=== PATIENT | male | born 1950 | race Caucasian/White ===

== ENCOUNTER → 2016-10-29 | Outpatient (CLI) | payer OTHER ==
[~2016-10-29] MED LIST: CLOP1TAB15 PO; ENAL10TA88 PO; FOLI1TAB7 PO; METH15TA2 PO; METO25TA3 PO
--- NOTE | 2016-10-29 09:55 | DIAGNOSTIC IMAGING REPORT ---
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 DISCUSSION: Moderate generalized degenerative change of the interphalangeal joints. Moderate degenerative change metacarpophalangeal joint. Mild generalized soft tissue edematous change. IMPRESSION: Moderate generalized degenerative change left hand. Mild nonspecific soft tissue edematous change. Electronically signed by: Trevor Blevins M.D. 10/29/2016 9:54 AM Dictated Date/Time: 10/29/2016 9:51 AM
--- NOTE | 2016-10-29 09:56 | DIAGNOSTIC IMAGING REPORT ---
RIGHT HAND MIN 3 VIEWS ROUTINE CLINICAL HISTORY: R76.8 Positive anti-CCP testM13.0 Polyarthritis of [id number] Right pain COMPARISON: None. DISCUSSION: Minimal degenerative change interphalangeal joints. Mild soft tissue edema. No significant periarticular osteopenia or erosive change. IMPRESSION: Minimal degenerative change interphalangeal joints. Mild nonspecific soft tissue edema. Incidental note is made of an old avulsion of the ulnar styloid. Electronically signed by: Trevor Blevins M.D. 10/29/2016 9:55 AM Dictated Date/Time: 10/29/2016 9:54 AM
--- NOTE | 2016-10-29 10:07 | DIAGNOSTIC IMAGING REPORT ---
RIGHT WRIST MIN 3 VIEWS ROUTINE CLINICAL HISTORY: Positive anti-CCP test. Polyarthritis of hand/ COMPARISON: Right hand radiographs November 22, 2014. FINDINGS: A well-corticated ossicle along the ulnar styloid suggests old injury. No acute fracture is identified. No erosions are identified. There is moderate narrowing of the radiocarpal joint space. Osteophytosis is noted. IMPRESSION: 1. Moderate joint space narrowing with osteophytosis of the radiocarpal articulation. 2. No acute fracture. 3. No radiographic evidence of an erosive or inflammatory arthritis. Electronically signed by: Howie Chan M.D. 10/29/2016 10:06 AM Dictated Date/Time: 10/29/2016 10:03 AM
== END | disposition home or self-care (01) ==
LOC: C.RAD1850 09:25
PROVIDERS: ATTEND Internal Medicine Rheumatology
DX: M13.0 Polyarthritis, unspecified (principal); R76.8 Other specified abnormal immunological findings in serum

== ENCOUNTER → 2016-12-25 | Outpatient (CLI) | payer OTHER ==
[~2016-12-25] MED LIST changes: +ACET-1256 PO; +ASPEC81 PO; +CALC-571 PO; +METO-452 PO; +NTRSLP4 SL; +[UNRECOGNIZED DRUG - CODE] PO
[2016-12-25 12:04] LABS: BASO % 0.4 %; BASO ABS # 0.03 K/uL (0-0.2); COMPLETE YES; HEMATOCRIT 41.2 % (42-52); IG% 0.1 %; LYMPH % 29.9 %; MEAN CELL VOLUME 86.2 fL (80-100); MEAN CORPUSCULAR HEMOGLOBIN 30.5 pg (25-34); MEAN CORPUSCULAR HGB CONC 35.4 g/dl (32-36); MEAN PLATELET VOLUME 8.4 fL (7.4-10.4); MONO % 12.2 %; NEUT % 54.4 %; PLATELET COUNT 309 K/uL (130-400); RED BLOOD COUNT 4.78 M/uL (4.7-6.1); WHITE BLOOD COUNT 7.68 K/uL (4.8-10.8)
[2016-12-25 12:19] LABS: ALT/SGPT 25 U/L (12-78)
[2016-12-25 12:22] LABS: ALKALINE PHOSPHATASE 53 U/L (45-117); AST/SGOT 17 U/L (15-37)
== END | disposition home or self-care (01) ==
LOC: C.LAB1850 11:00
PROVIDERS: ATTEND Internal Medicine Rheumatology
DX: R76.8 Other specified abnormal immunological findings in serum (principal); M25.531 Pain in right wrist; M25.532 Pain in left wrist

== ENCOUNTER → 2016-12-25 | Outpatient (CLI) | payer OTHER ==
[2016-12-25 13:38] VITALS: BP 135/82; PULSE 65; TEMP 37.2; O2SAT 94
--- NOTE | 2016-12-25 17:17 | Radiation Oncology Follow-Up ---
Radiation Oncology Follow-Up Date of Visit Dec 25, 2016. Reason For Visit Annual follow-up Radiation Completion Date Seed Implant 06/09/13 Diagnosis (1) MALIGN NEOPL PROSTATE Status: Resolved Onset Date: 05/22/2013 Location: left lobe of the prostate Stage: l Permanent Comment: Rising PSA Status post ultrasound-guided biopsies revealing adenocarcinoma [place] 3+3 Initiation of Avodart prostate volume 116 mL Status post TUR and green light vaporization Continued Avodart for downsizing Status post seed implant with cesium 131 on 06/09/2013 received 115 Gy Last Edited By: Danisha Alegria on Jan 12, 2016 15:26 Interim History He is been doing well over this past year. His urinary status is stable. He completed an AUA score sheet and gave a score of 3. Last year his score was 3. He completed expanded prostate cancer index composite for clinical practice and gave a score of one of 12 urinary incontinence symptoms. He gave a score of 0 12 in urinary irritation symptoms. He gave a score of 0 of 12 in bowel symptoms. He gave a score of 6 of 12 in sexual symptoms. He gave a score of 0 of 12 and hormonal vitality symptoms. His total was 7 of 60. His last PSA was 01/12/2016 and was 0.495. The PSA prior was 01/10/2015 and this was 2.260. Allergies Coded Allergies: Pantoprazole (Verified Allergy, Intermediate, Swelling / Aches & Pains over whole body , 12/25/16) Aspirin (Verified Allergy, Mild, 04/15/16) Ciprofloxacin (Verified Allergy, Unknown, swelling, 04/15/16) Levofloxacin (Verified Allergy, Unknown, ankle swelling, 04/15/16) Sulfamethoxazole w/Trimethoprim (Verified Allergy, Unknown, ., 04/15/16) Home Medications Scheduled Clopidogrel (Plavix), 75 MG PO DAILY Folic Acid (Folvite), 1 TAB PO DAILY Methotrexate (Trexall), 25 MG PO Q2D Metoprolol Succinate (Toprol Xl), 1 TAB PO DAILY Review of Systems Gastrointestinal: Symptoms: WNL Oral: Symptoms: No Problems Respiratory: Symptoms: WNL Urinary: Symptoms: Nocturia, Frequency Comments: Nocturia x 1, Freq every 2 hrs daily, See AUA & EPIC Skin: Symptoms: No Problems Physical Exam Vital Signs Date Time Temp Pulse Resp B/P Pulse Ox O2 Delivery O2 Flow Rate FiO2 12/25/16 13:38 37.2 65 18 135/82 94 Fatigue: None General Appearance: no apparent distress Eyes: normal inspection, EOMI ENT: normal ENT inspection, hearing grossly normal Respiratory/Chest: lungs clear, no respiratory distress, no accessory muscle use Cardiovascular: regular rate, rhythm, no gallop, no murmur Abdomen: non tender, soft, no organomegaly Anal / Rectum: Rectal examination reveals normal sphincter tone. Prostate is enlarged and firm. No nodules. No rectal masses and no rectal bleeding. Extremities: no pedal edema Neurologic/Psychiatric: no motor/sensory deficits, alert, normal mood/affect Skin: warm/dry Laboratory Studies Test 12/25/16 11:03 12/25/16 13:47 White Blood Count 7.68 K/uL (4.8-10.8) Red Blood Count 4.78 M/uL (4.7-6.1) Hemoglobin 14.6 g/dL (14.0-18.0) Hematocrit 41.2 % (42-52) Mean Corpuscular Volume 86.2 fL (80-100) Mean Corpuscular Hemoglobin 30.5 pg (25-34) Mean Corpuscular Hemoglobin Concent 35.4 g/dl (32-36) Platelet Count 309 K/uL (130-400) Mean Platelet Volume 8.4 fL (7.4-10.4) Neutrophils (%) (Auto) 54.4 % Lymphocytes (%) (Auto) 29.9 % Monocytes (%) (Auto) 12.2 % Eosinophils (%) (Auto) 3.0 % Basophils (%) (Auto) 0.4 % Neutrophils # (Auto) 4.17 K/uL (1.4-6.5) Lymphocytes # (Auto) 2.30 K/uL (1.2-3.4) Monocytes # (Auto) 0.94 K/uL (0.11-0.59) Eosinophils # (Auto) 0.23 K/uL (0-0.5) Basophils # (Auto) 0.03 K/uL (0-0.2) RDW Standard Deviation 44.1 fL (36.4-46.3) RDW Coefficient of Variation 14.2 % (11.5-14.5) Immature Granulocyte % (Auto) 0.1 % Immature Granulocyte # (Auto) 0.01 K/uL (0.00-0.02) Creatinine 1.30 mg/dl (0.60-1.40) Estimated GFR () 66.8 Estimated GFR (Non- 57.7 Total Bilirubin 0.6 mg/dl (0.2-1) Direct Bilirubin < 0.1 mg/dl (0-0.2) Aspartate Amino Transferase (AST) 17 U/L (15-37) Alanine Aminotransferase (ALT) 25 U/L (12-78) Alkaline Phosphatase 53 U/L (45-117) Total Protein 7.7 gm/dl (6.4-8.2) Albumin 3.7 gm/dl (3.4-5.0) Prostate Specific Antigen 0.301 ng/ml (0.000-4.000) Assessment & Plan Plan: The PSA was drawn prior to examination. He'll be notified as to results. Continue regular follow-up with his primary care physician and Dr. Alejandre. We asked him to return to our office in 1 year. He may call if he has any question or concerns in the interim. Total Time In Follow-Up I spent 20 minutes speaking to the patient and performed an examination. I spent 15 minutes reviewing information and completing this note. Copy To RV. Alonzo MD; Soham Alejandre MD
== END | disposition home or self-care (01) ==
LOC: C.ONC 13:02
PROVIDERS: ATTEND Physician Assistant Medical
DX: Z08 Encounter for follow-up examination after completed treatment for malignant neoplasm (principal); Z92.3 Personal history of irradiation; Z85.46 Personal history of malignant neoplasm of prostate

== ENCOUNTER → 2017-04-08 | Outpatient (CLI) | payer OTHER ==
[~2017-04-08] MED LIST changes: -ACET-1256 PO; -ASPEC81 PO; -CALC-571 PO; -ENAL10TA88 PO; -METO-452 PO; -NTRSLP4 SL; -[UNRECOGNIZED DRUG - CODE] PO
[2017-04-08 12:14] LABS: BASO % 0.4 %; BASO ABS # 0.03 K/uL (0-0.2); COMPLETE YES; HEMATOCRIT 43.8 % (42-52); IG% 0.2 %; LYMPH % 30.1 %; LYMPH ABS # 2.53 K/uL (1.2-3.4); MEAN CELL VOLUME 89.8 fL (80-100); MEAN CORPUSCULAR HEMOGLOBIN 31.8 pg (25-34); MEAN CORPUSCULAR HGB CONC 35.4 g/dl (32-36); MONO % 8.2 %; NEUT % 53.1 %; PLATELET COUNT 300 K/uL (130-400); RED BLOOD COUNT 4.88 M/uL (4.7-6.1)
[2017-04-08 12:36] LABS: ALT/SGPT 27 U/L (12-78); BLOOD UREA NITROGEN 19 mg/dl (7-18); BUN/CREATININE RATIO 14.8 (10-20); CALCIUM 9.3 mg/dl (8.5-10.1); CARBON DIOXIDE 26 mmol/L (21-32); CHLORIDE 107 mmol/L (98-107); CHOLESTEROL 210 mg/dl (0-200); GLUCOSE 91 mg/dl (70-99); POTASSIUM 4.2 mmol/L (3.5-5.1); SODIUM 140 mmol/L (136-145)
[2017-04-08 12:41] LABS: ALKALINE PHOSPHATASE 50 U/L (45-117); AST/SGOT 16 U/L (15-37); CHOLESTEROL/HDL RATIO 6.2; HDL CHOLESTEROL 34 mg/dl; LDL CHOLESTEROL CALCULATED 114 mg/dl; PROSTATE SPECIFIC ANTIGEN 0.254 ng/ml (0.000-4.000); TRIGLYCERIDES 309 mg/dl (0-150); VERY LOW DENSITY LIPOPROT CALC 62 mg/dl
== END | disposition home or self-care (01) ==
LOC: C.LAB1850 10:24
PROVIDERS: ATTEND Internal Medicine Rheumatology
DX: R76.8 Other specified abnormal immunological findings in serum (principal); M13.0 Polyarthritis, unspecified; Z79.899 Other long term (current) drug therapy; R73.09 Other abnormal glucose; C61 Malignant neoplasm of prostate

== ENCOUNTER 2017-08-17 16:01 | Emergency (ER) | payer OTHER ==
[~2017-08-17] VITALS: Ht 165.1 cm; Wt 103.6 kg
[2017-08-17 16:04] VITALS: TEMP 36.9; Ht 165.1 cm; Wt 103.6 kg
[2017-08-17 16:19] VITALS: O2SAT 93
--- NOTE | 2017-08-17 16:19 | EMERGENCY ROOM VISIT NOTE ---
History First contact with patient: 16:09 Chief Complaint: CARDIAC ASSESSMENT Stated Complaint: PRESSURE IN CHEST, SOB History of Present Illness The patient is a 67 year old male who presents to the Emergency Room with complaints of increasing pressure in his chest over the last week. This atypical chest pain is not new to him, but the episodes are increasing in frequency and are occurring at rest. He describes it as pressure/dull tightness which comes and goes, and is associated with dyspnea on exertion. There is no radiation to left arm or jaw. The episodes go away on their own after 30 minutes. He has been seen by Dr. Lloyd for the same issue: has had SPECT scan in 2016 and stress echo in 2013, both showing no ischemic changes. He responded well to PPIs in the past, and was started on clopidogrel and metoprolol by Dr. Lloyd. Never smoked. Has never been told he has copd, asthma, hyperlipidemia, diabetes Took two tylenol at 3 pm today (Gets hives when he takes aspirin.) uses CPAP for sleep apnea. Review of Systems Constitutional: + fatigue, No fever, No chills, No sweats, No weight loss, No weakness, No problem reported ENT: No hearing loss, No unusual epistaxis, No nasal symptoms, No sore throat, No tinnitus, No dental problems, No trouble swallowing, No problem reported Respiratory: + shortness of breath, + dyspnea on exertion, No cough, No sputum, No wheezing, No dyspnea at rest, No hemoptysis, No problem reported Cardiovascular: + chest pain, No orthopnea, No PND, No edema, No claudication, No palpitations, No problem reported Abdomen: No pain, No nausea, No vomiting, No diarrhea, No constipation, No GI bleeding, No problem reported Musculoskeletal: + joint pain, No muscle pain, No swelling, No calf pain, No problem reported Genitourinary - Male: No hematuria, No dysuria, No urinary frequency, No urinary urgency, No urinary hesitancy, No urinary retention, No urinary incontinence, No penile discharge, No lesions, No impotence, No problem reported Integumentary: No rash, No itch, No new/changing skin lesions, No color change, No bleeding, No problem reported Past Medical/Surgical History Medical Problems: (1) HYPERTENSION NOS (2) MALIGN NEOPL PROSTATE (3) PNEUMONIA, ORGANISM NOS Family History Diabetes mellitus FH: cancer Social History Smoking Status: Never Smoker Alcohol Use: none Drug Use: none Marital Status: Occupation Status: employed Current/Historical Medications Scheduled Acetaminophen (Tylenol), 1,000 MG PO PRN UD Calcium Carbonate-Simethicone ([place] Heartburn+Ga 750-80 mg), 1 TAB PO PRN Clopidogrel (Plavix), 75 MG PO DAILY Metoprolol Succinate (Toprol Xl), 1 TAB PO DAILY Physical Exam Vital Signs Date Time Temp Pulse Resp B/P (MAP) Pulse Ox O2 Delivery O2 Flow Rate FiO2 08/17/17 19:54 70 18 140/93 94 Room Air 08/17/17 19:11 66 18 150/93 95 Room Air 08/17/17 17:14 65 12 134/83 94 Room Air 08/17/17 16:31 93 Room Air 08/17/17 16:22 69 08/17/17 16:19 93 Room Air 08/17/17 16:04 36.9 73 20 156/85 93 Room Air Physical Exam General Appearance: WD/WN, no apparent distress Head: normocephalic, atraumatic Eyes: normal inspection, EOMI ENT: hearing grossly normal Neck: supple, no adenopathy, no JVD, no carotid bruits Respiratory/Chest: chest non-tender, lungs clear, normal breath sounds, no respiratory distress, no accessory muscle use Cardiovascular: regular rate, rhythm, no edema, no gallop, no JVD, no murmur , normal peripheral pulses Abdomen / GI: normal bowel sounds, non tender, soft Back: normal inspection, no CVA tenderness Extremities: normal inspection, no calf tenderness, normal capillary refill , no pedal edema Neurologic/Psych: 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 tested, no motor/sensory deficits, alert , normal mood/affect, normal reflexes, oriented x 3 Medical Decision & Procedures Laboratory Results 08/17/17 16:27 Red Blood Count 5.11, Mean Corpuscular Volume 88.1, Mean Corpuscular Hemoglobin 30.5, Mean Corpuscular Hemoglobin Concent 34.7, Mean Platelet Volume 8.6, Neutrophils (%) (Auto) 55.2, Lymphocytes (%) (Auto) 29.3, Monocytes (%) (Auto) 13.2, Eosinophils (%) (Auto) 2.0, Basophils (%) (Auto) 0.2, Neutrophils # (Auto ) 4.60, Lymphocytes # (Auto) 2.44, Monocytes # (Auto) 1.10, Eosinophils # (Auto ) 0.17, Basophils # (Auto) 0.02 08/17/17 16:27 Test 08/17/17 16:27 08/17/17 18:15 White Blood Count 8.34 K/uL (4.8-10.8) Red Blood Count 5.11 M/uL (4.7-6.1) Hemoglobin 15.6 g/dL (14.0-18.0) Hematocrit 45.0 % (42-52) Mean Corpuscular Volume 88.1 fL (80-100) Mean Corpuscular Hemoglobin 30.5 pg (25-34) Mean Corpuscular Hemoglobin Concent 34.7 g/dl (32-36) Platelet Count 306 K/uL (130-400) Mean Platelet Volume 8.6 fL (7.4-10.4) Neutrophils (%) (Auto) 55.2 % Lymphocytes (%) (Auto) 29.3 % Monocytes (%) (Auto) 13.2 % Eosinophils (%) (Auto) 2.0 % Basophils (%) (Auto) 0.2 % Neutrophils # (Auto) 4.60 K/uL (1.4-6.5) Lymphocytes # (Auto) 2.44 K/uL (1.2-3.4) Monocytes # (Auto) 1.10 K/uL (0.11-0.59) Eosinophils # (Auto) 0.17 K/uL (0-0.5) Basophils # (Auto) 0.02 K/uL (0-0.2) RDW Standard Deviation 44.4 fL (36.4-46.3) RDW Coefficient of Variation 13.7 % (11.5-14.5) Immature Granulocyte % (Auto) 0.1 % Immature Granulocyte # (Auto) 0.01 K/uL (0.00-0.02) Prothrombin Time 11.4 SECONDS (9.0-12.0) Prothromb Time International Ratio 1.1 (0.9-1.1) Activated Partial Thromboplast Time 27.3 SECONDS (21.0-31.0) Partial Thromboplastin Ratio 1.1 Anion Gap 6.0 mmol/L (3-11) Est Creatinine Clear Calc Drug Dose 68.6 ml/min Estimated GFR () 73.9 Estimated GFR (Non- 63.7 BUN/Creatinine Ratio 13.0 (10-20) Calcium Level 8.8 mg/dl (8.5-10.1) Magnesium Level 2.3 mg/dl (1.8-2.4) Total Bilirubin 0.4 mg/dl (0.2-1) Direct Bilirubin < 0.1 mg/dl (0-0.2) Aspartate Amino Transf (AST/SGOT) 20 U/L (15-37) Alanine Aminotransferase (ALT/SGPT) 23 U/L (12-78) Alkaline Phosphatase 55 U/L (45-117) Total Creatine Kinase 240 U/L (39-308) Total Protein 7.8 gm/dl (6.4-8.2) Albumin 3.8 gm/dl (3.4-5.0) Lipase 238 U/L (73-393) Thyroid Stimulating Hormone (TSH) 2.140 uIu/ml (0.300-4.500) Creatine Kinase MB 1.6 ng/ml (0.5-3.6) Creatine Kinase MB Ratio (0-3.0) Troponin I < 0.015 ng/ml (0-0.045) ECG Indication: chest pain Rate (beats per minute): 63 Rhythm: normal sinus Findings: no acute ischemic change, other ( normal intervals; possible inferior infarct, age undetermined; abnormal EKG) Comparison ECG Date: 12/30/2012 Change: no significant change Change: Repeat ECG at 1820 showed no change from original ECG at 1612 ED Course 1620: full h&p obtained from patient, ordered EKG 1630: discussed case with , ordered CBC, CMP, trop, coags, ckmb, lipase, tsh 1635: Dr. Domingo assessed patient and obtained his own h&p 1700: Labs returned normal 1730: Dr. Domingo discussed case with Dr. Westbrook 1750: Discussed case with Dr Lloyd; per his recommendations, will repeat CKMB and trop and EKG at 1830 and he will see patient in office on Saturday if all is normal. Medical Decision Prior records/ancillary studies reviewed. Triage Nursing notes reviewed. Additional history obtained from patient. The patient's history was concerning for chest pain. Differential diagnosis: Etiologies such as cardiac ischemia, aortic dissection, pulmonary embolism, pneumonia, pneumothorax, musculoskeletal, infections, pericarditis, myocarditis , esophageal rupture, gastrointestinal, as well as others were entertained. Physical examination: As above. Diagnostic interpretation by me: The electrocardiogram was negative for pathologic change. The labs revealed trops x 2 <0.015, CKMB 2.1 trending down to 1.6 By the evaluation outlined above emergent etiologies such as aortic dissection, pulmonary embolism, pneumonia, pneumothorax, as well as others were deemed relatively unlikely. The patient and were informed about the findings as listed above. All questions were answered and they were pleased with the treatment. Return instructions were outlined and the patient was discharged in stable condition. Referral: The patient was referred back to Dr. Lloyd, cardiology, for follow-up in 2 to 3 days for a recheck of the current condition. Impression Primary Impression: Atypical chest pain Departure Information Dispostion Home / Self-Care Condition GOOD Referrals RV. Alonzo MD (PCP) Patient Instructions ED Chest Pain Atypical Unkn Cause, [facility] Additional Instructions CHEST PAIN INSTRUCTIONS: DO NOT drive, drink alcohol, operate machinery, or perform dangerous activities today. You were given medications in the ER that can affect your ability to safely function or operate a vehicle. Ibuprofen(Motrin, Advil) may be used for fever or pain. Use 600mg every six hours as needed. Take with food. Avoid using more than 2400mg in a 24 hour period. Do not use 2400mg per day for more than three consecutive days without physician direction. Prolonged inappropriate use can lead to stomach upset or ulcers. This is available over the counter and typically comes in 200mg tablets. (AND/OR) Acetaminophen(Tylenol) may be used for fever or pain. Use 1000mg every eight hours as needed. Avoid using more than 3000mg in a 24 hour period. This is available over the counter. Read all the package inserts or medication information paperwork provided. If you have any questions or concerns call your primary provider, pharmacist or the ER for assistance. Rest and drink plenty of fluids as tolerated. Continue current medications. Avoid strenuous activities and anything that worsens your pain. Resume normal activities once your symptoms resolve. Return to the ER immediately for worsening or persistent chest pain, abdominal pain, vomiting, fevers, chest pains, difficulty breathing, worsening of your condition , or as needed. Follow up with your primary physician in 2-3 days for a recheck of your current condition. Call the office of Dr. Ji Lloyd, cardiology, on Saturday to set up an appointment. He is expecting to see you in office on Saturday. Resident Tracking Resident Involvement: Resident Care Provided Care Provided: Adult ED
[2017-08-17] MEDS ORDERED: CALC-571 PO (16:37)
[2017-08-17] MEDS ORDERED: ACET-1256 PO (16:37)
[2017-08-17 16:40] LABS: BASO % 0.2 %; BASO ABS # 0.02 K/uL (0-0.2); COMPLETE YES; IG% 0.1 %; LYMPH % 29.3 %; LYMPH ABS # 2.44 K/uL (1.2-3.4); MEAN CELL VOLUME 88.1 fL (80-100); MEAN CORPUSCULAR HEMOGLOBIN 30.5 pg (25-34); MEAN CORPUSCULAR HGB CONC 34.7 g/dl (32-36); MEAN PLATELET VOLUME 8.6 fL (7.4-10.4); MONO % 13.2 %; NEUT % 55.2 %; PLATELET COUNT 306 K/uL (130-400); RED BLOOD COUNT 5.11 M/uL (4.7-6.1); WHITE BLOOD COUNT 8.34 K/uL (4.8-10.8)
[2017-08-17 16:51] LABS: INR 1.1 (0.9-1.1); PARTIAL THROMBOPLASTIN RATIO 1.1; PROTHROMBIN TIME (PATIENT) 11.4 SECONDS (9.0-12.0)
[2017-08-17 17:02] LABS: ALT/SGPT 23 U/L (12-78); AST/SGOT 20 U/L (15-37); BLOOD UREA NITROGEN 15 mg/dl (7-18); CALCIUM 8.8 mg/dl (8.5-10.1); CARBON DIOXIDE 26 mmol/L (21-32); CHLORIDE 104 mmol/L (98-107); CREATININE 1.19 mg/dl (0.60-1.40); GLUCOSE 92 mg/dl (70-99); MAGNESIUM 2.3 mg/dl (1.8-2.4); POTASSIUM 3.9 mmol/L (3.5-5.1); SODIUM 136 mmol/L (136-145)
[2017-08-17 17:11] LABS: ALKALINE PHOSPHATASE 55 U/L (45-117); CKMB/CK RATIO 0.9 (0-3.0)
--- NOTE | 2017-08-17 17:16 | DIAGNOSTIC IMAGING REPORT ---
CHEST ONE VIEW PORTABLE CLINICAL HISTORY: Weakness. COMPARISON STUDY: Chest CT May 17, 2016. FINDINGS: Lung volumes are normal. No pneumothorax or pleural effusion is present. Linear bibasilar opacities favor atelectasis. Mild cardiomegaly is unchanged and there is no evidence of pulmonary edema. IMPRESSION: 1. No acute cardiopulmonary findings. 2. Linear bibasilar opacities suggestive of atelectasis. 3. Cardiomegaly without evidence of pulmonary edema. Electronically signed by: Howie Chan M.D. 08/17/2017 5:15 PM Dictated Date/Time: 08/17/2017 5:14 PM
[2017-08-17 19:54] VITALS: BP 140/93; PULSE 70; O2SAT 94
--- NOTE | 2017-08-17 21:28 | EMERGENCY ROOM VISIT NOTE ---
History Report prepared by Ally: Caron Coulter Under the Supervision of: Dr. Darrius Domingo M.D. First contact with patient: 16:09 Chief Complaint: CARDIAC ASSESSMENT Stated Complaint: PRESSURE IN CHEST, SOB History of Present Illness The patient is a 67 year old male who presents to the Emergency Room for a cardiac assessment. The patient states that he has had more pressure in his chest than usual over the past week. He states that he has intermittent episodes of it that are worsening and becoming more frequent. He describes the pain as a tightness that is dull and his left-sided. The patient reports that the pain comes no matter what he is doing. He notes that the episodes last 30 minutes and go away on its own. The patient states that he did take 2 Tylenol an hour ago with no relief. He complains of shortness of breath with exertion and denies it when resting. He denies the pain radiating to his left arm and jaw. 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 He states that he is on a beta janet and Plavix, but is unsure why. He is currently pain-free and feels well. Pt denies LOC, headache, fevers, chills, diaphoresis, visual changes, neck pain , nausea, vomiting, abdominal pain, back pain, melena, hematochezia, urinary symptoms, numbness, weakness, lymphadenopathy, rash, or other complaints. Source of History: patient Onset: a week ago Position: chest Quality: pressure, dull, other (tightness) Timing: intermittent, worsening Associated Symptoms: + SOB Note: The patient denies pain radiating to his left arm and jaw. Review of Systems See HPI for pertinent positives and negatives. A total of ten systems were reviewed and were otherwise negative. Past Medical & Surgical Medical Problems: (1) HYPERTENSION NOS (2) MALIGN NEOPL PROSTATE (3) PNEUMONIA, ORGANISM NOS Family History Diabetes mellitus FH: cancer Social History Smoking Status: Never Smoker Alcohol Use: none Drug Use: none Marital Status: Housing Status: lives with significant other Occupation Status: employed Current/Historical Medications Scheduled Acetaminophen (Tylenol), 1,000 MG PO PRN UD Calcium Carbonate-Simethicone (Shanna-[place] Heartburn+Ga 750-80 mg), 1 TAB PO PRN Clopidogrel (Plavix), 75 MG PO DAILY Metoprolol Succinate (Toprol Xl), 1 TAB PO DAILY Allergies Coded Allergies: Pantoprazole (Verified Allergy, Intermediate, Swelling / Aches & Pains over whole body , 08/17/17) Aspirin (Verified Allergy, Mild, 08/17/17) Ciprofloxacin (Verified Allergy, Unknown, swelling, 08/17/17) Levofloxacin (Verified Allergy, Unknown, ankle swelling, 08/17/17) Sulfamethoxazole w/Trimethoprim (Verified Allergy, Unknown, ., 08/17/17) Physical Exam Vital Signs Date Time Temp Pulse Resp B/P (MAP) Pulse Ox O2 Delivery O2 Flow Rate FiO2 08/17/17 19:54 70 18 140/93 94 Room Air 08/17/17 19:11 66 18 150/93 95 Room Air 08/17/17 17:14 65 12 134/83 94 Room Air 08/17/17 16:31 93 Room Air 08/17/17 16:22 69 08/17/17 16:19 93 Room Air 08/17/17 16:04 36.9 73 20 156/85 93 Room Air Physical Exam GENERAL: Awake, alert, well-appearing, in no distress HENT: Normocephalic, atraumatic. Oropharynx unremarkable. EYES: Normal conjunctiva. Sclera non-icteric. NECK: Supple. No nuchal rigidity. FROM. No JVD. RESPIRATORY: Clear to auscultation. CARDIAC: Regular rate, normal rhythm. Extremities warm and well perfused. Pulses equal. ABDOMEN: Soft, non-distended. No tenderness to palpation. No rebound or guarding. No masses. RECTAL: Deferred. MUSCULOSKELETAL: Chest examination reveals no tenderness. The back is symmetrical on inspection without obvious abnormality. There is no CVA tenderness to palpation. No joint edema. LOWER EXTREMITIES: Calves are equal size bilaterally and non-tender. No edema. No discoloration. NEURO: Normal sensorium. No sensory or motor deficits noted. SKIN: No rash or jaundice noted. Medical Decision & Procedures ER Provider Diagnostic Interpretation: Radiology results as stated below per my review and radiologist interpretation: CHEST ONE VIEW PORTABLE CLINICAL HISTORY: Weakness. COMPARISON STUDY: Chest CT May 17, 2016. FINDINGS: Lung volumes are normal. No pneumothorax or pleural effusion is present. Linear bibasilar opacities favor atelectasis. Mild cardiomegaly is unchanged and there is no evidence of pulmonary edema. IMPRESSION: 1. No acute cardiopulmonary findings. 2. Linear bibasilar opacities suggestive of atelectasis. 3. Cardiomegaly without evidence of pulmonary edema. Electronically signed by: Howie Chan M.D. 08/17/2017 5:15 PM Dictated Date/Time: 08/17/2017 5:14 PM Laboratory Results 08/17/17 16:27 Red Blood Count 5.11, Mean Corpuscular Volume 88.1, Mean Corpuscular Hemoglobin 30.5, Mean Corpuscular Hemoglobin Concent 34.7, Mean Platelet Volume 8.6, Neutrophils (%) (Auto) 55.2, Lymphocytes (%) (Auto) 29.3, Monocytes (%) (Auto) 13.2, Eosinophils (%) (Auto) 2.0, Basophils (%) (Auto) 0.2, Neutrophils # (Auto ) 4.60, Lymphocytes # (Auto) 2.44, Monocytes # (Auto) 1.10, Eosinophils # (Auto ) 0.17, Basophils # (Auto) 0.02 08/17/17 16:27 Test 08/17/17 16:27 08/17/17 18:15 White Blood Count 8.34 K/uL (4.8-10.8) Red Blood Count 5.11 M/uL (4.7-6.1) Hemoglobin 15.6 g/dL (14.0-18.0) Hematocrit 45.0 % (42-52) Mean Corpuscular Volume 88.1 fL (80-100) Mean Corpuscular Hemoglobin 30.5 pg (25-34) Mean Corpuscular Hemoglobin Concent 34.7 g/dl (32-36) Platelet Count 306 K/uL (130-400) Mean Platelet Volume 8.6 fL (7.4-10.4) Neutrophils (%) (Auto) 55.2 % Lymphocytes (%) (Auto) 29.3 % Monocytes (%) (Auto) 13.2 % Eosinophils (%) (Auto) 2.0 % Basophils (%) (Auto) 0.2 % Neutrophils # (Auto) 4.60 K/uL (1.4-6.5) Lymphocytes # (Auto) 2.44 K/uL (1.2-3.4) Monocytes # (Auto) 1.10 K/uL (0.11-0.59) Eosinophils # (Auto) 0.17 K/uL (0-0.5) Basophils # (Auto) 0.02 K/uL (0-0.2) RDW Standard Deviation 44.4 fL (36.4-46.3) RDW Coefficient of Variation 13.7 % (11.5-14.5) Immature Granulocyte % (Auto) 0.1 % Immature Granulocyte # (Auto) 0.01 K/uL (0.00-0.02) Prothrombin Time 11.4 SECONDS (9.0-12.0) Prothromb Time International Ratio 1.1 (0.9-1.1) Activated Partial Thromboplast Time 27.3 SECONDS (21.0-31.0) Partial Thromboplastin Ratio 1.1 Anion Gap 6.0 mmol/L (3-11) Est Creatinine Clear Calc Drug Dose 68.6 ml/min Estimated GFR () 73.9 Estimated GFR (Non- 63.7 BUN/Creatinine Ratio 13.0 (10-20) Calcium Level 8.8 mg/dl (8.5-10.1) Magnesium Level 2.3 mg/dl (1.8-2.4) Total Bilirubin 0.4 mg/dl (0.2-1) Direct Bilirubin < 0.1 mg/dl (0-0.2) Aspartate Amino Transf (AST/SGOT) 20 U/L (15-37) Alanine Aminotransferase (ALT/SGPT) 23 U/L (12-78) Alkaline Phosphatase 55 U/L (45-117) Total Creatine Kinase 240 U/L (39-308) Total Protein 7.8 gm/dl (6.4-8.2) Albumin 3.8 gm/dl (3.4-5.0) Lipase 238 U/L (73-393) Thyroid Stimulating Hormone (TSH) 2.140 uIu/ml (0.300-4.500) Creatine Kinase MB 1.6 ng/ml (0.5-3.6) Creatine Kinase MB Ratio (0-3.0) Troponin I < 0.015 ng/ml (0-0.045) Laboratory results reviewed by me ECG Indication: chest pain Rate (beats per minute): 63 Rhythm: normal sinus Findings: Q waves (Inferior), no acute ischemic change, no ectopy Comparison ECG Date: Repeat EKG Change: Normal sinus rhythm at 65. Inferior Q Waves. No acute ischemic change. No change from the first. ED Course 163: The patient was evaluated in room A3. A complete history and physical exam was performed. 174: I discussed the patient's case with Dr. Tavera. He is going to talk to Dr. Lloyd. 1737: I reevaluated the patient and he is currently pain free. 1752: I discussed the patient's case with Dr. Lloyd. He would like a second set of cardiac markers and an EKG. If everything is okay then he can follow up in the office with him. 1939: The patient has not changes to his previous cardiac markers and EKG so he will follow up with Dr. Lloyd. 1944: I reevaluated the patient. Discussed results and discharge instructions: He verbalized understanding and agreement. The patient is ready for discharge. Medical Decision Triage Nursing notes reviewed. The patient's presentation and history were concerning for chest pain. Etiologies such as cardiac ischemia, aortic dissection, pulmonary embolism, pneumonia, pneumothorax, musculoskeletal, infections, gastrointestinal, as well as others were entertained. The patient was evaluated. Clinically he was doing well. He was currently pain -free. He has had escalating symptoms and has already had a cardiac workup but not a cardiac catheterization. He follows with Dr. Lloyd. I was able to consult with cardiology and eventually discussed the case with Dr. Lloyd. As the patient is pain-free and has an unremarkable ECG was recommended for a second set of markers and repeat ECG with the thought being negative and she could follow up as an outpatient. This indeed was unremarkable. He was doing well. He is taking a beta janet as well as Plavix. He has an aspirin allergy. If he has any worsening issues he will come back to the emergency Department. Otherwise the patient will be followed up with cardiology on Saturday. Patient feels comfortable with the plan. The patient was seen and examined with Dr. Tanya Richey, resident physician. We discussed the case and treatments ordered, reviewed the results, and determine the disposition. Please refer to the resident's note for additional details. I have been directly involved with the management and disposition as well as independently evaluated the patient as documented in this note. By the evaluation outlined above other emergent etiologies such as those listed in the differential, as well as others, were deemed relatively unlikely. The patient was educated about the findings as listed above. All questions were answered and the patient was pleased with the treatment. Return instructions were outlined and the patient was discharged in stable condition. The patient was referred to cardiology for follow-up for a recheck of the current condition. Medication Reconcilliation Current Medication List: was personally reviewed by me Blood Pressure Screening Patient's blood pressure: Elevated blood pressure Blood pressure disposition: Referred to PCP Consults Time Called: 1739 Consulting Physician: Dr. Westbrook Returned Call: 1740 I discussed the patient's case with Dr. Westbrook. He is going to talk to Dr. Lloyd. Additional Consults: Time Called: 1749 Consulted Physician: Dr. Lloyd Returned Call: 1752 Additional Comments: I discussed the patient's case with Dr. Lloyd. He would like a second set of cardiac markers and an EKG. If everything is okay then he can follow up in the office with him. Impression Primary Impression: Left sided chest pain Scribe Attestation The scribe's documentation has been prepared under my direction and personally reviewed by me in its entirety. I confirm that the note above accurately reflects all work, treatment, procedures, and medical decision making performed by me. Departure Information Dispostion Home / Self-Care Referrals RV. Alonzo MD (PCP) Forms IMPORTANT VISIT INFORMATION Patient Instructions My [facility] Additional Instructions CHEST PAIN INSTRUCTIONS: DO NOT drive, drink alcohol, operate machinery, or perform dangerous activities today. You were given medications in the ER that can affect your ability to safely function or operate a vehicle. Ibuprofen(Motrin, Advil) may be used for fever or pain. Use 600mg every six hours as needed. Take with food. Avoid using more than 2400mg in a 24 hour period. Do not use 2400mg per day for more than three consecutive days without physician direction. Prolonged inappropriate use can lead to stomach upset or ulcers. This is available over the counter and typically comes in 200mg tablets. (AND/OR) Acetaminophen(Tylenol) may be used for fever or pain. Use 1000mg every eight hours as needed. Avoid using more than 3000mg in a 24 hour period. This is available over the counter. Read all the package inserts or medication information paperwork provided. If you have any questions or concerns call your primary provider, pharmacist or the ER for assistance. Rest and drink plenty of fluids as tolerated. Continue current medications. Avoid strenuous activities and anything that worsens your pain. Resume normal activities once your symptoms resolve. Return to the ER immediately for worsening or persistent chest pain, abdominal pain, vomiting, fevers, chest pains, difficulty breathing, worsening of your condition , or as needed. Follow up with your primary physician in 2-3 days for a recheck of your current condition. Call the office of Dr. Ji Lloyd, cardiology, on Saturday to set up an appointment. He is expecting to see you in office on Saturday.
== END 2017-08-17 19:57 | disposition home or self-care (01) ==
LOC: C.EDB 16:02 → C.EDA 19:57
DX: R07.89 Other chest pain (principal); R06.02 Shortness of breath; I10 Essential (primary) hypertension; Z79.02 Long term (current) use of antithrombotics/antiplatelets; Z79.899 Other long term (current) drug therapy; Z85.46 Personal history of malignant neoplasm of prostate; Z87.01 Personal history of pneumonia (recurrent); Z82.49 Family history of ischemic heart disease and other diseases of the circulatory system

== ENCOUNTER 2017-08-21 09:56 | Observation (INO) | payer OTHER ==
[2017-08-21] VITALS (13 sets, daily range): BP systolic 128–184; BP diastolic 70–113; PULSE 59–71; TEMP 36.4–36.9; O2SAT 94–100; Ht 165.1 cm; Wt 102.0 kg
[~2017-08-21] VITALS: Ht 165.1 cm; Wt 102.0 kg
[~2017-08-21 09:56] MED LIST changes: +ACET-1256 PO; +CALC-571 PO; -FOLI1TAB7 PO; -METH15TA2 PO
[2017-08-21] MEDS ORDERED: FENTANYL CITRATE INJ 50 MCG/1 ML 2 ML VIAL ONE (10:44)
[2017-08-21] MEDS ORDERED: NiCARDipine HCL INJ 2.5 MG/ML 10 ML AMP ONE (10:44)
[2017-08-21] MEDS ORDERED: MIDAZOLAM HCL 1 MG/ML 2ML VIAL ONE (10:44)
[2017-08-21] MEDS ORDERED: NITROGLYCERIN/D5W 100MCG/ML 20ML SYR ONE (10:44)
[2017-08-21] MEDS ORDERED: HEPARIN SOD (PORCINE) 1000 UNIT/ML 10 ML VIAL ONE ×2 (10:44→11:32)
--- NOTE | 2017-08-21 11:07 | History & Physical Bridge Note ---
H&P Re-Evaluation Bridge Note: I have examined the patient, reviewed the History & Physical and in the interval since the performance of the History & Physical I have noted the following changes of clinical significance: No changes noted
--- NOTE | 2017-08-21 11:08 | Procedure Note ---
Pre-Mod Sedation Assessment General Date of Moderate Sedation: Aug 21, 2017. Vital Signs: Vital Signs Past 12 Hours Date Time Temp Pulse Resp B/P (MAP) Pulse Ox O2 Delivery O2 Flow Rate FiO2 08/21/17 10:25 36.6 59 16 153/83 96 Room Air Review Abdomen: normal bowel sounds, non tender Lungs: chest non-tender, lungs clear Airway Class: III Pre-Sedation Airway Assessment Oral Cavity: WNL Able to Visualize Vocal Cords: No Short Thick Neck: No Hx of Sleep Apnea: No Smoking Status: Never Smoker Mallampati Classification: Class III ASA Classification: Class III Procedure Planning Contraindications-for Mod Sed: None Yes Notes The planned sedation has been discussed with the patient and consent obtained. I have identified the patient, determined the appropriateness of sedation and have assessed the patient immediately prior to the procedure. All medicine(s) and interventions are by my order.
[2017-08-21] MEDS ORDERED: TICAGRELOR 90 MG TAB PO ONE (12:37)
--- NOTE | 2017-08-21 12:47 | Procedure Note ---
Post-Mod Sedation Assessment General Date of Moderate Sedation Aug 21, 2017. Vital Signs: Vital Signs Past 12 Hours Date Time Temp Pulse Resp B/P (MAP) Pulse Ox O2 Delivery O2 Flow Rate FiO2 08/21/17 10:25 36.6 59 16 153/83 96 Room Air Review - Discharge Criteria Vital Signs Stable: Yes Alert/Oriented/Conversant: Yes Returned to Baseline Mental St: Yes Nausea Absent/Minimal: Yes Pain/Discomfort/Absent/Minimal: Yes Normal/Baseline Respirations: Yes Active Bleeding?: No Pt Received D/C Instructions: N/A Prescriptions Given: None Specific Proced. D/C Criteria Distal Pulses Present (Cardiac: Yes Groin site assessed-Card Cath: N/A Voided Prior To Discharge: N/A Discharged Patients Adult Escort/Transportation: Yes
[2017-08-21] MEDS ORDERED: NITROGLYCERIN 0.4 MG SL PER TAB CHARGE SL PRN (13:00)
[2017-08-21] MEDS ORDERED: ACETAMINOPHEN 325 MG TAB PO PRN (13:00)
[2017-08-21] MEDS ORDERED: SODIUM CHLORIDE 0.9% 1000ML 1,000 ML IV SCH (14:00)
[2017-08-21] MEDS ORDERED: IV FLUIDS COMPLETED PRN (14:15)
[2017-08-21] MEDS ORDERED: NURSING VERBAL MED ORDER ONE ×2 (14:45)
[2017-08-21] MEDS ORDERED: ASPIRIN 81 MG CHEW PO ONE ×2 (15:00→18:15)
[2017-08-21] MEDS ORDERED: METOPROLOL TARTRATE 25 MG TAB PO ONE (15:00)
--- NOTE | 2017-08-21 18:03 | Cardiac Catheterization ---
Procedure Note Procedure Date Aug 21, 2017. Pre-Procedure Diagnosis Angina AUC Score 7 Post-Procedure Diagnosis Severe CAD, Successful PCI, Normal Intracardiac Pressures Procedure(s) Performed Coronary Angiography, Left Heart Cath, Drug Eluting Stent, IVUS Carriage Dogger Gabino Finish Carpenter(s) Martin Estimated Blood Loss 15 Medication(s) Fentanyl, Heparin, Nitroglycerin, Versed, Lidocaine 1% Ticagrelor Summary of Findings Indication: Accelerating angina Access: 6Fr slender right radial artery Catheters: [place]; EBU 3.5 guide Findings: LM - Luminal irregularities LAD - Large caliber vessel: diffuse, calcified 80-90% proximal to mid disease; distal luminal irregularities Circumflex - Moderate caliber vessel that gives off 3 small-moderate caliber OM/ LPLBs without significant disease. RCA - Dominant, moderate caliber vessel; 20% mid segment disease; distal luminal irregularities. LVEDP - 5 -- PCI -- Antithrombotic therapy: Heparin, Ticagrelor Procedure: LM cannulated with EBU 3.5 guide Prowater wire passed across lesion into distal LAD IVUS showed diffuse moderately calcified disease extending back almost to ostium of LAD. Mid segment severely disease and unable to pass IVUS catheter more distal. Proximal-mid lesion predilated with 2.5 and 3.0 compliant balloons Dilated lesion stented with 3.5 x 38 [place] LEXII IVUS confirmed well appossed stent, underexpanded in the mid segment and proximally Stent post-dilated with 3.75 noncompliant balloon to high-atmospheres IC vasodilators administered for spasm Post procedure CHIKIS 3 flow, stent well expanded with minimal residual stenosis and no apparent cardiac complications. Arterial Closure: TR Band Summary: 1. Severe single vessel coronary artery disease - 80-90% diffuse proximal to mid LAD stenosis 2. Normal intracardiac filling pressure 3. Successful PCI of proximal to mid LAD with 3.5 x 38 [place] LEXII (post-dilated to 3.75) Recommendations: To PCU for continued monitoring Loaded with Ticagrelor in central lab technician. Reported aspirin allergy -- after further discussion unsure how real allergy is and will attempt aspirin challenge on floor. Ideally continue dual-antiplatelet therapy with ASA/clopidogrel for 1 year Continue statin, antihypertensives and ASCVD risk factor modification Consult cardiac Rehab Hemodynamics Rest Ao: 124/78/98 Final Ao: 130/72/96 LV: 125/5 Recommendations PCI without planned CABG Specimens None Radiation Exposure (mGy) 5164-Patient aware of high radiation, counseld on signs/sxs of toxicity Contrast (mls) 200 Visi Fluids (cc crystalloids) 154 Drains None Anesthesia Moderate Procedural Complication(s) None Disposition PCU ACC Data Cardiac Status Clinical evaluation leading to the procedure CAD Presntation: Unstable angina Anginal Classification: CCS III Heart Failure: NYHA Class: CCS I Cardiogenic Shock w/in 24Hrs: No Cardiac Arrest w/in 24Hrs: No Imaging studies past 6 months: No Stress studies past 6 months: No Closure Device Percutaneous Entry Location: Radial Closure Device: Radial Band Recommendations: PCI without planned CABG PCI Indication: Unstable Angina, Angina despite med therapy Lesion Segment Name: Proximal-mid LAD Culprit Artery: Yes Stenosis Prior to Rx (%): 80-90 Chronic Total Occlusion: No IVUS: Yes FFR: No Pre-Procedure CHIKIS Flow: 3 Previously Treated Lesion: No Lesion Complexity: Non-High/Non-C Lesion Length (mm): 30 Thrombus Present: No Bifurcation Lesion: No Guidewire Across Lesion: Yes Guidewire: Stenosis Post-Procedure (%): 0 Post-Procedure CHIKIS Flow: 3 Device(s) Deployed: Yes Intraprocedure Events Significant Dissection: No Perforation: No
[2017-08-21] MEDS ORDERED: ASPIRIN 81 MG CHEW ONE (18:23)
[2017-08-21] MEDS: METOPROLOL TARTRATE 25 MG TAB PO SCH (20:42)
[2017-08-21] MEDS ORDERED: TICAGRELOR 90 MG TAB PO SCH (21:00)
[2017-08-22] VITALS (7 sets, daily range): BP systolic 146–158; BP diastolic 82–89; PULSE 58–60; TEMP 36.3–36.6; O2SAT 94–96
[2017-08-22 06:32] LABS: BASO % 0.2 %; BASO ABS # 0.02 K/uL (0-0.2); COMPLETE YES; EOS % 1.6 %; HEMATOCRIT 44.3 % (42-52); IG% 0.1 %; LYMPH % 21.9 %; LYMPH ABS # 2.18 K/uL (1.2-3.4); MEAN CELL VOLUME 88.6 fL (80-100); MEAN CORPUSCULAR HEMOGLOBIN 30.2 pg (25-34); MEAN CORPUSCULAR HGB CONC 34.1 g/dl (32-36); MEAN PLATELET VOLUME 8.7 fL (7.4-10.4); MONO % 11.6 %; NEUT % 64.6 %; PLATELET COUNT 287 K/uL (130-400); WHITE BLOOD COUNT 9.97 K/uL (4.8-10.8)
[2017-08-22 07:04] LABS: BUN/CREATININE RATIO 12.4 (10-20); CREATININE 1.24 mg/dl (0.60-1.40); POTASSIUM 3.9 mmol/L (3.5-5.1)
[2017-08-22] MEDS: METOPROLOL TARTRATE 25 MG TAB PO SCH (08:25)
[2017-08-22] MEDS ORDERED: CLOPIDOGREL BISULFATE 300 MG TAB PO ONE (08:45)
[2017-08-22] MEDS ORDERED: ASPIRIN 81 MG ECTAB PO SCH (09:00)
[2017-08-22] MEDS ORDERED: METOPROLOL SUCC 25MG EXT REL TAB PO SCH (09:00)
[2017-08-22] MEDS ORDERED: FLUVASTATIN SODIUM 20 MG CAP PO SCH (09:00)
[2017-08-22] MEDS ORDERED: [UNRECOGNIZED DRUG - CODE] PO (11:41)
[2017-08-22] MEDS ORDERED: ASPEC81 PO (11:41)
[2017-08-22] MEDS ORDERED: METO-452 PO (11:41)
[2017-08-22] MEDS ORDERED: NTRSLP4 SL (11:41)
--- NOTE | 2017-08-22 11:44 | Discharge Instructions ---
Discharge Instructions Procedure Procedure Date: Aug 22, 2017. Reason for Visit: CAD. Discharge Discharge Date: Aug 22, 2017. Discharge Diagnosis: Coronary artery disease Last Recorded Wt (Kilograms): 102.000 Anesthesia Post Anesthesia Instructions: If you have had General Anesthesia or IV Sedation: * Do not drive today. * Resume driving when surgeon permits. * Do not make important decisions or sign legal documents today. * Call surgeon for: 1. Temperature elevations greater than 101 degrees F. 2. Uncontrollable pain. 3. Excessive bleeding. 4. Persistent nausea and vomiting. 5. Medication intolerance (nausea, vomiting or rash). * For nausea and vomiting use only clear liquids such as: tea, soda, bouillon until nausea subsides, then gradually increase diet as tolerated. * If you have any concerns or questions, call your surgeon's office. If physician is unavailable and it is an emergency, call 911 or go to the nearest emergency room. Instructions Activity Recommendations: limitations as noted below (Can gradually resume normal activities in 72 hrs) Recommended Home Diet: resume previous diet, low cholesterol Allergies: Coded Allergies: Pantoprazole (Verified Allergy, Intermediate, Swelling / Aches & Pains over whole body , 08/17/17) Aspirin (Verified Allergy, Mild, 08/17/17) Ciprofloxacin (Verified Allergy, Unknown, swelling, 08/17/17) Levofloxacin (Verified Allergy, Unknown, ankle swelling, 08/17/17) Sulfamethoxazole w/Trimethoprim (Verified Allergy, Unknown, ., 08/17/17) Follow Up Additional Instructions: ] ACTIVITY RECOMMENDATIONS: Excess manipulation of the wrist should be avoided for the next 24-48 hours. * No lifting over 2 pounds (approximately a 1/2 gallon of milk) with the utilized arm for 24 hours. * No strenuous activity such as bowling or tennis for 3 days. * Keep the site of the procedure covered with a bandage for 24 hours. *You may shower the day after the procedure. Do not take a tub bath or submerge the puncture site in water for the next 3 days. *Do not operate any motorized equipment for 3 days. SPECIAL CARE INSTRUCTIONS: The site may be slightly bruised and sore following your procedure. Should any of the following occur, contact the DrRebecca who performed your procedure. 1. Redness/inflammation, swelling, chills, or fever, or colored drainage at procedure site within 3-7 days after your procedure. 2. Coldness, discoloration, ongoing numbness, severe pain, or swelling. Expect mild tingling of hand and tenderness at the puncture site for up to three days. If this persists beyond three days, or other symptoms develop, notify the Dr. who performed your procedure. BLEEDING: If the procedure site on your wrist begins to bleed, do not panic 1. Place 1 or 2 fingers firmly just slightly above the insertion site to stop the bleeding. You may be able to feel your pulse as you hold pressure. 2. Lift your finger after 5 minutes to see if the bleeding has stopped. 3. Once the bleeding has stopped, gently wipe the wrist area clean with a bandage. * If the bleeding from your wrist does not stop after 10 minutes, or if there is a large amount of bleeding or spurting, call 911 (do not drive yourself to the hospital). SKIN IRRITATION: * You may experience some redness and/or swelling in the area where radiation was administered. If any skin irritation occurs, please contact your family physician. FOLLOW UP VISIT: Keep any scheduled doctor appointments. Follow-up with: Dr. Lloyd in 3 weeks [facility] Recommendations: Call your doctor if: * Temperature above 101 degrees * Pain not relieved by pain medicine ordered * There is increased drainage or redness from any incision * You have any unanswered questions or concerns. Your Doctors Instructions noted above were prepared by provider Greg Lloyd. Patient Signature Section: Patient Instructions Signature Page Carlos Fleming Patient (or Guardian) Signature/Date: I have read and understand the instructions given to me by my caregivers. Caregiver/RN/Doctor Signature/Date: The above-named patient and/or guardian has received patient instructions on this date. + Original Patient Signature Page (only) stays with chart. Please make copy for patient.
--- NOTE | 2017-08-22 11:53 | Discharge Summary ---
Discharge Summary Date of Service Aug 22, 2017. Discharge Summary Admission Date: Aug 21, 2017 at 13:06 Discharge Date: Aug 22, 2017 Discharge Disposition: Home Principal Diagnosis: Coronary Artery Disease post LAD stenting Immunizations: Have You Had Influenza Vaccine: N/A History of Tetanus Vaccine?: Yes History of Pneumococcal: No History of Hepatitis B Vaccine: No Procedures: 1. Coronary angiography 2. PCI of proximal mid LAD with a single drug-eluting stent Consultations: None Medication Reconciliation New Medications: Aspirin (Aspirin EC Low Dose) 81 Mg Ectab 81 MG PO QAM for 30 Days, #30 TABS 6 Refills Fluvastatin Sodium (Fluvastatin) 20 Mg Cap 20 MG PO EVERY OTHER DAY for 30 Days, #15 CAP 6 Refills Nitroglycerin (Nitrostat) 0.4 Mg/1 Tab Subl 0.4 MG SL UD PRN for Chest Pain for 30 Days, #30 TAB 6 Refills Changed Medications: Metoprolol Succinate (Toprol Xl) 50 Mg Tab 1 TAB PO DAILY for 30 Days, #30 TAB 5 Refills (Changed from: Metoprolol Succinate (Toprol Xl) 25 Mg Tabcr 1 Tab PO DAILY 30 Days #30 TAB Ref 5) Continued Medications: Acetaminophen (Tylenol) 500 Mg Tab 1000 MG PO PRN UD, TAB Clopidogrel (Plavix) 75 Mg Tab 75 MG PO DAILY, TAB Discharge Exam General: Comfortable, no acute distress Eyes: Sclerae anicteric, extraocular movements intact HENT: Oropharynx clear mucous membranes moist Neck: Normal carotid upstrokes, no bruits. No JVD. Lungs: Clear to auscultation bilaterally, no rhonchi or wheezes Cardiac: Regular rate and rhythm, no murmurs, rubs or gallops. Vascular: Right radial artery access site with no ecchymosis, hematoma. Distal pulse and sensation intact. Abdomen: Soft, nontender, nondistended, positive bowel sounds. Extremities: Well perfused, no peripheral edema Skin: No rashes or lesions. Neuro: Nonfocal Psych: Alert orient x3, normal affect and mood Hospital Course Mr. Fleming is a 67-year-old white male with a history of Hypertension, Dyslipidemia, Prostate Cancer s/p XRT, Pulmonary Nodules, Prediabetes, Obstructive Sleep Apnea on CPAP, Inflammatory Polyarthritis, and a history of an Atypical Chest Pain / Tightness Syndrome seen recently in the emergency room for episodic chest pain/pressure. Seen in cardiology outpatient clinic and concern for accelerating angina. Previously had had a Stress Cardiolite in July 2016 which showed a small mild apical partially reversible defect on perfusion imaging thought potentially secondary to artifact. Coronary angiogram performed via right radial artery. Was found to have severe 80-90 percent proximal to mid LAD stenosis. IVUS confirmed severe stenosis with [id number] calcification. Decision was made to proceed with PCI of LAD. Had 1 drug-eluting stent, 3.5 x 38 millimeter Philipp placed from near ostium to mid segment. No complications from procedure and patient tolerated procedure well. Was admitted to telemetry for further observation. He carried a diagnosis of aspirin allergy. On further discussion sounds as if he actually had a questionable reaction to Excedrin more than 40 years ago. Decision was made to challenge with aspirin overnight. Received multiple doses of 40 milligrams without any symptoms. In the a.m. received 81mg which he tolerated again without any rash or respiratory symptoms. Will continue on dual antiplatelet therapy with clopidogrel and aspirin going forward. Patient has previously been intolerant to multiple prior statins. Will start on fluvastatin 20 milligrams every other day and hopefully titrate as able. Plan to follow up in 3 weeks. Total Time Spent: Less than 30 minutes This includes examination of the patient, discharge planning, medication reconciliation, and communication with other providers. Discharge Instructions Please refer to the electronic Patient Visit Report (Discharge Instructions) for additional information. Follow-Up Dr. Lloyd in 3 weeks.
== END 2017-08-22 12:29 | disposition home or self-care (01) ==
LOC: C.CATH 09:56 → ENRESERV 12:05 → C.2T 13:06
PROVIDERS: ADMIT Internal Medicine Interventional Cardiology; ATTEND Internal Medicine Interventional Cardiology
DX: I25.10 Atherosclerotic heart disease of native coronary artery without angina pectoris (principal); R94.31 Abnormal electrocardiogram [ECG] [EKG]; R06.09 Other forms of dyspnea; R68.89 Other general symptoms and signs; I10 Essential (primary) hypertension; E78.5 Hyperlipidemia, unspecified; Z85.46 Personal history of malignant neoplasm of prostate; G47.33 Obstructive sleep apnea (adult) (pediatric); M06.4 Inflammatory polyarthropathy; Z87.440 Personal history of urinary (tract) infections; Z83.3 Family history of diabetes mellitus; Z82.49 Family history of ischemic heart disease and other diseases of the circulatory system; Z88.2 Allergy status to sulfonamides

== ENCOUNTER → 2017-12-05 | Outpatient (CLI) | payer OTHER ==
[~2017-12-05] MED LIST changes: +ASPEC81 PO; -CALC-571 PO; +METO-452 PO; -METO25TA3 PO; +NTRSLP4 SL; +[UNRECOGNIZED DRUG - CODE] PO
[2017-12-05 12:13] LABS: HEMATOCRIT 43.1 % (42-52); HEMOGLOBIN 15.2 g/dL (14.0-18.0); MEAN CELL VOLUME 87.6 fL (80-100); MEAN CORPUSCULAR HEMOGLOBIN 30.9 pg (25-34); MEAN CORPUSCULAR HGB CONC 35.3 g/dl (32-36); MEAN PLATELET VOLUME 8.5 fL (7.4-10.4); PLATELET COUNT 284 K/uL (130-400); RED CELL DISTRIBUTION WIDTH CV 14.4 % (11.5-14.5); RED CELL DISTRIBUTION WIDTH SD 46.2 fL (36.4-46.3); WHITE BLOOD COUNT 7.43 K/uL (4.8-10.8)
[2017-12-05 12:22] LABS: INR 1.1 (0.9-1.1); PTT PATIENT 27.2 SECONDS (21.0-31.0)
[2017-12-05 12:28] LABS: BLOOD UREA NITROGEN 15 mg/dl (7-18); CALCIUM 8.8 mg/dl (8.5-10.1); CARBON DIOXIDE 24 mmol/L (21-32); CREATININE 1.24 mg/dl (0.60-1.40); GLUCOSE 94 mg/dl (70-99); SODIUM 139 mmol/L (136-145)
== END | disposition home or self-care (01) ==
LOC: C.LAB1850 10:33
PROVIDERS: ATTEND Internal Medicine Interventional Cardiology
DX: Z01.818 Encounter for other preprocedural examination (principal)

== ENCOUNTER → 2017-12-06 | Day surgery (SDC) | payer OTHER ==
[~2017-12-06] VITALS: Ht 165.1 cm; Wt 109.0 kg
[~2017-12-06] MED LIST changes: +FENTANYL CITRATE INJ 50 MCG/1 ML 2 ML VIAL ONE; +HEPARIN SOD (PORCINE) 1000 UNIT/ML 10 ML VIAL ONE; +LIDOCAINE HCL 1% 20 ML VIAL ONE; +MIDAZOLAM HCL 1 MG/ML 2ML VIAL ONE; +NITROGLYCERIN/D5W 100MCG/ML 20ML SYR ONE; +NiCARDipine HCL INJ 2.5 MG/ML 10 ML AMP ONE; +PERFLUTREN LIPID MICROSPHERE (DEFINITY) IV ONE
[2017-12-06 10:15] VITALS: BP 154/74; PULSE 59; TEMP 36.6; O2SAT 96; Ht 165.1 cm; Wt 109.0 kg
--- NOTE | 2017-12-06 11:28 | Pre Sedation Assessment ---
Pre Sedation Assessment General Date of Sedation: Dec 06, 2017. Vital Signs Past 12 Hours Date Time Temp Pulse Resp B/P (MAP) Pulse Ox O2 Delivery O2 Flow Rate FiO2 12/06/17 10:15 36.6 59 16 154/74 (100) 96 Room Air Review Cardiovascular: regular rate, rhythm, no edema Lungs: chest non-tender, lungs clear Pre-Sedation Airway Assessment Smoking Status: Never Smoker Hx of Sleep Apnea: Yes Hx of difficult intubation: Yes Short Thick Neck: No Thyro-mental Distance: > 3 Finger Breadths Oral Cavity: WNL Mallampati Classification: Class II ASA Classification: Class III Procedure Planning Contraindications for Sedation: None Current Medications Reviewed: Yes Notes The planned sedation has been discussed with the patient. Informed Consent was obtained. I have identified the patient, determined the appropriateness of sedation and have assessed the patient immediately prior to the procedure. All medicine(s) and interventions are by my order.
--- NOTE | 2017-12-06 13:33 | Post Sedation Assessment ---
Post Sedation Assessment General Date of Sedation Dec 06, 2017. Vital Signs: Vital Signs Past 12 Hours Date Time Temp Pulse Resp B/P (MAP) Pulse Ox O2 Delivery O2 Flow Rate FiO2 12/06/17 13:30 64 18 115/78 (90) 95 Room Air 12/06/17 13:15 62 18 112/80 (91) 95 Room Air 12/06/17 13:00 62 18 114/80 (91) 95 Room Air 12/06/17 12:45 64 18 115/82 (93) 95 Room Air 12/06/17 12:30 62 18 126/84 (98) 95 Room Air 12/06/17 12:15 62 18 128/82 (97) 95 Room Air 12/06/17 12:00 60 18 148/84 (105) 95 Room Air 12/06/17 11:58 63 18 151/84 (106) 95 Room Air 12/06/17 11:43 60 18 134/82 (99) 99 Mask 3 12/06/17 10:15 36.6 59 16 154/74 (100) 96 Room Air Post Procedure Recovery Score Activity: (2) Moves 4 extremities * Respiration: (2) Deep breath/cough Circulation: (2) +/-20% PreAnes Value Consciousness: (2) Fully Awake Oxygen Saturation: (2) > 92% On Room Air Post Anesthesia Score: 10 Discharge Sedation Level of Care: Fast Track Phase II Post Sedation Plan On clinical assessment, the patient appears to have tolerated the sedation without complications. Patient is recovering as anticipated. Patient will continue to be monitored by nursing and may be discharged when sedation discharge criteria are met per below protocol. Upon Completions of procedure and additional 15 minutes continue every 5 minute vital signs and the P.A.R. score; then discharge to a Phase I or Fast Track to Phase II per the following guidelines: * Discharge Patient to appropriate Phase II area if PAR is 8 or greater or return to pre- procedure baseline. The post - procedure orders will be as directed. * If PAR score is less than 8 or not return to pre-procedure baseline then patient will follow Phase I monitoring till PAR is reached for Phase II. The Phase I may be done in procedure room or may call to secure a Phase I area. * If naloxone or flumazenil are used for reversal, hold in Phase I for an additional 60 -120 minutes before discharge to Phase II. Please call the Sedation Physician to re-evaluate and complete post-note for discharge to Phase II area. Do NOT discharge from procedure sedation or Phase 1 until post- sedation evaluation note is complete by procedure /sedation MD Sedation Discharge Instructions to be given to the patient at discharge to home.
--- NOTE | 2017-12-06 13:47 | Discharge Instructions ---
Discharge Instructions Procedure Procedure Date: Dec 06, 2017. Reason for Visit: Coronary Artery Disease *Lloyd Doing*. Discharge Discharge Date: Dec 06, 2017. Discharge Diagnosis: Non-obstructive CAD Last Recorded Wt (Kilograms): 109 Anesthesia Post Anesthesia Instructions: If you have had General Anesthesia or IV Sedation: * Do not drive today. * Resume driving when surgeon permits. * Do not make important decisions or sign legal documents today. * Call surgeon for: 1. Temperature elevations greater than 101 degrees F. 2. Uncontrollable pain. 3. Excessive bleeding. 4. Persistent nausea and vomiting. 5. Medication intolerance (nausea, vomiting or rash). * For nausea and vomiting use only clear liquids such as: tea, soda, bouillon until nausea subsides, then gradually increase diet as tolerated. * If you have any concerns or questions, call your surgeon's office. If physician is unavailable and it is an emergency, call 911 or go to the nearest emergency room. Instructions Activity Recommendations: limitations as noted below Recommended Home Diet: resume previous diet, low sodium, low cholesterol Allergies: Coded Allergies: Pantoprazole (Verified Allergy, Intermediate, Swelling / Aches & Pains over whole body , 08/17/17) Aspirin (Verified Allergy, Mild, 08/17/17) Ciprofloxacin (Verified Allergy, Unknown, swelling, 08/17/17) Levofloxacin (Verified Allergy, Unknown, ankle swelling, 08/17/17) Sulfamethoxazole w/Trimethoprim (Verified Allergy, Unknown, ., 08/17/17) Follow Up Additional Instructions: ACTIVITY RECOMMENDATIONS: Excess manipulation of the wrist should be avoided for the next 24-48 hours. * No lifting over 2 pounds (approximately a 1/2 gallon of milk) with the utilized arm for 24 hours. * No strenuous activity such as bowling or tennis for 3 days. * Keep the site of the procedure covered with a bandage for 24 hours. *You may shower the day after the procedure. Do not take a tub bath or submerge the puncture site in water for the next 3 days. *Do not operate any motorized equipment for 3 days. SPECIAL CARE INSTRUCTIONS: The site may be slightly bruised and sore following your procedure. Should any of the following occur, contact the Dr. who performed your procedure. 1. Redness/inflammation, swelling, chills, or fever, or colored drainage at procedure site within 3-7 days after your procedure. 2. Coldness, discoloration, ongoing numbness, severe pain, or swelling. Expect mild tingling of hand and tenderness at the puncture site for up to three days. If this persists beyond three days, or other symptoms develop, notify the Dr. who performed your procedure. BLEEDING: If the procedure site on your wrist begins to bleed, do not panic 1. Place 1 or 2 fingers firmly just slightly above the insertion site to stop the bleeding. You may be able to feel your pulse as you hold pressure. 2. Lift your finger after 5 minutes to see if the bleeding has stopped. 3. Once the bleeding has stopped, gently wipe the wrist area clean with a bandage. * If the bleeding from your wrist does not stop after 10 minutes, or if there is a large amount of bleeding or spurting, call 911 (do not drive yourself to the hospital). SKIN IRRITATION: * You may experience some redness and/or swelling in the area where radiation was administered. If any skin irritation occurs, please contact your family physician. FOLLOW UP VISIT: Keep any scheduled doctor appointments. Follow-up with: As scheduled Joanna Clark Recommendations: Call your doctor if: * Temperature above 101 degrees * Pain not relieved by pain medicine ordered * There is increased drainage or redness from any incision * You have any unanswered questions or concerns. Your Doctors Instructions noted above were prepared by provider Greg Lloyd. Patient Signature Section: Patient Instructions Signature Page Carlos Fleming Patient (or Guardian) Signature/Date: I have read and understand the instructions given to me by my caregivers. Caregiver/RN/Doctor Signature/Date: The above-named patient and/or guardian has received patient instructions on this date. + Original Patient Signature Page (only) stays with chart. Please make copy for patient.
[2017-12-06 14:15] VITALS: BP 127/74; PULSE 65; O2SAT 97
--- NOTE | 2017-12-06 16:26 | Cardiac Catheterization ---
Procedure Note Procedure Date Dec 06, 2017. 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 RCA - Dominant, moderate caliber vessel; 20% mid segment disease; distal luminal irregularities. LVEDP - 17 Arterial Closure: TR band Summary: 1. Mild nonobstructive coronary artery disease - widely patent proximal to mid LAD stent; sluggish distal flow 2. Borderline intracardiac filling pressure Recommendations: Continued ASCVD risk factor modification and dual antiplatelet therapy Follow-up recent echocardiogram Consider vasodilators for possible microvascular dysfunction. Hemodynamics Rest Ao: 137/68/98 Final Ao: 136/71/98 LV: 129/17 Recommendations Medical therapy and/or Counseling Specimens None Radiation Exposure (mGy) 1172 Contrast (mls) 50 Fluids (cc crystalloids) 58 Drains None Anesthesia Moderate Procedural Complication(s) None Disposition Cut [employer] Holding/Recovery ACC Data Cardiac Status Clinical evaluation leading to the procedure CAD Presntation: Unstable angina Anginal Classification: CCS III Heart Failure: No, NYHA Class: CCS I Cardiogenic Shock w/in 24Hrs: No Cardiac Arrest w/in 24Hrs: No Imaging studies past 6 months: Yes Stress studies past 6 months: No Diagnostic Status: Elective Closure Device Percutaneous Entry Location: Radial Closure Device: Radial Band Recommendations: Medical therapy and/or Counseling Intraprocedure Events Significant Dissection: No Perforation: No
--- NOTE | 2017-12-06 17:06 | ECHOCARDIOGRAM REPORT ---
*NOTICE TO RECEIVING LIBERTARIAN AGENCY This information is strictly Confidential and protected under [place] law. [place] law prohibits you from making any further disclosure of this information unless further disclosure is expressly permitted by the written consent of the person to whom it pertains or is authorized by law. A general authorization for the release of medical or other information is not sufficient for this purpose. Hospital accepts no responsibility if the information is made available to any other person, INCLUDING THE PATIENT. Interpretation Summary * Name: BAO LEI Study Date: 12/06/2017 08:32 AM * Patient Location: [facility] HR: 56 * : 1950 (M/d/yyyy) Gender: Male Height: 65 in * Age: 67 yrs Ethnicity: CA Weight: 230 lb * Ordering Physician: Ji Lloyd * Referring Physician: Ji Lloyd * Performed By: Arcelia Oh RDCS * * Reason For Study: Chest pain * BSA: 2.1 m2 * -- Conclusions -- * 1. Normal LV size, borderline concentric LVH. * 2. Normal LV systolic function. LVEF 55-60%. No regional wall motion abnormalities. * 3. Grade II diastolic dysfunction. * 4. Normal RV size and function. * 5. No significant valvular pathology. * 6. Normal estimated RA and PA pressures. * 7. No prior studies for comparison. Procedure Details * A complete two-dimensional transthoracic echocardiogram was performed (2D, M-mode, Doppler and color flow Doppler). * A contrast injection of Definity was performed to improve assessment of LV function. * Contrast was injected into an intravenous site in the left arm. * One vial of Definity ultrasound contrast was diluted in normal saline to a total volume of 10 ml. A total of '3' ml of solution was administered during imaging. * Lot # [id number] of Definity utilized for procedure. * Expiration date 1 NOV 11. * The attending nurse who injected the contrast agent was Fanta Cordero RN. Left Ventricle * The left ventricle is grossly normal size. * There is borderline concentric left ventricular hypertrophy. * Ejection Fraction = 55-60%. * No regional wall motion abnormalities noted. Right Ventricle * The right ventricle is grossly normal size. Atria * Borderline left atrial enlargement. * Borderline right atrial enlargement. * No ASD detected; PFO is not assessed. Mitral Valve * The mitral valve is grossly normal. * There is no mitral valve stenosis. * There is trace mitral regurgitation. Tricuspid Valve * There is trace tricuspid regurgitation. Aortic Valve * The aortic valve is normal in structure and function. * No hemodynamically significant valvular aortic stenosis. * There is no significant aortic regurgitation. Pulmonic Valve * The pulmonary valve is inadequately visualized, but the Doppler data is adequate for interpretation. * Pulmonic stenosis is absent. * There is no significant pulmonary regurgitation. Great Vessels * The aortic root and proximal ascending aorta are normal sized. Pericardium/Pleural * There is no pericardial effusion. Right Ventricle * No regional wall motion abnormalities are noted. Great Vessels * Normal inferior vena cava size and collapsability with sniff indicates a normal right atrial pressure of 3 mmHg Left Ventricular Diastolic Function * Diastolic dysfunction, Grade II (pseudonormalization pattern). MMode 2D Measurements and Calculations IVSd 1.2 cm LVIDd 4.7 cm LVIDs 3.0 cm LVPWd 1.2 cm IVS/LVPW 0.93 FS 37.5 % EDV(Teich) 104.8 ml ESV(Teich) 34.0 ml EF(Teich) 67.5 % EDV(cubed) 107.0 ml ESV(cubed) 26.1 ml EF(cubed) 75.6 % LV mass(C)d 215.2 grams LV mass(C)dI 102.5 grams/m\S\2 SV(Teich) 70.7 ml SI(Teich) 33.7 ml/m\S\2 SV(cubed) 80.9 ml SI(cubed) 38.5 ml/m\S\2 Ao root diam 3.2 cm Ao root area 8.2 cm\S\2 ACS 2.1 cm LA dimension 3.9 cm asc Aorta Diam 3.3 cm LA/Ao 1.2 LVAd ap4 33.3 cm\S\2 LVLd ap4 7.8 cm EDV(MOD-sp4) 116.7 ml EDV(sp4-el) 120.0 ml LVAs ap4 17.3 cm\S\2 LVLs ap4 6.2 cm ESV(MOD-sp4) 38.6 ml ESV(sp4-el) 40.7 ml EF(MOD-sp4) 66.9 % EF(sp4-el) 66.1 % LVAd ap2 20.6 cm\S\2 LVLd ap2 6.6 cm EDV(MOD-sp2) 52.4 ml EDV(sp2-el) 54.1 ml LVAs ap2 11.2 cm\S\2 LVLs ap2 5.9 cm ESV(MOD-sp2) 17.7 ml ESV(sp2-el) 18.2 ml EF(MOD-sp2) 66.3 % EF(sp2-el) 66.4 % LVLd %diff -18.02 % EDV(MOD-bp) 84.6 ml LVLs %diff -6.08 % ESV(MOD-bp) 27.2 ml EF(MOD-bp) 67.9 % SV(MOD-sp4) 78.1 ml SI(MOD-sp4) 37.2 ml/m\S\2 SV(MOD-sp2) 34.7 ml SI(MOD-sp2) 16.6 ml/m\S\2 SV(MOD-bp) 57.5 ml SI(MOD-bp) 27.4 ml/m\S\2 SV(sp4-el) 79.3 ml SI(sp4-el) 37.8 ml/m\S\2 SV(sp2-el) 35.9 ml SI(sp2-el) 17.1 ml/m\S\2 Doppler Measurements and Calculations MV E max sharla 83.9 cm/sec MV A max sharla 75.7 cm/sec MV E/A 1.1 MV dec time 0.19 sec Ao V2 max 106.0 cm/sec Ao max PG 4.5 mmHg Ao max PG (full) 1.4 mmHg LV V1 max PG 3.1 mmHg LV V1 max 88.3 cm/sec PA V2 max 112.7 cm/sec PA max PG 5.1 mmHg PA acc slope 571.9 cm/sec\S\2 PA acc time 0.12 sec TR max sharla 233.7 cm/sec PA pr(Accel) 26.7 mmHg
== END | disposition home or self-care (01) ==
LOC: C.CPL 08:19
PROVIDERS: ATTEND Internal Medicine Interventional Cardiology
DX: I25.10 Atherosclerotic heart disease of native coronary artery without angina pectoris (principal); G47.33 Obstructive sleep apnea (adult) (pediatric); I10 Essential (primary) hypertension; E78.5 Hyperlipidemia, unspecified; Z85.46 Personal history of malignant neoplasm of prostate; M13.0 Polyarthritis, unspecified; Z83.3 Family history of diabetes mellitus; Z82.49 Family history of ischemic heart disease and other diseases of the circulatory system; Z80.8 Family history of malignant neoplasm of other organs or systems; Z79.82 Long term (current) use of aspirin; Z79.899 Other long term (current) drug therapy

== ENCOUNTER → 2018-01-01 | Outpatient (CLI) | payer OTHER ==
[~2018-01-01] MED LIST changes: -ASPEC81 PO; +ASPI-320 PO; -FENTANYL CITRATE INJ 50 MCG/1 ML 2 ML VIAL ONE; -HEPARIN SOD (PORCINE) 1000 UNIT/ML 10 ML VIAL ONE; -LIDOCAINE HCL 1% 20 ML VIAL ONE; -MIDAZOLAM HCL 1 MG/ML 2ML VIAL ONE; -NITROGLYCERIN/D5W 100MCG/ML 20ML SYR ONE; -NiCARDipine HCL INJ 2.5 MG/ML 10 ML AMP ONE; -PERFLUTREN LIPID MICROSPHERE (DEFINITY) IV ONE; -[UNRECOGNIZED DRUG - CODE] PO
[2018-01-01 14:30] VITALS: BP 130/74; PULSE 77; TEMP 36.7; O2SAT 93
--- NOTE | 2018-01-01 15:48 | Radiation Oncology Follow-Up ---
Radiation Oncology Follow-Up Date of Visit Jan 01, 2018. Reason For Visit Annual follow-up Radiation Completion Date 06/09/13 seed implant Diagnosis (1) MALIGN NEOPL PROSTATE Status: Resolved Onset Date: 05/22/2013 Stage: l Permanent Comment: Rising PSA Status post ultrasound-guided biopsies revealing adenocarcinoma Irene 3+3 Initiation of Avodart prostate volume 116 mL Status post TUR and green light vaporization Continued Avodart for downsizing Status post seed implant with cesium 131 on 06/09/2013 received 115 Gy Last Edited By: Danisha Alegria on Jan 12, 2016 15:26 Interim History He has been doing well over this past year. He denies any difficulty with urination. He gave an AUA score of 5. Last year he gave an AUA score of 3. He completed and expanded prostate cancer index composite for clinical practice and gave a score of 0 of 12 and urinary incontinence symptoms. He gave a score of 0 of 12 and urinary irritation symptoms. He gave a score of 0 12 and bowel symptoms. He gave a score of 6 of 12 and sexual symptoms. He gave a score 1 of 12 and hormonal vitality symptoms. His total was 7 of 60. He does not require any medication to help with urination. His last PSA was April 08, 2017 which was 0.254. Allergies Coded Allergies: Pantoprazole (Verified Allergy, Intermediate, Swelling / Aches & Pains over whole body , 08/17/17) Aspirin (Verified Allergy, Mild, 08/17/17) Ciprofloxacin (Verified Allergy, Unknown, swelling, 08/17/17) Levofloxacin (Verified Allergy, Unknown, ankle swelling, 08/17/17) Sulfamethoxazole w/Trimethoprim (Verified Allergy, Unknown, ., 08/17/17) Home Medications Scheduled Acetaminophen (Tylenol), 1,000 MG PO PRN UD Aspirin (Aspirin EC Low Dose), 81 MG PO QAM Clopidogrel (Plavix), 75 MG PO DAILY Metoprolol Succinate (Toprol Xl), 1 TAB PO DAILY Scheduled PRN Nitroglycerin (Nitrostat), 0.4 MG SL UD PRN for Chest Pain Review of Systems Gastrointestinal: Symptoms: WNL GI Comments: No fiber supplements; Oral: Symptoms: No Problems Respiratory: Symptoms: SOB With Exertion Other Respiratory: SOB w/certain activities;Tires quicker Urinary: Symptoms: WNL Comments: Nocturia x 1, Freq every 2 hrs daily, See AUA & EPIC Skin: Symptoms: No Problems Physical Exam Vital Signs Date Time Temp Pulse Resp B/P (MAP) Pulse Ox O2 Delivery O2 Flow Rate FiO2 01/01/18 14:30 36.7 77 22 130/74 93 Fatigue: None General Appearance: no apparent distress Eyes: normal inspection, EOMI ENT: normal ENT inspection, hearing grossly normal Respiratory/Chest: lungs clear, no respiratory distress, no accessory muscle use Cardiovascular: regular rate, rhythm, no gallop, no murmur Abdomen: non tender, soft, no organomegaly Anal / Rectum: Normal sphincter tone prostate without nodules no rectal masses no rectal bleeding. Prostate is enlarged. Extremities: no pedal edema Neurologic/Psychiatric: no motor/sensory deficits, alert, normal mood/affect Skin: warm/dry Pain Management Patient Reports Pain: No Pain Management Plan He denies pain therefore requires no pain management. Laboratory Laboratory Results: pending Pathology Pathology Results: not applicable Imaging Imaging Studies: not applicable Assessment & Plan Plan: The PSA was drawn today prior to examination. He will be notified as to results. He will continue regular follow-up with urology and his primary care physician. I have asked him to make an appointment with Dr. Alejandre in 6 months. We asked him to return to our office in 1 year. He may call if he has any questions or concerns in the interim. Total Time In Follow-Up I spent 20 minutes speaking to the patient and performing examination. I spent 15 minutes reviewing information and completing this note. Copy To RV. Alonzo MD; Soham Alejandre MD
== END | disposition home or self-care (01) ==
LOC: C.ONC 14:21
PROVIDERS: ATTEND Physician Assistant Medical
DX: Z08 Encounter for follow-up examination after completed treatment for malignant neoplasm (principal); Z92.3 Personal history of irradiation; Z85.46 Personal history of malignant neoplasm of prostate

== ENCOUNTER → 2018-02-03 | Outpatient (CLI) | payer OTHER ==
[2018-02-03 09:40] LABS: BASO % 0.2 %; BASO ABS # 0.02 K/uL (0-0.2); EOS % 3.4 %; EOS ABS # 0.28 K/uL (0-0.5); HEMATOCRIT 45.7 % (42-52); HEMOGLOBIN 15.8 g/dL (14.0-18.0); IG# 0.02 K/uL (0.00-0.02); LYMPH % 26.4 %; LYMPH ABS # 2.16 K/uL (1.2-3.4); MEAN CELL VOLUME 88.6 fL (80-100); MEAN CORPUSCULAR HEMOGLOBIN 30.6 pg (25-34); MEAN CORPUSCULAR HGB CONC 34.6 g/dl (32-36); MEAN PLATELET VOLUME 9.2 fL (7.4-10.4); MONO % 13.2 %; MONO ABS # 1.08 K/uL (0.11-0.59); NEUT % 56.6 %; NEUT ABS # 4.62 K/uL (1.4-6.5); PLATELET COUNT 253 K/uL (130-400); RED CELL DISTRIBUTION WIDTH CV 13.9 % (11.5-14.5); RED CELL DISTRIBUTION WIDTH SD 45.1 fL (36.4-46.3); WHITE BLOOD COUNT 8.18 K/uL (4.8-10.8)
[2018-02-03 09:53] LABS: HEMOGLOBIN A1C 5.7 % (4.5-5.6)
[2018-02-03 10:16] LABS: ALBUMIN 3.7 gm/dl (3.4-5.0); ALT/SGPT 25 U/L (12-78); AST/SGOT 23 U/L (15-37); BLOOD UREA NITROGEN 22 mg/dl (7-18); CARBON DIOXIDE 26 mmol/L (21-32); CHOLESTEROL 204 mg/dl (0-200); CREATININE 1.25 mg/dl (0.60-1.40); GLUCOSE 99 mg/dl (70-99); POTASSIUM 4.2 mmol/L (3.5-5.1); SODIUM 141 mmol/L (136-145)
[2018-02-03 10:20] LABS: ALKALINE PHOSPHATASE 49 U/L (45-117); LDL CHOLESTEROL CALCULATED 106 mg/dl; TOTAL PROTEIN 7.9 gm/dl (6.4-8.2)
== END | disposition home or self-care (01) ==
LOC: C.LAB1850 08:52
PROVIDERS: ATTEND Internal Medicine
DX: I25.10 Atherosclerotic heart disease of native coronary artery without angina pectoris (principal); R73.09 Other abnormal glucose

== ENCOUNTER 2023-03-19 17:27 | Observation (INO) ==
[2023-03-19] MEDS ORDERED: ACETAMINOPHEN 1,000 MG/100 ML VIAL IV STA (18:16)
--- NOTE | 2023-03-19 18:25 | XRay Report ---
SINGLE VIEW CHEST CLINICAL HISTORY: Sepsis. FINDINGS: 2 AP, portable, upright chest radiographs are compared to study dated 10/23/2019. The examin ation is degraded by portable technique and patient rotation. The heart is enlarged noting atheroscl erotic calcification of the thoracic aorta. There is pulmonary vascular congestion. There is bibasila r scarring/atelectasis. No large pleural effusion or pneumothorax is seen. The skeletal structures ar e osteopenic. The bony thorax is grossly intact. IMPRESSION: Cardiomegaly with pulmonary vascular congestion. ACT 112: Negative or not required by law. Electronically signed by: Ruel Quintana M.D. 03/19/2023 6:22 PM
[2023-03-19 18:27] LABS: Basophils # (auto) 0.03 K/uL (0-0.2); Basophils % (auto) 0.3 %; Hematocrit (blood only) 43.4 % (42.0-52.0); Immature Granulocytes # (auto) 0.03 K/uL (0.01-0.20); Immature Granulocytes % (auto) 0.3 %; Lymphocytes # (auto) 0.58 K/uL (1.2-3.4); Lymphocytes % (auto) 6.5 %; Mean Corpuscular Hemoglobin 29.9 pg (25.0-34.0); Mean Corpuscular Hgb Conc 34.6 g/dL (32.0-36.0); Mean Corpuscular Volume 86.5 fL (80.0-100.0); Mean Platelet Volume 8.9 fL (9.4-12.4); Monocytes # (auto) 0.73 K/uL (0.11-0.59); Monocytes % (auto) 8.2 %; Neutrophils % (auto) 84.7 %; Platelet Count 152 K/uL (130-400); RDW Coefficient of Variation 14.8 % (11.5-14.5); RDW Standard Deviation 46.6 fL (36.4-46.3); Red Blood Count 5.02 M/uL (4.70-6.10); White Blood Count 8.87 K/ul (4.8-10.8)
[2023-03-19] MEDS ORDERED: cefTRIAXone SODIUM 2,000 MG/70 ML BAG IV STA (18:29)
[2023-03-19] MEDS ORDERED: DOXYCYCLINE HYCLATE 100 MG in DEXTROSE 5% 100 ML IV STA (18:29)
--- NOTE | 2023-03-19 18:39 | Emergency Department Note ---
Impression & Plan Anaplasmosis, SIRS (systemic inflammatory response syndrome), Hypoxia ED Provider Note NAME: BAO LEI AGE: 72 SEX: M ARRIVES VIA: Walk-In INFORMANT: Patient ED PROVIDER(S): Dmitry Niño MD CHIEF COMPLAINT: Fever, body aches, shortness of breath PLAN: Disposition: Admit MEDICAL DECISION MAKING: The patient is a pleasant 72-year-old gentleman with a past medical history of CAD,, rheumatoid arthritis on chronic prednisone, history of prostate cancer, re stless leg syndrome who presents to the emergency department via walk-in accompanied by his for evaluation of acute worsening of feverishness and body aches and shortness of breath today in the setting of symptoms began last Saturday which they had initially attributed to overdoing it with yard work. The patient has had mild congestion and shortness of breath. He reports he feels confused. On arrival the patient is ill-appearing with temperature of 39.6 with heart rate in the 100s, respiratory rate in the mid to upper 20s with O2 saturation in the upper 80s on room air improving to the mid 90s on 3 L nasal cannula. He is alert and oriented moving all extremities equally. He appears clinically dry. EKG without overt acute ischemia. CXR suspected vascular congestion with bibasilar scarring/atelectasis. WBC normal limits however with mild lymphopenia 0.58. H/H within normal limits. Platelets 152K, low-normal and decreased from 380K Ashley. Chemistry without metabolic acidosis. Electrolytes and LFTs without significant abnormality. Lactic acid 1.4, within normal limits. CPK within normal limits. High- sensitivity troponin 12.2, within normal limits. Procalcitonin is elevated at 0.99. UA without convincing evidence of infection. Respiratory viral panel/bio fire was negative. Given the patient's acute febrile illness with new low- normal platelets tickborne illness testing was performed in Anaplasma smear was positive. Lyme screen was negative. CTA of the chest was performed and was negative for PE. Dependent and bibasilar atelectasis is seen without focal cons olidation. Given the patient's SIRS, patient was treated empirically with IV ceftriaxone and doxycycline, in addition to 30cc/kg of IBW. On reevaluation the patient was feeling some improvement in had defervesced. Findings reviewed the patient's and while he initially had denied any known tick exposures he then recalled having a tick embedded in his right axilla 3-4 weeks ago. He did not feel this was engorged or attached more than 24 hours. Given the severity of his illness secondary to anaplasmosis they do agree with plan for admission for further management. Dr. Aviles [facility] hospitalist evaluated patient for admission. Further management per admitting team. Triage Nursing notes reviewed and agree them. Prior/outside medical records reviewed Vital Signs: reviewed Differential diagnosis: Sepsis, UTI, pneumonia, metabolic, electrolyte abnormalities, cardiac sources, intracerebral event, toxicologic, neurologic, as well as other pathologies. ER treatment provided: See below. Diagnostics interpreted by me: ECG: Sinus tachycardia, 103 bpm, no ectopy, no overt ST elevation or depression, QTc 4 3, QRS 80. Cardiac Monitoring: An order for continuous cardiac monitoring was placed and demonstrated Sinus tachycardia, 103 bpm, no ectopy. Laboratory studies: See below Imaging studies: See below Consultation(s): JEANMARIE Chavez hospitalist. HPI: The patient is a pleasant 72-year-old gentleman with a past medical history of CAD,, rheumatoid arthritis on chronic prednisone, history of prostate cancer, restless leg syndrome who presents to the emergency department via walk-in accompanied by his for evaluation of acute worsening of feverishness and body aches and shortness of breath today in the setting of symptoms began last Saturday which they had initially attributed to overdoing it with yard work. The patient has had mild congestion and shortness of breath. He reports he feels co nfused. ROS: See above HPI for pertinent positives & negatives. A total of 10 systems reviewed and were otherwise negative. VITALS:See Below PHYSICAL EXAMINATION: GENERAL: Awake, alert, ill-appearing, in no distress HENT: Normocephalic, atraumatic. Oropharynx with dry mucous membranes and otherwise unremarkable. EYES: Normal conjunctiva. Sclera non-icteric. NECK: Supple. No nuchal rigidity. FROM. No JVD. RESPIRATORY: Clear to auscultation. CARDIAC: Tachycardic rate, normal rhythm. Extremities warm and well perfused. Pulses equal. ABDOMEN: Soft, non-distended. No tenderness to palpation. No rebound or guarding. No masses. RECTAL: Deferred. MUSCULOSKELETAL: Chest examination reveals no tenderness. The back is s ymmetrical on inspection without obvious abnormality. There is no CVA tenderness to palpation. No joint edema. LOWER EXTREMITIES: Calves are equal size bilaterally and non-tender. No edema. No discoloration. NEURO: Normal sensorium. No focal sensory or motor deficits noted. SKIN: No rash or jaundice noted. 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) On leflunamide Coronary artery disease s/p stent to proximal LAD 07/2017 Dermatitis Hyperlipidemia Restless legs syndrome Rheumatoid arthritis Positive anti-CCP test Follows with Rheumatology Sleep apnea on CPAP Solitary pulmonary nodule Statin intolerance Tick bite of right shoulder Surgical History H/O prostate biopsy History of coronary artery stent placement S/P cystoscopy with ureteral stent placement (02/14/12) S/P hernia repair (~1972) Family History Father Myocardial infarction Stroke Brain cancer Coronary heart disease Uncle Myocardial infarction Mother Diabetes Brother Diabetes Sister Diabetes Family/Other Diabetes Denies family history of Ovarian cancer Prostate cancer Breast cancer Colorectal cancer Social History Smoking Status: Never smoker Second Hand Exposure: No; Do You Dip or Chew Tobacco: No; Hx Alcohol Use: No Hx Substance Use: No Preferred Language: East Timorese Visual Impairment: No Limitations Hearing Ability: Normal Diamond Cleaner Required: No Beliefs That Will Affect Care: None marital status: Current Living Situation: Spouse current occupational status: employed and retired current occupation: [employer] Feels Safe at Home: Yes Childhood Exposure to Second-Hand Smoke: No Dental Care, Regularly: No Physical Activity Frequency: Daily Seatbelt Use: always Sunscreen Use: No Assistive Devices: CPAP Allergies Allergies Allergy/AdvReac Type Severity Reaction Status Date / Time ciprofloxacin Allergy Intermediate swelling Verified 03/07/23 08:59 pantoprazole Allergy Intermediate Swelling / Verified 03/07/23 08:59 Aches & Pains over whole body trimethoprim Allergy Unknown WHOLE BODY Verified 03/07/23 08:59 TURNED RED icosapent ethyl AdvReac Severe Arthralgia, Verified 03/07/23 08:59 [From Vascepa] swallow problem levofloxacin AdvReac Intermediate ankle Verified 03/07/23 08:59 swelling [id number] Reductase AdvReac Intermediate myalgia Verified 03/07/23 08:59 Inhibitor Sulfa (Sulfonamide AdvReac Intermediate WHOLE BODY Verified 03/07/23 08:59 Antibiotics) TURNED RED sulfamethoxazole AdvReac Intermediate WHOLE BODY Verified 03/07/23 08:59 TURNED RED Home Meds Home Medications Medication Instructions Recorded Confirmed acetaminophen 500 mg tablet 1,000 mg PO TID PRN Fever Or Pain 10/23/19 03/19/23 (Tylenol Extra Strength) leflunomide 20 mg tablet 20 mg PO DAILY 03/19/23 03/19/23 prednisone 5 mg tablet 5 mg PO DAILY 03/19/23 03/19/23 Previous Rx's Medication Instructions Recorded metoprolol succinate 50 mg 50 mg PO QAM #90 tabs 06/17/22 tablet,extended release 24 hr (Toprol XL) amlodipine 10 mg tablet 10 mg PO QAM #90 tabs 07/06/22 clopidogrel 75 mg tablet (Plavix) 75 mg PO QAM #90 tabs 07/06/22 Results & Data (ED) Vital Signs Vital Signs - 24 hr 03/19/23 17:41 03/19/23 17:56 03/19/23 18:15 Temperature 39.6 C H Temperature Source Temporal Artery Scan Pulse Rate 107 H 102 H 100 H Pulse Rate [Radial] Pulse Rhythm Regular Pulse Rhythm [Radial] Pulse Strength [Radial] Respiratory Rate 19 25 H Respiratory Effort / Characteristics Respiratory Depth Normal Respiratory Pattern Blood Pressure 173/81 H Blood Pressure [Left Arm] Blood Pressure Mean 111 Blood Pressure Mean [Left Arm] Pulse Oximetry 89 L 93 Oxygen Delivery Method Room Air Nasal Cannula Oxygen Flow Rate 3 Sepsis Recent Fever Within 48 Hours Yes Sepsis New/Unexplained Change in Mental Status Yes Sepsis Action Taken by Nursing No Action Required 03/19/23 18:15 03/19/23 19:27 03/19/23 17:52 Temperature 37.9 C H Temperature Source Oral Pulse Rate 102 H Pulse Rate [Radial] 102 H Pulse Rhythm Pulse Rhythm [Radial] Regular Pulse Strength [Radial] Normal Respiratory Rate 25 H 45 H Respiratory Effort / Characteristics Spontaneous Respiratory Depth Normal Respiratory Pattern Regular Blood Pressure 169/87 H Blood Pressure [Left Arm] 169/87 H Blood Pressure Mean 97 Blood Pressure Mean [Left Arm] 114 Pulse Oximetry 95 95 Oxygen Delivery Method Nasal Cannula Room Air Oxygen Flow Rate 3 Sepsis Recent Fever Within 48 Hours Sepsis New/Unexplained Change in Mental Status Sepsis Action Taken by Nursing 03/19/23 19:00 03/19/23 19:51 03/19/23 21:02 Temperature Temperature Source Pulse Rate 105 H 97 H 80 Pulse Rate [Radial] Pulse Rhythm Pulse Rhythm [Radial] Pulse Strength [Radial] Respiratory Rate 45 H 30 H 15 Respiratory Effort / Characteristics Respiratory Depth Respiratory Pattern Blood Pressure 203/87 H 151/83 H 126/64 Blood Pressure [Left Arm] Blood Pressure Mean 112 97 84 Blood Pressure Mean [Left Arm] Pulse Oximetry 98 94 95 Oxygen Delivery Method Room Air Nasal Cannula Nasal Cannula Oxygen Flow Rate 4 4 Sepsis Recent Fever Within 48 Hours Sepsis New/Unexplained Change in Mental Status Sepsis Action Taken by Nursing Laboratory Data Attestation: I reviewed the patient's lab results. 03/19/23 15:00 03/19/23 15:00 Lab Results 03/19/23 03/19/23 03/19/23 Range/Units 15:00 15:00 15:00 WBC 8.87 (4.8-10.8) K/ul RBC 5.02 (4.70-6.10) M/uL Hgb 15.0 (14.0-18.0) g/dl Hct 43.4 (42.0-52.0) % MCV 86.5 (80.0-100.0) fL MCH 29.9 (25.0-34.0) pg MCHC 34.6 (32.0-36.0) g/dL RDW Std Deviation 46.6 H (36.4-46.3) fL RDW Coeff of Debi 14.8 H (11.5-14.5) % Plt Count 152 (130-400) K/uL MPV 8.9 L (9.4-12.4) fL Immature Gran % (Auto) 0.3 % Neut % (Auto) 84.7 % Lymph % (Auto) 6.5 % [place] % (Auto) 8.2 % Eos % (Auto) 0.0 % Baso % (Auto) 0.3 % Neut # (Auto) 7.50 H (1.40-6.50) K/uL Lymph # (Auto) 0.58 L (1.2-3.4) K/uL [place] # (Auto) 0.73 H (0.11-0.59) K/uL Eos # (Auto) 0.00 (0-0.50) K/uL Baso # (Auto) 0.03 (0-0.2) K/uL Immature Gran # (Auto) 0.03 (0.01-0.20) K/uL PT (9.0-12.0) Seconds INR (0.9-1.1) Sodium 135 L (136-145) mmol/L Potassium 4.0 (3.5-5.1) mmol/L Chloride 103 (98-107) mmol/L Carbon Dioxide 24 (21-32) mmol/L Anion Gap 8 (3-11) BUN 16 (6-23) mg/dl Creatinine 1.17 (0.6-1.4) mg/dl Est Cr Clr Drug Dosing 56.3 ml/min Est GFR ( Amer) 72.8 ml/min Est GFR (Non-Af Amer) 62.8 ml/min BUN/Creatinine Ratio 13.7 (10-20) Glucose 114 H (70-99(Fasting)) mg/dl Lactate (0.4-2.0) mmol/L Calcium 8.8 (8.6-10.3) mg/dl Magnesium 2.0 (1.7-2.4) mg/dl Total Bilirubin 0.4 (0.2-1.0) mg/dl Direct Bilirubin 0.1 (0-0.2) mg/dl AST 24 (13-39) U/L ALT 21 (7-52) U/L Alkaline Phosphatase 50 (34-104) U/L Total Creatine Kinase 80 (30-223) U/L Troponin I High Sens 12.2 (0-20) pg/ml Total Protein 7.7 (6.0-8.3) gm/dl Albumin 4.2 (3.4-5.0) gm/dl Lipase 46 (11-82) U/L Procalcitonin 0.99 H (0-0.5) ng/ml Urine Color Urine Appearance (Clear) Urine pH (4.5-7.5) Ur Specific [place] (1.000-1.030) Urine Protein (Negative) Urine Glucose (UA) (Negative) Urine Ketones (Negative) Urine Blood (Negative) Urine Nitrite (Negative) Urine Bilirubin (Negative) Urine Urobilinogen (Negative) Ur Leukocyte Esterase (Negative) Urine WBC (Auto) (0-5) /hpf Urine RBC (Auto) (0-4) /hpf U Hyaline Cast (Auto) (0-5) /lpf U Epithel Cells (Auto) (0-5) /lpf Urine Bacteria (Auto) (Negative) Adenovirus (PCR) (NotDetected) Anaplasma Smear Babesia Smear B. pertussis DNA (PCR) (NotDetected) B.parapertussis DNA PCR (NotDetected) Lyme Disease IgG Ab (Negative) Lyme Disease IgM Ab (Negative) C. pneumoniae DNA (PCR) (NotDetected) Coronavirus OC43 (PCR) (NotDetected) Coronavirus HKU1 (PCR) (NotDetected) Coronavirus 229E (PCR) (NotDetected) SARS-CoV-2 (PCR) (NotDetected) Coronavirus NL63 (PCR) (NotDetected) Human Metapneumovir PCR (NotDetected) Influenza Type A (PCR) (NotDetected) Influenza Type B (PCR) (NotDetected) M. pneumoniae (PCR) (NotDetected) Parainfluenza 1 (PCR) (NotDetected) Parainfluenza 2 (PCR) (NotDetected) Parainfluenza 3 (PCR) (NotDetected) Parainfluenza 4 (PCR) (NotDetected) RSV (PCR) (NotDetected) Entero/Rhino (PCR) (NotDetected) 03/19/23 03/19/23 03/19/23 Range/Units 15:00 18:00 18:00 WBC (4.8-10.8) K/ul RBC (4.70-6.10) M/uL Hgb (14.0-18.0) g/dl Hct (42.0-52.0) % MCV (80.0-100.0) fL MCH (25.0-34.0) pg MCHC (32.0-36.0) g/dL RDW Std Deviation (36.4-46.3) fL RDW Coeff of Debi (11.5-14.5) % Plt Count (130-400) K/uL MPV (9.4-12.4) fL Immature Gran % (Auto) % Neut % (Auto) % Lymph % (Auto) % [place] % (Auto) % Eos % (Auto) % Baso % (Auto) % Neut # (Auto) (1.40-6.50) K/uL Lymph # (Auto) (1.2-3.4) K/uL [place] # (Auto) (0.11-0.59) K/uL Eos # (Auto) (0-0.50) K/uL Baso # (Auto) (0-0.2) K/uL Immature Gran # (Auto) (0.01-0.20) K/uL PT 12.4 H (9.0-12.0) Seconds INR 1.1 (0.9-1.1) Sodium (136-145) mmol/L Potassium (3.5-5.1) mmol/L Chloride (98-107) mmol/L Carbon Dioxide (21-32) mmol/L Anion Gap (3-11) BUN (6-23) mg/dl Creatinine (0.6-1.4) mg/dl Est Cr Clr Drug Dosing ml/min Est GFR ( Amer) ml/min Est GFR (Non-Af Amer) ml/min BUN/Creatinine Ratio (10-20) Glucose (70-99(Fasting)) mg/dl Lactate 1.4 (0.4-2.0) mmol/L Calcium (8.6-10.3) mg/dl Magnesium (1.7-2.4) mg/dl Total Bilirubin (0.2-1.0) mg/dl Direct Bilirubin (0-0.2) mg/dl AST (13-39) U/L ALT (7-52) U/L Alkaline Phosphatase (34-104) U/L Total Creatine Kinase (30-223) U/L Troponin I High Sens (0-20) pg/ml Total Protein (6.0-8.3) gm/dl Albumin (3.4-5.0) gm/dl Lipase (11-82) U/L Procalcitonin (0-0.5) ng/ml Urine Color Urine Appearance (Clear) Urine pH (4.5-7.5) Ur Specific [place] (1.000-1.030) Urine Protein (Negative) Urine Glucose (UA) (Negative) Urine Ketones (Negative) Urine Blood (Negative) Urine Nitrite (Negative) Urine Bilirubin (Negative) Urine Urobilinogen (Negative) Ur Leukocyte Esterase (Negative) Urine WBC (Auto) (0-5) /hpf Urine RBC (Auto) (0-4) /hpf U Hyaline Cast (Auto) (0-5) /lpf U Epithel Cells (Auto) (0-5) /lpf Urine Bacteria (Auto) (Negative) Adenovirus (PCR) Not Detected (NotDetected) Anaplasma Smear Babesia Smear B. pertussis DNA (PCR) Not Detected (NotDetected) B.parapertussis DNA PCR Not Detected (NotDetected) Lyme Disease IgG Ab (Negative) Lyme Disease IgM Ab (Negative) C. pneumoniae DNA (PCR) Not Detected (NotDetected) Coronavirus OC43 (PCR) Not Detected (NotDetected) Coronavirus HKU1 (PCR) Not Detected (NotDetected) Coronavirus 229E (PCR) Not Detected (NotDetected) SARS-CoV-2 (PCR) Not Detected (NotDetected) Coronavirus NL63 (PCR) Not Detected (NotDetected) Human Metapneumovir PCR Not Detected (NotDetected) Influenza Type A (PCR) Not Detected (NotDetected) Influenza Type B (PCR) Not Detected (NotDetected) M. pneumoniae (PCR) Not Detected (NotDetected) Parainfluenza 1 (PCR) Not Detected (NotDetected) Parainfluenza 2 (PCR) Not Detected (NotDetected) Parainfluenza 3 (PCR) Not Detected (NotDetected) Parainfluenza 4 (PCR) Not Detected (NotDetected) RSV (PCR) Not Detected (NotDetected) Entero/Rhino (PCR) Not Detected (NotDetected) 03/19/23 03/19/23 03/19/23 Range/Units 19:08 19:08 20:41 WBC (4.8-10.8) K/ul RBC (4.70-6.10) M/uL Hgb (14.0-18.0) g/dl Hct (42.0-52.0) % MCV (80.0-100.0) fL MCH (25.0-34.0) pg MCHC (32.0-36.0) g/dL RDW Std Deviation (36.4-46.3) fL RDW Coeff of Debi (11.5-14.5) % Plt Count (130-400) K/uL MPV (9.4-12.4) fL Immature Gran % (Auto) % Neut % (Auto) % Lymph % (Auto) % [place] % (Auto) % Eos % (Auto) % Baso % (Auto) % Neut # (Auto) (1.40-6.50) K/uL Lymph # (Auto) (1.2-3.4) K/uL [place] # (Auto) (0.11-0.59) K/uL Eos # (Auto) (0-0.50) K/uL Baso # (Auto) (0-0.2) K/uL Immature Gran # (Auto) (0.01-0.20) K/uL PT (9.0-12.0) Seconds INR (0.9-1.1) Sodium (136-145) mmol/L Potassium (3.5-5.1) mmol/L Chloride (98-107) mmol/L Carbon Dioxide (21-32) mmol/L Anion Gap (3-11) BUN (6-23) mg/dl Creatinine (0.6-1.4) mg/dl Est Cr Clr Drug Dosing ml/min Est GFR ( Amer) ml/min Est GFR (Non-Af Amer) ml/min BUN/Creatinine Ratio (10-20) Glucose (70-99(Fasting)) mg/dl Lactate (0.4-2.0) mmol/L Calcium (8.6-10.3) mg/dl Magnesium (1.7-2.4) mg/dl Total Bilirubin (0.2-1.0) mg/dl Direct Bilirubin (0-0.2) mg/dl AST (13-39) U/L ALT (7-52) U/L Alkaline Phosphatase (34-104) U/L Total Creatine Kinase (30-223) U/L Troponin I High Sens (0-20) pg/ml Total Protein (6.0-8.3) gm/dl Albumin (3.4-5.0) gm/dl Lipase (11-82) U/L Procalcitonin (0-0.5) ng/ml Urine Color Yellow Urine Appearance Clear (Clear) Urine pH 5.0 (4.5-7.5) Ur Specific [place] > 1.045 H (1.000-1.030) Urine Protein 1+ H (Negative) Urine Glucose (UA) Negative (Negative) Urine Ketones Negative (Negative) Urine Blood Negative (Negative) Urine Nitrite Negative (Negative) Urine Bilirubin Negative (Negative) Urine Urobilinogen Negative (Negative) Ur Leukocyte Esterase Negative (Negative) Urine WBC (Auto) 1-5 (0-5) /hpf Urine RBC (Auto) 0-4 (0-4) /hpf U Hyaline Cast (Auto) 1-5 (0-5) /lpf U Epithel Cells (Auto) 10-20 H (0-5) /lpf Urine Bacteria (Auto) Negative (Negative) Adenovirus (PCR) (NotDetected) Anaplasma Smear See Comment A Babesia Smear See Comment B. pertussis DNA (PCR) (NotDetected) B.parapertussis DNA PCR (NotDetected) Lyme Disease IgG Ab Negative (Negative) Lyme Disease IgM Ab Negative (Negative) C. pneumoniae DNA (PCR) (NotDetected) Coronavirus OC43 (PCR) (NotDetected) Coronavirus HKU1 (PCR) (NotDetected) Coronavirus 229E (PCR) (NotDetected) SARS-CoV-2 (PCR) (NotDetected) Coronavirus NL63 (PCR) (NotDetected) Human Metapneumovir PCR (NotDetected) Influenza Type A (PCR) (NotDetected) Influenza Type B (PCR) (NotDetected) M. pneumoniae (PCR) (NotDetected) Parainfluenza 1 (PCR) (NotDetected) Parainfluenza 2 (PCR) (NotDetected) Parainfluenza 3 (PCR) (NotDetected) Parainfluenza 4 (PCR) (NotDetected) RSV (PCR) (NotDetected) Entero/Rhino (PCR) (NotDetected) Administered Medications Acetaminophen (Acetaminophen 500 Mg Tab) 1,000 mg PO TID PRN PRN Reason: Fever Or Pain Stop: 04/18/23 22:36 Last Admin: 03/19/23 23:30 Dose: 1,000 mg Documented By: DEBORAH Discontinued Medications Acetaminophen (Ofirmev) 1,000 mg in 100 mls @ 400 mls/hr IV NOW STA Stop: 03/19/23 18:30 Last Infusion: 03/19/23 19:21 Dose: 0 mls/hr Documented By: Admin: 03/19/23 18:51 Dose: 400 mls/hr Documented By: JAY Ceftriaxone Sodium (Rocephin) 2,000 mg in 70 mls @ 140 mls/hr IV NOW STA Stop: 03/19/23 18:58 Last Infusion: 03/19/23 19:21 Dose: 0 mls/hr Documented By: Admin: 03/19/23 18:49 Dose: 140 mls/hr Documented By: JAY Doxycycline Hyclate 100 mg/ (Dextrose) 110 mls @ 50 mls/hr IV NOW STA Stop: 03/19/23 20:40 Last Infusion: 03/19/23 22:11 Dose: 0 mls/hr Documented By: Admin: 03/19/23 19:53 Dose: 50 mls/hr Documented By: DEVON Sodium Chloride (Nss 1000ml) 1,000 mls @ 999 mls/hr IV .Q1H1M ISRRAEL Stop: 03/19/23 20:45 Last Infusion: 03/19/23 19:54 Dose: 0 mls/hr Documented By: Admin: 03/19/23 18:53 Dose: 999 mls/hr Documented By: Infusion: 03/19/23 18:53 Dose: 999 mls/hr Documented By: Admin: 03/19/23 18:49 Dose: 999 mls/hr Documented By: JAY Ioversol (Optiray 320 125ml) 118 ml IV ONCE ONE Stop: 03/19/23 19:37 Last Admin: 03/19/23 19:36 Dose: 118 ml Documented By: SOLITARIO Imaging Data Radiologist's Impression: Chest X-Ray 03/19/23 17:53 SINGLE VIEW CHEST CLINICAL HISTORY: Sepsis. FINDINGS: 2 AP, portable, upright chest radiographs are compared to study dated 10/23/2019. The examination is degraded by portable technique and patient rotation. The heart is enlarged noting atherosclerotic calcification of the thoracic aorta. There is pulmonary vascular congestion. There is bibasilar scarring/atelectasis. No large pleural effusion or pneumothorax is seen. The skeletal structures are osteopenic. The bony thorax is grossly intact. IMPRESSION: Cardiomegaly with pulmonary vascular congestion. ACT 112: Negative or not required by law. Electronically signed by: Ruel Quintana M.D. 03/19/2023 6:22 PM Chest CTA 03/19/23 18:31 Exam(s): CTA CHEST IV Amt: 118ml optiray 320 EXAM: CT Angiography Chest With Intravenous Contrast CLINICAL HISTORY: Reason for exam: fever, hypoxia, tachycardia, r/o PE. TECHNIQUE: Axial computed tomographic angiography images of the chest with intravenous contrast. CTDI is 28.14 mGy and DLP is 922.88 mGy-cm. Automated exposure control was utilized for the study. A dose lowering technique was utilized adhering to the principles of ALARA. MIP reconstructed images were created and reviewed. COMPARISON: CT chest on 05/17/2016 FINDINGS: Pulmonary arteries: Unremarkable. No pulmonary embolus identified. Aorta: Atherosclerotic changes in the aorta. No aortic aneurysm or dissection. Lungs: Stable small nodules in the lower lobes, measuring up to 5 mm. Dependent and bibasilar atelectasis. No other focal consolidation. Pleural space: Unremarkable. No significant effusion. No pneumothorax. Heart: Coronary artery calcifications. No significant pericardial effusion. No evidence of RV dysfunction. Mediastinum: Mild prominence of the wall of the esophagus may represent esophagitis. Small hiatal hernia. Nonspecific mildly prominent mediastinal and hilar lymph nodes. Bones/joints: Degenerative changes of the spine. No acute fracture. No dislocation. Soft tissues: Unremarkable. Lymph nodes: Unremarkable. No enlarged lymph nodes. IMPRESSION: 1. No pulmonary embolus identified. 2. Mild prominence of the wall of the esophagus may represent esophagitis. Small hiatal hernia. 3. Atherosclerotic changes in the aorta. No aortic aneurysm or dissection. 4. Stable small nodules in the lower lobes, measuring up to 5 mm. Electronically signed by: Susi Smith M.D. 03/19/23 20:08 PM Discharge Plan Visit Data Chief Complaint: Dizziness Stated Complaint: BODY ACHES,DIZZY,DISORIENTED, ED Provider: Dmitry Niño Discharge Problem: Anaplasmosis, SIRS (systemic inflammatory response syndrome), Hypoxia Patient Disposition: Admitted As Inpatient Discharge Instructions Interventions: ED Discharge Assessment Last Done: 03/19/23 22:10
[2023-03-19] MEDS: SODIUM CHLORIDE 0.9% 1000ML 1,000 ML IV SCH ×2 (18:49→18:53)
[2023-03-19 18:57] LABS: Albumin Level 4.2 gm/dl (3.4-5.0); BUN Creatinine Ratio 13.7 (10-20); Bilirubin Direct 0.1 mg/dl (0-0.2); Bilirubin,Total 0.4 mg/dl (0.2-1.0); Calcium 8.8 mg/dl (8.6-10.3); Creatinine Clr Calc Pharmacy 56.3 ml/min; Est GFR (African American) 72.8 ml/min; Est GFR (Non-African American) 62.8 ml/min; Total Protein 7.7 gm/dl (6.0-8.3); Troponin I High Sensitivity 12.2 pg/ml (0-20)
[2023-03-19 19:00] LABS: INR 1.1 (0.9-1.1); Prothrombin Time 12.4 Seconds (9.0-12.0)
[2023-03-19 19:30] LABS: Adenovirus PCR Not Detected (NotDetected); Bordetella parapertussis PCR Not Detected (NotDetected); Bordetella pertussis PCR Not Detected (NotDetected); Chlamydia pneumoniae PCR Not Detected (NotDetected); Coronavirus 229E PCR Not Detected (NotDetected); Coronavirus CoV-2 (COVID19)PCR Not Detected (NotDetected); Coronavirus HKU1 PCR Not Detected (NotDetected); Coronavirus NL63 PCR Not Detected (NotDetected); Coronavirus OC43PCR Not Detected (NotDetected); Human Metapneumovirus PCR Not Detected (NotDetected); Influenza A PCR Not Detected (NotDetected); Influenza B PCR Not Detected (NotDetected); Mycoplasma pneumoniae PCR Not Detected (NotDetected); Parainfluenza Virus 1 PCR Not Detected (NotDetected); Parainfluenza Virus 2 PCR Not Detected (NotDetected); Parainfluenza Virus 3 PCR Not Detected (NotDetected); Parainfluenza Virus 4 PCR Not Detected (NotDetected); Respiratory Syncytial VirusPCR Not Detected (NotDetected); Rhinovirus/Enterovirus PCR Not Detected (NotDetected)
[2023-03-19] MEDS ORDERED: OPTIRAY 320 125ml IV ONE (19:36)
--- NOTE | 2023-03-19 20:09 | CT Scan Report ---
Exam(s): CTA CHEST IV Amt: 118ml optiray 320 EXAM: CT Angiography Chest With Intravenous Contrast CLINICAL HISTORY: Reason for exam: fever, hypoxia, tachycardia, r/o PE. TECHNIQUE: Axial computed tomographic angiography images of the chest with intravenous contrast. CTDI is 28.14 mGy and DLP is 922.88 mGy-cm. Automated exposure control was utilized for the study. A dose lowering technique was utilized adhering to the principles of ALARA. MIP reconstructed images were created and reviewed. COMPARISON: CT chest on 05/17/2016 FINDINGS: Pulmonary arteries: Unremarkable. No pulmonary embolus identified. Aorta: Atherosclerotic changes in the aorta. No aortic aneurysm or dissection. Lungs: Stable small nodules in the lower lobes, measuring up to 5 mm. Dependent and bibasilar atelectasis. No other focal consolidation. Pleural space: Unremarkable. No significant effusion. No pneumothorax. Heart: Coronary artery calcifications. No significant pericardial effusion. No evidence of RV dysfunction. Mediastinum: Mild prominence of the wall of the esophagus may represent esophagitis. Small hiatal hernia. Nonspecific mildly prominent mediastinal and hilar lymph nodes. Bones/joints: Degenerative changes of the spine. No acute fracture. No dislocation. Soft tissues: Unremarkable. Lymph nodes: Unremarkable. No enlarged lymph nodes. IMPRESSION: 1. No pulmonary embolus identified. 2. Mild prominence of the wall of the esophagus may represent esophagitis. Small hiatal hernia. 3. Atherosclerotic changes in the aorta. No aortic aneurysm or dissection. 4. Stable small nodules in the lower lobes, measuring up to 5 mm. Electronically signed by: Susi Smith M.D. 03/19/23 20:08 PM
[2023-03-19 20:22] LABS: Lyme Ab IgM w/WB Rflx Negative (Negative)
[2023-03-19 20:24] LABS: Lyme Ab IgG w/WB Rflx Negative (Negative)
[2023-03-19 21:08] LABS: Appearance Urine Clear (Clear); Bacteria Urine Automated Negative (Negative); Bilirubin Urine Negative (Negative); Blood Urine Negative (Negative); Color Urine Yellow; Glucose Urine UA Negative (Negative); Ketones Urine Negative (Negative); Leukocyte Esterase Urine Negative (Negative); Nitrite Urine Negative (Negative); Protein Urine 1+ (Negative); RBC Urine Automated 0-4 /hpf (0-4); Specific Gravity Urine > 1.045 (1.000-1.030); Urobilinogen Urine Negative (Negative)
--- NOTE | 2023-03-19 21:23 | History & Physical Report ---
Date of Service March 19, 2023 Assessment & Plan (1) Anaplasmosis: Plan: 72yo male with history of RA on chronic Prednisone therapy, CAD, HTN, HLP and HARMEET presenting with 5 days of progressive myalgias and joint pain and intermittent fever. Patient reports a tick bite approximately 1 month ago. 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 Pathology consult to follow. CBC, LFTs and Coagulation panel are unremarkable. -Admit to medical with telemetry -Continue Doxycycline 100mg IV BID -Repeat CBC, BMP, LFTs in AM (2) Coronary artery disease: Plan: Patient with CAD s/p PCI to proximal LAD in July 2017. He had a catheterization in March 2022 which revealed a patent stent, 50% mid RCA occlusion -Continue Plavix -Continue Metoprolol -Statin intolerant (3) Rheumatoid arthritis: Plan: Patient with RA involving multiple sites with positive rheumatoid factor. He follows with Rheumatology. -Continue Prednisone 5mg po daily -Low threshold for stress dosed steroids if patient becomes hypotensive or critically ill (4) Hypertension: Plan: Blood pressure markedly elevated upon arrival. Now improved -Continue metoprolol 50mg po q AM -Continue Amlodipine 10mg po qAM -Monitor (5) Adenocarcinoma of prostate: Plan: Resolved. -Continue Leflunomide 20mg po daily F/E/N - Heplock. Electrolytes WNL. AHA diet as tolerated Ppx - Low risk for DVT Code - Full per discussion with patient Dispo - Admit to medical with telemetry History of Present Illness Chief Complaint: body aches, fever Primary Care Provider: Alexa Kurtz MD Carlos Fleming is a pleasant 72yo male with history of CAD s/p LAD stent placement, RA on chronic Prednisone therapy, HTN, HARMEET and Prostate CA s/p XRT on leflunamide presenting with fever, chills and body aches. 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 He recalls having a tick bite in his right axillary region approximately 1 month ago. Over the last 4 days he has had progressive joint pain and body aches involving shoulders, legs, hands and knees. He had chills and fever today. He denies chest pain, palpitations, cough, SOB. Denies abdominal pain, nausea, vomiting, diarrhea or constipation. No urinary complaints. No rash. No additional complaints at this time. Upon arrival to the ER patient febrile at 39.6, tachycardic at 105bpm, hypertensive at 203/87, tachypneic at 25 breaths/min saturating 89% on room air. His vital signs have since improved. He is now 37.9 following administration of Tylenol. HR=83, HB=967/81, breathing comfortably, saturating 94% on 4L NC. He reports feeling improved. ER Course: Doxycycline 100mg IV at 19:53 NSS x 2L Tylenol 1gm Ceftriaxone 2gm Allergies Allergy/AdvReac Type Severity Reaction Status Date / Time ciprofloxacin Allergy Intermediate swelling Verified 03/07/23 08:59 pantoprazole Allergy Intermediate Swelling / Verified 03/07/23 08:59 Aches & Pains over whole body trimethoprim Allergy Unknown WHOLE BODY Verified 03/07/23 08:59 TURNED RED icosapent ethyl AdvReac Severe Arthralgia, Verified 03/07/23 08:59 [From Vascepa] swallow problem levofloxacin AdvReac Intermediate ankle Verified 03/07/23 08:59 swelling Dnsxnha-NXR-MeO Reductase AdvReac Intermediate myalgia Verified 03/07/23 08:59 Inhibitor Sulfa (Sulfonamide AdvReac Intermediate WHOLE BODY Verified 03/07/23 08:59 Antibiotics) TURNED RED sulfamethoxazole AdvReac Intermediate WHOLE BODY Verified 03/07/23 08:59 TURNED RED Home Medications Medication Instructions Recorded Confirmed Type acetaminophen 500 mg tablet 1,000 mg PO TID PRN Fever Or Pain 10/23/19 03/19/23 History (Tylenol Extra Strength) metoprolol succinate 50 mg 50 mg PO QAM #90 tabs 06/17/22 03/19/23 Rx tablet,extended release 24 hr (Toprol XL) amlodipine 10 mg tablet 10 mg PO QAM #90 tabs 07/06/22 03/19/23 Rx clopidogrel 75 mg tablet (Plavix) 75 mg PO QAM #90 tabs 07/06/22 03/19/23 Rx leflunomide 20 mg tablet 20 mg PO DAILY 03/19/23 03/19/23 History prednisone 5 mg tablet 5 mg PO DAILY 03/19/23 03/19/23 History Past Med/Surg History Medical History (Updated 03/19/23 @ 21:16 by Miri Aviles DO) Adenocarcinoma of prostate (05/22/13) On leflunamide Coronary artery disease s/p stent to proximal LAD 07/2017 Dermatitis Hyperlipidemia Restless legs syndrome Rheumatoid arthritis Positive anti-CCP test Follows with Rheumatology Sleep apnea on CPAP Solitary pulmonary nodule Statin intolerance Tick bite of right shoulder Surgical History H/O prostate biopsy History of coronary artery stent placement S/P cystoscopy with ureteral stent placement (02/14/12) S/P hernia repair (~1972) Family History Father Myocardial infarction Stroke Brain cancer Coronary heart disease Uncle Myocardial infarction Mother Diabetes Brother Diabetes Sister Diabetes Family/Other Diabetes Denies family history of Ovarian cancer Prostate cancer Breast cancer Colorectal cancer Social History Smoking Status: Never smoker Second Hand Exposure: No; Do You Dip or Chew Tobacco: No; Hx Alcohol Use: No Hx Substance Use: No Preferred Language: [place] Visual Impairment: No Limitations Hearing Ability: Normal Beliefs That Will Affect Care: None marital status: Current Living Situation: Spouse current occupational status: employed and retired current occupation: [employer] Feels Safe at Home: Yes Childhood Exposure to Second-Hand Smoke: No Dental Care, Regularly: No Physical Activity Frequency: Daily Seatbelt Use: always Sunscreen Use: No Assistive Devices: None Review of Systems Review of Systems: All systems reviewed & are unremarkable except as noted in HPI & below Physical Exam Physical Exam: General: patient resting comfortably, NAD, non-toxic in appearance, AA&O x 4, nasal cannula in place Skin: warm, dry, intact, no rashes or lesions HEENT: NC/AT, PERRL, EOMI, anicteric sclera, conjunctiva without injection, external ear normal to inspection and nontender, nares patent, moist mucus membranes, dentition intact, no oropharyngeal lesions, neck supple, trachea midline, no LAD, no thyromegaly, no JVD Heart: +S1/S2, regular, no m/r/g Lungs: equal air entry bilaterally, no rales/rhonchi/wheezes Abd: +BS, soft, NT/ND, no masses/organomegaly/ascites Ext: warm, 2+ pulses in UE/LE bilaterally, no clubbing/cyanosis or edema Neuro: nonfocal, patient AA&O x 4, speech intact, no facial droop, moving all extremities on command with equal strength 5/5 Results & Data Results & Data Vital Signs (Past 12 Hours) Vital Signs Temp Pulse Pulse Resp BP BP Pulse Ox 03/19/23 19:51 97 H 30 H 151/83 H 94 03/19/23 19:00 105 H 45 H 203/87 H 98 03/19/23 17:52 102 H 45 H 169/87 H 95 03/19/23 19:27 37.9 C H 03/19/23 18:15 102 H 25 H 169/87 H 95 03/19/23 18:15 100 H 25 H 93 03/19/23 17:56 102 H 03/19/23 17:41 39.6 C H 107 H 19 173/81 H 89 L O2 Del Method O2 Flow Rate 03/19/23 19:51 Nasal Cannula 4 03/19/23 19:00 Room Air 03/19/23 17:52 Room Air 03/19/23 19:27 03/19/23 18:15 Nasal Cannula 3 03/19/23 18:15 Nasal Cannula 3 03/19/23 17:56 03/19/23 17:41 Room Air Laboratory Results Laboratory Results WBC 8.87 K/ul (4.8-10.8) 03/19/23 15:00 RBC 5.02 M/uL (4.70-6.10) 03/19/23 15:00 Hgb 15.0 g/dl (14.0-18.0) 03/19/23 15:00 Hct 43.4 % (42.0-52.0) 03/19/23 15:00 MCV 86.5 fL (80.0-100.0) 03/19/23 15:00 MCH 29.9 pg (25.0-34.0) 03/19/23 15:00 MCHC 34.6 g/dL (32.0-36.0) 03/19/23 15:00 RDW Std Deviation 46.6 fL (36.4-46.3) H 03/19/23 15:00 RDW Coeff of Debi 14.8 % (11.5-14.5) H 03/19/23 15:00 Plt Count 152 K/uL (130-400) 03/19/23 15:00 MPV 8.9 fL (9.4-12.4) L 03/19/23 15:00 Immature Gran % (Auto) 0.3 % 03/19/23 15:00 Neut % (Auto) 84.7 % 03/19/23 15:00 Lymph % (Auto) 6.5 % 03/19/23 15:00 [place] % (Auto) 8.2 % 03/19/23 15:00 Eos % (Auto) 0.0 % 03/19/23 15:00 Baso % (Auto) 0.3 % 03/19/23 15:00 Neut # (Auto) 7.50 K/uL (1.40-6.50) H 03/19/23 15:00 Lymph # (Auto) 0.58 K/uL (1.2-3.4) L 03/19/23 15:00 [place] # (Auto) 0.73 K/uL (0.11-0.59) H 03/19/23 15:00 Eos # (Auto) 0.00 K/uL (0-0.50) 03/19/23 15:00 Baso # (Auto) 0.03 K/uL (0-0.2) 03/19/23 15:00 Immature Gran # (Auto) 0.03 K/uL (0.01-0.20) 03/19/23 15:00 PT 12.4 Seconds (9.0-12.0) H 03/19/23 15:00 INR 1.1 (0.9-1.1) 03/19/23 15:00 Sodium 135 mmol/L (136-145) L 03/19/23 15:00 Potassium 4.0 mmol/L (3.5-5.1) 03/19/23 15:00 Chloride 103 mmol/L (98-107) 03/19/23 15:00 Carbon Dioxide 24 mmol/L (21-32) 03/19/23 15:00 Anion Gap 8 (3-11) 03/19/23 15:00 BUN 16 mg/dl (6-23) 03/19/23 15:00 Creatinine 1.17 mg/dl (0.6-1.4) 03/19/23 15:00 Est Cr Clr Drug Dosing 56.3 ml/min 03/19/23 15:00 Est GFR ( Amer) 72.8 ml/min 03/19/23 15:00 Est GFR (Non-Af Amer) 62.8 ml/min 03/19/23 15:00 BUN/Creatinine Ratio 13.7 (10-20) 03/19/23 15:00 Glucose 114 mg/dl (70-99(Fasting)) H 03/19/23 15:00 Lactate 1.4 mmol/L (0.4-2.0) 03/19/23 18:00 Calcium 8.8 mg/dl (8.6-10.3) 03/19/23 15:00 Magnesium 2.0 mg/dl (1.7-2.4) 03/19/23 15:00 Total Bilirubin 0.4 mg/dl (0.2-1.0) 03/19/23 15:00 Direct Bilirubin 0.1 mg/dl (0-0.2) 03/19/23 15:00 AST 24 U/L (13-39) 03/19/23 15:00 ALT 21 U/L (7-52) 03/19/23 15:00 Alkaline Phosphatase 50 U/L (34-104) 03/19/23 15:00 Total Creatine Kinase 80 U/L (30-223) 03/19/23 15:00 Troponin I High Sens 12.2 pg/ml (0-20) 03/19/23 15:00 Total Protein 7.7 gm/dl (6.0-8.3) 03/19/23 15:00 Albumin 4.2 gm/dl (3.4-5.0) 03/19/23 15:00 Lipase 46 U/L (11-82) 03/19/23 15:00 Procalcitonin 0.99 ng/ml (0-0.5) H 03/19/23 15:00 Urine Color Yellow 03/19/23 20:41 Urine Appearance Clear (Clear) 03/19/23 20:41 Urine pH 5.0 (4.5-7.5) 03/19/23 20:41 Ur Specific [place] > 1.045 (1.000-1.030) H 03/19/23 20:41 Urine Protein 1+ (Negative) H 03/19/23 20:41 Urine Glucose (UA) Negative (Negative) 03/19/23 20:41 Urine Ketones Negative (Negative) 03/19/23 20:41 Urine Blood Negative (Negative) 03/19/23 20:41 Urine Nitrite Negative (Negative) 03/19/23 20:41 Urine Bilirubin Negative (Negative) 03/19/23 20:41 Urine Urobilinogen Negative (Negative) 03/19/23 20:41 Ur Leukocyte Esterase Negative (Negative) 03/19/23 20:41 Urine WBC (Auto) 1-5 /hpf (0-5) 03/19/23 20:41 Urine RBC (Auto) 0-4 /hpf (0-4) 03/19/23 20:41 U Hyaline Cast (Auto) 1-5 /lpf (0-5) 03/19/23 20:41 U Epithel Cells (Auto) 10-20 /lpf (0-5) H 03/19/23 20:41 Urine Bacteria (Auto) Negative (Negative) 03/19/23 20:41 Adenovirus (PCR) Not Detected (NotDetected) 03/19/23 18:00 Anaplasma Smear See Comment A 03/19/23 19:08 Babesia Smear See Comment 03/19/23 19:08 B. pertussis DNA (PCR) Not Detected (NotDetected) 03/19/23 18:00 B.parapertussis DNA PCR Not Detected (NotDetected) 03/19/23 18:00 Lyme Disease IgG Ab Negative (Negative) 03/19/23 19:08 Lyme Disease IgM Ab Negative (Negative) 03/19/23 19:08 C. pneumoniae DNA (PCR) Not Detected (NotDetected) 03/19/23 18:00 Coronavirus OC43 (PCR) Not Detected (NotDetected) 03/19/23 18:00 Coronavirus HKU1 (PCR) Not Detected (NotDetected) 03/19/23 18:00 Coronavirus 229E (PCR) Not Detected (NotDetected) 03/19/23 18:00 SARS-CoV-2 (PCR) Not Detected (NotDetected) 03/19/23 18:00 Coronavirus NL63 (PCR) Not Detected (NotDetected) 03/19/23 18:00 Human Metapneumovir PCR Not Detected (NotDetected) 03/19/23 18:00 Influenza Type A (PCR) Not Detected (NotDetected) 03/19/23 18:00 Influenza Type B (PCR) Not Detected (NotDetected) 03/19/23 18:00 M. pneumoniae (PCR) Not Detected (NotDetected) 03/19/23 18:00 Parainfluenza 1 (PCR) Not Detected (NotDetected) 03/19/23 18:00 Parainfluenza 2 (PCR) Not Detected (NotDetected) 03/19/23 18:00 Parainfluenza 3 (PCR) Not Detected (NotDetected) 03/19/23 18:00 Parainfluenza 4 (PCR) Not Detected (NotDetected) 03/19/23 18:00 RSV (PCR) Not Detected (NotDetected) 03/19/23 18:00 Entero/Rhino (PCR) Not Detected (NotDetected) 03/19/23 18:00 Impressions Chest X-Ray 03/19/23 17:53 SINGLE VIEW CHEST CLINICAL HISTORY: Sepsis. FINDINGS: 2 AP, portable, upright chest radiographs are compared to study dated 10/23/2019. The examination is degraded by portable technique and patient rotation. The heart is enlarged noting atherosclerotic calcification of the thoracic aorta. There is pulmonary vascular congestion. There is bibasilar scarring/atelectasis. No large pleural effusion or pneumothorax is seen. The skeletal structures are osteopenic. The bony thorax is grossly intact. IMPRESSION: Cardiomegaly with pulmonary vascular congestion. ACT 112: Negative or not required by law. Electronically signed by: Ruel Quintana M.D. 03/19/2023 6:22 PM Chest CTA 03/19/23 18:31 Exam(s): CTA CHEST IV Amt: 118ml optiray 320 EXAM: CT Angiography Chest With Intravenous Contrast CLINICAL HISTORY: Reason for exam: fever, hypoxia, tachycardia, r/o PE. TECHNIQUE: Axial computed tomographic angiography images of the chest with intravenous contrast. CTDI is 28.14 mGy and DLP is 922.88 mGy-cm. Automated exposure control was utilized for the study. A dose lowering technique was utilized adhering to the principles of ALARA. MIP reconstructed images were created and reviewed. COMPARISON: CT chest on 05/17/2016 FINDINGS: Pulmonary arteries: Unremarkable. No pulmonary embolus identified. Aorta: Atherosclerotic changes in the aorta. No aortic aneurysm or dissection. Lungs: Stable small nodules in the lower lobes, measuring up to 5 mm. Dependent and bibasilar atelectasis. No other focal consolidation. Pleural space: Unremarkable. No significant effusion. No pneumothorax. Heart: Coronary artery calcifications. No significant pericardial effusion. No evidence of RV dysfunction. Mediastinum: Mild prominence of the wall of the esophagus may represent esophagitis. Small hiatal hernia. Nonspecific mildly prominent mediastinal and hilar lymph nodes. Bones/joints: Degenerative changes of the spine. No acute fracture. No dislocation. Soft tissues: Unremarkable. Lymph nodes: Unremarkable. No enlarged lymph nodes. IMPRESSION: 1. No pulmonary embolus identified. 2. Mild prominence of the wall of the esophagus may represent esophagitis. Small hiatal hernia. 3. Atherosclerotic changes in the aorta. No aortic aneurysm or dissection. 4. Stable small nodules in the lower lobes, measuring up to 5 mm. Electronically signed by: Susi Smith M.D. 03/19/23 20:08 PM Diagnostic Findings Anaplasma smear - Intracytoplasmic neutrophilic inclusions noted. Pathology consult to follow. PG Care Time/CCT Total # of Minutes Spent Total Time Spent with Patient: Total time spent is greater than 50% in coordination of care (as documented) at patient's floor/unit and/or counseling patient: Coding Level of Care Code 18237 INT INP/OBS CARE 2/55MIN Diagnoses Anaplasmosis A77.49 Coronary artery disease I25.10 Rheumatoid arthritis M06.9 Hypertension I10 Adenocarcinoma of prostate C61
[2023-03-19] MEDS: ACETAMINOPHEN 500 MG TAB PO PRN (23:30)
[2023-03-20 06:37] LABS: Anaplasmosis Smear(Rpt to DOH) Pos for Anaplasma
[2023-03-20] MEDS: ACETAMINOPHEN 500 MG TAB PO PRN (07:37)
[2023-03-20] MEDS: CLOPIDOGREL BISULFATE 75 MG TAB PO SCH (07:39)
[2023-03-20] MEDS: LEFLUNOMIDE 10 MG TAB PO SCH (07:39)
[2023-03-20] MEDS: amLODIPine BESYLATE 5 MG TAB PO SCH (07:39)
[2023-03-20] MEDS: METOPROLOL SUCC 50MG EXT REL TAB PO SCH (07:40)
[2023-03-20] MEDS: DOXYCYCLINE HYCLATE 100 MG in DEXTROSE 5% 100 ML IV SCH ×2 (07:40→20:15)
[2023-03-20 08:03] LABS: Albumin Level 3.6 gm/dl (3.4-5.0); BUN Creatinine Ratio 14.7 (10-20); Bilirubin Direct 0.1 mg/dl (0-0.2); Bilirubin,Total 0.4 mg/dl (0.2-1.0); Calcium 8.2 mg/dl (8.6-10.3); Creatinine Clr Calc Pharmacy 72.4 ml/min; Est GFR (African American) 85.9 ml/min; Est GFR (Non-African American) 74.1 ml/min; Potassium 4.3 mmol/L (3.5-5.1); Total Protein 6.6 gm/dl (6.0-8.3)
[2023-03-20 08:23] LABS: Hematocrit (blood only) 40.9 % (42.0-52.0); Hemoglobin 13.5 g/dl (14.0-18.0); Mean Corpuscular Hemoglobin 29.2 pg (25.0-34.0); Mean Corpuscular Volume 88.5 fL (80.0-100.0); Mean Platelet Volume 9.2 fL (9.4-12.4); Platelet Count 99 K/uL (130-400); Platelet Estimate Decreased (Normal); RDW Standard Deviation 48.5 fL (36.4-46.3); Red Blood Count 4.62 M/uL (4.70-6.10); White Blood Count 6.66 K/ul (4.8-10.8)
[2023-03-20] MEDS ORDERED: predniSONE 5 MG TAB PO ONE (08:30)
[2023-03-20] MEDS ORDERED: predniSONE 5 MG TAB PO SCH (09:00)
[2023-03-20 11:37] LABS: iSTAT Blood Urea Nitrogen 18 mg/dl (7-18); iSTAT Carbon Dioxide 23 mmol/L (24-31); iSTAT Chloride 103 mmol/L (101-112); iSTAT Creatinine 1.1 mg/dl (0.6-1.3); iSTAT Hematocrit 45 % (42-52); iSTAT Hemoglobin 15.3 g/dl (14.0-18.0); iSTAT Ionized Calcium 0.95 mmol/l (1.12-1.32); iSTAT Sodium 136 mmol/L (135-144)
--- NOTE | 2023-03-20 12:03 | Hospitalist Progress Note ---
Date of Service March 20, 2023 Assessment & Plan (1) Anaplasmosis: Plan: Currently on intravenous doxycycline. He will be discharged on oral doxycycline. He is currently stable and afebrile. No complaints. (2) Coronary artery disease: Plan: Patient with CAD s/p PCI to proximal LAD in July 2017. He had a catheterization in March 2022 which revealed a patent stent, 50% mid RCA occlusion. Stable. Continue current medical management (3) Rheumatoid arthritis: Plan: Steroid-dependent. Prednisone dosage has been uptitrated during his acute illness. (4) Hypertension: Plan: Elevated blood pressure on admission, now controlled. Continue current medical management. (5) Adenocarcinoma of prostate: Plan: Stable. Continue Leflunomide 20mg po daily Plan Hopefully home tomorrow, March 21, on oral doxycycline and a tapering dose of p rednisone back down to his usual prednisone dose Admission and Anticipated Discharge Date Admission Date: March 19, 2023 Subjective Alert and oriented. Stable. No complaints. is at the bedside. He is receiving his doxycycline intravenously. He is steroid-dependent and his oral prednisone dosage has been uptitrated during the acute illness. Sepsis that was present on admission has resolved. Review of Systems Review of Systems: Constitutional-no fever or chills ENT-no blurred vision, no double vision, no epistaxis, no sore throat Respiratory-no cough, no wheezing, no shortness of breath Cardiac-no palpitations, no chest pain, no syncope GI-no nausea, vomiting, diarrhea, melena, hematochezia -no urinary retention, no urinary incontinence, no dysuria, no hematuria Musculoskeletal-no joint pain, no muscle tenderness Skin-no bruising, no rashes, no pruritus Neuro-no isolated weakness, no paresthesia, no weakness Psych-no depression, no anxiety Physical Exam Physical Exam: General-alert and oriented x3, no fevers, no chills HEENT-head atraumatic and normocephalic, pupils equal and reactive to light, extraocular muscles intact Neck-no lymphadenopathy or thyromegaly, trachea midline Chest-clear to auscultation percussion. No rales wheezing or rhonchi Cardiac-regular rate and rhythm, normal S1 and S2 Abdomen-normal bowel sounds, nontender, no hepatosplenomegaly Extremities-no cyanosis, clubbing, or edema Neuro-cranial nerves II through XII intact, motor and sensory function within normal limits, strength symmetrical, no focal deficits Psych-normal affect, normal mood Results & Data Results & Data Vital Signs (Past 12 Hours) Vital Signs Temp Pulse Pulse Resp BP BP Pulse Ox 03/20/23 11:14 36.5 C 69 16 140/76 94 03/20/23 10:46 03/20/23 08:07 36.6 C 67 18 124/71 96 03/20/23 07:01 61 03/20/23 02:45 25 H 94 03/20/23 03:05 36.5 C 73 20 97/56 L 93 O2 Del Method O2 Flow Rate 03/20/23 11:14 Room Air 03/20/23 10:46 Room Air 03/20/23 08:07 Nasal Cannula 3 03/20/23 07:01 03/20/23 02:45 3 03/20/23 03:05 Room Air, CPAP Laboratory Results 03/20/23 07:21 03/20/23 07:21 PG Care Time/CCT Total # of Minutes Spent Total Time Spent with Patient: Total time spent is greater than 50% in coordination of care (as documented) at patient's floor/unit and/or counseling patient: Coding Level of Care Code 05677 SUB INP/OBS CARE 3/50MIN Diagnoses Anaplasmosis A77.49 Coronary artery disease I25.10 Rheumatoid arthritis M06.9 Hypertension I10 Adenocarcinoma of prostate C61
--- NOTE | 2023-03-20 12:17 | Electrocardiogram Report ---
Test Reason : Blood Pressure : / mmHG Vent. Rate : 103 BPM Atrial Rate : 103 BPM P-R Int : 134 ms QRS Dur : 080 ms QT Int : 308 ms P-R-T Axes : 039 -10 021 degrees QTc Int : 403 ms Sinus tachycardia Inferior infarct , age undetermined Cannot rule out Anterior infarct , age undetermined Abnormal ECG When compared with ECG of 23-OCT-2019 12:59, Vent. rate has increased BY 43 BPM Inferior infarct is now Present Confirmed by Asael Wsetbrook ([id number]) on 03/20/2023 12:17:04 PM Referred By: REFERRED SELF Confirmed By:Asael Westbrook
[2023-03-20] MEDS: oxyCODONE HCL IR 5 MG TAB (IMMEDIATE RELEASE) PO PRN ×2 (14:02→22:25)
[2023-03-20] MEDS: predniSONE 10 MG TABLET PO SCH (20:15)
[2023-03-21 03:26] VITALS: O2SAT 95
[2023-03-21] MEDS: CLOPIDOGREL BISULFATE 75 MG TAB PO SCH (07:43)
[2023-03-21] MEDS: amLODIPine BESYLATE 5 MG TAB PO SCH (07:43)
[2023-03-21] MEDS: METOPROLOL SUCC 50MG EXT REL TAB PO SCH (07:43)
[2023-03-21] MEDS: predniSONE 10 MG TABLET PO SCH (07:43)
[2023-03-21] MEDS: LEFLUNOMIDE 10 MG TAB PO SCH (07:43)
[2023-03-21] MEDS: DOXYCYCLINE HYCLATE 100 MG in DEXTROSE 5% 100 ML IV SCH (07:46)
[2023-03-21 07:58] VITALS: PULSE 63; TEMP 97.9
[2023-03-21 10:15] LABS: Basophils # (auto) 0.03 K/uL (0-0.2); Basophils % (auto) 0.4 %; Eosinophils # (auto) 0.02 K/uL (0-0.50); Eosinophils % (auto) 0.3 %; Hematocrit (blood only) 39.4 % (42.0-52.0); Hemoglobin 13.3 g/dl (14.0-18.0); Immature Granulocytes # (auto) 0.02 K/uL (0.01-0.20); Immature Granulocytes % (auto) 0.3 %; Lymphocytes # (auto) 1.01 K/uL (1.2-3.4); Mean Corpuscular Hgb Conc 33.8 g/dL (32.0-36.0); Mean Corpuscular Volume 85.8 fL (80.0-100.0); Mean Platelet Volume 10.5 fL (9.4-12.4); Monocytes # (auto) 0.44 K/uL (0.11-0.59); Monocytes % (auto) 6.1 %; Neutrophils # (auto) 5.67 K/uL (1.40-6.50); Neutrophils % (auto) 78.9 %; Platelet Count 81 K/uL (130-400); RDW Coefficient of Variation 15.1 % (11.5-14.5); RDW Standard Deviation 47.1 fL (36.4-46.3); Red Blood Count 4.59 M/uL (4.70-6.10); White Blood Count 7.19 K/ul (4.8-10.8)
[2023-03-21 10:26] LABS: BUN Creatinine Ratio 18.8 (10-20); Calcium 9.2 mg/dl (8.6-10.3); Creatinine Clr Calc Pharmacy 76.9 ml/min; Est GFR (African American) 92.4 ml/min; Est GFR (Non-African American) 79.8 ml/min; Potassium 3.9 mmol/L (3.5-5.1)
--- NOTE | 2023-03-21 12:21 | Discharge Summary ---
Date of Service March 21, 2023 Admission HPI Per Admitting Provider Carlos Fleming is a pleasant 72yo male with history of CAD s/p LAD stent placement, RA on chronic Prednisone therapy, HTN, HARMEET and Prostate CA s/p XRT on leflunamide presenting with fever, chills and body aches. 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 He recalls having a tick bite in his right axillary region approximately 1 month ago. Over the last 4 days he has had progressive joint pain and body aches involving shoulders, legs, hands and knees. He had chills and fever today. He denies chest pain, palpitations, cough, SOB. Denies abdominal pain, nausea, vomiting, diarrhea or constipation. No urinary complaints. No rash. No additional complaints at this time. Upon arrival to the ER patient febrile at 39.6, tachycardic at 105bpm, hypertensive at 203/87, tachypneic at 25 breaths/min saturating 89% on room air. His vital signs have since improved. He is now 37.9 following administration of Tylenol. HR=83, RT=402/81, breathing comfortably, saturating 94% on 4L NC. He reports feeling improved. 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 No rales wheezing or rhonchi Cardiac-regular rate and rhythm, normal S1 and S2 Abdomen-normal bowel sounds, nontender, no hepatosplenomegaly Extremities-no cyanosis, clubbing, or edema Neuro-cranial nerves II through XII intact, motor and sensory function within normal limits, strength symmetrical, no focal deficits Psych-normal affect, normal mood Discharge Data Allergies Allergy/AdvReac Type Severity Reaction Status Date / Time ciprofloxacin Allergy Intermediate swelling Verified 03/07/23 08:59 pantoprazole Allergy Intermediate Swelling / Verified 03/07/23 08:59 Aches & Pains over whole body trimethoprim Allergy Unknown WHOLE BODY Verified 03/07/23 08:59 TURNED RED icosapent ethyl AdvReac Severe Arthralgia, Verified 03/07/23 08:59 [From Vascepa] swallow problem levofloxacin AdvReac Intermediate ankle Verified 03/07/23 08:59 swelling Edwuagr-OPU-OyW Reductase AdvReac Intermediate myalgia Verified 03/07/23 08:59 Inhibitor Sulfa (Sulfonamide AdvReac Intermediate WHOLE BODY Verified 03/07/23 08:59 Antibiotics) TURNED RED sulfamethoxazole AdvReac Intermediate WHOLE BODY Verified 03/07/23 08:59 TURNED RED Consultations 03/19/23 20:37 ED Decision to Admit Stat Ordered Studies 03/19/23 18:31 CT angio chest PE protocol Stat Hospital Course (1) Anaplasmosis: Treated while hospitalized with intravenous doxycycline. He will be discharged on oral doxycycline. He is currently stable and afebrile. No complaints. (2) Coronary artery disease: Patient with CAD s/p PCI to proximal LAD in July 2017. He had a catheterization in March 2022 which revealed a patent stent, 50% mid RCA occlusion. Stable. Continue current medical management (3) Rheumatoid arthritis: Steroid-dependent. Prednisone dosage has been uptitrated during his acute illness while hospitalized. (4) Hypertension: Elevated blood pressure on admission, now controlled. Continue current medical management. (5) Adenocarcinoma of prostate: Stable. Continue Leflunomide 20mg po daily (6) Sepsis: Present on admission. Now resolved Plan Home today, March 21, on oral doxycycline for 2 more weeks. Total Time Total Time Spent Total Time Spent (In Minutes): 40 minutes Discharge Plan Discharge Items Patient Disposition: Home - Self-Care Reason For Visit: ANAPLASMOSIS Discharge Diagnosis: Sepsis, anaplasmosis Activity: Resume your previous activity Non-emergency contact: Primary Care Provider Call non-emergency contact if: you have any medication questions and your symptoms worsen Follow-up/Referrals: Alexa Kurtz MD [Primary Care Provider] - Diet: Regular and Heart Healthy Addtl Attending Provider Instructions: Take doxycycline twice a day for 2 more weeks Pending Studies at Discharge: No Stand-Alone Forms: [employer], Smoking Cessation Medications and DC Order Prescriptions: New doxycycline hyclate 100 mg capsule 100 mg PO BID 14 Days Qty: 28 0RF Continued metoprolol succinate [Toprol XL] 50 mg tablet extended release 24 hr 50 mg PO QAM Qty: 90 3RF amlodipine 10 mg tablet 10 mg PO QAM Qty: 90 3RF clopidogrel [Plavix] 75 mg tablet 75 mg PO QAM Qty: 90 3RF acetaminophen [Tylenol Extra Strength] 500 mg tablet 1,000 mg PO TID MDD 3,000 mg PRN (Reason: Fever Or Pain) prednisone 5 mg tablet 5 mg PO DAILY leflunomide 20 mg tablet 20 mg PO DAILY Discharge Orders: Discharge Order (Routine); Ordered 03/21/23 Ordered By: Mike Hawkins Admission Data Admit Date/Time: 03/19/23 21:03 Attending Provider: Mike Hawkins Admit Provider: Miri Aviles Primary Care Provider: Alexa Kurtz V. Other Providers: Miri Aviles Coding Level of Care Code 69051 INP/OBS DISCH >30 MIN Diagnoses Anaplasmosis A77.49 Coronary artery disease I25.10 Rheumatoid arthritis M06.9 Hypertension I10 Adenocarcinoma of prostate C61 Sepsis A41.9
[2023-03-21 12:42] VITALS: BP 145/79
[2023-03-23 09:02] LABS: Babesia microti DNA Not Detected (Not Detected)
== END 2023-03-21 13:10 | disposition home or self-care (01) | DRG 872 ==
LOC: ED 17:27 → 2N 21:03 → SUATTDRO 21:03 → INTOOBSV 21:03 → 2N 22:10

== ENCOUNTER 2023-11-13 06:49 | Observation (INO) ==
--- NOTE | 2023-11-08 13:29 | Anesthesiology Consultation ---
Date of Service November 08, 2023 Assessment & Plan (1) Encounter for pre-operative examination: - Infectious disease screening: Per assessment on 11/08/23: No known infectious disease contacts or current infectious disease symptoms. No noted recent Covid positive test result. - Outpatient joint assessment: Pt currently scheduled for inpatient pathway. If surgeon requests review for outpatient joint pathway, patient is not recommended candidate for outpatient joint program from anesthesia standpoint. - Cardiology visit (07/09/23): "Coronary artery disease.. status post PCI of proximal LAD 08/09.. Patent stent 03/2022, 50% mid RCA.. Hypertension- on BB/CCB.. Dyslipidemia-- statin intolerant, Zetia, vascepa and declines PCSK9, elevated TGs.. Inflammatory polyarthritis -- on Prednisone, leflunomide.. Atypical chest pain--chronic. Musculoskeletal/anxiety. Recent negative DSE.. Patient recently feeling generally unwell, eventually felt to be secondary to his cancer medication and much improved since discontinuing it. Now plans for right knee replacement in July with [facility]. He is feeling well from a cardiac standpoint. Remains fairly active, achieving >4 METS without anginal type symptoms. On exam appears well perfused without signs of heart failure. Recent DSE negative for ischemia and resting echo with normal LV function, wall motion and no significant valvular pathology. From a cardiac standpoint feel he is low risk to proceed with planned knee replacement. No additional cardiac testing/intervention indicated prior. OK to stop clopidogrel 7 days prior but will need to replace with aspirin 81 mg daily, including AM of surgery, given history of PCI." - PCP visit (11/07/23): "Patient presents today for an ER follow up for right leg swelling 10/27/23. He will finish the antibiotics and prednisone today. He did follow-up with orthopedics 10/29/2023 and he is due to have his right knee replaced next Saturday with [facility]. He was told that he can take the prednisone right up until surgery and would like to continue with the 20 mg daily that he has been taking. Also like to have antibiotics on hand to take if needed should his leg began to get hot/red and swollen.. Arthritis of right knee-chronic.. Patient has been struggling with right lower leg cellulitis and swelling for the past few months.. Finished antibiotics and prednisone today.. He is scheduled in 1 week for right knee replacement. Unfortunately this surgery has been rescheduled twice now due to infection and swelling.. Will continue to take prednisone 20 mg daily for the next 5 days prior to surgery to prevent swelling.. Refill of antibiotics sent into pharmacy for him to take if needed- discussed red flag warning signs which should prompt him to start taking antibiotics" > Surgeon aware- advised patient to contact surgeon's office if worsening or development of redness/warmth prior to surgery (not present as of 11/07/23 PCP visit). Chart Review Chart Review: Acceptable Risk for Surgery and Patient NOT seen in Pre Admission Testing History Surgery Operation Date: 11/13/23 09:20 Proposed Procedures p Right Total Knee Arthroplasty - Vu Saucedo DO Height/Weight Height: 5 ft 5 in Weight: 108.862 kg Allergies Allergy/AdvReac Type Severity Reaction Status Date / Time icosapent ethyl Allergy Severe Arthralgia, Verified 11/08/23 12:25 [From Vascepa] swallow problem ciprofloxacin Allergy Intermediate Swelling Verified 11/08/23 12:25 pantoprazole Allergy Intermediate Swelling, Verified 11/08/23 12:25 diffuse aches/pains trimethoprim Allergy Intermediate Diffuse Verified 11/08/23 12:25 body redness leflunomide AdvReac Intermediate Joint Pain Verified 11/08/23 12:25 levofloxacin AdvReac Intermediate Ankle Verified 11/08/23 12:25 swelling Xuisayz-QZD-JtD Reductase AdvReac Intermediate Myalgia Verified 11/08/23 12:25 Inhibitor Sulfa (Sulfonamide AdvReac Intermediate Diffuse Verified 11/08/23 12:25 Antibiotics) body redness sulfamethoxazole AdvReac Intermediate Diffuse Verified 11/08/23 12:25 body redness tramadol AdvReac Intermediate "Didn't Verified 11/08/23 12:25 feel right" Medications Home Medications Medication Instructions Recorded Confirmed Last Taken acetaminophen 500 mg tablet 1,000 mg PO TID PRN Fever Or Pain 10/23/19 11/08/23 09/10/23 23:59 (Tylenol Extra Strength) metoprolol succinate 50 mg 50 mg PO QAM #90 tabs 05/15/23 11/08/23 09/11/23 04:00 tablet,extended release 24 hr (Toprol XL) lisinopril 10 mg tablet 10 mg PO QAM 1011/08/23 09/10/23 06:00 clopidogrel 75 mg tablet (Plavix) 75 mg PO QAM #90 tabs 07/09/23 11/08/23 08/30/23 amlodipine 10 mg tablet 10 mg PO QAM #90 tabs 08/05/23 11/08/23 09/10/23 06:00 aspirin 81 mg tablet,delayed 81 mg PO QAM 08/27/23 11/08/23 09/11/23 04:00 release (Adult Low Dose Aspirin) cephalexin 500 mg capsule 500 mg PO TID #21 caps 11/07/23 11/08/23 Unknown prednisone 20 mg tablet 20 mg PO QAM 11/08/23 11/08/23 Unknown Past Medical History Medical History Adenocarcinoma of prostate Tx with radiation seeds 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, treatment completed Coronary artery disease s/p stent to proximal LAD 2016 Hyperlipidemia Hypertension Obesity Restless legs syndrome Rheumatoid arthritis Positive anti-CCP test Follows with [facility] Taking prednisone 5mg daily (chronic) Right leg pain Sepsis b/l knees 06/2023, "now resolved" Sleep apnea CPAP (compliant) Solitary pulmonary nodule monitoring, no changes Statin intolerance Past Family History Family History Father Myocardial infarction Stroke Brain cancer Coronary heart disease Uncle Myocardial infarction Mother Diabetes Brother Diabetes Sister Diabetes Family/Other Diabetes Denies family history of Ovarian cancer Prostate cancer Breast cancer Colorectal cancer Past Surgical History Surgical History H/O prostate biopsy History of colonoscopy History of coronary artery stent placement 2016, [place] Dr Lloyd History of tooth extraction S/P cystoscopy with ureteral stent placement S/P hernia repair Social History Smoking Status: Never smoker Do You Dip or Chew Tobacco: No Hx Alcohol Use: No Hx Substance Use: No substance use type: does not use Lab Results Anesthesia Preop Results Results Anesthesia Widget: WBC 12.90 K/ul (4.8-10.8) H 10/27/23 Hgb 12.1 g/dl (14.0-18.0) L 10/27/23 Hct 38.3 % (42.0-52.0) L 10/27/23 Plt 531 K/uL (130-400) H 10/27/23 Na 139 mmol/L (136-145) 10/27/23 K 4.2 mmol/L (3.5-5.1) 10/27/23 Cl 102 mmol/L (98-107) 10/27/23 CO2 30 mmol/L (21-32) 10/27/23 BUN 19 mg/dl (6-23) 10/27/23 Creat 1.00 mg/dl (0.6-1.4) 10/27/23 Glucose Level 131 mg/dl (70-99(Fasting)) H 10/27/23 PT 10.8 Seconds (9.0-12.0) 10/14/23 PTT 32 Seconds (21-31) H 09/14/23 INR 1.0 (0.9-1.1) 10/14/23 HA1c 6.3 % (4.5-5.6) H 10/14/23 Urine Color Dark Yellow 10/14/23 Urine Appearance Clear (Clear) 10/14/23 Urine pH 5.0 (4.5-7.5) 10/14/23 Urine Specific [place] 1.036 (1.000-1.030) H 10/14/23 Urine Protein Negative (Negative) 10/14/23 Urine Glucose (UA) Negative (Negative) 10/14/23 Urine Ketones Trace (Negative) H 10/14/23 Urine Blood Negative (Negative) 10/14/23 Urine Nitrite Negative (Negative) 10/14/23 Urine Bilirubin Negative (Negative) 10/14/23 Urine Urobilinogen Negative (Negative) 10/14/23 Urine Leukocyte Esterase Negative (Negative) 10/14/23 Urine WBC (Auto) 1-5 /hpf (0-5) 09/15/23 Urine RBC (Auto) 0-4 /hpf (0-4) 09/15/23 Urine Hyaline Casts (Auto) 1-5 /lpf (0-5) 09/15/23 Urine Epithelial Cells (Auto) 0-5 /lpf (0-5) 09/15/23 Urine Bacteria (Auto) Negative (Negative) 09/15/23 COVID-19 PCR NEGATIVE (Negative) 09/15/23 Testing Laboratory Results *PCP aware of elevated WBC* Electrocardiogram Date: 09/14/23 NSR at 94bpm. Minimal voltage criteria for LVH, may be normal variant (R in aVL). Inferior infarct (cited on or before 03/19/23 per database designer comparison). *Stress test done 04/2023* Chest X-Ray Date: 09/14/23 FINDINGS: Lung volumes are normal. Linear bilateral lower lung densities favor atelectasis. There is no pneumothorax or pleural effusion. Cardiomegaly is unchanged. Mediastinal contours are normal. There is no evidence for pulmonary edema. IMPRESSION: No acute cardiopulmonary findings. Cardiomegaly. Linear bibasilar densities suggestive of atelectasis. Echocardiogram Date: 04/04/22 LVEF 60 to 65%. No regional wall motion abnormality. Mild RVD. Borderline concentric LVH. Trace MR. Grade 1 diastolic dysfunction. Normal estimated PASP. No significant changes compared to prior study 12/06/2017 per report. Stress Test Date: 05/13/23 Type: DSE Negative dobutamine stress echo/ECG for ischemia at 84% MPHR. Normal resting LV size and function. LVEF 55%. Grade 1 diastolic dysfunction. Mild LVH. Mild RVD with normal function. No significant valvular disease. Compared with prior study 04/04/2022, resting function unchanged per report. Cardiac Catheterization Date: 04/04/22 Summary: Moderate nonobstructive coronary artery disease. Widely patent mid LAD stent. 50% mid RCA (FFR 0.85). Normal intracardiac filling pressure Recommendations: No high risk CAD to explain recent exertional dyspnea, chest discomfort. Continue evaluation for noncardiac causes of patient's symptoms. Assuming echo unremarkable can resume all activities/exercise without limitations. Continued ASCVD risk to modification. Cervical Spine xray Date: 07/08/23 FINDINGS: Mild multilevel intervertebral disc space narrowing, uncovertebral hypertrophy and facet arthrosis. No acute fracture, subluxation or osseous erosion. The C1-C2 articulation appears normal. The lower cervical spine is obscured by the patient's overlying shoulders. IMPRESSION: No acute fracture or subluxation.
[~2023-11-13 06:49] MED LIST changes: -ACET-1256 PO; -ASPI-320 PO; +BUPIVACAINE 0.25% PF 30 ML VIAL ONE; +BUPIVACAINE 0.5 % 5 MG/1 ML PF 10ML VIAL ONE; -CLOP1TAB15 PO; +DEXAMETHASONE SOD INJ 4 MG/ML VIAL ONE; +EPINEPHrine INJ 1 MG/ML AMP ONE; -METO-452 PO; -NTRSLP4 SL
--- NOTE | 2023-11-13 07:15 | History & Physical Bridge Note ---
Date of Service November 13, 2023 History & Physical Bridge Note I have examined the patient, reviewed the History & Physical and in the interval since the performance of the History & Physical I have noted the following changes of clinical significance: no changes noted
[2023-11-13] MEDS: LR 500ML BOLUS, THEN 15ML/HR IV SCH (07:37)
[2023-11-13] MEDS: METOCLOPRAMIDE HCL 10 MG TABLET PO SCH (07:38)
[2023-11-13] MEDS: ACETAMINOPHEN 500 MG TAB PO SCH ×2 (07:38→14:14)
[2023-11-13] MEDS: FAMOTIDINE 20 MG TAB PO SCH (07:39)
[2023-11-13] MEDS: GABAPENTIN 300 MG CAP PO SCH (07:39)
[2023-11-13] MEDS: LR 60ML/HR IV SCH (07:41)
[2023-11-13] MEDS: dexAMETHasone**PF** 10 MG/ML VIAL IV SCH (07:41)
[2023-11-13 07:44] LABS: Partial Thromboplastin Ratio 0.9; Partial Thromboplastin Time 25 Seconds (21-31)
[2023-11-13] MEDS ORDERED: fentaNYL citrate PF 100 MCG/2 ML VIAL ONE (07:51)
[2023-11-13] MEDS ORDERED: PROPOFOL IV EMULSION 10 MG/ML 20 ML VIAL IV ONE (07:51)
[2023-11-13] MEDS ORDERED: MIDAZOLAM HCL 1 MG/ML 2ML VIAL ONE (07:51)
[2023-11-13] MEDS ORDERED: ONDANSETRON INJ 2 MG/ML 2 ML VIAL IV PRN ×2 (08:17→11:45)
[2023-11-13] MEDS ORDERED: fentaNYL citrate PF 100 MCG/2 ML VIAL IV PRN (08:17)
[2023-11-13] MEDS ORDERED: ATROPINE SULFATE 0.1 MG/ML 10ML SYR IV PRN (08:17)
[2023-11-13] MEDS ORDERED: ePHEDrine sulfate 50 MG/ML AMP IV PRN (08:17)
[2023-11-13] MEDS: TRANEXAMIC ACID 1,000 MG **IV Pre-op IV SCH (09:07)
[2023-11-13] MEDS: ceFAZolin 2000MG 2,000 MG/15 ML SYR IV SCH ×2 (09:25→18:09)
[2023-11-13] MEDS: ROPIVACAINE 0.5% HCL/PF 246 MG, Ketorolac (*for OR use only*) 30 MG, EPINEPHrine 30MG/3... INFIL ONE (09:52)
--- NOTE | 2023-11-13 10:30 | Operative Report ---
Post Operative Report Pre & Post Diagnosis Operation Date: 11/13/23 08:55 Pre-Op Diagnosis: Right Knee Osteoarthritis Post-Op Diagnosis: Right Knee Osteoarthritis I identified the patient and participated in the time-out.: Yes Procedure Operation Date: 11/13/23 08:55 Actual Procedures p Right Total Knee Arthroplasty(Right)Utilizing [employer] journey 2 patient-matched total knee arthroplasty size 6 femur 6 tibia 12 poly 32 oval patella - Vu Saucedo DO Surgeon Vu Saucedo DO Registered Nurse Supervisor Trevor GODWIN Estimated Blood Loss 5 Findings Consistent with Post-Op Diagnosis Patient presents with severe end-stage tricompartmental degenerative joint disease of the right knee nonresponse to conservative management eburnated [id number]-gufc marginal osteophytes subchondral cystic changes moderate to large effusion Specimens Bone and cartilage Drains Medium bore Hemovac Anesthesia Type MAC Spinal Regional Complications none Disposition Accompanied Patient To Recovery: No Disposition: Recovery Room Indications Patient presents for a right total knee arthroplasty after failed attempted conservative management occluding physical therapy anti-inflammatories relative rest activity modification corticosteroid injection viscosupplementation above intraoperative findings been found Description of Procedure After proper prepping and draping of the Right lower extremity anterior midline incision was made over the region of the extensor extensor mechanism after meticulous hemostasis was obtained and maintained in subcutaneous tissues a medial parapatellar incision was made The patella was subluxed lateralward the medial lateral gutter were cleaned from any hypertrophic synovitis and scar tissue of the distal femoral block was placed and the distal femoral osteotomy cut was made subsequently the chamfers anterior and posterior osteotomy cuts were made utilizing the 4-in-1 block the tibia was subsequently subluxed anteriorward medial and ateral meniscal remnants were excised in their entirety remnants of the anterior and posterior cruciate ligaments were excised in their entirety excellent exposure of the proximal tibia was obtained the tibial osteotomy guide was placed on the proximal tibial osteotomy cut was made once again the knee was irrigated with copious amounts of sterile saline solution the patella was subsequently everted lateralward thickened scar tissue around the patella was removed the patella was subsequently cut utilizing a freehand technique and was drilled prepared for final preparation and placement of patella socially flexion-extension gaps were checked and the equal and symmetric trials were placed to the appropriate femoral and tibial trials with poly-spacer being placed for equal flexion and extension gaps and full range of motion including extension to 0 and flexion to 140 the trial components after having been taken to recovery range of motion was subsequently removed meticulous hemostasis was obtained and maintained subsequently a knee block injection of joint cocktail including ropivacaine 0.5% 150 mg. Bupivacaine 0.5% epinephrine 1-200,030 mL's toradol 30 mg dexamethasone 4 mg ketamine 10 mg clonidine 100 micrograms normal saline solution 30 mg was infiltrated into the soft tissues of the posterior knee medial lateral gutters and periosteal synovium special attention was paid to protect neurovascular structures at all times subsequently trial components having been removed the knee was irrigated with sterile saline solution. debris was removed the proximal tibia was subsequently prepared and was made ready for the placement of the tibial component tibial component was also cemented and tamped into position the femoral component was subsequently placed and cemented in the position the patellar component was subsequently cemented in position because hemostasis once again obtained and maintained wound having been thoroughly irrigated with debridement and debridement lavage was performed as well as a medial parapatellar incision closed with #1 Vicryl in interrupted fashion subcutaneous was closed with #2 Vicryl skin was closed with skin clips. PA-C was necessary for prepping and drapping as well as wound closure of deep fascia Sub cutaneous tissue and skin and was necessary for the case. A sterile compressive dressing was placed patient was taken to recovery in stable condition of report dictated by Lewis I attest to the content of the Intraoperative Record and any orders documented therein. Any exceptions are noted below.Due to the complex nature of the procedure, the entire surgery was performed with the operational assistance of TATO San. The pharmacy innovation assistant, under direct supervision, was involved in the actual performance of all aspects of the surgical procedure including hemostasis, tissue retraction and incision, instrument management, patient positioning, and wound closure. I attest to the content of the Intraoperative Record and any orders documented therein. Any exceptions are noted below.
--- NOTE | 2023-11-13 11:29 | Anesthesiology Progress Note ---
Date of Service November 13, 2023 Anesthesia Post Procedure Vital Signs Vital Signs: Temp Pulse Pulse Resp BP Pulse Ox O2 Del Method 11/13/23 11:15 87 15 125/69 91 Room Air 11/13/23 11:05 82 17 124/67 92 Oxymask 11/13/23 10:55 36.3 C L 85 20 116/61 94 Oxymask 11/13/23 07:16 36.8 C 66 20 178/97 H 96 Room Air O2 Flow Rate 11/13/23 11:15 11/13/23 11:05 10 11/13/23 10:55 10 11/13/23 07:16 Transfer of Care Handoff Completed per policy Notes Mental Status: alert / awake / arousable Patient Amnestic to Procedure: Yes Nausea / Vomiting: adequately controlled Pain: adequately controlled Airway Patency, RR, SpO2: stable & adequate BP & HR: stable & adequate Hydration State: stable & adequate Neuraxial Anesthesia: was administered and sensory block is resolving Anesthetic Complications: no major complications apparent and Pt Satisfied with anesthetic care
[2023-11-13] MEDS ORDERED: NALOXONE HCL 0.4 MG/1 ML VIAL/CARP IV PRN (11:45)
[2023-11-13] MEDS ORDERED: diphenhydrAMINE Capsule 25 MG CAP PO PRN (11:45)
[2023-11-13] MEDS ORDERED: METOCLOPRAMIDE HCL INJ 5 MG/ML 2 ML VIAL IV PRN (11:45)
[2023-11-13] MEDS ORDERED: bisacodyL 10 MG SUPP PR PRN (11:45)
[2023-11-13] MEDS ORDERED: MAGNESIUM HYDROXIDE SUSP 30 ML UDC PO PRN (11:45)
[2023-11-13] MEDS ORDERED: HYDROmorphone INJ 1 MG/ML SYRINGE IV PRN (11:45)
--- NOTE | 2023-11-13 11:50 | XRay Report ---
XR knee RT 1 or 2V routine CLINICAL HISTORY: Surgical Post Op TECHNIQUE: 2 views of the right knee were obtained. Comparison: Comparison is made to the radiograph 10/27/2023 FINDINGS: There is no evidence of an acute fracture. Patient is status post total knee arthroplasty. No perihar dware lucency or hardware fracture is seen. No joint effusion is seen. No soft tissue abnormality is seen. IMPRESSION: No evidence of acute osseous injury. ACT 112: Negative or not required by law. Electronically signed by: Phi Munguia M.D. 11/13/2023 11:48 AM
[2023-11-13] MEDS: SODIUM CHLORIDE 0.9% 1,000 ML IV SCH (12:20)
[2023-11-13] MEDS: DOCUSATE SODIUM 100 MG CAP PO SCH (21:45)
[2023-11-13] MEDS: SENNA 8.6 MG TAB PO SCH (21:45)
[2023-11-13] MEDS: oxyCODONE HCL IR 5 MG TAB (IMMEDIATE RELEASE) PO PRN (23:09)
--- NOTE | 2023-11-14 07:10 | Orthopedic Progress Note ---
Date of Service November 14, 2023 Assessment & Plan (1) History of total right knee replacement: Plan: POD #1 s/p Right TKA pt/ot dvt proph with HOA/SCD/Plavix and ASA plan for d/c home with OPPT Admission and Anticipated Discharge Date Admission Date: November 13, 2023 Subjective POD #1 s/p Right TKA Review of Systems Constitutional: no fever, no chills and no sweats Respiratory: no cough and no dyspnea Cardiovascular: no chest pain and no dyspnea Gastrointestinal: no abdominal pain, no nausea and no vomiting Physical Exam Physical Exam: Vital Signs Temp 36.6 C 11/14/23 03:00 Pulse 75 11/14/23 03:00 Resp 16 11/14/23 03:00 BP 126/75 11/14/23 03:00 Pulse Ox 92 11/14/23 03:00 O2 Del Method Room Air 11/14/23 03:00 O2 Flow Rate 2 11/13/23 17:58 FiO2 21 11/13/23 22:02 Intake & Output 11/13/23 11/14/23 11/14/23 18:59 06:59 18:59 Intake Total 1100 / 2043.333 943.333 / 2043.333 926.667 / 926.667 Output Total 45 / 865 820 / 865 Balance 1055 / 1178.333 123.333 / 1178.333 926.667 / 926.667 Weight 113.2 kg Intake: IV 100 / 1043.333 943.333 / 1043.333 926.667 / 926.667 Lactated Ringe r's 1,000 ml @ 15 0 / 0 mls/hr IV .Q24 H [facility] Rx#: [id number] Sodium Chlorid e 0.9% 1,000 ml @ 943.333 / 943.333 926.667 / 926.667 100 mls/hr IV .Q10H [facility] Rx#: [id number] Tranexamic Aci d / 0.7% NaCl 1, 100 / 100 000 mg In 100 ml @ 600 mls/hr IV TODAY@0600 [facility] Rx#:[id number] IV Perioperative 1000 / 1000 Output: Urine 600 / 600 Estimated Blood Loss 5 / 5 Drain Output 40 / 260 220 / 260 Right Knee Hem ovac 40 / 260 220 / 260 Other: Weight Measureme nt Method Standing Scale Musculoskeletal: Right Leg: NVDI, calf SNT, negative renea sign. DP palpable, able to wiggle toes/ankle movement without difficulty. dressing clean dry and intact. Results & Data Vital Signs (Past 12 Hours) Vital Signs Temp Pulse Pulse Resp BP Pulse Ox O2 Del Method 11/14/23 03:00 36.6 C 75 16 126/75 92 Room Air 11/13/23 23:14 36.6 C 85 16 144/77 H 95 Room Air 11/13/23 22:02 86 21 96 11/13/23 20:27 36.8 C 85 18 124/64 92 Room Air FiO2 11/14/23 03:00 11/13/23 23:14 11/13/23 22:02 21 11/13/23 20:27 Laboratory Results Laboratory Results APTT 25 Seconds (21-31) 11/13/23 06:58 PTT Ratio 0.9 11/13/23 06:58 Blood Type A Negative 11/13/23 06:58 Antibody Screen NEGATIVE 11/13/23 06:58 Impressions Knee X-Ray 11/13/23 11:00 XR knee RT 1 or 2V routine CLINICAL HISTORY: Surgical Post Op TECHNIQUE: 2 views of the right knee were obtained. Comparison: Comparison is made to the radiograph 10/27/2023 FINDINGS: There is no evidence of an acute fracture. Patient is status post total knee arthroplasty. No perihardware lucency or hardware fracture is seen. No joint effusion is seen. No soft tissue abnormality is seen. IMPRESSION: No evidence of acute osseous injury. ACT 112: Negative or not required by law. Electronically signed by: Phi Munguia M.D. 11/13/2023 11:48 AM
--- NOTE | 2023-11-14 07:13 | Discharge Summary ---
Date of Service date of discharge: November 14, 2023 date of admission: 11/13/23 Admission HPI Per Admitting Provider Carlos is a pleasant 73-year-old male who presented for preop evaluation prior to his right total knee replacement. He has a longstanding history of right knee pain which gradually worsened and is now affecting his daily activities including walking standing using stairs, rates his current pain as a 6 out of 10. He has undergone prior injections including corticosteroid as well as viscosupplementation without relief. At this point time is failed conservative measures and would like to proceed with a right total knee replacement Principal Diagnosis right knee osteoarthriti Discharge Exam Vital Signs Temp Pulse Pulse Pulse Resp BP Pulse Ox 11/14/23 03:00 36.6 C 75 16 126/75 92 11/13/23 23:14 36.6 C 85 16 144/77 H 95 11/13/23 22:02 86 21 96 11/13/23 20:27 36.8 C 85 18 124/64 92 11/13/23 17:58 11/13/23 13:40 36.6 C 91 H 17 157/65 H 97 11/13/23 12:48 36.6 C 86 18 133/76 92 11/13/23 12:10 36.5 C 88 18 133/76 90 11/13/23 12:05 80 18 118/86 94 11/13/23 11:50 79 20 125/64 93 11/13/23 11:35 36.3 C L 82 18 111/63 92 11/13/23 11:25 84 18 108/65 91 11/13/23 11:15 87 15 125/69 91 11/13/23 11:05 82 17 124/67 92 11/13/23 10:55 36.3 C L 85 20 116/61 94 11/13/23 07:16 36.8 C 66 20 178/97 H 96 O2 Del Method O2 Flow Rate FiO2 11/14/23 03:00 Room Air 11/13/23 23:14 Room Air 11/13/23 22:02 21 11/13/23 20:27 Room Air 11/13/23 17:58 Nasal Cannula 2 11/13/23 13:40 Nasal Cannula 2 11/13/23 12:48 Nasal Cannula 2 11/13/23 12:10 Nasal Cannula 11/13/23 12:05 Nasal Cannula 4 11/13/23 11:50 Nasal Cannula 4 11/13/23 11:35 Nasal Cannula 4 11/13/23 11:25 Nasal Cannula 2 11/13/23 11:15 Room Air 11/13/23 11:05 Oxymask 10 11/13/23 10:55 Oxymask 10 11/13/23 07:16 Room Air Intake and Output 11/13/23 11/14/23 11/14/23 22:59 06:59 14:59 Intake Total 943.333 / 2043.333 926.667 / 926.667 Output Total 400 / 865 420 / 865 Balance 543.333 / 1178.333 -420 / 1178.333 926.667 / 926.667 Intake: IV 943.333 / 1043.333 926.667 / 926.667 Sodium Chloride 0.9% 1,000 ml @ 943.333 / 943.333 926.667 / 926.667 100 mls/hr IV .Q10H [facility] Rx#: [id number] Output: Urine 200 / 600 400 / 600 Drain Output 200 / 260 20 / 260 Right Knee Hemovac 200 / 260 20 / 260 Musculoskeletal Right knee: NVDI, calf SNT, negative renea sign. DP palpable, able to wiggle toes/ankle movement without difficulty. dressing clean dry and intact. Discharge Data Allergies Allergy/AdvReac Type Severity Reaction Status Date / Time icosapent ethyl Allergy Severe Arthralgia, Verified 11/13/23 07:10 [From Vascepa] swallow problem ciprofloxacin Allergy Intermediate Swelling Verified 11/13/23 07:10 pantoprazole Allergy Intermediate Swelling, Verified 11/13/23 07:10 diffuse aches/pains trimethoprim Allergy Intermediate Diffuse Verified 11/13/23 07:10 body redness leflunomide AdvReac Intermediate Joint Pain Verified 11/13/23 07:10 levofloxacin AdvReac Intermediate Ankle Verified 11/13/23 07:10 swelling [id number] Reductase AdvReac Intermediate Myalgia Verified 11/13/23 07:10 Inhibitor Sulfa (Sulfonamide AdvReac Intermediate Diffuse Verified 11/13/23 07:10 Antibiotics) body redness sulfamethoxazole AdvReac Intermediate Diffuse Verified 11/13/23 07:10 body redness tramadol AdvReac Intermediate "Didn't Verified 11/13/23 07:10 feel right" Procedures Performed Operation Date: 11/13/23 08:55 Actual Procedures p Right Total Knee Arthroplasty(Right) - Vu Saucedo DO Ordered Studies 11/13/23 05:00 US - OR guided needle placemen Routine Hospital Course (1) History of total right knee replacement: POD #1 s/p Right TKA pt/ot dvt proph with HOA/SCD/Plavix and ASA plan for d/c home with OPPT Total Time Total Time Spent Total Time Spent (In Minutes): 20 Discharge Plan Discharge Items Patient Disposition: Home - Home Health Services Reason For Visit: Right Knee Osteoarthritis Discharge Diagnosis: Right total knee replacement Activity: Per Instructions section Weightbearing Comment: WBAT with walker Non-emergency contact: Surgeon Call non-emergency contact if: you have any medication questions, your temperature is above 101, your wound has increased redness, your wound has increased drainage and your wound pain has increased Follow-up/Referrals: Alexa Kurtz MD [Primary Care Provider] - Diet: Regular Addtl Attending Provider Instructions: ACTIVITY RECOMMENDATIONS: SELF CARE INSTRUCTIONS AFTER TOTAL KNEE REPLACEMENT A. You may need to continue a physical therapy program after discharge from the hospital. There are several options available to you. Your doctor will assist you in selecting the best one for you. 1. An out-patient facility 2 to 3 times a week for therapy or home therapy. 2. Continue working on all exercises taught to you in the hospital. Your goals should be to increase bending of your knee to 90 degrees and beyond and to fully straighten your knee. B. You may progress at your own pace from walking with a walker or crutches to a cane; then to no assistive devices. C. Make walking a part of your daily routine. Be up as much as comfortable with rest periods throughout the day. Rest with leg elevation is very important. Use the ice wrap frequently for the first 3-4 weeks. D. There are no restrictions on activities. You may ride in a car, shop, participate in molder punch and all social activities. E. Wear the long elastic stockings (HOA hose) 20 hours a day for 2 weeks after surgery. They can be removed several times a day for laundering and for a bath. F. You may shower, no tub baths until cleared by your doctor. SPECIAL CARE INSTRUCTIONS: VERY IMPORTANT TO READ AND REVIEW A. There are a few signs you need to watch for after you are home. Call [facility] if you notice any of the followin. Increased severe knee pain. Some pain is expected especially when you exercise. 2. Increased swelling in your leg or knee; pain or swelling of the calf muscle in either lower leg. 3. Any fluid drainage from the incision. 4. Shortness of breath or chest pain. B. Please call [facility] at if you have any concerns or questions about your operation or recovery. The doctor or his nurse will return your call promptly. C. You must take antibiotics before dental work, bladder, bowel or other surgery. Your doctor will provide you with a permanent care to carry describing this precaution. IMPORTANT: * REMEMBER TO TAKE ASPIRIN, 81 MG, TWICE DAILY FOR 4 WEEKS UNLESS OTHERWISE DIRECTED. THIS IS YOUR BLOOD THINNER. * HIGH RISK PATIENTS MAY BE PRESCRIBED A STRONGER BLOOD THINNER. THIS WILL BE PROVIDED AT DISCHARGE. * CALL IF INCREASED PAIN, REDNESS, DRAINAGE OR FEVER GREATER THAT 101. * WEAR HOA HOSE 20 HOURS PER DAY FOR 2 WEEKS. DRESSING INSTRUCTIONS * ERNA Dressing- This is a large suction dressing covering your incision. This will help pull any excess drainage from the wound and allow your incision to heal properly. You may shower with this if you can keep the unit outside of the shower. If any bleeding or leakage is noted please call your doctor's office. This will remain on your incision for 7 days and then should be removed. This can be done yourself or by the home nursing staff if applicable. The entire unit is disposable once removed. Once removed, keep incision clean and dry. If redness or drainage is noted, please call your surgeon. ONCE ERNA IS REMOVED, FOLLOW THESE INSTRUCTIONS: DERMABOND Prineo- This is a mesh tape dressing that is covered with glue. It should remain in place until the incision is properly healed, usually 10-14 days. This dressing is designed to naturally slough off. You may trim the excess mesh tape as it peels off. Incision may be briefly wet in a shower. Dry immediately by blotting with a clean, dry towel. Do not bath or swim until instructed by your doctor. Do not scratch, rub, or pick at the dressing. Do not apply any topical ointments or lotions until dressing is completely removed and/or instructed by your doctor. There may be a small piece of suture material at one end of your incision. Do not pull or trim this. If it is bothersome or catching on clothing, you may cover it with a band-aid. IF INCISION IS LEAKING THROUGH DRESSING, CALL THE OFFICE . FOLLOW UP VISIT: If appointment is not already scheduled: Please call [facility] to make a follow-up appointment for 2 weeks after your surgery at . Stand-Alone Forms: My [facility] Medications and DC Order Prescriptions: New acetaminophen 500 mg tablet 1,000 mg PO Q8 21 Days Qty: 126 0RF cefadroxil 500 mg capsule 500 mg PO BID 14 Days Qty: 28 0RF docusate sodium 100 mg Capsule 100 mg PO BID Qty: 20 0RF oxycodone 5 mg tablet 5 - 10 mg PO Q6H PRN (Reason: pain) Qty: 30 0RF Rx Instructions: ongoing therapy, supervising dr brent saucedo. max 6 tabs in 24 hours, date of surgery 11/13/23 Continued metoprolol succinate [Toprol XL] 50 mg tablet extended release 24 hr 50 mg PO QAM Qty: 90 3RF clopidogrel [Plavix] 75 mg tablet 75 mg PO QAM Qty: 90 3RF Hold Instructions: surgery amlodipine 10 mg tablet 10 mg PO QAM Qty: 90 1RF aspirin [Adult Low Dose Aspirin] 81 mg tablet,delayed release (DR/EC) 81 mg PO QAM lisinopril 10 mg tablet 10 mg PO QAM prednisone 20 mg tablet 20 mg PO QAM Discontinued cephalexin 500 mg capsule 500 mg PO TID Qty: 21 0RF Patient Comments: not taking at present 11/08/23 acetaminophen [Tylenol Extra Strength] 500 mg tablet 1,000 mg PO TID MDD 3,000 mg PRN (Reason: Fever Or Pain) Admission Data Admit Date/Time: 11/13/23 11:00 Attending Provider: Vu Saucedo Admit Provider: Vu Saucedo Primary Care Provider: Alexa Kurtz V.
[2023-11-14 07:28] VITALS: BP 148/73; PULSE 83; RESP 17; TEMP 97.7; O2SAT 93
[2023-11-14] MEDS: amLODIPine BESYLATE 5 MG TAB PO SCH (07:59)
[2023-11-14] MEDS: CLOPIDOGREL BISULFATE 75 MG TAB PO SCH (08:00)
[2023-11-14] MEDS: ASPIRIN 81 MG ECTAB PO SCH (08:00)
[2023-11-14] MEDS: METOPROLOL SUCC 50MG EXT REL TAB PO SCH (08:01)
[2023-11-14] MEDS: lisinopril 10 MG TAB PO SCH (08:01)
[2023-11-14] MEDS: MULTIVITAMIN TAB PO SCH (08:02)
[2023-11-14 08:05] LABS: Hematocrit (blood only) 35.2 % (42.0-52.0); Hemoglobin 11.8 g/dl (14.0-18.0); Mean Corpuscular Hemoglobin 29.1 pg (25.0-34.0); Mean Corpuscular Hgb Conc 33.5 g/dL (32.0-36.0); Mean Corpuscular Volume 86.7 fL (80.0-100.0); Mean Platelet Volume 8.3 fL (9.4-12.4); Platelet Count 255 K/uL (130-400); RDW Coefficient of Variation 16.8 % (11.5-14.5); RDW Standard Deviation 53.1 fL (36.4-46.3); Red Blood Count 4.06 M/uL (4.70-6.10); White Blood Count 26.36 K/ul (4.8-10.8)
[2023-11-14 08:25] LABS: BUN Creatinine Ratio 27.4 (10-20); Calcium 9.1 mg/dl (8.6-10.3); Creatinine Clr Calc Pharmacy 82.9 ml/min; Est GFR (Non-African American) 80.2 ml/min; Potassium 4.4 mmol/L (3.5-5.1)
[2023-11-14] MEDS ORDERED: NORCO 5/325MG HOMEPACK PO ONE (12:27)
== END 2023-11-14 12:45 | disposition home health service (06) ==
LOC: ASU 06:49 → PACUINP 06:49 → 3W 12:17
DX: Z88.2 Allergy status to sulfonamides; Z88.8 Allergy status to other drugs, medicaments and biological substances; G47.33 Obstructive sleep apnea (adult) (pediatric); Z79.82 Long term (current) use of aspirin; M06.9 Rheumatoid arthritis, unspecified; I25.10 Atherosclerotic heart disease of native coronary artery without angina pectoris; I10 Essential (primary) hypertension; Z79.52 Long term (current) use of systemic steroids; Z95.5 Presence of coronary angioplasty implant and graft; Z68.41 Body mass index [BMI] 40.0-44.9, adult; E66.9 Obesity, unspecified; Z79.899 Other long term (current) drug therapy; M17.11 Unilateral primary osteoarthritis, right knee; Z88.1 Allergy status to other antibiotic agents

== ENCOUNTER 2024-12-01 19:25 | Inpatient (IN) ==
--- NOTE | 2024-12-01 19:53 | Emergency Department Note ---
ED Provider Note History of Present Illness Chief Complaint: Cough Stated Complaint: LOW OX, COUGH Time Seen by Provider: 12/01/24 19:42 Source: patient Mode of arrival: ambulatory Limitations: no limitations This patient is a 74-year-old male who presents to the emergency department for evaluation of worsening symptoms of RSV. Patient has been sick for about 1 week with cough and shortness of breath. His recently had RSV. He was here yesterday and tested positive for RSV. He states that his oxygen levels were "borderline" and he was almost admitted but did well enough to go home. He does take steroids chronically for arthritis and states he has been taking an increased dose of 2 pills/day since the symptoms started. He states that he was taking his pulse ox at home and it was 87-90 which prompted him to come in. He states he feels short of breath with movement. Home Medications Medication Instructions Recorded Confirmed Type lisinopril 10 mg tablet 10 mg PO QAM 01/30/24 12/01/24 History acetaminophen 650 mg 650 mg PO Q8H PRN Pain 04/22/24 12/01/24 History tablet,extended release (Tylenol 8 Hour) CPAP Machine See Rx Instructions .Route 05/20/24 12/01/24 Rx .COMPLEX #1 ea amlodipine 10 mg tablet 10 mg PO QAM #90 tabs 07/27/24 12/01/24 Rx clopidogrel 75 mg tablet (Plavix) 75 mg PO QAM #90 tabs 09/09/24 12/01/24 Rx leflunomide 20 mg tablet 20 mg PO QAM 11/09/24 12/01/24 History metoprolol succinate 50 mg 50 mg PO QAM 11/09/24 12/01/24 History tablet,extended release 24 hr albuterol sulfate 90 mcg/actuation 2 puff inhalation Q6H PRN 11/24/24 12/01/24 Rx aerosol inhaler shortness of breath or wheezing #6.7 grams prednisone 10 mg tablet 5 mg PO QAM 11/25/24 12/01/24 History adalimumab 40 mg/0.4 mL 0 mg subcut Q14D 11/30/24 12/01/24 History subcutaneous pen kit (Humira(CF) Pen) Allergies Allergy/AdvReac Type Severity Reaction Status Date / Time icosapent ethyl Allergy Severe Arthralgia, Verified 12/01/24 21:14 [From Vascepa] swallow problem ciprofloxacin Allergy Intermediate Swelling Verified 12/01/24 21:14 pantoprazole Allergy Intermediate Swelling, Verified 12/01/24 21:14 diffuse aches/pains levofloxacin AdvReac Intermediate Ankle Verified 12/01/24 21:14 swelling [id number] Reductase AdvReac Intermediate Myalgia Verified 12/01/24 21:14 Inhibitor Sulfa (Sulfonamide AdvReac Intermediate Diffuse Verified 12/01/24 21:14 Antibiotics) body redness sulfamethoxazole AdvReac Intermediate Diffuse Verified 12/01/24 21:14 body redness tramadol AdvReac Intermediate "Didn't Verified 12/01/24 21:14 feel right" trimethoprim AdvReac Intermediate Diffuse Verified 12/01/24 21:14 body redness Past Med/Surg History Problem List (Updated 12/01/24 @ 23:38 by Jana Ochoa PA-C) Hypoxia (Acute) Hypoxic respiratory failure Rheumatoid arthritis Positive anti-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 Rheumatoid arthritis Positive anti-CCP test Follows with [facility] Taking prednisone 5mg daily (chronic) Statin myopathy (Acute) Osteoarthritis of left foot Hyperglycemia Status post insertion of drug-eluting stent into left anterior descending (LAD) artery August 21, 2017 Solitary pulmonary nodule (Chronic) monitoring, no changes Sleep apnea (Chronic) CPAP (compliant) Restless legs syndrome (Chronic) Hyperlipidemia (Chronic) Generalized osteoarthritis of multiple sites (Chronic) Coronary artery disease s/p stent to proximal LAD 2016 Medical History (Updated 12/01/24 @ 23:38 by Jana Ochoa PA-C) CAD (coronary artery disease) s/p stent to proximal LAD 2017 Sleep apnea cpap Statin intolerance History of bladder stone (~2020) Restless leg syndrome History of COVID-19 (~11/13/24) ongoing cough Osteoarthritis of right knee hx - had surgery 2022 Obesity Hypertension controlled, stable per pt Sepsis (06/2023) b/l knees 06/2023, "now resolved" 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 le (05/2024) History of knee replacement (2023) x2 History of tooth extraction History of colonoscopy H/O prostate biopsy S/P hernia repair (~1971) S/P cystoscopy with ureteral stent placement History of coronary artery stent placement (2016) 2016- [facility], no mi- 1 stent [facility]- no stents follows with dr. le (05/2024) Family History Father Myocardial infarction Stroke Brain cancer Coronary heart disease Uncle Myocardial infarction Mother Diabetes Brother Diabetes Sister Diabetes Family/Other Diabetes Denies family history of Ovarian cancer Prostate cancer Breast cancer Colorectal cancer Social History Smoking Status: Never smoker Second Hand Exposure: No; Do You Dip or Chew Tobacco: No; Hx Alcohol Use: No Hx Substance Use: No Preferred Language: Macedonian Communication Ability: Effective Visual Impairment: No Limitations Hearing Ability: Normal Cut Order Hand Required: No Beliefs That Will Affect Care: None marital status: Current Living Situation: Spouse current occupational status: retired current occupation: [employer] Feels Safe at Home: Yes Childhood Exposure to Second-Hand Smoke: No caffeine: Yes Dental Care, Regularly: No Physical Activity Frequency: Daily Seatbelt Use: always Sunscreen Use: No Assistive Devices: CPAP Physical Exam Vital Signs Vital Signs - 24 hr 12/01/24 19:35 12/01/24 19:35 12/01/24 20:07 Pulse Rate 88 Pulse Rhythm Regular Pulse Strength Normal Respiratory Rate 20 Respiratory Effort / Characteristics Non-Labored Spontaneous Respiratory Depth Normal Normal Blood Pressure 157/104 H Blood Pressure Mean 121 Blood Pressure Position Lying Pulse Oximetry 93 93 Oxygen Delivery Method Room Air Room Air Oxygen Flow Rate Sepsis Recent Fever Within 48 Hours No Sepsis New/Unexplained Change in Mental Status No Sepsis Action Taken by Nursing No Action Required 12/01/24 20:30 12/01/24 20:35 Pulse Rate Pulse Rhythm Pulse Strength Respiratory Rate Respiratory Effort / Characteristics Respiratory Depth Blood Pressure Blood Pressure Mean Blood Pressure Position Pulse Oximetry 88 L 92 Oxygen Delivery Method Room Air Nasal Cannula Oxygen Flow Rate 2 Sepsis Recent Fever Within 48 Hours Sepsis New/Unexplained Change in Mental Status Sepsis Action Taken by Nursing VITALS: Vitals are noted on the nurse's note and reviewed by myself. GENERAL: This is a 74-year-old male, in no acute distress. Coughing persistently on exam. SKIN: The skin was without rashes. EARS: External auditory canals clear, tympanic membranes pearly al without erythema or effusion bilaterally. EYES: Pupils equal round and reactive to light and accommodation. NOSE: Patent, turbinates without inflammation or discharge. MOUTH: Mucous membranes moist. Tonsils are not enlarged. Pharynx without erythema or exudate. NECK: Supple without nuchal rigidity. No lymphadenopathy. HEART: Regular rate and rhythm without murmurs gallops or rubs. LUNGS: Frequent cough. Clear to auscultation bilaterally without wheezes, rales or rhonchi. No retractions or accessory muscle use. NEURO: Patient was alert and oriented to person place and time. Course Administered Medications Discontinued Medications Hydrocodone Bit/Homatropine Methylb (Hydrocodone/Homatropine Syrup 5mg/1.5mg 5ml Udp) 5 ml PO NOW STA Stop: 12/01/24 20:43 Last Admin: 12/01/24 20:51 Dose: 5 ml Documented By: TEENA Miscellaneous (Patient's Height &/Or Weight Needed) 1 each N/A ONE ONE Stop: 12/01/24 22:01 Last Admin: 12/01/24 22:09 Dose: 1 each Documented By: MARIBEL Medical Decision Making Differential Diagnosis Differential diagnosis includes RSV, hypoxia, pneumonia, among others. Laboratory Data Attestation: I reviewed the patient's lab results. 12/01/24 20:08 12/01/24 20:08 Lab Results 12/01/24 Range/Units 20:08 WBC 12.49 H (4.8-10.8) K/ul RBC 4.42 L (4.70-6.10) M/uL Hgb 12.1 L (14.0-18.0) g/dl Hct 38.7 L (42.0-52.0) % MCV 87.6 (80.0-100.0) fL MCH 27.4 (25.0-34.0) pg MCHC 31.3 L (32.0-36.0) g/dL RDW Std Deviation 51.0 H (36.4-46.3) fL RDW Coeff of Debi 16.0 H (11.5-14.5) % Plt Count 348 (130-400) K/uL MPV 7.7 L (9.4-12.4) fL Immature Gran % (Auto) 0.6 % Neut % (Auto) 74.2 % Lymph % (Auto) 10.8 % [place] % (Auto) 12.7 % Eos % (Auto) 1.3 % Baso % (Auto) 0.4 % Neut # (Auto) 9.26 H (1.40-6.50) K/uL Lymph # (Auto) 1.35 (1.20-3.40) K/uL [place] # (Auto) 1.59 H (0.11-0.59) K/uL Eos # (Auto) 0.16 (0.00-0.50) K/uL Baso # (Auto) 0.05 (0.00-0.20) K/uL Immature Gran # (Auto) 0.08 (0.01-0.20) K/uL Sodium 136 (136-145) mmol/L Potassium 3.9 (3.5-5.1) mmol/L Chloride 105 (98-107) mmol/L Carbon Dioxide 26 (21-32) mmol/L Anion Gap 5 (3-11) BUN 18 (6-23) mg/dl Creatinine 0.87 (0.6-1.4) mg/dl Est Cr Clr Drug Dosing Not Reportable eGFR 91.68 BUN/Creatinine Ratio 20.7 H (10-20) Glucose 129 H (70-99(Fasting)) mg/dl Calcium 9.2 (8.6-10.3) mg/dl Total Bilirubin 0.2 (0.2-1.0) mg/dl AST 13 (13-39) U/L ALT 10 (7-52) U/L Alkaline Phosphatase 55 (34-104) U/L Total Protein 6.8 (6.0-8.3) gm/dl Albumin 3.4 (3.4-5.0) gm/dl Globulin 3.4 (2.5-4.0) gm/dl Albumin/Globulin Ratio 1.0 (0.9-2) Imaging Data Attestation: I personally reviewed and interpreted this imaging study as follows: Radiologist's Impression: Chest X-Ray 12/01/24 19:51 Exam(s): XR CXR 1 VIEW EXAM: XR Chest, 1 View CLINICAL HISTORY: Reason for exam: cough, sob, rsv. TECHNIQUE: Frontal view of the chest. COMPARISON: November 30, 2024 FINDINGS: Lungs: Linear densities in both lung bases consistent with infiltrates, scarring, or subsegmental atelectasis, unchanged. Pleural space: Unremarkable. No pneumothorax. Heart: The chronic silhouette is upper normal in size. Mediastinum: See above. Bones/joints: Unremarkable. No acute fracture. Upper abdomen: Unremarkable as visualized. No pneumoperitoneum under the diaphragm. IMPRESSION: Linear densities in both lung bases consistent with infiltrates, scarring, or subsegmental atelectasis, unchanged. Electronically signed by: Vincent Aviles MD 12/01/24 21:51 PM MDM Narrative This patient is a 74-year-old male who presents to the emergency department for evaluation of shortness of breath and RSV. Patient was seen here yesterday for the same symptoms and at that time hospitalist was consulted but he was discharged home. He has been monitoring his pulse ox at home and states it has been in the high 80s. He was placed on the continuous pulse ox here and dropped down to 88% and was placed on 2 L of oxygen via nasal cannula. His labs are overall unremarkable, chest x-ray with some linear densities in both bases. Given his new oxygen requirement patient will require admission. Case was discussed with the [facility] hospitalist service who agreed to evaluate the patient for further care. Impression RSV infection, Hypoxia Discharge Plan Visit Data Chief Complaint: Cough Stated Complaint: LOW OX, COUGH ED Provider: Ruel Magana ED Midlevel Provider: Jana Ochoa Discharge Problem: RSV infection, Hypoxia Patient Disposition: Admitted As Inpatient Discharge Instructions Interventions: ED Discharge Assessment Last Done: 12/01/24 22:17 Discharge Problem: RSV infection Qualifiers: RSV infection type: unspecified Qualified Code(s): B33.8 - Other specified viral diseases
[2024-12-01 20:24] LABS: Basophils # (auto) 0.05 K/uL (0.00-0.20); Basophils % (auto) 0.4 %; Eosinophils # (auto) 0.16 K/uL (0.00-0.50); Eosinophils % (auto) 1.3 %; Hematocrit (blood only) 38.7 % (42.0-52.0); Hemoglobin 12.1 g/dl (14.0-18.0); Immature Granulocytes # (auto) 0.08 K/uL (0.01-0.20); Immature Granulocytes % (auto) 0.6 %; Lymphocytes # (auto) 1.35 K/uL (1.20-3.40); Lymphocytes % (auto) 10.8 %; Mean Corpuscular Hemoglobin 27.4 pg (25.0-34.0); Mean Corpuscular Hgb Conc 31.3 g/dL (32.0-36.0); Mean Corpuscular Volume 87.6 fL (80.0-100.0); Mean Platelet Volume 7.7 fL (9.4-12.4); Monocytes # (auto) 1.59 K/uL (0.11-0.59); Monocytes % (auto) 12.7 %; Neutrophils # (auto) 9.26 K/uL (1.40-6.50); Neutrophils % (auto) 74.2 %; Platelet Count 348 K/uL (130-400); Red Blood Count 4.42 M/uL (4.70-6.10); White Blood Count 12.49 K/ul (4.8-10.8)
[2024-12-01 20:43] LABS: Alanine Aminotransferase 10 U/L (7-52); Albumin Level 3.4 gm/dl (3.4-5.0); Alkaline Phosphatase 55 U/L (34-104); Anion Gap 5 (3-11); Aspartate Aminotransferase 13 U/L (13-39); BUN Creatinine Ratio 20.7 (10-20); Bilirubin,Total 0.2 mg/dl (0.2-1.0); Blood Urea Nitrogen 18 mg/dl (6-23); Calcium 9.2 mg/dl (8.6-10.3); Carbon Dioxide 26 mmol/L (21-32); Chloride 105 mmol/L (98-107); Globulin 3.4 gm/dl (2.5-4.0); Glucose 129 mg/dl (70-99(Fasting)); Potassium 3.9 mmol/L (3.5-5.1); Sodium 136 mmol/L (136-145); Total Protein 6.8 gm/dl (6.0-8.3)
[2024-12-01] MEDS: HYDROcodone/HOMATROPINE SYRUP 5MG/1.5MG 5ML UDP PO STA (20:51)
--- NOTE | 2024-12-01 21:18 | Emergency Department Note ---
ED Visit Note I was consulted by the Advanced Practice Provider. I personally made/approved the management plan and take responsibility for the patient management. I performed a substantive portion of the visit. This includes the aspects of: [-I independently interpreted the following studies:][Chest x-ray showed congestion at both bases, no CHF.] The patient presents with a diagnosis of RSV. He has been short of breath. His pulse ox has dropped and he is now requiring O2 supplementation. Hospitalization is indicated. .
[2024-12-01] MEDS ORDERED: ALBUT/IPRATROP 3MG/0.5MG NEB 3 ML VIAL NEB PRN (21:34)
[2024-12-01] MEDS ORDERED: HYDROcodone/HOMATROPINE SYRUP 5MG/1.5MG 5ML UDP PO PRN (21:48)
--- NOTE | 2024-12-01 21:53 | XRay Report ---
Exam(s): XR CXR 1 VIEW EXAM: XR Chest, 1 View CLINICAL HISTORY: Reason for exam: cough, sob, rsv. TECHNIQUE: Frontal view of the chest. COMPARISON: November 30, 2024 FINDINGS: Lungs: Linear densities in both lung bases consistent with infiltrates, scarring, or subsegmental atelectasis, unchanged. Pleural space: Unremarkable. No pneumothorax. Heart: The chronic silhouette is upper normal in size. Mediastinum: See above. Bones/joints: Unremarkable. No acute fracture. Upper abdomen: Unremarkable as visualized. No pneumoperitoneum under the diaphragm. IMPRESSION: Linear densities in both lung bases consistent with infiltrates, scarring, or subsegmental atelectasis, unchanged. Electronically signed by: Vincent Aviles MD 12/01/24 21:51 PM
--- NOTE | 2024-12-01 21:53 | History & Physical Report ---
Date of Service December 01, 2024 Assessment & Plan (1) Hypoxic respiratory failure: (2) RSV infection: (3) Rheumatoid arthritis: (4) Generalized osteoarthritis: (5) Cough: (6) Current chronic use of systemic steroids: (7) Coronary artery disease: (8) HLD (hyperlipidemia): (9) Sleep apnea: (10) Restless legs syndrome: (11) Hypertension: Plan 74 yo male PMHx RA on Humira and daily prednisone, OA, CAD s/p stenting on Plavix, HARMEET on CPAP, HTN, HLD admitted with acute hypoxic respiratory failure diagnosed with RSV. #Hypoxic Respiratory Failure/RSV/Cough Continue supplemental oxygen goal sat >/= 94% Continuous pulse ox Duonebs q6h scheduled, q3h PRN Solumedrol 40mg IV BID Mucinex BID Hycodan q6h PRN Incentive spirometry/flutter valve #Rheumatoid Arthritis Currently his Humira dosing is being held outpatient Continue home prednisone dose, leflunomide #CAD s/p stenting Continue home Plavix #HTN Continue lisinopril, amlodipine, metoprolol #HARMEET CPAP ordered FENGI: heart healthy Code status: full DVT prophylaxis: Lovenox Isolation: droplet Disposition: med/tele History of Present Illness Primary Care Provider: Alexa Kurtz MD 74 yo male PMHx RA on Humira and daily prednisone, OA, CAD s/p stenting on Plavi x, HARMEET on CPAP, HTN, HLD admitted with acute hypoxic respiratory failure diagnosed with RSV. He has been feeling ill with shortness of breath and cough for approximately one week. He was initially seen at [facility] on 11/24/24 where a chest xr was obtained, he was given an albuterol inhaler. He was seen again by PCP 11/26/24 and prescribed Symbicort and given triamcinolone 40mg IM. His cough and shortness of breath continued to worsen and he presented to the emergency department 11/30/24 and was diagnosed with RSV. He was seen in consultation with the hospitalist service who felt he was safe to go home. He was not requiring supplemental oxygen at that time. He was instructed to return to the hospital if his oxygen saturation was persistently below 90%. Today he presented to the ED with worsening cough and stated that oxygen readings at home had been persistently <88%. At the time of admission he continues to report shortness of breath and cough, however cough is mildly improved since he was given a dose of Hycodan. ED Course: CXR stable without evidence of consolidation Labs reveal: mild leukocytosis, otherwise unremarkable Given one dose of Hycodan and placed on supplemental oxygen Allergies Allergy/AdvReac Type Severity Reaction Status Date / Time icosapent ethyl Allergy Severe Arthralgia, Verified 12/01/24 21:14 [From Vascepa] swallow problem ciprofloxacin Allergy Intermediate Swelling Verified 12/01/24 21:14 pantoprazole Allergy Intermediate Swelling, Verified 12/01/24 21:14 diffuse aches/pains levofloxacin AdvReac Intermediate Ankle Verified 12/01/24 21:14 swelling Fyjadcf-VPE-PyI Reductase AdvReac Intermediate Myalgia Verified 12/01/24 21:14 Inhibitor Sulfa (Sulfonamide AdvReac Intermediate Diffuse Verified 12/01/24 21:14 Antibiotics) body redness sulfamethoxazole AdvReac Intermediate Diffuse Verified 12/01/24 21:14 body redness tramadol AdvReac Intermediate "Didn't Verified 12/01/24 21:14 feel right" trimethoprim AdvReac Intermediate Diffuse Verified 12/01/24 21:14 body redness Home Medications Medication Instructions Recorded Confirmed Type lisinopril 10 mg tablet 10 mg PO QAM 01/30/24 12/01/24 History acetaminophen 650 mg 650 mg PO Q8H PRN Pain 04/22/24 12/01/24 History tablet,extended release (Tylenol 8 Hour) CPAP Machine See Rx Instructions .Route 05/20/24 12/01/24 Rx .COMPLEX #1 ea amlodipine 10 mg tablet 10 mg PO QAM #90 tabs 07/27/24 12/01/24 Rx clopidogrel 75 mg tablet (Plavix) 75 mg PO QAM #90 tabs 09/09/24 12/01/24 Rx leflunomide 20 mg tablet 20 mg PO QAM 11/09/24 12/01/24 History metoprolol succinate 50 mg 50 mg PO QAM 11/09/24 12/01/24 History tablet,extended release 24 hr albuterol sulfate 90 mcg/actuation 2 puff inhalation Q6H PRN 11/24/24 12/01/24 Rx aerosol inhaler shortness of breath or wheezing #6.7 grams prednisone 10 mg tablet 5 mg PO QAM 11/25/24 12/01/24 History adalimumab 40 mg/0.4 mL 0 mg subcut Q14D 11/30/24 12/01/24 History subcutaneous pen kit (Humira(CF) Pen) Past Med/Surg History Problem List (Updated 12/01/24 @ 23:38 by Jana Ochoa PA-C) Hypoxia (Acute) Hypoxic respiratory failure Rheumatoid arthritis Positive anti-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 Rheumatoid arthritis Positive anti-CCP test Follows with [facility] Taking prednisone 5mg daily (chronic) Statin myopathy (Acute) Osteoarthritis of left foot Hyperglycemia Status post insertion of drug-eluting stent into left anterior descending (LAD) artery August 21, 2017 Solitary pulmonary nodule (Chronic) monitoring, no changes Sleep apnea (Chronic) CPAP (compliant) Restless legs syndrome (Chronic) Hyperlipidemia (Chronic) Generalized osteoarthritis of multiple sites (Chronic) Coronary artery disease s/p stent to proximal LAD 2016 Medical History (Updated 12/01/24 @ 23:38 by Jana Ochoa PA-C) CAD (coronary artery disease) s/p stent to proximal LAD 2016 Sleep apnea cpap Statin intolerance History of bladder stone (~2020) Restless leg syndrome History of COVID-19 (~11/13/24) ongoing cough Osteoarthritis of right knee hx - had surgery 2022 Obesity Hypertension controlled, stable per pt Sepsis (06/2023) b/l knees 06/2023, "now resolved" 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 le (05/2024) History of knee replacement (2023) x2 History of tooth extraction History of colonoscopy H/O prostate biopsy S/P hernia repair (~1971) S/P cystoscopy with ureteral stent placement History of coronary artery stent placement (2017) 2017- [facility], no mi- 1 stent 2021- [facility]- no stents follows with dr. le (05/2024) Family History Father Myocardial infarction Stroke Brain cancer Coronary heart disease Uncle Myocardial infarction Mother Diabetes Brother Diabetes Sister Diabetes Family/Other Diabetes Denies family history of Ovarian cancer Prostate cancer Breast cancer Colorectal cancer Social History Smoking Status: Never smoker Second Hand Exposure: No; Do You Dip or Chew Tobacco: No; Hx Alcohol Use: No Hx Substance Use: No Preferred Language: Dominican Communication Ability: Effective Visual Impairment: No Limitations Hearing Ability: Normal Streets [employer] Buildings Decorator Required: No Beliefs That Will Affect Care: None marital status: Current Living Situation: Spouse Current Living Situation Comment: Home with current occupational status: retired current occupation: [employer] Other Information That Helps Us Care for You: No Feels Safe at Home: Yes Safety Concerns: Feels Safe At This Time Childhood Exposure to Second-Hand Smoke: No caffeine: Yes Dental Care, Regularly: No Physical Activity Frequency: Daily Seatbelt Use: always Sunscreen Use: No Assistive Devices: Glasses Review of Systems Review of Systems: reviewed, per HPI Physical Exam Physical Exam: Constitutional: ill-appearing, no acute distress HEENT: NCAT, no conjunctival injection CV: regular rhythm, no murmur appreciated, extremities well-perfused, no LE edema Resp: coarse breath sounds, minimal to no wheeze, +cough GI: nondistended MSK: no gross deformities appreciated Skin: warm, dry, no rash appreciated Neuro: alert, oriented, no focal neurologic deficit appreciated Results & Data Results & Data Vital Signs (Past 12 Hours) Vital Signs Pulse Resp BP Pulse Ox O2 Del Method O2 Flow Rate 12/01/24 20:35 92 Nasal Cannula 2 12/01/24 20:30 88 L Room Air 12/01/24 20:07 93 Room Air 12/01/24 19:35 88 20 157/104 H 93 Room Air Code Status & VTE Plan VTE Prophylaxis Plan VTE Prophylaxis will be ordered: Yes Supervising Physician Co-Signing Physician Notes Attending addendum: I have physically seen this patient, have supervised the medical residents activities, and agree with the H&P unless as otherwise noted. Assessment and Plan: The patient is a 74-year-old male with past medical history including rheumatoid arthritis on Humira and daily prednisone, osteoarthritis, CAD status post stenting on clopidogrel, HARMEET on CPAP, hypertension, hyperlipidemia, who presents to the emergency department with worsening shortness of breath over the past week and intermittently productive cough with dyspnea on exertion. His had been diagnosed with RSV, and he had undergone RSV testing at 11/30 which was positive. He presents to the emergency department this evening with worsening symptoms, despite taking increased doses of prednisone 2 pills daily, which he takes on a routine basis. His pulse ox at home had decreased to 87-90, which prompted him to come to the ED for assessment. Acute on chronic respiratory failure with hypoxia/RSV infection- Continue nasal cannula oxygen, with titration goal 92-94% DuoNebs every 6 hours, and every 3 hours as needed Methylprednisolone 40 mg IV twice daily Mucinex 60 mg p.o. twice daily Hycodan syrup 5 mL p.o. every 6 hours as needed severe cough Incentive spirometry/flutter valve Rheumatoid arthritis- On Humira as outpatient, hold prednisone dose will temporarily be supplanted by IV Solu-Medrol in hospital, continue leflunomide CAD status post stenting/hypertension- Continue clopidogrel, lisinopril, amlodipine and metoprolol HARMEET-CPAP as ordered Remaining orders and notations as noted Resident Activity Tracking Resident Involvement: Resident Care Provided Care Provided: Adult Hospital Medicine (7) Coronary artery disease Associated angina: without angina Coronary Disease-Associated Artery/Lesion type: [place] artery [place] vs. transplanted heart: [place] heart Qualified Code(s): I25.10 - Atherosclerotic heart disease of [place] coronary artery without angina pectoris
[2024-12-01] MEDS ORDERED: methylPREDNISolone 125 MG/2 ML VIAL IV SCH (22:00)
[2024-12-01] MEDS: Patient's HEIGHT &/or WEIGHT Needed ONE (22:09)
[2024-12-01] MEDS ORDERED: ONDANSETRON INJ 2 MG/ML 2 ML VIAL IV PRN (23:37)
[2024-12-01] MEDS ORDERED: MAGNESIUM HYDROXIDE SUSP 30 ML UDC PO PRN (23:37)
[2024-12-01] MEDS ORDERED: ACETAMINOPHEN 500 MG TAB PO PRN (23:37)
[2024-12-01] MEDS ORDERED: POLYETHYLENE (MIRALAX) 17 GM PACK PO PRN (23:37)
[2024-12-01] MEDS ORDERED: ALUMINUM/MAGNESIUM SUSP 30 ML UDC PO PRN (23:37)
[2024-12-01] MEDS: methylPREDNISolone 40 MG in SYRINGE 0 ML IV SCH (23:38)
[2024-12-01] MEDS: ALBUT/IPRATROP 3MG/0.5MG NEB 3 ML VIAL NEB SCH (23:49)
[2024-12-01] MEDS: ENOXAPARIN INJ 40 MG/0.4 ML SYR SQ SCH (23:55)
--- NOTE | 2024-12-02 05:16 | Billing Data ---
Date of Service December 02, 2024 Coding Level of Care Code 60670 INT INP/OBS CARE
[2024-12-02 06:42] LABS: Basophils # (auto) 0.01 K/uL (0.00-0.20); Basophils % (auto) 0.1 %; Eosinophils # (auto) 0.01 K/uL (0.00-0.50); Eosinophils % (auto) 0.1 %; Hematocrit (blood only) 38.5 % (42.0-52.0); Hemoglobin 12.4 g/dl (14.0-18.0); Immature Granulocytes # (auto) 0.04 K/uL (0.01-0.20); Immature Granulocytes % (auto) 0.4 %; Lymphocytes # (auto) 1.22 K/uL (1.20-3.40); Lymphocytes % (auto) 11.9 %; Mean Corpuscular Hemoglobin 28.2 pg (25.0-34.0); Mean Corpuscular Hgb Conc 32.2 g/dL (32.0-36.0); Mean Corpuscular Volume 87.5 fL (80.0-100.0); Monocytes # (auto) 0.36 K/uL (0.11-0.59); Monocytes % (auto) 3.5 %; Neutrophils # (auto) 8.62 K/uL (1.40-6.50); Platelet Count 378 K/uL (130-400); RDW Coefficient of Variation 15.9 % (11.5-14.5); RDW Standard Deviation 50.8 fL (36.4-46.3); White Blood Count 10.26 K/ul (4.8-10.8)
[2024-12-02 07:34] LABS: Potassium 4.6 mmol/L (3.5-5.1)
[2024-12-02 07:35] LABS: BUN Creatinine Ratio 22.1 (10-20); Calcium 9.2 mg/dl (8.6-10.3); Creatinine Clr Calc Pharmacy 99.2 ml/min
[2024-12-02 07:40] VITALS: RESP 20
[2024-12-02] MEDS: amLODIPine BESYLATE 5 MG TAB PO SCH (08:47)
[2024-12-02] MEDS: guaiFENesin 600 MG TABCR PO SCH (08:47)
[2024-12-02] MEDS: CLOPIDOGREL BISULFATE 75 MG TAB PO SCH (08:48)
[2024-12-02] MEDS: predniSONE 5 MG TAB PO SCH (08:48)
[2024-12-02] MEDS: METOPROLOL SUCC 50MG EXT REL TAB PO SCH (08:48)
[2024-12-02] MEDS: lisinopril 10 MG TAB PO SCH (08:48)
[2024-12-02] MEDS: LEFLUNOMIDE 10 MG TAB PO SCH (08:49)
--- NOTE | 2024-12-02 09:06 | Hospitalist Progress Note ---
Date of Service December 02, 2024 Assessment & Plan (1) Hypoxic respiratory failure: Plan: Patient has been experiencing SOB, cough for a little over a week. also RSV+. Presented to ED 11/30 and diagnosed with RSV-discharged and then returned on 12/01 because he was told to return if home O2 sat dropped below 88% but denies worsening of his subjective condition. On room air since 7 am and O2 sats have been appropriate. Bilateral upper lobe expiratory wheezes-lungs otherwise clear to auscultation. Patient is not in respiratory distress this morning. Leukocytosis downtrending and overall patient condition improving. Patient may require education on inhaler use prior to discharge. - 2 Step to assess for maintenance of appropriate O2 saturation with ambulation - Continue Albuterol neb Q6hr with Q3 hr treatment PRN - IV Methylprednisolone 40 mg IV BID - Guaifenesin 1200 mg PO q12hr (2) RSV infection: Plan: Patient afebrile. Leukocytosis downtrending, current WBC 10.29. CXR with bila teral infiltrates not concerning for pneumonia-no antibiotics required at this time. - Acetaminophen 1000mg PO Q8 prn for fever, pain (3) Rheumatoid arthritis: Plan: Endorses baseline joint pains due to RA and OA unchanged. Some lower extremity swelling bilaterally + pitting edema. Continue home therapies. - Prednisone 5mg PO qAM - Leflunomide 20 mg PO qAM (4) Sleep apnea: Plan: CPAP compliant at home. Used last night. Machine in room. - Continue CPAP at night (5) Coronary artery disease: Plan: Stable. Continue home therapies. - Clopidogrel bisulfate 75 mg PO qAM (6) Hypertension: Plan: BP slightly elevated during hospital course-consistent with outpatient readings over past few months. Rate appropriate at 80 bpm. Continue home therapies. - Amlodipine 10 mg PO qAM - Lisinopril 10 mg PO qAM - Metoprolol 50 mg PO qAM Plan FENGI: heart healthy Code status: full DVT prophylaxis: Lovenox Isolation: droplet Disposition: possible discharge pending 2 step Admission and Anticipated Discharge Date Admission Date: December 01, 2024 Riri Gonzalez is a 74M with a history of Rheumatoid Arthritis, CAD with stent placement, HARMEET + CPAP who presented with SOB, cough and decreased O2 saturation. Patient with hypoxic respiratory failure 2/2 RSV infection. Patient did not feel that outpatient albuterol use was helpful to him so he was not taking it as often as prescribed. States he presented for a second time to the ED on 12/01 due to home finger O2 sat readings of 87-88%. Denies worsening of symptoms at that time but had lingering productive cough and worsening voice hoarseness. Denies fever, chills, dizziness, lightheadedness, night sweats, CP, SOB, abd pain, diarrhea. Endorses 1 episode of emesis while in the ED last night but no nausea or vomiting since then. On 2L supplemental O2 overnight and states he has never used supplemental oxygen in the past. Patient states he would like to be discharged so he can attend his appointment across the street at the [facility] at 1pm. Planned for shoulder surgery next Saturday but had to reschedule due to infection. Review of Systems Review of Systems: All systems reviewed & are unremarkable except as noted in Subjective Physical Exam Constitutional: WD/WN, vitals as above Eyes: PERRL, conjunctivae normal, anicteric sclerae ENMT: Oropharynx clear without erythema or exudate. No lymphadenopathy, thyromegaly. Voice is hoarse. Respiratory: Bilateral upper lobe wheezing. + productive cough. No crackles, rales. No increased work of breathing, signs of respiratory distress. Cardiovascular: RRR no murmurs, rubs or gallops. Peripheral pulses +2 and equal bilaterally in upper and lower extremities. +Pitting edema lower extremities bilaterally. Gastrointestinal (Abdomen): Normoactive bowel sounds. Nondistended, nontender. No palpable masses. No hepatomegaly, splenomegaly. Neurologic: CN II-XII grossly intact. No focal neurological deficits Psychiatric: Appropriate mood and affect. Results & Data Results & Data Vital Signs (Past 12 Hours) Vital Signs Temp Pulse Pulse Resp BP Pulse Ox O2 Del Method 12/02/24 07:40 36.4 C L 80 20 168/93 H 94 Room Air 12/02/24 07:24 77 12/02/24 07:14 80 18 94 Nasal Cannula 12/02/24 03:06 20 12/02/24 02:28 80 20 158/92 H 94 CPAP 12/01/24 23:50 86 19 93 12/01/24 23:50 85 19 93 CPAP 12/01/24 23:36 83 12/01/24 23:27 95 Nasal Cannula 12/01/24 23:24 36.9 C 86 20 163/91 H 92 Room Air 12/01/24 23:23 Nasal Cannula 12/01/24 22:17 Room Air O2 Flow Rate 12/02/24 07:40 12/02/24 07:24 12/02/24 07:14 2 12/02/24 03:06 2 12/02/24 02:28 1 12/01/24 23:50 2 12/01/24 23:50 2 12/01/24 23:36 12/01/24 23:27 2 12/01/24 23:24 12/01/24 23:23 2 12/01/24 22:17 Laboratory Results 12/02/24 12/01/24 Range/Units 06:02 20:08 WBC 10.26 12.49 H (4.8-10.8) K/ul RBC 4.40 L 4.42 L (4.70-6.10) M/uL Hgb 12.4 L 12.1 L (14.0-18.0) g/dl Hct 38.5 L 38.7 L (42.0-52.0) % MCV 87.5 87.6 (80.0-100.0) fL MCH 28.2 27.4 (25.0-34.0) pg MCHC 32.2 31.3 L (32.0-36.0) g/dL RDW Std Deviation 50.8 H 51.0 H (36.4-46.3) fL RDW Coeff of Debi 15.9 H 16.0 H (11.5-14.5) % Plt Count 378 348 (130-400) K/uL MPV 8.0 L 7.7 L (9.4-12.4) fL Immature Gran % (Auto) 0.4 0.6 % Neut % (Auto) 84.0 74.2 % Lymph % (Auto) 11.9 10.8 % Carter % (Auto) 3.5 12.7 % Eos % (Auto) 0.1 1.3 % Baso % (Auto) 0.1 0.4 % Neut # (Auto) 8.62 H 9.26 H (1.40-6.50) K/uL Lymph # (Auto) 1.22 1.35 (1.20-3.40) K/uL Carter # (Auto) 0.36 1.59 H (0.11-0.59) K/uL Eos # (Auto) 0.01 0.16 (0.00-0.50) K/uL Baso # (Auto) 0.01 0.05 (0.00-0.20) K/uL Immature Gran # (Auto) 0.04 0.08 (0.01-0.20) K/uL Sodium 136 136 (136-145) mmol/L Potassium 4.6 3.9 (3.5-5.1) mmol/L Chloride 102 105 (98-107) mmol/L Carbon Dioxide 27 26 (21-32) mmol/L Anion Gap 7 5 (3-11) BUN 17 18 (6-23) mg/dl Creatinine 0.77 0.87 (0.6-1.4) mg/dl Est Cr Clr Drug Dosing 99.2 Not Reportable eGFR 95.12 91.68 BUN/Creatinine Ratio 22.1 H 20.7 H (10-20) Glucose 165 H 129 H (70-99(Fasting)) mg/dl Calcium 9.2 9.2 (8.6-10.3) mg/dl Total Bilirubin 0.2 (0.2-1.0) mg/dl AST 13 (13-39) U/L ALT 10 (7-52) U/L Alkaline Phosphatase 55 (34-104) U/L Total Protein 6.8 (6.0-8.3) gm/dl Albumin 3.4 (3.4-5.0) gm/dl Globulin 3.4 (2.5-4.0) gm/dl Albumin/Globulin Ratio 1.0 (0.9-2) Diagnostic Findings Chest X-Ray 12/01/24 19:51 Exam(s): XR CXR 1 VIEW EXAM: XR Chest, 1 View CLINICAL HISTORY: Reason for exam: cough, sob, rsv. TECHNIQUE: Frontal view of the chest. COMPARISON: November 30, 2024 FINDINGS: Lungs: Linear densities in both lung bases consistent with infiltrates, scarring, or subsegmental atelectasis, unchanged. Pleural space: Unremarkable. No pneumothorax. Heart: The chronic silhouette is upper normal in size. Mediastinum: See above. Bones/joints: Unremarkable. No acute fracture. Upper abdomen: Unremarkable as visualized. No pneumoperitoneum under the diaphragm. IMPRESSION: Linear densities in both lung bases consistent with infiltrates, scarring, or subsegmental atelectasis, unchanged. Electronically signed by: Vincent Aviles MD 12/01/24 21:51 PM (2) RSV infection RSV infection type: unspecified Qualified Code(s): B33.8 - Other specified viral diseases (5) Coronary artery disease Associated angina: without angina Coronary Disease-Associated Artery/Lesion type: [place] artery [place] vs. transplanted heart: [place] heart Qualified Code(s): I25.10 - Atherosclerotic heart disease of [place] coronary artery without angina pectoris
--- NOTE | 2024-12-02 10:57 | Discharge Summary ---
Date of Service December 02, 2024 Admission HPI Per Admitting Provider 74 yo male PMHx RA on Humira and daily prednisone, OA, CAD s/p stenting on Plavix, HARMEET on CPAP, HTN, HLD admitted with acute hypoxic respiratory failure diagnosed with RSV. He has been feeling ill with shortness of breath and cough for approximately one week. He was initially seen at [facility] on 11/24/24 where a chest xr was obtained, he was given an albuterol inhaler. He was seen again by PCP 11/26/24 and prescribed Symbicort and given triamcinolone 40mg IM. His cough and shortness of breath continued to worsen and he presented to the emergency department 11/30/24 and was diagnosed with RSV. He was seen in consultation with the hospitalist service who felt he was safe to go home. He was not requiring supplemental oxygen at that time. He was instructed to return to the hospital if his oxygen saturation was persistently below 90%. Today he presented to the ED with worsening cough and stated that oxygen readings at home had been persistently <88%. At the time of admission he continues to report shortness of breath and cough, however cough is mildly improved since he was given a dose of Hycodan. ED Course: CXR stable without evidence of consolidation Labs reveal: mild leukocytosis, otherwise unremarkable Given one dose of Hycodan and placed on supplemental oxygen Admission Exam Per Admitting Provider Constitutional: ill-appearing, no acute distress HEENT: NCAT, no conjunctival injection CV: regular rhythm, no murmur appreciated, extremities well-perfused, no LE edema Resp: coarse breath sounds, minimal to no wheeze, +cough GI: nondistended MSK: no gross deformities appreciated Skin: warm, dry, no rash appreciated Neuro: alert, oriented, no focal neurologic deficit appreciated Principal Diagnosis RSV infection Discharge Exam GENERAL: AAOx3, afebrile, sitting on bedside chair, NAD CV: RRR, no r/m/g RESP: slight wheezing on upper airways and mild scattered rhonchi, normal respiratory effort, no respiratory distress, breathing at room air GI: soft, non tender MSK: no swelling or calf tenderness in b/l LE Discharge Data Allergies Allergy/AdvReac Type Severity Reaction Status Date / Time icosapent ethyl Allergy Severe Arthralgia, Verified 12/01/24 21:14 [From Vascepa] swallow problem ciprofloxacin Allergy Intermediate Swelling Verified 12/01/24 21:14 pantoprazole Allergy Intermediate Swelling, Verified 12/01/24 21:14 diffuse aches/pains levofloxacin AdvReac Intermediate Ankle Verified 12/01/24 21:14 swelling Zqtknyi-[id number]-YbZ Reductase AdvReac Intermediate Myalgia Verified 12/01/24 21:14 Inhibitor Sulfa (Sulfonamide AdvReac Intermediate Diffuse Verified 12/01/24 21:14 Antibiotics) body redness sulfamethoxazole AdvReac Intermediate Diffuse Verified 12/01/24 21:14 body redness tramadol AdvReac Intermediate "Didn't Verified 12/01/24 21:14 feel right" trimethoprim AdvReac Intermediate Diffuse Verified 12/01/24 21:14 body redness Consultations 12/01/24 21:10 ED Decision to Admit Stat Hospital Course (1) Hypoxic respiratory failure: (2) RSV infection: (3) Rheumatoid arthritis: (4) Generalized osteoarthritis: (5) Cough: (6) Current chronic use of systemic steroids: (7) Coronary artery disease: (8) HLD (hyperlipidemia): (9) Sleep apnea: (10) Restless legs syndrome: (11) Hypertension: Plan Patient is a 74-year-old male with who was admitted due to concern of acute hypoxic respiratory failure consequent of current RSV infection. At home where he looked at his pulse ox and noted that it was 87%. Patient clarifies that when the number drop to 87% it was during/after a coughing fit, however, did have good rebound and increased back to 90s once his cough stopped. Did not have any recurrence after this episode and oxygen saturation in home pulse ox (and in this admission) remained low 90-95% at room air. Denies having any chest pain, shortness of breath/dyspnea on exertion, or any other new symptoms from time of visit to the ED on 11/30/2024. CXR and labs also showing similar findings to previous ED visit and CBC showing improved leukocytosis. Has been using inhaler prescribed by PCP at home, but has not been using any antihistamine/nasal spray/other medications for management of symptoms. Patient feeling well today and feels he can go back home. Will discharge today with PCP follow up and recommendation to return to ED if SOB, worsening WILSON, weakness, fevers, or other new/worsening sxs. Total Time Total Time Spent Total Time Spent (In Minutes): As per attending attestation. Discharge Plan Discharge Items Patient Disposition: Home - Self-Care Reason For Visit: RSV, HYPOXIC RESPIRATORY FAILURE Discharge Diagnosis: RSV Activity: Per Instructions section Non-emergency contact: Primary Care Provider Call non-emergency contact if: your symptoms worsen and your temperature is above 101.5 Follow-up/Referrals: Alexa Kurtz MD [Primary Care Provider] - 12/09/24 3:00 pm Diet: Heart Healthy Addtl Attending Provider Instructions: You were admitted to the hospital after noting a decrease in your oxygen level in a home pulse oximeter. As discussed, it is possible that there is decrease in the number they have been related to position changes/instability of finger monitor plus slight oxygenation changes that happen with prolonged coughing such as he will experiencing. Since your oxygen level went back to a good range once your coughing fit resolved, there is a lower concern that I was related to worsening illness and that all your symptoms are still related to your current RSV infection. Therefore, we will be discharging today with recommendations to use pojc-fom-[id number] medications for symptom control of your current infection such as Zyrtec (antihistamine), Flonase nasal spray (2 sprays in each nostril once daily twice a day), cough drops/throat sprays, and Tylenol if needed until respiratory illness resolves. We do advise that you follow-up with your primary care provider within 1week from time of discharge for postdischarge evaluation. If you have wheezing/shortness of breath/coughing fit you can also use the albuterol inhaler. It will help to open up the airways. A discharge summary will be sent to your primary care physician to ensure continuity of care. Please bring this discharge summary with you to your next office appointment so that your provider can review it at that time. Medications: Your medication list has been reviewed and reconciled upon discharge to ensure accuracy and continuity of care. An updated list of all your medications is included with your hospital discharge paperwork. Please review this list closely, and make note of any changes. CONTACT YOUR PRIMARY CARE PROVIDER if you experience any of the following: Worsening of symptoms Fever, chills, or fatigue Difficulty following your treatment plan, or difficulty taking medications CALL 911 OR GO TO THE EMERGENCY DEPARTMENT if you experience any of the following: Sudden, severe abdominal pain or nausea/vomiting Severe chest pain, or chest pain that radiates (moves) to your jaw or arm Sudden, severe shortness of breath or difficulty breathing Thank you for allowing us to participate in your care. Pending Studies at Discharge: No Stand-Alone Forms: [facility], Smoking Cessation Medications and DC Order Prescriptions: Continued clopidogrel [Plavix] 75 mg tablet 75 mg PO QAM Qty: 90 3RF Hold Instructions: surgery albuterol sulfate 90 mcg/actuation HFA aerosol inhaler 2 puff inhalation Q6H PRN (Reason: shortness of breath or wheezing) Qty: 6.7 0RF lisinopril 10 mg tablet 10 mg PO QAM amlodipine 10 mg tablet 10 mg PO QAM Qty: 90 3RF acetaminophen [Tylenol 8 Hour] 650 mg tablet extended release 650 mg PO Q8H PRN (Reason: Pain) CPAP Machine Misc See Rx Instructions .ROUTE .COMPLEX Qty: 1 0RF Rx Instructions: Decrease pressure to BiPAP ST 21/13 with a backup rate of 14, mask fit patient comfort, heated humidification, compliance download capabilities, [employer]; metoprolol succinate 50 mg tablet extended release 24 hr 50 mg PO QAM leflunomide 20 mg tablet 20 mg PO QAM Rx Instructions: Currently on hold due to sickness/illness per Spouse, restart date unavailable. Original Directions: 20mg by mouth every morning prednisone 10 mg tablet 5 mg PO QAM Humira(CF) Pen 40 mg/0.4 mL pen injector kit 0 mg subcut Q14D Rx Instructions: Currently on hold per Spouse, restart date unavailable. Original Directions: 40mg once every 14 days Discharge Orders: Discharge Order (Routine); Ordered 12/02/24 Ordered By: Joyce Garcia Admission Data Admit Date/Time: 12/01/24 21:34 Attending Provider: Zac Blanco Admit Provider: Greg Durham Primary Care Provider: Alexa Kurtz V. Other Providers: Bi Sesay Other Interventions: Discharge Summary Assessment (RN) Last Done: 12/02/24 12:27 Supervising Physician Co-Signing Physician Notes I personally examined the patient and verified all byers points of history and exam, discussed case, and agree with decision making with Dr Garcia feeling well enough to go home. has PCP appt this afternoon he would like to k eep. pulse ox dropped to 87 during a coughing fit and quickly rebounded. otherwise has been >90. vitals noted nad fatigued no distress breathing unlabored no accessory muscles good effort skin no rashes no pallor or icterus RSV/bronchitis w relative hypoxia - doing well enough to go home, would like to go home; with hindsight low pulse ox that led to admission was very transient - right at the time of a coughing fit - and quickly rebounded. safe/stable for home. will hold on further high dose steroids since overall stable. agree w postponing shoulder surgery a month otherwise as above Resident Activity Tracking Resident Involvement: Resident Care Provided Care Provided: Adult Hospital Medicine
[2024-12-02 12:22] VITALS: BP 152/81; PULSE 81; TEMP 98.6; O2SAT 91
--- NOTE | 2024-12-02 12:37 | Billing Data ---
Date of Service December 02, 2024 Coding Level of Care Code 31055 IN/OBS DISCH 30 MIN/LESS
== END 2024-12-02 12:54 | disposition home or self-care (01) | DRG 865 ==
LOC: ED 19:25 → SUATTDRO 21:34 → 2W 21:34

== ENCOUNTER 2025-01-30 17:32 | Observation (INO) ==
--- NOTE | 2025-01-30 18:11 | Emergency Department Note ---
History of Present Illness General Chief complaint: Knee Injury/Pain Stated complaint: KNEE PAIN, LT Time Seen by Provider: 01/30/25 17:56 History of Present Illness This is a 74-year-old male that presents to the emergency department via private vehicle with complaints of "left knee pain". The patient notes that he has had left knee pain for quite some time. He denies any distinct trauma or injury. He is scheduled to follow-up with [facility] this coming Saturday to discuss potential knee replacement. He notes history of knee replacement on the right but none on the left. Pain is isolated to the left knee. It has been ongoing for some time but has acutely worsened over the past several days. The patient denies any trauma, injury, fevers or chills. No chest pain or shortness of breath. He is on clopidogrel. He has tried tramadol with minimal relief. 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 The patient did take 1 tablet of Tylenol today around noon, no other doses of Tylenol. The patient is here today asking for something stronger for pain pending his orthopedic follow-up. He does note a rash to the left anterior medial knee secondary to the lidocaine patches but otherwise denies any redness to the area or rash. Home Medications Medication Instructions Recorded Confirmed Type acetaminophen 650 mg 650 mg PO Q8H PRN Pain 04/22/24 01/30/25 History tablet,extended release (Tylenol 8 Hour) amlodipine 10 mg tablet 10 mg PO QAM #90 tabs 07/27/24 01/30/25 Rx clopidogrel 75 mg tablet (Plavix) 75 mg PO QAM #90 tabs 09/09/24 01/30/25 Rx metoprolol succinate 50 mg 50 mg PO QAM 11/09/24 01/30/25 History tablet,extended release 24 hr albuterol sulfate 90 mcg/actuation 2 puff inhalation Q6H PRN 11/24/24 01/30/25 Rx aerosol inhaler shortness of breath or wheezing #6.7 grams lisinopril 10 mg tablet 10 mg PO QAM #90 tabs 12/06/24 01/30/25 Rx leflunomide 20 mg tablet 20 mg PO DAILY 01/12/25 01/30/25 History adalimumab 40 mg/0.4 mL 40 mg subcut Q14D 01/19/25 01/30/25 History subcutaneous syringe kit (Humira(CF)) tramadol 50 mg tablet 50 mg PO Q8H PRN pain #30 tabs 01/22/25 01/30/25 Rx prednisone 5 mg tablet 15 mg PO DAILY 01/28/25 01/30/25 History ropinirole 0.5 mg tablet 0.5 mg PO HS #30 tabs 01/28/25 01/30/25 Rx Allergies Allergy/AdvReac Type Severity Reaction Status Date / Time icosapent ethyl Allergy Severe Arthralgia, Verified 01/28/25 09:36 [From Vascepa] swallow problem ciprofloxacin Allergy Intermediate Swelling Verified 01/28/25 09:36 pantoprazole Allergy Intermediate Swelling, Verified 01/28/25 09:36 diffuse aches/pains gabapentin AdvReac Intermediate Verified 01/28/25 09:53 levofloxacin AdvReac Intermediate Ankle Verified 01/28/25 09:36 swelling [id number] Reductase AdvReac Intermediate Myalgia Verified 01/28/25 09:36 Inhibitor Sulfa (Sulfonamide AdvReac Intermediate Diffuse Verified 01/28/25 09:36 Antibiotics) body redness sulfamethoxazole AdvReac Intermediate Diffuse Verified 01/28/25 09:36 body redness trimethoprim AdvReac Intermediate Diffuse Verified 01/28/25 09:36 body redness Past Med/Surg History Problem List (Updated 01/31/25 @ 02:26 by William Anderson PA-C) Sleep apnea cpap Intractable pain Rheumatoid arthritis Positive anti-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 le (05/2024) History of knee replacement (2023) x2 History of tooth extraction History of colonoscopy H/O prostate biopsy S/P hernia repair (~1971) S/P cystoscopy with ureteral stent placement History of coronary artery stent placement (2016) 2016- [facility], no mi- 1 stent [facility]- no stents follows with dr. le (05/2024) Family History Father Myocardial infarction Stroke Brain cancer Coronary heart disease Uncle Myocardial infarction Mother Diabetes Brother Diabetes Sister Diabetes Family/Other Diabetes Denies family history of Ovarian cancer Prostate cancer Breast cancer Colorectal cancer Social History Smoking Status: Never smoker Tobacco Type: Declines Second Hand Exposure: No; Do You Dip or Chew Tobacco: No; Tobacco Cessation Education Requested by Patient: No Hx Alcohol Use: No Hx Substance Use: No Preferred Language: Palestinian Communication Ability: Effective Visual Impairment: No Limitations Hearing Ability: Normal Supervisor Shipping Required: No Beliefs That Will Affect Care: None marital status: Current Living Situation: Spouse Current Living Situation Comment: Home with current occupational status: retired current occupation: [employer] Other Information That Helps Us Care for You: No Feels Safe at Home: Yes Safety Concerns: Feels Safe At This Time Childhood Exposure to Second-Hand Smoke: No caffeine: Yes Dental Care, Regularly: No Physical Activity Frequency: Daily Seatbelt Use: always Sunscreen Use: No Assistive Devices: CPAP, Walker and Other Assistive Devices Comment: crutches Review of Systems A total of 10 systems reviewed and were otherwise negative Physical Exam Vital Signs Vital Signs - 24 hr 01/30/25 17:32 01/30/25 20:00 01/30/25 20:08 Temperature 36.4 C L 36.8 C Temperature Source Temporal Artery Scan Oral Pulse Rate 97 H 95 H Pulse Rate [Apical] 91 H Respiratory Rate 18 18 18 Respiratory Effort / Characteristics Non-Labored Spontaneous Respiratory Pattern Regular Blood Pressure 151/84 H Blood Pressure [Right Arm] 171/102 H Blood Pressure Mean 106 Blood Pressure Mean [Right Arm] 125 Blood Pressure Position [Right Arm] Lying Pulse Oximetry 92 94 93 Oxygen Delivery Method Room Air Room Air Oxygen Flow Rate Sepsis Recent Fever Within 48 Hours No Sepsis New/Unexplained Change in Mental Status No Sepsis Action Taken by Nursing No Action Required Oxygen Flow Rate - Titration Pulse Oximetry Post Tiitration 01/30/25 21:00 01/30/25 22:00 01/30/25 22:58 Temperature Temperature Source Pulse Rate Pulse Rate [Apical] 86 83 Respiratory Rate 18 20 Respiratory Effort / Characteristics Non-Labored Spontaneous Non-Labored Spontaneous Respiratory Pattern Regular Regular Blood Pressure Blood Pressure [Right Arm] 158/114 H 155/107 H Blood Pressure Mean Blood Pressure Mean [Right Arm] 128 123 Blood Pressure Position [Right Arm] Lying Lying Pulse Oximetry 79 L 97 92 Oxygen Delivery Method Nasal Cannula Nasal Cannula Room Air Oxygen Flow Rate 2 Sepsis Recent Fever Within 48 Hours Sepsis New/Unexplained Change in Mental Status Sepsis Action Taken by Nursing Oxygen Flow Rate - Titration 2 Pulse Oximetry Post Tiitration 96 01/30/25 23:26 Temperature Temperature Source Pulse Rate 96 H Pulse Rate [Apical] Respiratory Rate Respiratory Effort / Characteristics Respiratory Pattern Blood Pressure Blood Pressure [Right Arm] Blood Pressure Mean Blood Pressure Mean [Right Arm] Blood Pressure Position [Right Arm] Pulse Oximetry Oxygen Delivery Method Oxygen Flow Rate Sepsis Recent Fever Within 48 Hours Sepsis New/Unexplained Change in Mental Status Sepsis Action Taken by Nursing Oxygen Flow Rate - Titration Pulse Oximetry Post Tiitration VITAL SIGNS - Vital signs and nursing notes were reviewed. Hypertensive, otherwise stable and afebrile. GENERAL -74-year-old male appearing his stated age who is in no acute distress. Communicates well with provider and answers questions appropriately. SKIN -there is a mild erythematous hue to the anterior/medial knee joint where the patient notes he had lidocaine patches. There is perhaps a tiny bit of increased warmth to the left knee compared to the right. Mild left knee edema noted. No palpable cord HEAD - NC/AT. LUNGS - CTA CARDIAC - RRR EXTREMITIES - No clubbing or peripheral cyanosis. Skin as above. Left dorsalis pedis pulse within normal limits. Left lower extremity appropriately warm and well-perfused. Left anterior medial knee joint mildly tender. +5/5 strength noted in UE/LE bilaterally. NEUROLOGIC -sensory intact throughout the left lower extremity without deficit. PSYCH -alert, oriented and pleasant on exam. Course Administered Medications Vancomycin HCl 2,000 mg/ (Sodium Chloride) 540 mls @ 200 mls/hr IV NOW ONE Stop: 01/31/25 02:30 Last Admin: 01/31/25 00:27 Dose: 200 mls/hr Documented By: RIVAS Discontinued Medications Hydrocodone Bitart/Acetaminophen (Hydrocodone/Acetamophen 5/325mg Tab) 1 tab PO NOW STA Stop: 01/30/25 18:09 Last Admin: 01/30/25 18:16 Dose: 1 tab Documented By: TANJA Ceftriaxone Sodium (Rocephin) 2,000 mg in 50 mls @ 100 mls/hr IV NOW STA Stop: 01/30/25 23:00 Last Infusion: 01/30/25 23:35 Dose: Infused Documented By: Admin: 01/30/25 22:55 Dose: 100 mls/hr Documented By: RIVAS Morphine Sulfate (Morphine Sulfate 2 Mg/Ml Carp) 2 mg IV NOW STA Stop: 01/30/25 19:39 Last Admin: 01/30/25 20:05 Dose: 2 mg Documented By: RIVAS Medical Decision Making Laboratory Data 01/30/25 18:30 01/30/25 18:30 Lab Results 01/30/25 Range/Units 18:30 WBC 13.99 H (4.8-10.8) K/ul RBC 4.59 L (4.70-6.10) M/uL Hgb 12.6 L (14.0-18.0) g/dl Hct 39.5 L (42.0-52.0) % MCV 86.1 (80.0-100.0) fL MCH 27.5 (25.0-34.0) pg MCHC 31.9 L (32.0-36.0) g/dL RDW Std Deviation 47.8 H (36.4-46.3) fL RDW Coeff of Debi 15.2 H (11.5-14.5) % Plt Count 460 H (130-400) K/uL MPV 7.5 L (9.4-12.4) fL Immature Gran % (Auto) 0.3 % Neut % (Auto) 73.3 % Lymph % (Auto) 15.4 % [place] % (Auto) 10.7 % Eos % (Auto) 0.1 % Baso % (Auto) 0.2 % Neut # (Auto) 10.25 H (1.40-6.50) K/uL Lymph # (Auto) 2.16 (1.20-3.40) K/uL [place] # (Auto) 1.50 H (0.11-0.59) K/uL Eos # (Auto) 0.01 (0.00-0.50) K/uL Baso # (Auto) 0.03 (0.00-0.20) K/uL Immature Gran # (Auto) 0.04 (0.01-0.20) K/uL PT 11.8 (9.0-12.0) Seconds INR 1.1 (0.9-1.1) APTT 27 (21-31) Seconds PTT Ratio 1.0 Sodium 140 (136-145) mmol/L Potassium 4.3 (3.5-5.1) mmol/L Chloride 105 (98-107) mmol/L Carbon Dioxide 25 (21-32) mmol/L Anion Gap 10 (3-11) BUN 24 H (6-23) mg/dl Creatinine 0.86 (0.6-1.4) mg/dl Est Cr Clr Drug Dosing 86.2 ml/min eGFR 92.00 BUN/Creatinine Ratio 27.9 H (10-20) Glucose 100 H (70-99(Fasting)) mg/dl Uric Acid 4.7 (2.6-7.2) mg/dl Calcium 9.4 (8.6-10.3) mg/dl Total Bilirubin 0.4 (0.2-1.0) mg/dl AST 13 (13-39) U/L ALT 16 (7-52) U/L Alkaline Phosphatase 49 (34-104) U/L Total Protein 8.0 (6.0-8.3) gm/dl Albumin 3.7 (3.4-5.0) gm/dl Globulin 4.3 H (2.5-4.0) gm/dl Albumin/Globulin Ratio 0.9 (0.9-2) Procalcitonin 0.04 (0-0.5) ng/ml Lyme Disease Screen Negative (Negative) Imaging Data Radiologist's Impression: Knee X-Ray 01/30/25 18:06 EXAM: XR knee LT 1 or 2V routine CLINICAL HISTORY: Left knee pain. TECHNIQUE: X-ray of the left knee was performed in AP and lateral views. COMPARISON: 11/23/2023 FINDINGS: Generalized reduced bone density is seen. Degenerative changes with marginal osteophytes are seen at the tibiofemoral and patellofemoral articulations. Tibial spiking is seen. Reduced joint space is seen in the medial tibiofemoral compartment with subchondral sclerosis. Small marginal osteophytes No sclerotic or destructive bone changes. No definite fracture or dislocation. No joint effusion in the suprapatellar bursa. Soft tissues appear unremarkable. IMPRESSION: 1. Osteopenia. 2. No acute osseous abnormality is seen 3. Moderate to severe osteoarthritis (Grade III-IV Kellgren and Mat classification) left knee joint. 4. No gross interval change is seen. DISCLAIMER:A subtle bone abnormality or fracture may not be readily apparent on x-rays, thus clinical correlation and further imaging including follow up CT, MRI, or follow up x-rays are advised as needed. Electronically signed by Marcellus Cruz 01-30-2025 7:51 PM Venous Doppler Study 01/30/25 18:06 Exam(s): US VENOUS LEFT LOWER EXTREMITY EXAM: US Duplex Left Lower Extremity Veins CLINICAL HISTORY: L knee pain. TECHNIQUE: Real-time duplex ultrasound scan of the left lower extremity veins integrating B-mode two-dimensional vascular structure, Doppler spectral analysis, color flow Doppler imaging and compression. COMPARISON: No relevant prior studies available. FINDINGS: Deep veins: No DVT in the visualized common femoral, femoral, proximal deep femoral or popliteal veins. The veins demonstrate normal color flow, are normally compressible, with normal phasic flow and/or augmentation response. Evaluation of the interrogated calf veins is limited; no definite occlusion. Superficial veins: Unremarkable. No thrombus in the saphenofemoral junction. Soft tissues: A Snider's cyst is noted measuring 1.6 x 6.5 x 3 cm with minimal internal echoes. IMPRESSION: 1. No evidence for deep vein thrombosis involving the left lower extremity. 2. A Snider's cyst is incidentally noted measuring 1.6 x 6.5 x 3 cm with minimal internal echoes. Electronically signed by: Kimani Moreno MD 01/30/25 22:12 PM [facility] Narrative Patient was seen and evaluated as above in room D01. Review was performed of triage nursing notes and vital signs. I did review pertinent previous visits and patient history. After obtaining a thorough history and physical examination the above work up was performed. Patient presents to us today for evaluation of ongoing left knee pain, acutely worsened over the past few days. There is a small anterior/medial knee joint rash which patient notes was secondary to application of lidocaine patches. The appearance is not consistent with that of cellulitis. Mild increased warmth of the left knee and mild edema comparative to the right. No limited streaking. No fevers. He is neurovascularly intact throughout the extremities without deficit. He is able to stand, axial load and ambulate independently. I did order the patient hydrocodone/acetaminophen. Minimal to no relief with this medicine. I did agree to a small dose of morphine. I was notified that the patient later in his stay did fall asleep and did have a brief episode of mild hypoxia, lowest in the high 70s and was immediately started on oxygen. The patient does note sleep apnea and does wear CPAP at all times when sleeping. We will be careful with opiate analgesia, however do favor this brief hypoxia likely to be secondary to sleep apnea. Options of care were discussed with the patient. At this time I do believe that further evaluation and management here in the ED as needed. I did review his 2 previous ED visits for similar left knee pain dated 01/12 and 01/29. Laboratory studies will be obtained today as well as x-ray ultrasound of the left leg. I did order the patient hydrocodone/acetaminophen for pain. I did confirm he did not exceed acetaminophen dosing today. Labs here reveal leukocytosis 13.99, similar to previous but uptrending. This may be secondary to prednisone or infection. Coags normal. No emergent metabolic disturbance. Procalcitonin mildly detectable but within normal range at 0.04. Lyme screen negative. Uric acid normal. X-ray of the left knee without fracture. Severe arthritis noted. No large effusion. Ultrasound with Snider's cyst but no DVT. Low suspicion for septic joint, and I did consider knee arthrocentesis however with the overlying potential cellulitic change will hold off at this time particularly without evidence of joint effusion on exam. Upon recheck the patient the left lower extremity was more edematous than initial evaluation in the left knee was also up with increasing warmth. There is erythema to the left anterior/medial knee which the patient notes was secondary to lidocaine patch. However even gentle palpation of this erythematous region is quite tender. I am concerned this is a secondary cellulitis. Patient is with arguably a compromised immune system as he is on Humira. At this time with the patient having increased warmth of the left leg, leukocytosis, and worsening left knee pain I do believe that further evaluation and management in inpatient setting is warranted. Case discussed with the hospitalist service. Please refer to further documentation regarding his stay. GCS: 15 In the evaluation and treatment of this patient the following differential diagnoses were entertained: Cellulitis, septic arthritis, Lyme arthritis, gout, sprain, strain, among others Impression & Plan Left knee pain Discharge Plan Visit Data Chief Complaint: Knee Injury/Pain Stated Complaint: KNEE PAIN, LT ED Provider: Zac Suarez ED Midlevel Provider: William Anderson Discharge Problem: Left knee pain Patient Disposition: Admitted As Inpatient Condition: Good Discharge Instructions Interventions: ED Discharge Assessment Last Done: 01/31/25 00:49
[2025-01-30] MEDS: HYDROCODONE/ACETAMOPHEN 5/325MG TAB PO STA (18:16)
[2025-01-30 18:43] LABS: Basophils # (auto) 0.03 K/uL (0.00-0.20); Basophils % (auto) 0.2 %; Eosinophils # (auto) 0.01 K/uL (0.00-0.50); Eosinophils % (auto) 0.1 %; Hematocrit (blood only) 39.5 % (42.0-52.0); Hemoglobin 12.6 g/dl (14.0-18.0); Immature Granulocytes # (auto) 0.04 K/uL (0.01-0.20); Immature Granulocytes % (auto) 0.3 %; Lymphocytes # (auto) 2.16 K/uL (1.20-3.40); Lymphocytes % (auto) 15.4 %; Mean Corpuscular Hemoglobin 27.5 pg (25.0-34.0); Mean Corpuscular Hgb Conc 31.9 g/dL (32.0-36.0); Mean Corpuscular Volume 86.1 fL (80.0-100.0); Mean Platelet Volume 7.5 fL (9.4-12.4); Monocytes % (auto) 10.7 %; Neutrophils # (auto) 10.25 K/uL (1.40-6.50); Neutrophils % (auto) 73.3 %; Platelet Count 460 K/uL (130-400); RDW Coefficient of Variation 15.2 % (11.5-14.5); RDW Standard Deviation 47.8 fL (36.4-46.3); Red Blood Count 4.59 M/uL (4.70-6.10); White Blood Count 13.99 K/ul (4.8-10.8)
[2025-01-30 19:05] LABS: Albumin Globulin Ratio 0.9 (0.9-2); Albumin Level 3.7 gm/dl (3.4-5.0); BUN Creatinine Ratio 27.9 (10-20); Bilirubin,Total 0.4 mg/dl (0.2-1.0); Calcium 9.4 mg/dl (8.6-10.3); Creatinine Clr Calc Pharmacy 86.2 ml/min; Globulin 4.3 gm/dl (2.5-4.0); Potassium 4.3 mmol/L (3.5-5.1); Uric Acid 4.7 mg/dl (2.6-7.2)
[2025-01-30 19:16] LABS: INR 1.1 (0.9-1.1); Partial Thromboplastin Time 27 Seconds (21-31); Prothrombin Time 11.8 Seconds (9.0-12.0)
--- NOTE | 2025-01-30 19:51 | XRay Report ---
EXAM: XR knee LT 1 or 2V routine CLINICAL HISTORY: Left knee pain. TECHNIQUE: X-ray of the left knee was performed in AP and lateral views. COMPARISON: 11/23/2023 FINDINGS: Generalized reduced bone density is seen. Degenerative changes with marginal osteophytes are seen at the tibiofemoral and patellofemoral articulations. Tibial spiking is seen. Reduced joint space is seen in the medial tibiofemoral compartment with subchondral sclerosis. Small marginal osteophytes No sclerotic or destructive bone changes. No definite fracture or dislocation. No joint effusion in the suprapatellar bursa. Soft tissues appear unremarkable. IMPRESSION: 1. Osteopenia. 2. No acute osseous abnormality is seen 3. Moderate to severe osteoarthritis (Grade III-IV Kellgren and Mat classification) left knee joint. 4. No gross interval change is seen. DISCLAIMER:A subtle bone abnormality or fracture may not be readily apparent on x-rays, thus clinical correlation and further imaging including follow up CT, MRI, or follow up x-rays are advised as needed. Electronically signed by Marcellus Cruz 01-30-2025 7:51 PM
[2025-01-30] MEDS: MoRPHine SULFATE 2 MG/ML CARP IV STA (20:05)
--- NOTE | 2025-01-30 22:14 | Ultrasound Report ---
Exam(s): US VENOUS LEFT LOWER EXTREMITY EXAM: US Duplex Left Lower Extremity Veins CLINICAL HISTORY: L knee pain. TECHNIQUE: Real-time duplex ultrasound scan of the left lower extremity veins integrating B-mode two-dimensional vascular structure, Doppler spectral analysis, color flow Doppler imaging and compression. COMPARISON: No relevant prior studies available. FINDINGS: Deep veins: No DVT in the visualized common femoral, femoral, proximal deep femoral or popliteal veins. The veins demonstrate normal color flow, are normally compressible, with normal phasic flow and/or augmentation response. Evaluation of the interrogated calf veins is limited; no definite occlusion. Superficial veins: Unremarkable. No thrombus in the saphenofemoral junction. Soft tissues: A Snider's cyst is noted measuring 1.6 x 6.5 x 3 cm with minimal internal echoes. IMPRESSION: 1. No evidence for deep vein thrombosis involving the left lower extremity. 2. A Snider's cyst is incidentally noted measuring 1.6 x 6.5 x 3 cm with minimal internal echoes. Electronically signed by: Kimani Moreno MD 01/30/25 22:12 PM
[2025-01-30] MEDS: cefTRIAXone SODIUM 2,000 MG/50 ML BAG IV STA (22:55)
--- NOTE | 2025-01-30 23:31 | History & Physical Report ---
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 patient presented due to worsening swelling and redness of his left knee resulting in ambulatory dysfunction. He is being admitted for concern of a septic joint. #left knee erythema/intractable pain/ambulatory dysfunction - concern for septic joint with decreased ROM and significant pain/swelling. Doppler negative. Knee XR negative. Procal negative. Lyme screen negative. Does have noted leukocytosis with white count 13.99 however chronically elevated as patient is on chronic prednisone. Patient is tachycardic, rate 96. Thrombocytosis with platelet count 460, however chronically elevated. - scheduled IV Tylenol - Voltaren gel prn - morphine 2/4 mg prn for breakthrough pain - hold Plavix 01/31 - orthopedics consulted - consider joint drainage - Vancomycin and Rocephin ordered - follow blood cultures - PT/OT ordered #RA - follows with rheumatology, Dr. Louis. - on Humaria q14 days - continue prednisone 15mg PO and leflunomide #CAD/HTN S/pLAD stent 2016. Stable. Statin intolerant. - Continue amlodipine, Plavix (hold 01/31 with joint aspiration), lisinopril, metoprolol #HARMEET - stable - BiPap ordered HS #RLS stable - Continue ropinirole VTE ppx: SCDs, defer chemical ppx with Dispo: Admission and Anticipated Discharge Date Admission Date: 01/30/25 History of Present Illness Chief Complaint: knee injury/pain Primary Care Provider: Alexa Kurtz MD Patient is a 74-year-old male with past medical history of rheumatoid arthritis, right knee replacement, CAD s/p stent to LAD, restless leg syndrome, sleep apnea. patient presented due to worsening swelling and redness of his left knee resulting in ambulatory dysfunction. He is being admitted for concern of a septic joint. Patient seen at bedside with his . He stated that he has had left knee pain for a long time and is to have it replaced however the over the past few days it has been significantly worse. He is supposed to see orthopedics on Saturday. He was to have injections in his knee however insurance did not yet approve it. He stated his pain is 0/10 at rest however 8/10 upon movement. He has been using crutches to ambulate. He denies any fevers, chills, chest pain, shortness of breath, numbness, tingling. He denies nicotine or alcohol use. He uses CPAP for sleep apnea. He took his morning medications. He currently is on 15 mg of prednisone since 01/19, tapered to 10 later this week. He wishes to be full code. Allergies Allergy/AdvReac Type Severity Reaction Status Date / Time icosapent ethyl Allergy Severe Arthralgia, Verified 01/28/25 09:36 [From Vascepa] swallow problem ciprofloxacin Allergy Intermediate Swelling Verified 01/28/25 09:36 pantoprazole Allergy Intermediate Swelling, Verified 01/28/25 09:36 diffuse aches/pains gabapentin AdvReac Intermediate Verified 01/28/25 09:53 levofloxacin AdvReac Intermediate Ankle Verified 01/28/25 09:36 swelling [id number] Reductase AdvReac Intermediate Myalgia Verified 01/28/25 09:36 Inhibitor Sulfa (Sulfonamide AdvReac Intermediate Diffuse Verified 01/28/25 09:36 Antibiotics) body redness sulfamethoxazole AdvReac Intermediate Diffuse Verified 01/28/25 09:36 body redness trimethoprim AdvReac Intermediate Diffuse Verified 01/28/25 09:36 body redness Home Medications Medication Instructions Recorded Confirmed Type acetaminophen 650 mg 650 mg PO Q8H PRN Pain 04/22/24 01/30/25 History tablet,extended release (Tylenol 8 Hour) amlodipine 10 mg tablet 10 mg PO QAM #90 tabs 07/27/24 01/30/25 Rx clopidogrel 75 mg tablet (Plavix) 75 mg PO QAM #90 tabs 09/09/24 01/30/25 Rx metoprolol succinate 50 mg 50 mg PO QAM 11/09/24 01/30/25 History tablet,extended release 24 hr albuterol sulfate 90 mcg/actuation 2 puff inhalation Q6H PRN 11/24/24 01/30/25 Rx aerosol inhaler shortness of breath or wheezing #6.7 grams lisinopril 10 mg tablet 10 mg PO QAM #90 tabs 12/06/24 01/30/25 Rx leflunomide 20 mg tablet 20 mg PO DAILY 01/12/25 01/30/25 History adalimumab 40 mg/0.4 mL 40 mg subcut Q14D 01/19/25 01/30/25 History subcutaneous syringe kit (Humira(CF)) tramadol 50 mg tablet 50 mg PO Q8H PRN pain #30 tabs 01/22/25 01/30/25 Rx prednisone 5 mg tablet 15 mg PO DAILY 01/28/25 01/30/25 History ropinirole 0.5 mg tablet 0.5 mg PO HS #30 tabs 01/28/25 01/30/25 Rx Past Med/Surg History Problem List (Updated 01/31/25 @ 02:26 by William Anderson PA-C) Sleep apnea cpap Intractable pain Rheumatoid arthritis Positive anti-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 le (05/2024) History of knee replacement (2023) x2 History of tooth extraction History of colonoscopy H/O prostate biopsy S/P hernia repair (~1971) S/P cystoscopy with ureteral stent placement History of coronary artery stent placement (2016) 2016- [facility], no mi- 1 stent [facility]- no stents follows with dr. le (05/2024) Family History Father Myocardial infarction Stroke Brain cancer Coronary heart disease Uncle Myocardial infarction Mother Diabetes Brother Diabetes Sister Diabetes Family/Other Diabetes Denies family history of Ovarian cancer Prostate cancer Breast cancer Colorectal cancer Social History Smoking Status: Never smoker Tobacco Type: Declines Second Hand Exposure: No; Do You Dip or Chew Tobacco: No; Tobacco Cessation Education Requested by Patient: No Hx Alcohol Use: No Hx Substance Use: No Preferred Language: Telugu Communication Ability: Effective Visual Impairment: No Limitations Hearing Ability: Normal Manager [employer] Required: No Beliefs That Will Affect Care: None marital status: Current Living Situation: Spouse Current Living Situation Comment: Home with current occupational status: retired current occupation: [employer] Other Information That Helps Us Care for You: No Feels Safe at Home: Yes Safety Concerns: Feels Safe At This Time Childhood Exposure to Second-Hand Smoke: No caffeine: Yes Dental Care, Regularly: No Physical Activity Frequency: Daily Seatbelt Use: always Sunscreen Use: No Assistive Devices: CPAP, Walker and Other Assistive Devices Comment: crutches Review of Systems Review of Systems: see HPI Physical Exam Physical Exam: The patient is awake, alert and oriented 3, well developed and well nourished, normocephalic and atraumatic, in no acute distress. Non-toxic appearing. HEENT- EOMI, mucous membranes moist. Hearing grossly intact. Heart-normal S1 and S2. No murmurs, rubs or gallops. Lungs-clear bilaterally, no respiratory distress, no accessory muscle use. Abdomen-normal bowel sounds and soft. No ascites noted. Non-tender. Extremities- no clubbing, cyanosis. Left knee with erythema to medial aspect, significant tenderness, swelling. Rheumatologic-decreased ROM left knee. Psychiatric-normal affect. Results & Data Results & Data Vital Signs (Past 12 Hours) Vital Signs Temp Pulse Pulse Resp BP BP Pulse Ox 01/30/25 23:26 96 H 01/30/25 22:58 83 20 155/107 H 92 01/30/25 22:00 86 18 158/114 H 97 01/30/25 21:00 79 L 01/30/25 20:08 95 H 18 93 01/30/25 20:00 36.8 C 91 H 18 171/102 H 94 01/30/25 17:32 36.4 C L 97 H 18 151/84 H 92 O2 Del Method O2 Flow Rate 01/30/25 23:26 01/30/25 22:58 Room Air 01/30/25 22:00 Nasal Cannula 2 01/30/25 21:00 Nasal Cannula 01/30/25 20:08 Room Air 01/30/25 20:00 Room Air 01/30/25 17:32 Laboratory Results Reviewed CBC, CMP, PT/INR, procalcitonin, Lyme screen Diagnostic Findings reviewed left venous Doppler, left knee XR Medications Administered EDNorco 5/325, Rocephin 2G IV, morphine 2 Mg IV Admissionvancomycin load ECG Additional Comments: ordered Code Status & VTE Plan Code Status full code VTE Prophylaxis Plan VTE Prophylaxis will be ordered: Yes Supervising Physician Co-Signing Physician Notes Patient seen examined, chart reviewed, case discussed with IAN Herrera and I agree with the assessment and plan as documented above. In brief, patient is a 4-year-old male presenting with rash, redness, swelling and tenderness of the left knee. Patient with history of history of rheumatoid arthritis on physical exam patient is afebrile, hemodynamically stable Skinwarm, red, swelling of the left knee Tenderness to palpation of the medial aspect of the right knee Minimal joint effusion appreciated on my physical exam Labs and images reviewed. Significant for WBC equals 13.99, platelets = 460 Doppler of left lower extremity with no evidence for DVT. A Snider's cyst incidentally noted measuring 1.6 x 6.5 x 3 cm with minimal internal echoes X-ray left knee with moderate to severe osteoarthritis, no gross interval change seen Assessment/plan: Progression of pain, swelling and tenderness of left knee. Patient is immunocompromised due to history of rheumatoid arthritis on chronic prednisone Consider possible joint infection Pain control with Tylenol, Voltaren and morphine Vancomycin and ceftriaxone for now Ortho consultation appreciated Holding Plavix for now for possible joint aspiration. 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
[2025-01-30] MEDS ORDERED: VANCOMYCIN CONSULT ACTIVE PRN (23:49)
[2025-01-31] MEDS: VANCOMYCIN HCL 2,000 MG in SODIUM CHLORIDE 0.9% 500 ML IV ONE (00:27)
[2025-01-31] MEDS ORDERED: ALBUTEROL HFA 8 GM INHALER INH PRN (01:41)
[2025-01-31] MEDS ORDERED: MoRPHine SULFATE 2 MG/ML CARP IV PRN (01:41)
[2025-01-31] MEDS ORDERED: VANCOMYCIN CONSULT ACTIVE PRN (01:41)
[2025-01-31] MEDS ORDERED: MELATONIN 3 MG TAB PO PRN (01:41)
[2025-01-31] MEDS ORDERED: ONDANSETRON INJ 2 MG/ML 2 ML VIAL IV PRN (01:41)
[2025-01-31] MEDS: ACETAMINOPHEN 1,000 MG/100 ML VIAL IV SCH (03:00)
[2025-01-31] MEDS: MoRPHine SULFATE 4 MG/ML 1 ML CARP\\VIAL IV PRN (05:12)
[2025-01-31 06:51] LABS: Basophils # (auto) 0.03 K/uL (0.00-0.20); Basophils % (auto) 0.3 %; Eosinophils # (auto) 0.11 K/uL (0.00-0.50); Hematocrit (blood only) 36.1 % (42.0-52.0); Hemoglobin 11.6 g/dl (14.0-18.0); Immature Granulocytes # (auto) 0.05 K/uL (0.01-0.20); Immature Granulocytes % (auto) 0.5 %; Lymphocytes # (auto) 2.46 K/uL (1.20-3.40); Lymphocytes % (auto) 23.1 %; Mean Corpuscular Hemoglobin 27.8 pg (25.0-34.0); Mean Corpuscular Hgb Conc 32.1 g/dL (32.0-36.0); Mean Corpuscular Volume 86.4 fL (80.0-100.0); Mean Platelet Volume 7.7 fL (9.4-12.4); Monocytes # (auto) 1.62 K/uL (0.11-0.59); Monocytes % (auto) 15.2 %; Neutrophils # (auto) 6.38 K/uL (1.40-6.50); Neutrophils % (auto) 59.9 %; Platelet Count 400 K/uL (130-400); RDW Coefficient of Variation 15.2 % (11.5-14.5); RDW Standard Deviation 48.3 fL (36.4-46.3); Red Blood Count 4.18 M/uL (4.70-6.10); White Blood Count 10.65 K/ul (4.8-10.8)
[2025-01-31 07:13] LABS: BUN Creatinine Ratio 22.5 (10-20); Calcium 8.7 mg/dl (8.6-10.3); Creatinine Clr Calc Pharmacy 104.4 ml/min; Potassium 3.7 mmol/L (3.5-5.1)
[2025-01-31] MEDS: lisinopril 10 MG TAB PO SCH (07:58)
[2025-01-31] MEDS: amLODIPine BESYLATE 5 MG TAB PO SCH (07:58)
[2025-01-31] MEDS: LEFLUNOMIDE 10 MG TAB PO SCH (07:58)
[2025-01-31] MEDS: predniSONE 5 MG TAB PO SCH (07:58)
[2025-01-31] MEDS: VANCOMYCIN HCL 1,250 MG in SODIUM CHLORIDE 0.9% 250 ML IV SCH (07:59)
[2025-01-31] MEDS: DICLOFENAC SOD 1% GEL 100 GM TUBE EXT SCH (07:59)
[2025-01-31] MEDS: METOPROLOL SUCC 50MG EXT REL TAB PO SCH (07:59)
--- NOTE | 2025-01-31 08:47 | Hospitalist Progress Note ---
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 He presented due to worsening swelling, redness, and tenderness of his left knee resulted in ambulatory dysfunction. He was admitted for concern of a septic joint. Last left knee injection ~3 months ago. Doppler negative. Knee XR negative. Procal negative. Lyme screen negative. On admission, patient had mild leukocytosis at 13.99 (patient is on chronic prednisone), tachycardia with rate 96, thrombocytosis with platelets 460 - however leukocytosis, tachycardia, thrombocytosis now resolved. #Left knee erythema/intractable pain/ambulatory dysfunction - concern for septic joint with decreased ROM and significant pain/swelling. Patient is immunocompromised due to history of RA on chronic prednisone - Leukocytosis resolved, no neutrophilia but monocytosis likely from chronic prednisone use and RA. Remains afebrile - Blood cultures pending - Continue empiric Vancomycin IV and Ceftriaxone IV - Continue scheduled IV Tylenol, Voltaren gel PRN, morphine 2/4 mg prn for breakthrough pain - Orthopedics consulted for possible joint drainage - does not feel this is septic joint. Will use triamcinolone and plan for injection either today or tomorrow 02/01 - PT/OT ordered #RA - follows with rheumatology, Dr. Louis - On Humira q14 days - Continue prednisone 15mg PO and leflunomide - No indication for stress dose steroids at this time #CAD/HTN S/p LAD stent in 2017. Stable. Statin intolerant. - Continue amlodipine, lisinopril, metoprolol - Holding Plavix with possible joint aspiration #HARMEET - stable - BiPap ordered HS #RLS stable - Continue ropinirole VTE ppx: SCDs Dispo: Pending ortho and PT/OT evals Updated at bedside Admission and Anticipated Discharge Date Admission Date: January 30, 2025 Supervising Physician Co-Signing Physician Notes Attending Attestation - Chart reviewed, care plan d/w TATO Cheek. I agree w/ the byers components of her documentation. Of note - I did not perform a bedside visit or examination of the patient today. Left knee pain/swelling - etiology? OA/RA flare? Inflammatory arthropathy (ie gout, etc)? Septic joint? Other? Appreciate ortho assistance. Cont IV abx, follow blood cx's, awaite ortho recs. Check sed rate/crp am. Saturnino Mancuso MD Subjective Patient seen and evaluated in bedside chair with his present. He reports he feels better today and his pain is improved with his pain regimen. His pain is worse when his left leg is fully extended. He denies any fever, chills, or recent infection. We discussed the treatment plan. He states Dr. Kim will do an injection either today or tomorrow depending on his availability. No additional complaints or concerns at this time. Physical Exam Physical Exam: General: No acute distress, nondiaphoretic, well-developed, well-nourished. Cardiac: Regular rate and rhythm without murmurs gallops or rubs. Pulm: Clear to auscultation bilaterally without wheezes, rales or rhonchi. Normal respiratory effort. 94% on room air. Abdominal: Soft, nontender, distended secondary to body habitus. Bowel sounds present. Neuro: A&O x3. No focal neurological deficits. MSK: Left knee wrapped in bandage. Increased pain with full extension of LLE. Results & Data Results & Data Vital Signs (Past 12 Hours) Vital Signs Temp Pulse Pulse Pulse Resp BP BP 01/31/25 07:11 97.9 F 84 18 127/85 01/31/25 01:25 97.9 F 94 H 18 01/31/25 00:49 98.2 F 98 H 16 163/94 H 01/31/25 00:00 94 H 18 01/30/25 23:26 96 H 01/30/25 22:58 83 20 01/30/25 22:00 86 18 01/30/25 21:00 BP Pulse Ox O2 Del Method O2 Flow Rate 01/31/25 07:11 94 Room Air 01/31/25 01:25 163/104 H 95 Nasal Cannula 2 01/31/25 00:49 94 Room Air 01/31/25 00:00 158/95 H 94 Room Air 01/30/25 23:26 01/30/25 22:58 155/107 H 92 Room Air 01/30/25 22:00 158/114 H 97 Nasal Cannula 2 01/30/25 21:00 79 L Nasal Cannula Laboratory Results Reviewed CBC with differential Reviewed CMP, chemistries Blood culture pending Diagnostic Findings Reviewed knee x-ray Reviewed Venous Doppler PG Care Time/CCT Total # of Minutes Spent Total Time Spent with Patient: Total time spent is greater than 50% in coordination of care (as documented) at patient's floor/unit and/or counseling patient: Coding Level of Care Code 10297 SUB INP/OBS CARE 2/35MIN Diagnoses Septic joint of left knee joint M00.9 Intractable pain R52 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
--- NOTE | 2025-01-31 09:44 | Orthopedic Consultation ---
Date of Service January 31, 2025 Assessment & Plan (1) Osteoarthritis of left knee: He is having a lot of pain from the arthritis in his knee. He is not scheduled to have another injection until next week. He says he cannot wait that long for another injection. I will order him some triamcinolone and give him an injection either later today or tomorrow. He is also scheduled to have viscosupplementation of his knee in the near future but is waiting insurance approval. His white count is normal and he is afebrile. I see no signs of a septic joint. He is awaiting for his knee injection and should be orthopedically stable for discharge after that is given. History of Present Illness Reason for Consultation: Osteoarthritis left knee. Requesting Physician: . Attending Physician: Saturnino Mancuso MD Carlos is a pleasant 74-year-old male who has been with chronic increasing left knee pain. It has been going on for years. He had a right knee replacement has done very well with that. He has been receiving injections of his left knee. The last injection was about 3 months ago. He says he gets about 6 weeks relief out of an injection. He is scheduled to see an orthopedist next week for another injection of his knee. Unfortunately his knee pain has become bad enough that he was having trouble walking. He went to the emergency room and was admitted for arthritis of his left knee.. Allergies Allergy/AdvReac Type Severity Reaction Status Date / Time icosapent ethyl Allergy Severe Arthralgia, Verified 01/28/25 09:36 [From Vascepa] swallow problem ciprofloxacin Allergy Intermediate Swelling Verified 01/28/25 09:36 pantoprazole Allergy Intermediate Swelling, Verified 01/28/25 09:36 diffuse aches/pains gabapentin AdvReac Intermediate Verified 01/28/25 09:53 levofloxacin AdvReac Intermediate Ankle Verified 01/28/25 09:36 swelling Aesnfza-IGR-SnQ Reductase AdvReac Intermediate Myalgia Verified 01/28/25 09:36 Inhibitor Sulfa (Sulfonamide AdvReac Intermediate Diffuse Verified 01/28/25 09:36 Antibiotics) body redness sulfamethoxazole AdvReac Intermediate Diffuse Verified 01/28/25 09:36 body redness trimethoprim AdvReac Intermediate Diffuse Verified 01/28/25 09:36 body redness Home Medications Medication Instructions Recorded Confirmed Type acetaminophen 650 mg 650 mg PO Q8H PRN Pain 07/31/24 05/10/25 History tablet,extended release (Tylenol 8 Hour) amlodipine 10 mg tablet 10 mg PO QAM #90 tabs 07/27/24 01/30/25 Rx clopidogrel 75 mg tablet (Plavix) 75 mg PO QAM #90 tabs 09/09/24 01/30/25 Rx metoprolol succinate 50 mg 50 mg PO QAM 11/09/24 01/30/25 History tablet,extended release 24 hr albuterol sulfate 90 mcg/actuation 2 puff inhalation Q6H PRN 11/24/24 01/30/25 Rx aerosol inhaler shortness of breath or wheezing #6.7 grams lisinopril 10 mg tablet 10 mg PO QAM #90 tabs 12/06/24 01/30/25 Rx leflunomide 20 mg tablet 20 mg PO DAILY 01/12/25 01/30/25 History adalimumab 40 mg/0.4 mL 40 mg subcut Q14D 01/19/25 01/30/25 History subcutaneous syringe kit (Humira(CF)) tramadol 50 mg tablet 50 mg PO Q8H PRN pain #30 tabs 01/22/25 01/30/25 Rx prednisone 5 mg tablet 15 mg PO DAILY 01/28/25 01/30/25 History ropinirole 0.5 mg tablet 0.5 mg PO HS #30 tabs 01/28/25 01/30/25 Rx Past Med/Surg History Problem List (Updated 01/31/25 @ 09:43 by Saturnino Kim DO) Osteoarthritis of left knee Sleep apnea cpap Intractable pain Rheumatoid arthritis Positive anti-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 (Acute) Hyperglycemia Status post insertion of drug-eluting stent into left anterior descending (LAD) artery August 21, 2017 Solitary pulmonary nodule (Chronic) monitoring, no changes Hyperlipidemia (Chronic) Generalized osteoarthritis of multiple sites (Chronic) Medical History RSV infection Current chronic use of systemic steroids Generalized osteoarthritis multiple sites - needs left knee replaced, having right shoulder first HLD (hyperlipidemia) Sleep apnea CPAP (compliant) Coronary artery disease s/p stent to proximal LAD 2016 Hypoxia Hypoxic respiratory failure Cough Osteoarthritis of left foot CAD (coronary artery disease) s/p stent to proximal LAD 2016 Statin intolerance History of bladder stone (~2020) Restless leg syndrome History of COVID-19 (~11/13/24) ongoing cough Osteoarthritis of right knee hx - had surgery 2022 Obesity Hypertension controlled, stable per pt Sepsis (06/2023) b/l knees 06/2023, "now resolved" 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 le (05/2024) History of knee replacement (2023) x2 History of tooth extraction History of colonoscopy H/O prostate biopsy S/P hernia repair (~1971) S/P cystoscopy with ureteral stent placement History of coronary artery stent placement (2016) 2016- [facility], no mi- 1 stent [facility]- no stents follows with dr. le (05/2024) Family History Father Myocardial infarction Stroke Brain cancer Coronary heart disease Uncle Myocardial infarction Mother Diabetes Brother Diabetes Sister Diabetes Family/Other Diabetes Denies family history of Ovarian cancer Prostate cancer Breast cancer Colorectal cancer Social History Smoking Status: Never smoker Tobacco Type: Declines Second Hand Exposure: No; Do You Dip or Chew Tobacco: No; Tobacco Cessation Education Requested by Patient: No Hx Alcohol Use: No Hx Substance Use: No Preferred Language: Kyrgyz Communication Ability: Effective Visual Impairment: No Limitations Hearing Ability: Normal Sail Finisher Machine Required: No Beliefs That Will Affect Care: None marital status: Current Living Situation: Spouse Current Living Situation Comment: Home with current occupational status: retired current occupation: [employer] Other Information That Helps Us Care for You: No Feels Safe at Home: Yes Safety Concerns: Feels Safe At This Time Childhood Exposure to Second-Hand Smoke: No caffeine: Yes Dental Care, Regularly: No Physical Activity Frequency: Daily Seatbelt Use: always Sunscreen Use: No Assistive Devices: CPAP, Walker and Other Assistive Devices Comment: crutches Review of Systems All systems reviewed & are unremarkable except as noted in HPI & below. Physical Exam Physical exam of the left knee, he has a varus deformity. He does not have much pain while sitting at bedside. He has a trace effusion. There is no redness or any signs of infection. He has range of motion from 10 to 120 degrees. He has no pain laterally or in the suprapatellar pouch. He has pain to palpation of the distal medial femoral condyle and over the medial joint line.. Constitutional WD/WN, vitals as above Eyes PERRL, conjunctivae normal, anicteric sclerae ENMT external ear and nose normal, oropharynx normal Neck trachea midline, no thyromegaly Respiratory normal respiratory effort Cardiovascular RRR, no murmur, no edema Gastrointestinal (Abdomen) normal bowel sounds, soft, nontender, no hepatosplenomegaly Psychiatric A+Ox3, euthymic affect Results & Data Results & Data Laboratory Results . Diagnostic Findings X-rays of the left knee show advanced medial compartment arthritis with joint space narrowing, osteophyte formation, and [id number] articulation.. PG Care Time/CCT Total # of Minutes Spent Total Time Spent with Patient: Total time spent is greater than 50% in coordination of care (as documented) at patient's floor/unit and/or counseling patient: Coding Level of Care Code 16557 IN/OBS CONSULT LVL 4,60M Diagnoses Osteoarthritis of left knee M17.12
--- NOTE | 2025-01-31 11:05 | Pharmacy Report ---
Pharmacy PK ABX Note - Date of Service January 31, 2025 - Assessment and Plan Assessment 74 year old M receiving Vancomycin + Ceftriaxone for treatment of possible septic joint. * Day #1 of antimicrobial therapy. * Afebrile. White count improving. SCr 0.71 mg/dL. Procal negative. * Blood culture pending. Plan Vancomycin * Loading dose: 2000 mg IV x 1 * Maintenance dose: 1250 mg IV every 12 hours * Regimen is predicted to achieve target AUC/GABRIELLA of 400-600 mg/L.hr * Random level ordered for: 02/02/25 Ceftriaxone * 2000 mg IV every 24 hours Pharmacy will continue to follow and will adjust dose/frequency as necessary. Thank you. Pharmacy has transitioned to AUC monitoring for vancomycin. AUC/GABRIELLA is the preferred PK/PD target and is associated with decreased risk of nephrotoxicity compared to traditional trough targets.
[2025-01-31] MEDS: rOPINIRole HCL 0.25 MG TABLET PO SCH (20:31)
[2025-01-31] MEDS: cefTRIAXone SODIUM 2,000 MG/50 ML BAG IV SCH (21:42)
[2025-02-01] MEDS: TRIAMCINOLONE ACET 40 MG/ML VIAL IA ONE (00:07)
[2025-02-01] MEDS: BUPIVACAINE/EPINEPHRINE 0.5% MPF 1:200,000 30 ML VIAL INFIL ONE (00:07)
[2025-02-01 06:51] LABS: Hematocrit (blood only) 39.3 % (42.0-52.0); Hemoglobin 12.3 g/dl (14.0-18.0); Mean Corpuscular Hemoglobin 27.4 pg (25.0-34.0); Mean Corpuscular Hgb Conc 31.3 g/dL (32.0-36.0); Mean Corpuscular Volume 87.5 fL (80.0-100.0); Mean Platelet Volume 7.7 fL (9.4-12.4); Platelet Count 423 K/uL (130-400); RDW Coefficient of Variation 15.3 % (11.5-14.5); RDW Standard Deviation 49.1 fL (36.4-46.3); Red Blood Count 4.49 M/uL (4.70-6.10); White Blood Count 12.09 K/ul (4.8-10.8)
[2025-02-01 07:13] LABS: Creatinine Clr Calc Pharmacy 100.2 ml/min
[2025-02-01] MEDS: CLOPIDOGREL BISULFATE 75 MG TAB PO SCH (08:34)
[2025-02-01] MEDS: DOCUSATE SODIUM 100 MG CAP PO PRN (08:42)
--- NOTE | 2025-02-01 11:35 | Orthopedic Progress Note ---
Date of Service February 01, 2025 Assessment & Plan (1) Osteoarthritis of left knee: Patient was also seen by Dr. Kim, and after talking to him, the patient was in agreement in proceeding with the injection. The risks, benefits, and alternatives of the procedure were discussed in detail with the patient, and in full understanding of the procedure to be performed, the patient elects to proceed as discussed. Left knee steroid injection today. Continue Orlando wrap. Ice as needed. Unable to use NSAIDs since on Plavix. May use Tylenol for pain control purposes. 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 ------- LEFT KNEE INJECTION Performed by: Zac Serna PA-C Side: Left Anesthesia: none Material forwarded to lab: none Prior to starting, the diagnosis and the procedure was reviewed with the patient in detail. Possible risks, complications and alternative therapies were also reviewed. All questions were answered. Informed consent was obtained. Allergies and medication list was reviewed. The anterolateral knee portal and surrounding tissues were prepped with a prep consisting of alcohol swab x1 and Betadine swab x1. Sterile technique was maintained throughout the procedure. Next, a solution containing 2cc of 40 mg/mL of Triamcinolone acetonide and 3 cc of 0.5% bupivacaine, was injected into the left knee joint via a 22-gauge needle upon a 5 cc syringe. Patient did not experience any pain, paresthesia or discomfort throughout the injection period. Adequate hemostasis was noted. A sterile Band-Aid was applied at the injection site. No complications were noted. Patient was monitored for a brief period afterwards. Any specific questions were answered. Patient voiced understanding of the instructions. -------- F/u outpatient as scheduled -- patient follows w/ Dr. Saucedo. Pursue visco injections further. (2) Left knee pain: Subjective Patient's left knee continues to significantly bother him. He says that he has an upcoming visit with Dr. Saucedo' team this Saturday to discuss options for his knee. He is somewhat uncertain about proceeding with a left knee steroid injection since it would mean waiting 3 months prior to undergoing a knee replacement. However, he is in enough pain that he has certainly been considering the injection. Review of Systems All systems reviewed & are unremarkable except as noted in HPI & below. Physical Exam GENERAL: AA&Ox3, NAD. Pleasant, affect is calm. Sitting in bedside chair and appears comfortable. RESPIRATORY: Normal respiratory effort with no signs of distress. CHEST/AXILLA: Chest movement symmetrical. No deformities noted. CARDIOVASCULAR: No edema noted. SKIN: Mucarabones, warm and dry. MS/EXTREMITY: Left knee with Orlando wrap placed. Has approximate 15 to 20 degree left knee flexion contracture. Flexion 90-95. + Tender to medial joint line and pes bursa. NVI distally. Calf soft/NT. PT/DP pulses intact, 2+. Results & Data Results & Data Laboratory Results . Diagnostic Findings . PG Care Time/CCT Total # of Minutes Spent Total Time Spent with Patient: Total time spent is greater than 50% in coordination of care (as documented) at patient's floor/unit and/or counseling patient: [place] [address] SUB INP/OBS CARE 2/35MIN Patient Type Established History Expanded Problem Focused Exam Expanded Problem Focused Medical Decision Making Moderate Complexity Diagnoses Osteoarthritis of left knee M17.12 Left knee pain M25.562 Comment Left knee injection w/ kenalog and bupivicaine
--- NOTE | 2025-02-01 15:16 | Discharge Summary ---
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 Vu Saucedo), awaiting right shoulder arthroscopy (date to be determined with Orthopedic Surgeon Dr. Saturnino Kim), who presented to [facility] on 01/30/2025 with complaints of worsening swelling, redness, and tenderness @ left knee, despite taking tylenol prn left knee pain and tramadol prn left knee pain @ home, resulting in worsening ambulatory dysfunction. Labs @ [facility] included: Procal negative. Lyme screen negative. WBC 13.99 (patient is on chronic prednisone), platelets 460. Imagining @ [facility] included: Doppler negative. Knee XR negative. Patient was subsequently placed in OBSERVATION on the hospitalist service @ [facility] on 01/30/2025 with concerns for possible acute septic left knee joint, having undergone his last/most recent steroid injection of the left knee ~3 months ago. The following medical issues were addressed while the patient remained in [facility] from 01/30/2025 through 02/01/2025: #Left knee erythema/intractable pain/ambulatory dysfunction - initial concern for septic joint with decreased ROM and significant pain/swelling. Patient is immunocompromised due to history of rheumatoid arthritis on chronic prednisone 15mg PO daily, leflunomide 20mg PO daily, and Humira 40mg SQ q14 days. - Leukocytosis resolved, no neutrophilia but monocytosis likely from chronic prednisone use and RA. Patient remains afebrile. - Blood culture (01/30/2025, 10:44pm) remains negative as of discharge date/time, 02/01/2025, 3:15pm, on empiric vancomycin/ceftriaxone; patient was subsequently evaluated by Orthopedic Surgery Service of Dr. Saturnino Kim (01/31/2025, 9:40am), and who felt that patient does not have a septic left knee joint. Patient was subsequently discharged back to his home on 02/01/2025, OFF empiric vancomycin/ceftriaxone, and without any prescription for empiric oral antibiotic(s). Patient was also advised to follow up with his Orthopedic Surgeon Dr. Saturnino Kim within 5-7 days of hospital discharge. 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 Lexx Louis. - No indication for stress dose steroids at this time. - Of note, patient is allergic to protonix (e.g., diffuse swelling, aches, and pains) and hence, patient cannot receive protonix (to prophylax against potential steroid-associated gastritis, ulcer formation, and/or GI bleed). #CAD/HTN S/p LAD stent in 2017. Stable. Statin intolerant. - Continue home-scheduled amlodipine 10mg PO qam, lisinopril 10mg PO daily, and metoprolol succinate 50mg PO qam in [facility] and on hospital discharge back to his home on 02/01/2025. - Held off home-scheduled plavix 75mg PO daily given possible left knee joint aspiration; subsequently, patient did not undergo left knee joint aspiration as there was no left knee joint effusion on ballottement of left knee on 02/01/2025. Consequently, patient will resume his home-scheduled plavix 75mg PO daily on hospital discharge back to his home on 02/01/2025. #HARMEET - stable - BiPap ordered HS #RLS stable - Continue ropinirole VTE ppx: SCDs Dispo: Pending ortho and PT/OT evals Updated at bedside Admission HPI Per Admitting Provider Patient is a 74-year-old male with past medical history of rheumatoid arthritis, right knee replacement, CAD s/p stent to LAD, restless leg syndrome, sleep apnea. patient presented due to worsening swelling and redness of his left knee resulting in ambulatory dysfunction. He is being admitted for concern of a septic joint. Patient seen at bedside with his . He stated that he has had left knee pain for a long time and is to have it replaced however the over the past few days it has been significantly worse. He is supposed to see orthopedics on Saturday. He was to have injections in his knee however insurance did not yet approve it. He stated his pain is 0/10 at rest however 8/10 upon movement. He has been using crutches to ambulate. He denies any fevers, chills, chest pain, shortness of breath, numbness, tingling. He denies nicotine or alcohol use. He uses CPAP for sleep apnea. He took his morning medications. He currently is on 15 mg of prednisone since 01/19, tapered to 10 later this week. He wishes to be full code. Discharge Exam Constitutional General: Comfortable, coherent, cooperative. Wide awake and alert. Not confused, lethargic, or obtunded. Patient speaks in complete, fluent, and articulate sentences without pause, cough, or wheeze, with O2 sat 93% on room air (02/01/2025, 3:16pm). HEENT: Normocephalic, atraumatic. Extra-ocular muscles intact. Pupils equally round and reactive to light. No nystagmus, gaze paresis, anisocoria, miosis, mydriasis, hyphema, scleral injection, conjunctivitis, or pterygium. No otorrhea or rhinorrhea. No pharyngeal erythema, edema, or discharge. Neck: Supple, no stridor, bruit, goiter, or hepato-jugular reflux. Jugular venous pressure is estimated to be 3 cm above the sternal angle of Kirk, which in turn, is 5 cm above the level of the right atrium; with jugular venous pressure estimated to be 8 cm, then, there is no jugular venous distention on 02/01/2025. Lymphatics: No cervical (anterior/posterior), supraclavicular, infraclavicular, axillary, epitrochlear, or inguinal adenopathy. Chest: Symmetric rise and fall with respirations. Non-tender to palpation. Lungs: Clear to auscultation and percussion. Heart: Regular rate and rhythm. S1 and S2 noted. No S3 or S4 summation gallop. No tripartite friction rub. Grade II/ early systolic murmur @ LLSB without radiation to the carotids, axilla, or back, and which remains invariant in regards to the respiratory cycle. Abdomen: Soft, non-tender, non-distended. No rebound, guarding, Morgan's sign, or organomegaly. Bowel sounds auscultated in all 4 quadrants. Extremities: No clubbing, cyanosis, or edema. Skin: No decubitus ulcer, exanthem, or enanthem. Genito-urinary: No urethral discharge. No jj catheter. Neurology: Alert and oriented in regards to person, place, time, and situation. DTR+ and symmetric. 5/5 motor strength in all 4 extremities, both proximally and distally. No pronator drift. No facial droop. No dysarthria. Psychiatry: No homicidal ideation. No suicidal ideation. No flat affect; smiles appropriately Discharge Plan Discharge Items Patient Disposition: Home - Self-Care Reason For Visit: SEPTIC LEFT KNEE JOINT Discharge Diagnosis: Severe osteoarthritis in left knee joint, NOT septic arthritis in left knee joint Condition on Discharge: Good Activity: Resume your previous activity Lifting: Gradually increase as tolerated Bathing: No limitations Sexual Activity: When tolerated Exercise/Sports: Gradually increase as tolerated Driving/Machine Use: No limitations Weightbearing: Full weightbearing Non-emergency contact: Primary Care Provider Call non-emergency contact if: you have any medication questions Follow-up/Referrals: Alexa Kurtz MD [Primary Care Provider] - Saturnino Kim DO [Physician] - (See your Orthopedic Surgeon Dr. Saturnino Kim within 5-7 days of hospital discharge.) Diet: Heart Healthy Addtl Attending Provider Instructions: See your Orthopedic Surgeon Dr. Saturnino Kim within 5-7 days of hospital discharge to determine when you can undergo right shoulder arthroscopy. See your Orthopedic Surgeon Dr. Vu Saucedo within 5-7 days of hospital discharge to determine when you can undergo right knee replacement. Pending Studies at Discharge: No Stand-Alone Forms: My Individual Digital, Smoking Cessation Medications and DC Order Prescriptions: Continued clopidogrel [Plavix] 75 mg tablet 75 mg PO QAM Qty: 90 3RF Hold Instructions: surgery lisinopril 10 mg tablet 10 mg PO QAM Qty: 90 1RF tramadol 50 mg tablet 50 mg PO Q8H PRN (Reason: pain) Qty: 30 0RF albuterol sulfate 90 mcg/actuation HFA aerosol inhaler 2 puff inhalation Q6H PRN (Reason: shortness of breath or wheezing) Qty: 6.7 0RF Humira(CF) 40 mg/0.4 mL syringe kit 40 mg subcut Q14D prednisone 5 mg tablet 15 mg PO DAILY amlodipine 10 mg tablet 10 mg PO QAM Qty: 90 3RF acetaminophen [Tylenol 8 Hour] 650 mg tablet extended release 650 mg PO Q8H PRN (Reason: Pain) Rx Instructions: otc unable to verify ropinirole 0.5 mg tablet 0.5 mg PO HS Qty: 30 1RF metoprolol succinate 50 mg tablet extended release 24 hr 50 mg PO QAM leflunomide 20 mg tablet 20 mg PO DAILY Rx Instructions: TAKE 1 TABLET BY MOUTH ONCE DAILY Discharge Orders: Discharge Order (Routine); Ordered 02/01/25 Ordered By: Krystian Burks/Other Patient Handouts: A1C, 5 Steps for Eating Healthier Admission Data Admit Date/Time: 01/30/25 23:49 Attending Provider: Krystian Vines Admit Provider: Miri Aviles Primary Care Provider: Alexa Kurtz V. Other Providers: Saturnino Kim Hospital Stay Data Consultations 01/31/25 01:41 Consult Orthopedic Surgery Routine Diagnostic Imagining Performed 01/30/25 18:06 US venous doppler LE LT Stat Pending Results Patient Have Any Pending Studies at Discharge: No Discharge Instructions Given to Patient (Per Discharging Provider) See your Orthopedic Surgeon Dr. Saturnino Kim within 5-7 days of hospital discharge to determine when you can undergo right shoulder arthroscopy. See your Orthopedic Surgeon Dr. Vu Saucedo within 5-7 days of hospital discharge to determine when you can undergo right knee replacement. Total Time Total Time Spent Total Time Spent (In Minutes): 35 minutes. Of this time period, 19 minutes were spent in coordinating patient's discharge. 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
[2025-02-01 15:17] VITALS: BP 147/83; PULSE 88; RESP 17; TEMP 98.2; O2SAT 93
== END 2025-02-01 15:52 | disposition home or self-care (01) ==
LOC: ED 17:32 → 3E 17:32 → SUATTDRO 23:49 → 3E 01-31 00:49

== ENCOUNTER 2025-05-08 04:05 | Observation (INO) ==
[2025-05-08 04:45] LABS: Hematocrit (blood only) 36.9 % (42.0-52.0); Hemoglobin 11.7 g/dl (14.0-18.0); Immature Granulocytes # (auto) 0.07 K/uL (0.01-0.20); Immature Granulocytes % (auto) 0.6 %; Mean Corpuscular Hemoglobin 27.5 pg (25.0-34.0); Mean Corpuscular Volume 86.8 fL (80.0-100.0); Platelet Count 389 K/uL (130-400); RDW Standard Deviation 49.2 fL (36.4-46.3); Red Blood Count 4.25 M/uL (4.70-6.10); White Blood Count 12.51 K/ul (4.8-10.8)
[2025-05-08 05:06] LABS: Alanine Aminotransferase 13.0 U/L (7-52); Albumin Globulin Ratio 0.8 (0.9-2); Alkaline Phosphatase 56.0 U/L (34-104); Anion Gap 8.0 (3-11); Bilirubin,Total 0.6 mg/dl (0.2-1.0); Blood Urea Nitrogen 15.0 mg/dl (6-23); Calcium 9.0 mg/dl (8.6-10.3); Carbon Dioxide 23.0 mmol/L (21-32); Chloride 104.0 mmol/L (98-107); Creatine Kinase 31.0 U/L (30-223); Creatinine Clr Calc Pharmacy 79.8 ml/min; Globulin 3.9 gm/dl (2.5-4.0); Glucose 106.0 mg/dl (70-99(Fasting)); Magnesium 1.8 mg/dl (1.7-2.4); Potassium 3.8 mmol/L (3.5-5.1); Sodium 135.0 mmol/L (136-145); Total Protein 7.2 gm/dl (6.0-8.3)
[2025-05-08 05:15] LABS: INR 1.1 (0.9-1.1); Prothrombin Time 11.7 Seconds (9.0-12.0)
[2025-05-08] MEDS: SODIUM CHLORIDE 0.9% 500 ML IV ONE (05:17)
[2025-05-08 05:20] LABS: Thyroid Stimulating Hormone 1.653 uIu/ml (0.300-4.500)
--- NOTE | 2025-05-08 05:20 | Emergency Department Note ---
Impression & Plan Pulmonary embolism, Tachycardia, Pain in right wrist, Status post knee replacement ED Provider Note Provider: Vincent Oh MD CHIEF COMPLAINT: Right hand swelling HISTORY OF PRESENT ILLNESS: Patient is a 74-year-old gentleman past medical history of CAD on Plavix, left knee replacement approximate 10 days ago, hypertension, constipation, arthritis presenting here today reporting that is not sleeping well. States she has had some swelling and pain increased in his right wrist. Has needed Tylenol without much improvement. Pain is keeping up some. Has been on Humira in the past. Had to stop for his knee surgery. The knee is a bit swollen but this is chronic and stable seem to be holding out okay. Has not been using stronger pain medicines as he developed some constipation with it and was seen here. No falls. Denies significant shortness of breath. Does not relate history of significant tachycardia. PAST MEDICAL HISTORY: As noted above MEDICATIONS: Reviewed medications recently started Plavix SOCIAL HISTORY: PHYSICAL EXAM: GENERAL: alert and oriented in no acute distress on stretcher Head: normocephalic and atraumatic EYES: No injection, discharge or icterus. NECK: Trachea midline. ENT: Mucous membranes pink and moist. LUNGS: Airway patent. No retractions. Breath sounds clear HEART: Regular tachycardic rate and rhythm. No chest wall tenderness ABDOMEN: Soft and non-tender, without guarding or rebound. SKIN: Acyanotic, warm, dry, without rashes EXTREMITIES: 2+ edema of the left lower extremity with tae in place over knee replacement wound without evidence of significant erythema or discharge or dehiscence. Trace swelling of the right lower extremity. Some tenderness of the right wrist and hand with some trace swelling here. No erythema. No wounds. Intact sensation of the right fingers. NEUROLOGICAL: No focal deficits. No aphasia. No facial droop or slurred speech. EK bpm sinus tachycardia with PAC. No acute ST segment elevation or depression with QTc 422. CONTINUOUS CARDIAC MONITORING: was ordered and showed a heart rate of 100-120s bpm in sinus tachycardia Patient's laboratory studies and imaging reviewed. Differential includes Fracture, subluxation, dislocation, contusion, ligamentous injury, neurovascular, compartment syndrome, rhabdomyolysis, PE, ACS, as well as other pathologies. IMPRESSION/MEDICAL DECISION MAKING: Patient nondistressed. Could very well be related to his arthritis and being off his Humira and medication changes with the recent knee surgery. The knee itself has some bruising but does not seem to have desist wound and I lower suspicion for infection. No fevers reported. Is significantly tachycardic upon arrival. States compliance with his home metoprolol. Given this we will proceed with full workup including ultrasounds and CTs. Blood work is obtained. Chronic leukocytosis noted with a stable mild anemia. No significant renal dysfunction or severe electrolyte abnormalities. Normal troponin. Normal CK. Procalcitonin not elevated. Doubt this is infectious. Negative COVID testing here. Chest x-ray question lower airspace opacities. Will complete a CT of the chest given his postsurgical history and this tachycardia. CT report of the chest per radiology shows evidence of right upper lobe artery and segmental branches PE. In atelectatic bands noted. Ultrasound upper extremity without evidence of DVT. Had a negative ultrasound of the left lower leg 5 days ago. Again no feel this is infectious. Do of concerns given the findings of PE and his postoperative state. Patient again tachycardic with saturations around 90%. He is a former smoker but believe starting anticoagulation or monitor can given his tachycardia, comorbidities, recent postoperative state and PE findings would be reasonable. Simplified Pesi score is elevated. Reached out to the hospitalist team. Heparin drip ordered. Patient did receive some fentanyl for the wrist pain and this has improved some. DIAGNOSIS: Right wrist pain, insomnia, PE, tachycardia DISPOSITION: Hospitalist will evaluate Patient was agreeable with this plan. Critical Care I have personally spent 34 minutes of critical care time in the direct management of this patient. This includes bedside care, interpretation of diagnostic studies, and testing, discussion with consultants, patient, and family members, and other required patient management activities. These 34 minutes is in excess of all separately billable procedures. Past Med/Surg History Problem List (Updated 05/08/25 @ 06:35 by Vincent Oh M.D.) Status post knee replacement (Acute) Pain in right wrist (Acute) Tachycardia (Acute) Pulmonary embolism (Acute) Constipation (Acute) Knee pain (Acute) Hypertension controlled, stable per pt CAD (coronary artery disease) s/p stent to proximal LAD 2016 Rheumatoid arthritis Positive anti-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 Louis (10/2024) Taking prednisone 5mg daily (chronic) Restless legs syndrome Lung nodule Rheumatoid arthritis Positive anti-CCP test Follows with [facility] Taking prednisone 5mg daily (chronic) Mild basilar atelectasis of both lungs X-ray of lung, abnormal Xerostomia Rotator cuff arthropathy of right shoulder Polyarthralgia Statin myopathy (Acute) Hyperglycemia Status post insertion of drug-eluting stent into left anterior descending (LAD) artery August 21, 2017 Solitary pulmonary nodule (Chronic) monitoring, no changes Hyperlipidemia (Chronic) Generalized osteoarthritis of multiple sites (Chronic) Medical History Osteoarthritis of left knee Intractable pain Septic joint of left knee joint Left knee pain Sleep apnea 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 RSV infection Current chronic use of systemic steroids Generalized osteoarthritis HLD (hyperlipidemia) Sleep apnea Coronary artery disease Hypoxia Hypoxic respiratory failure Cough Osteoarthritis of left foot CAD (coronary artery disease) Statin intolerance History of bladder stone (~2020) Restless leg syndrome History of COVID-19 (~11/13/24) Osteoarthritis of right knee Obesity Hypertension Sepsis (06/2023) Anaplasmosis Adenocarcinoma of prostate Surgical History Hx of cardiac catheterization (2016) History of knee replacement (2023) History of tooth extraction History of colonoscopy H/O prostate biopsy S/P hernia repair (~1971) S/P cystoscopy with ureteral stent placement History of coronary artery stent placement (2016) Family History Father Myocardial infarction Stroke Brain cancer Coronary heart disease Uncle Myocardial infarction Mother Diabetes Brother Diabetes Sister Diabetes Family/Other Diabetes Denies family history of Ovarian cancer Prostate cancer Breast cancer Colorectal cancer Social History Smoking Status: Former smoker Second Hand Exposure: No; Do You Dip or Chew Tobacco: No; Hx Alcohol Use: No Hx Substance Use: No Preferred Language: Martiniquais Communication Ability: Effective Visual Impairment: No Limitations Hearing Ability: Normal Stress Test Technician Required: No Beliefs That Will Affect Care: None marital status: Current Living Situation: Spouse Current Living Situation Comment: Home with current occupational status: retired current occupation: [employer] Feels Safe at Home: Yes Childhood Exposure to Second-Hand Smoke: No caffeine: Yes Dental Care, Regularly: No Physical Activity Frequency: Daily Seatbelt Use: always Sunscreen Use: No Assistive Devices: Cane and CPAP Allergies Allergies Allergy/AdvReac Type Severity Reaction Status Date / Time icosapent ethyl Allergy Severe Arthralgia, Verified 04/23/25 13:40 [From Vascepa] swallow problem ciprofloxacin Allergy Intermediate Swelling Verified 04/23/25 13:40 pantoprazole Allergy Intermediate Swelling, Verified 04/23/25 13:40 diffuse aches/pains gabapentin AdvReac Intermediate Verified 04/23/25 13:40 levofloxacin AdvReac Intermediate Ankle Verified 04/23/25 13:40 swelling [id number] Reductase AdvReac Intermediate Myalgia Verified 04/23/25 13:40 Inhibitor Sulfa (Sulfonamide AdvReac Intermediate Diffuse Verified 04/23/25 13:40 Antibiotics) body redness sulfamethoxazole AdvReac Intermediate Diffuse Verified 04/23/25 13:40 body redness trimethoprim AdvReac Intermediate Diffuse Verified 04/23/25 13:40 body redness Home Meds Home Medications Medication Instructions Recorded Confirmed acetaminophen 650 mg 650 mg PO Q8H PRN Pain 04/22/24 04/23/25 tablet,extended release (Tylenol 8 Hour) adalimumab 40 mg/0.4 mL 40 mg subcut Q14D 01/19/25 04/23/25 subcutaneous syringe kit (Lay(CF)) Previous Rx's Medication Instructions Recorded amlodipine 10 mg tablet 10 mg PO QAM #90 tabs 07/27/24 clopidogrel 75 mg tablet (Plavix) 75 mg PO QAM #90 tabs 09/09/24 lisinopril 10 mg tablet 10 mg PO QAM #90 tabs 12/06/24 tramadol 50 mg tablet 50 mg PO DAILY PRN pain #10 tabs 02/19/25 leflunomide 20 mg tablet 20 mg PO DAILY #90 tabs 04/08/25 metoprolol succinate 50 mg 50 mg PO QAM #90 tabs 04/16/25 tablet,extended release 24 hr prednisone 5 mg tablet 5 mg PO DAILY #90 tabs 05/03/25 Results & Data (ED) Vital Signs Vital Signs - 24 hr 05/08/25 04:09 05/08/25 04:27 05/08/25 04:30 Temperature 36.7 C Temperature Source Oral Pulse Rate 130 H 122 H 123 H Pulse Rate from SpO2 Sensor 123 H Respiratory Rate 18 21 Respiratory Effort / Characteristics Non-Labored Spontaneous Respiratory Depth Normal Respiratory Pattern Regular Blood Pressure 151/75 H 127/96 Blood Pressure Mean 100 106 Pulse Oximetry 93 91 Oxygen Delivery Method Room Air Sepsis Recent Fever Within 48 Hours No Sepsis New/Unexplained Change in Mental Status No Sepsis Action Taken by Nursing No Action Required 05/08/25 04:39 05/08/25 04:45 05/08/25 05:00 Temperature Temperature Source Pulse Rate 118 H Pulse Rate from SpO2 Sensor 114 H Respiratory Rate 20 Respiratory Effort / Characteristics Respiratory Depth Respiratory Pattern Blood Pressure 157/101 H Blood Pressure Mean 111 Pulse Oximetry 95 93 Oxygen Delivery Method Room Air Sepsis Recent Fever Within 48 Hours Sepsis New/Unexplained Change in Mental Status Sepsis Action Taken by Nursing 05/08/25 06:00 05/08/25 06:03 05/08/25 07:06 Temperature Temperature Source Pulse Rate 107 H 117 H Pulse Rate from SpO2 Sensor 108 H 115 H Respiratory Rate 22 21 Respiratory Effort / Characteristics Respiratory Depth Respiratory Pattern Blood Pressure 163/88 H 150/100 H Blood Pressure Mean 113 116 Pulse Oximetry 93 94 Oxygen Delivery Method Sepsis Recent Fever Within 48 Hours Sepsis New/Unexplained Change in Mental Status Sepsis Action Taken by Nursing Laboratory Data 05/08/25 04:30 05/08/25 04:30 Lab Results 05/08/25 05/08/25 Range/Units 04:30 04:51 WBC 12.51 H (4.8-10.8) K/ul RBC 4.25 L (4.70-6.10) M/uL Hgb 11.7 L (14.0-18.0) g/dl Hct 36.9 L (42.0-52.0) % MCV 86.8 (80.0-100.0) fL MCH 27.5 (25.0-34.0) pg MCHC 31.7 L (32.0-36.0) g/dL RDW Std Deviation 49.2 H (36.4-46.3) fL RDW Coeff of Debi 15.5 H (11.5-14.5) % Plt Count 389 (130-400) K/uL MPV 7.7 L (9.4-12.4) fL Immature Gran % (Auto) 0.6 % Neut % (Auto) 56.1 % Lymph % (Auto) 17.0 % [place] % (Auto) 17.4 % Eos % (Auto) 8.4 % Baso % (Auto) 0.5 % Neut # (Auto) 7.02 H (1.40-6.50) K/uL Lymph # (Auto) 2.13 (1.20-3.40) K/uL [place] # (Auto) 2.18 H (0.11-0.59) K/uL Eos # (Auto) 1.05 H (0.00-0.50) K/uL Baso # (Auto) 0.06 (0.00-0.20) K/uL Immature Gran # (Auto) 0.07 (0.01-0.20) K/uL PT 11.7 (9.0-12.0) Seconds INR 1.1 (0.9-1.1) APTT 30 (21-31) Seconds PTT Ratio 1.1 Sodium 135 L (136-145) mmol/L Potassium 3.8 (3.5-5.1) mmol/L Chloride 104 (98-107) mmol/L Carbon Dioxide 23 (21-32) mmol/L Anion Gap 8 (3-11) BUN 15 (6-23) mg/dl Creatinine 0.94 (0.6-1.4) mg/dl Est Cr Clr Drug Dosing 79.8 ml/min eGFR 86.13 BUN/Creatinine Ratio 16.0 (10-20) Glucose 106 H (70-99(Fasting)) mg/dl Lactate 1.2 (0.4-2.0) mmol/L Calcium 9.0 (8.6-10.3) mg/dl Magnesium 1.8 (1.7-2.4) mg/dl Total Bilirubin 0.6 (0.2-1.0) mg/dl AST 14 (13-39) U/L ALT 13 (7-52) U/L Alkaline Phosphatase 56 (34-104) U/L Total Creatine Kinase 31 (30-223) U/L Troponin I High Sens 5.3 (0-20) pg/ml Total Protein 7.2 (6.0-8.3) gm/dl Albumin 3.3 L (3.4-5.0) gm/dl Globulin 3.9 (2.5-4.0) gm/dl Albumin/Globulin Ratio 0.8 L (0.9-2) Procalcitonin 0.09 (0-0.5) ng/ml TSH 1.653 (0.300-4.500) uIu/ml SARS-CoV-2, RNA, NAAT NEGATIVE (NEGATIVE) Administered Medications Discontinued Medications Fentanyl Citrate (Fentanyl Citrate Pf 100 Mcg/2 Ml Vial) 50 mcg IV NOW STA Stop: 05/08/25 05:12 Last Admin: 05/08/25 05:16 Dose: 50 mcg Documented By: LAZARO Sodium Chloride (Nss) 500 mls @ 999 mls/hr IV .Q31M ONE Stop: 05/08/25 05:41 Last Infusion: 05/08/25 05:49 Dose: Infused Documented By: Admin: 05/08/25 05:17 Dose: 999 mls/hr Documented By: LAZARO Ioversol (Optiray 320 125ml) 118 ml IV ONCE ONE Stop: 05/08/25 05:33 Last Admin: 05/08/25 05:32 Dose: 118 ml Documented By: JANEY Imaging Data Radiologist's Impression: Chest X-Ray 05/08/25 04:36 EXAM: XR chest 1V portable CLINICAL HISTORY: tachy TECHNIQUE: An X-ray image of the chest is obtained in AP projection. COMPARISON: 02/19/2025 CR FINDINGS: Pulmonary Parenchyma: There are bilateral lower zone airspace opacities, more prominent on the left side, with interval worsening compared to the previous study. A minimal left-sided pleural effusion or pleural thickening is present. Heart and Mediastinum: The heart is borderline enlarged and remains unchanged from the prior examination. No mediastinal widening or masses are seen. No hilar or mediastinal lymphadenopathy is identified. Bony Thorax: The bony thorax appears intact without evidence of fractures or deformities. Soft Tissues: The soft tissues overlying the chest wall are unremarkable. IMPRESSION: 1. Bilateral lower zone airspace opacities, more prominent on the left side, with interval worsening. The appearance is suggestive of an inflammatory or infectious process. Clinical correlation is advised. 2. Minimal left-sided pleural effusion or pleural thickening. 3. Borderline cardiomegaly, unchanged. Electronically signed by Marcellus Cruz 05-08-2025 05:41 AM Knee X-Ray 05/08/25 04:45 EXAM: XR knee LT 1 or 2V routine CLINICAL HISTORY: replacement TECHNIQUE: X-ray images of the left knee were obtained in anteroposterior (AP) and lateral projections. COMPARISON: 01/30/2025. FINDINGS: Bone Structure: Osteopenia is unchanged. The patient is status post total knee replacement. The prosthetic components are intact and well-aligned. There is no evidence of acute fracture, dislocation, or osseous lesion. Joint Spaces: The prosthetic joint spaces appear preserved. No abnormal narrowing is identified. Articular Surfaces: The prosthetic articular surfaces are smooth and intact. There is no evidence of loosening or hardware-related complications. Patella: The patella is normal in position and alignment. There is no evidence of dislocation or subluxation. Soft Tissues: Mild periarticular soft tissue swelling is present. No abnormal calcifications or foreign bodies are identified. Surgical clips are noted in the anterior aspect of the knee joint. Additional Findings: There is a suggestion of minimal knee joint effusion. A fabella is present. IMPRESSION: 1. Status post total knee replacement with intact hardware. 2. Surgical clips are present anteriorly. 3. Minimal knee joint effusion is suggested. 4. Periarticular soft tissue swelling is present. 5. Otherwise, no significant interval changes. Follow-up clinical correlation is recommended if symptoms persist or worsen. Consider further imaging such as CT or MRI if there is ongoing clinical concern. Electronically signed by Marcellus Cruz 05-08-2025 05:55 AM Chest CTA 05/08/25 05:10 EXAM: CT angio chest PE protocol CLINICAL HISTORY: PE, tachy, recent surgery TECHNIQUE: Contiguous axial images were obtained from the neck base through the upper abdomen following intravenous administration of iodinated contrast material. Angiographic images were processed, 3D MIP images were acquired for interpretation. If IV contrast material had not been administered, the likelihood of detecting abnormalities relevant to the patient's condition would have been substantially decreased. Coronal and sagittal 3-D MIPs were likewise performed and indicated to increase the sensitivity of detectin diffuse clinically relevant pathology. CT scan was performed according to ALARA (as low as reasonable achievable). COMPARISON: None. FINDINGS: Evidence of intraluminal hypodense filling defect is noted involving right upper lobar artery and segmental branches- suggestive of pulmonary embolism. Multiple atelectatic bands are noted involving bilateral lower lobe Diffuse ground-glass haze with subpleural atelectasis are noted involving dependent portion of both lower lobes - suggest possibility of due to insufficient inspiration. The central airways are patent. No pleural effusion. The heart, aorta, and pulmonary arteries are of normal size and configuration. There are coronary artery and aortic atherosclerotic calcifications. No pericardial effusion is identified. The thyroid is unremarkable. No mediastinal, hilar, or axillary lymphadenopathy is noted. No suspicious lytic or sclerotic osseous lesions are identified. IMPRESSION: Evidence of intraluminal hypodense filling defect is noted involving right upper lobar artery and segmental branches- suggestive of pulmonary embolism. Multiple atelectatic bands are noted involving bilateral lower lobe Diffuse ground-glass haze with subpleural atelectasis are noted involving dependent portion of both lower lobes - suggest possibility of due to insufficient inspiration Electronically signed by Chang Heck 05-08-2025 05:53 AM Hand X-Ray 05/08/25 05:10 EXAM: XR hand RT min 3V routine CLINICAL HISTORY: Pain. TECHNIQUE: X-ray images of right hand were obtained in PA, lateral, and oblique projections. COMPARISON: No prior studies available for comparison. FINDINGS: Bone Structure: Bone structure is preserved and normally aligned. No acute fracture or dislocation is identified. No destructive osseous lesions are seen. Joint Spaces: Degenerative changes are present involving the interphalangeal joints with multiple tiny projecting osteophytes. Degenerative changes are also seen in the wrist joints, predominantly involving the radiocarpal joint. Additional degenerative changes are noted at the first carpometacarpal joint. Soft Tissues: The soft tissues appear within normal limits. No significant soft tissue swelling, calcification, or foreign body is detected. Additional Findings: No lytic or sclerotic bone lesions are identified. IMPRESSION: 1. Degenerative changes of the interphalangeal joints with small osteophytes. 2. Degenerative changes of the radiocarpal and first carpometacarpal joints. 3. No acute fracture or dislocation. Disclaimer: A subtle bone abnormality or fracture may not be readily apparent on X-rays, thus clinical correlation and further imaging including follow-up CT, MRI, or follow-up X-rays are advised as needed. Electronically signed by Marcellus Cruz 05-08-2025 05:47 AM Venous Doppler Study 05/08/25 05:10 EXAM: US venous doppler UE RT CLINICAL HISTORY: hand pain swelling, recent surgery TECHNIQUE: Grayscale ultrasound, with and without compression, and color Doppler spectral waveform analysis were performed of the deep veins of the right upper limb from the level of the jugular veins to the level of the radial and ulnar veins. COMPARISON: None. FINDINGS: The jugular, subclavian, axillary , brachial , radial and ulnar veins are compressible and opacify at color Doppler evaluation with no evidence of deep vein thrombosis. IMPRESSION: 1.Negative for deep vein thrombosis. Electronically signed by Chang Heck 05-08-2025 06:42 AM Discharge Plan Visit Data Chief Complaint: Hand Injury/Pain Stated Complaint: SHOULDER AND HAND PAIN ED Provider: Vincent Oh Discharge Problem: Pulmonary embolism, Tachycardia, Pain in right wrist, Status post knee replacement Patient Disposition: Being Evaluated by Hospitalist Condition: Fair Forms Stand Alone Forms: My [facility] [employer] Prescriptions Prescriptions: No Action clopidogrel [Plavix] 75 mg tablet 75 mg PO QAM Qty: 90 3RF Hold Instructions: surgery lisinopril 10 mg tablet 10 mg PO QAM Qty: 90 1RF leflunomide 20 mg tablet 20 mg PO DAILY Qty: 90 0RF Rx Instructions: TAKE 1 TABLET BY MOUTH ONCE DAILY metoprolol succinate 50 mg tablet extended release 24 hr 50 mg PO QAM Qty: 90 3RF prednisone 5 mg tablet 5 mg PO DAILY Qty: 90 0RF Humira(CF) 40 mg/0.4 mL syringe kit 40 mg subcut Q14D amlodipine 10 mg tablet 10 mg PO QAM Qty: 90 3RF acetaminophen [Tylenol 8 Hour] 650 mg tablet extended release 650 mg PO Q8H PRN (Reason: Pain) tramadol 50 mg tablet 50 mg PO DAILY PRN (Reason: pain) Qty: 10 0RF Rx Instructions: Switchboard Manager: Dr. Vikki MD ELISE: [id number] License: [id number] Referrals Referrals: Alexa Kurtz MD [Primary Care Provider] - Discharge Problem: Pulmonary embolism Qualifiers: Pulmonary embolism type: unspecified Chronicity: acute
[2025-05-08] MEDS: OPTIRAY 320 125ml IV ONE (05:32)
--- NOTE | 2025-05-08 05:41 | XRay Report ---
EXAM: XR chest 1V portable CLINICAL HISTORY: tachy TECHNIQUE: An X-ray image of the chest is obtained in AP projection. COMPARISON: 02/19/2025 CR FINDINGS: Pulmonary Parenchyma: There are bilateral lower zone airspace opacities, more prominent on the left side, with interval worsening compared to the previous study. A minimal left-sided pleural effusion or pleural thickening is present. Heart and Mediastinum: The heart is borderline enlarged and remains unchanged from the prior examination. No mediastinal widening or masses are seen. No hilar or mediastinal lymphadenopathy is identified. Bony Thorax: The bony thorax appears intact without evidence of fractures or deformities. Soft Tissues: The soft tissues overlying the chest wall are unremarkable. IMPRESSION: 1. Bilateral lower zone airspace opacities, more prominent on the left side, with interval worsening. The appearance is suggestive of an inflammatory or infectious process. Clinical correlation is advised. 2. Minimal left-sided pleural effusion or pleural thickening. 3. Borderline cardiomegaly, unchanged. Electronically signed by Marcellus Cruz 05-08-2025 05:41 AM
--- NOTE | 2025-05-08 05:50 | XRay Report ---
EXAM: XR hand RT min 3V routine CLINICAL HISTORY: Pain. TECHNIQUE: X-ray images of right hand were obtained in PA, lateral, and oblique projections. COMPARISON: No prior studies available for comparison. FINDINGS: Bone Structure: Bone structure is preserved and normally aligned. No acute fracture or dislocation is identified. No destructive osseous lesions are seen. Joint Spaces: Degenerative changes are present involving the interphalangeal joints with multiple tiny projecting osteophytes. Degenerative changes are also seen in the wrist joints, predominantly involving the radiocarpal joint. Additional degenerative changes are noted at the first carpometacarpal joint. Soft Tissues: The soft tissues appear within normal limits. No significant soft tissue swelling, calcification, or foreign body is detected. Additional Findings: No lytic or sclerotic bone lesions are identified. IMPRESSION: 1. Degenerative changes of the interphalangeal joints with small osteophytes. 2. Degenerative changes of the radiocarpal and first carpometacarpal joints. 3. No acute fracture or dislocation. Disclaimer: A subtle bone abnormality or fracture may not be readily apparent on X-rays, thus clinical correlation and further imaging including follow-up CT, MRI, or follow-up X-rays are advised as needed. Electronically signed by Marcellus Cruz 05-08-2025 05:47 AM
--- NOTE | 2025-05-08 05:53 | CT Scan Report ---
EXAM: CT angio chest PE protocol CLINICAL HISTORY: PE, tachy, recent surgery TECHNIQUE: Contiguous axial images were obtained from the neck base through the upper abdomen following intravenous administration of iodinated contrast material. Angiographic images were processed, 3D MIP images were acquired for interpretation. If IV contrast material had not been administered, the likelihood of detecting abnormalities relevant to the patient's condition would have been substantially decreased. Coronal and sagittal 3-D MIPs were likewise performed and indicated to increase the sensitivity of detectin diffuse clinically relevant pathology. CT scan was performed according to ALARA (as low as reasonable achievable). COMPARISON: None. FINDINGS: Evidence of intraluminal hypodense filling defect is noted involving right upper lobar artery and segmental branches- suggestive of pulmonary embolism. Multiple atelectatic bands are noted involving bilateral lower lobe Diffuse ground-glass haze with subpleural atelectasis are noted involving dependent portion of both lower lobes - suggest possibility of due to insufficient inspiration. The central airways are patent. No pleural effusion. The heart, aorta, and pulmonary arteries are of normal size and configuration. There are coronary artery and aortic atherosclerotic calcifications. No pericardial effusion is identified. The thyroid is unremarkable. No mediastinal, hilar, or axillary lymphadenopathy is noted. No suspicious lytic or sclerotic osseous lesions are identified. IMPRESSION: Evidence of intraluminal hypodense filling defect is noted involving right upper lobar artery and segmental branches- suggestive of pulmonary embolism. Multiple atelectatic bands are noted involving bilateral lower lobe Diffuse ground-glass haze with subpleural atelectasis are noted involving dependent portion of both lower lobes - suggest possibility of due to insufficient inspiration Electronically signed by Chang Heck 05-08-2025 05:53 AM
--- NOTE | 2025-05-08 05:56 | XRay Report ---
EXAM: XR knee LT 1 or 2V routine CLINICAL HISTORY: replacement TECHNIQUE: X-ray images of the left knee were obtained in anteroposterior (AP) and lateral projections. COMPARISON: 01/30/2025. FINDINGS: Bone Structure: Osteopenia is unchanged. The patient is status post total knee replacement. The prosthetic components are intact and well-aligned. There is no evidence of acute fracture, dislocation, or osseous lesion. Joint Spaces: The prosthetic joint spaces appear preserved. No abnormal narrowing is identified. Articular Surfaces: The prosthetic articular surfaces are smooth and intact. There is no evidence of loosening or hardware-related complications. Patella: The patella is normal in position and alignment. There is no evidence of dislocation or subluxation. Soft Tissues: Mild periarticular soft tissue swelling is present. No abnormal calcifications or foreign bodies are identified. Surgical clips are noted in the anterior aspect of the knee joint. Additional Findings: There is a suggestion of minimal knee joint effusion. A fabella is present. IMPRESSION: 1. Status post total knee replacement with intact hardware. 2. Surgical clips are present anteriorly. 3. Minimal knee joint effusion is suggested. 4. Periarticular soft tissue swelling is present. 5. Otherwise, no significant interval changes. Follow-up clinical correlation is recommended if symptoms persist or worsen. Consider further imaging such as CT or MRI if there is ongoing clinical concern. Electronically signed by Marcellus Cruz 05-08-2025 05:55 AM
--- NOTE | 2025-05-08 06:42 | Ultrasound Report ---
EXAM: US venous doppler UE RT CLINICAL HISTORY: hand pain swelling, recent surgery TECHNIQUE: Grayscale ultrasound, with and without compression, and color Doppler spectral waveform analysis were performed of the deep veins of the right upper limb from the level of the jugular veins to the level of the radial and ulnar veins. COMPARISON: None. FINDINGS: The jugular, subclavian, axillary , brachial , radial and ulnar veins are compressible and opacify at color Doppler evaluation with no evidence of deep vein thrombosis. IMPRESSION: 1.Negative for deep vein thrombosis. Electronically signed by Chang Heck 05-08-2025 06:42 AM
[2025-05-08 07:23] LABS: Partial Thromboplastin Time 30 Seconds (21-31)
[2025-05-08] MEDS: MoRPHine SULFATE 4 MG/ML 1 ML CARP\\VIAL IV STA (07:23)
[2025-05-08] MEDS: HEPARIN 25000 UNIT/500 ML D5W 25,000 UNITS/500 ML BAG IV SCH (07:24)
[2025-05-08] MEDS: HEPARIN SOD (PORCINE) 1000 UNIT/ML IV ONE (07:24)
[2025-05-08] MEDS: Heparin IV Adult Wt-Based Standard w/ INITIAL Bolus Protocol IV STA (07:24)
--- NOTE | 2025-05-08 07:25 | History & Physical Report ---
Date of Service May 08, 2025 Assessment & Plan Plan #RUL PE - admit as obs with tele - risk factors: h/o prostate ca, h/o recent surgery on 04/29/25 - cont Hep gtt - check b/l LE US - pt will need outpatient follow up with Heme/Onc #HTN - cont BP meds #HLD - intolerant of zetia and statin - #Left TKA - #RA - cont home meds #Code status: History of Present Illness Chief Complaint: Right wrist pain Primary Care Provider: Alexa Kurtz MD 74 yo M with PMHx of HTN, RA, HLD (statin and zetia intolerance), CAD s/p LEXII to LAD 07/2017, prostate cancer s/p XRT (05/2013), pulmonary nodules, prediabetes, HARMEET on BiPAP, s/p left total knee replacement with Dr. Saucedo of [facility] (04/29/25) presented to [facility] ER on 05/08/25 for the evaluation of right wrist pain. In the ED, he was noted to have elevated HR (120s - 130s) prompting CTA chest and RUE US. RUE US neg for clots but CTA chest is positive for RUL PE (right upper lobar artery and segmental branches). He was seen in the ER (05/03/25- POD #4), for evaluation of left leg pain and swelling. At this time he had LLE US done and it was negative for DVT. Allergies Allergy/AdvReac Type Severity Reaction Status Date / Time icosapent ethyl Allergy Severe Arthralgia, Verified 04/23/25 13:40 [From Vascepa] swallow problem ciprofloxacin Allergy Intermediate Swelling Verified 04/23/25 13:40 pantoprazole Allergy Intermediate Swelling, Verified 04/23/25 13:40 diffuse aches/pains gabapentin AdvReac Intermediate Verified 04/23/25 13:40 levofloxacin AdvReac Intermediate Ankle Verified 04/23/25 13:40 swelling [id number] Reductase AdvReac Intermediate Myalgia Verified 04/23/25 13:40 Inhibitor Sulfa (Sulfonamide AdvReac Intermediate Diffuse Verified 04/23/25 13:40 Antibiotics) body redness sulfamethoxazole AdvReac Intermediate Diffuse Verified 04/23/25 13:40 body redness trimethoprim AdvReac Intermediate Diffuse Verified 04/23/25 13:40 body redness Home Medications Medication Instructions Recorded Confirmed Type acetaminophen 650 mg 650 mg PO Q8H PRN Pain 04/22/24 04/23/25 History tablet,extended release (Tylenol 8 Hour) amlodipine 10 mg tablet 10 mg PO QAM #90 tabs 07/27/24 04/23/25 Rx clopidogrel 75 mg tablet (Plavix) 75 mg PO QAM #90 tabs 09/09/24 04/23/25 Rx lisinopril 10 mg tablet 10 mg PO QAM #90 tabs 12/06/24 04/23/25 Rx adalimumab 40 mg/0.4 mL 40 mg subcut Q14D 01/19/25 04/23/25 History subcutaneous syringe kit (Humira(CF)) tramadol 50 mg tablet 50 mg PO DAILY PRN pain #10 tabs 02/19/25 04/23/25 Rx leflunomide 20 mg tablet 20 mg PO DAILY #90 tabs 04/08/25 04/23/25 Rx metoprolol succinate 50 mg 50 mg PO QAM #90 tabs 04/16/25 04/23/25 Rx tablet,extended release 24 hr prednisone 5 mg tablet 5 mg PO DAILY #90 tabs 05/03/25 Rx Past Med/Surg History Problem List (Updated 05/08/25 @ 06:35 by Vincent Oh M.D.) Status post knee replacement (Acute) Pain in right wrist (Acute) Tachycardia (Acute) Pulmonary embolism (Acute) Constipation (Acute) Knee pain (Acute) Hypertension controlled, stable per pt CAD (coronary artery disease) s/p stent to proximal LAD 2016 Rheumatoid arthritis Positive anti-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 Louis (10/2024) Taking prednisone 5mg daily (chronic) Restless legs syndrome Lung nodule Rheumatoid arthritis Positive anti-CCP test Follows with [facility] Taking prednisone 5mg daily (chronic) Mild basilar atelectasis of both lungs X-ray of lung, abnormal Xerostomia Rotator cuff arthropathy of right shoulder Polyarthralgia Statin myopathy (Acute) Hyperglycemia Status post insertion of drug-eluting stent into left anterior descending (LAD) artery August 21, 2017 Solitary pulmonary nodule (Chronic) monitoring, no changes Hyperlipidemia (Chronic) Generalized osteoarthritis of multiple sites (Chronic) Medical History Osteoarthritis of left knee Intractable pain Septic joint of left knee joint Left knee pain Sleep apnea 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 RSV infection Current chronic use of systemic steroids Generalized osteoarthritis HLD (hyperlipidemia) Sleep apnea Coronary artery disease Hypoxia Hypoxic respiratory failure Cough Osteoarthritis of left foot CAD (coronary artery disease) Statin intolerance History of bladder stone (~2020) Restless leg syndrome History of COVID-19 (~11/13/24) Osteoarthritis of right knee Obesity Hypertension Sepsis (06/2023) Anaplasmosis Adenocarcinoma of prostate Surgical History Hx of cardiac catheterization (2016) History of knee replacement (2023) History of tooth extraction History of colonoscopy H/O prostate biopsy S/P hernia repair (~1971) S/P cystoscopy with ureteral stent placement History of coronary artery stent placement (2016) Family History Father Myocardial infarction Stroke Brain cancer Coronary heart disease Uncle Myocardial infarction Mother Diabetes Brother Diabetes Sister Diabetes Family/Other Diabetes Denies family history of Ovarian cancer Prostate cancer Breast cancer Colorectal cancer Social History Smoking Status: Former smoker Second Hand Exposure: No; Do You Dip or Chew Tobacco: No; Hx Alcohol Use: No Hx Substance Use: No Preferred Language: [place]i Communication Ability: Effective Visual Impairment: No Limitations Hearing Ability: Normal Fish Cleaner Required: No Beliefs That Will Affect Care: None marital status: Current Living Situation: Spouse Current Living Situation Comment: Home with current occupational status: retired current occupation: [employer] Feels Safe at Home: Yes Childhood Exposure to Second-Hand Smoke: No caffeine: Yes Dental Care, Regularly: No Physical Activity Frequency: Daily Seatbelt Use: always Sunscreen Use: No Assistive Devices: Cane and CPAP Review of Systems Review of Systems: Comprehensive ROS completed and is otherwise negative. Physical Exam Physical Exam: Gen: no acute distress, lying in bed comfortable HEENT: NC/AT, MMM Lungs: nonlabored breathing, CTAB CVS: s1s2nl, RRR Abd: nl bowel sounds, soft, NT / ND : no jj Ext: no edema Neuro: AAOx3 Psych: calm cooperative Results & Data Results & Data Vital Signs (Past 12 Hours) Vital Signs Temp Pulse Resp BP Pulse Ox O2 Del Method 05/08/25 07:06 117 H 21 150/100 H 94 05/08/25 06:03 107 H 22 93 05/08/25 06:00 163/88 H 05/08/25 05:00 157/101 H 05/08/25 04:45 118 H 20 93 05/08/25 04:39 95 Room Air 05/08/25 04:30 123 H 21 127/96 91 05/08/25 04:27 122 H 05/08/25 04:09 36.7 C 130 H 18 151/75 H 93 Room Air PG Care Time/CCT Total # of Minutes Spent Total Time Spent with Patient: Total time spent is greater than 50% in coordination of care (as documented) at patient's floor/unit and/or counseling patient: Coding
[2025-05-08 08:30] LABS: Appearance Urine Clear (Clear); Glucose Urine UA Negative (Negative)
--- NOTE | 2025-05-08 09:26 | History & Physical Report ---
Date of Service May 08, 2025 Assessment & Plan (1) Acute pulmonary embolus: (2) Status post knee replacement: (3) Sleep apnea: (4) Coronary artery disease: (5) Rheumatoid arthritis: (6) Cammy rash of groin: (7) Hypertension: (8) Prediabetes: Plan 74yo male with recent outpatient left TKR by Dr Vu Saucedo ([facility], on 04/29/25), rheumatoid arthritis on Humira & daily prednisone, CAD s/p stents, RLS, HTN, HARMEET, and obesity who presents from home with a complaint of mod-severe b/l wrist pain & swelling much worse on right. He has been having b/l wrist pain & swelling for several months (this was noted by his business intelligence reporting analyst at an office visit on 03/16/25) but it has been worse in the last few days and particularly this am upon awakening. He has had mild pain in his left knee but it has been largely controlled with pain meds. Upon ER presentation today the patient was noted to have significant sinus tachycardia - marked change from his baseline. O2 sats were normal. Ojey-nbn-dijk CTA chest was obtained and this demonstrated right-sided PEs without infarction. #acute right-sided PEs - -risk factors - recent left TKR on 04/29/25, inflammatory state from rheumatoid arthritis -fortunately he is hemodynamically stable, O2 sats are wnl, and surprisingly he has no dyspnea or chest symptoms -heparin drip started in the ER -will obtain dopplers of LEs - r/o residual DVT -ideally we transition to Eliquis for home use; will check cost -in light of tachycardia will obtain echocardiogram to r/o right heart strain; however, troponin is negative, and no signs of right heart strain on CTA -place on telemetry -this was a provoked event - will need at least 3 months of anticoagulation, but consider longer course in light of the PE burden seen on CTA #left-sided TKR - 04/29/25 at [facility], Dr Saucedo - -patient doing well from orthopedic standpoint -participating in home PT -pain controlled -tae intact; imaging with intact hardware -no signs of cellulitis of his incision; no signs of joint infection -will obtain PT/OT -pain control - -tylenol 1gm TID scheduled -oxycodone 5mg prn -called his local pharmacy - he was prescribed cefadroxil 500mg BID x 10 days for prophylaxis; started such on 04/30/25; will order this #rheumatoid arthritis, followed by Dr Rex Louis - -on Humira injections, daily prednisone 5mg, and leflunomide 20mg daily -he has not had extra prednisone since his surgery -he has active synovitis of both wrists - much worse on right - causing significant pain/stiffness/dysfunction -reasonable to give a small steroid burst for a few days -will give 30mg prednisone today -20mg on 05/09 -10mg on 05/10 - then continue 10mg for several days after -then ultimately back to 5mg/day #HARMEET / restless legs syndrome - -asked his spouse to bring his home BIPAP unit in -he reports significant restless legs since his surgery; sleeping very poorly; will order small dose of mirapex 0.25mg at HS -consider Fe studies #HTN - -cont meto succ, amlodipine, and lisinopril #candidal rash of groin/buttocks - -nystatin powder TID #recent opiate-induced constipation - -miralax -colace -add senna if needed #CAD - -no recent ischemic symptoms -EKG without ST changes -cont plavix, cont meto succ -he is statin intolerant #h/o pre-diabetes - -last hemoglobin a1c 6.5% in March - actually he is sliding into the diabetic range -DM diet -glucose today at presentation very normal -would check BSGs with higher dose of prednisone updated throughout the admission process History of Present Illness Chief Complaint: b/l wrist pain, worse on right Primary Care Provider: Alexa Kurtz MD 74yo male with recent outpatient left TKR by Dr Vu Saucedo ([facility], on 04/29/25), rheumatoid arthritis on Humira & daily prednisone, CAD s/p stents, RLS, HTN, HARMEET, and obesity who presents from home with a complaint of mod-severe b/l wrist pain & swelling much worse on right. He has been having b/l wrist pain & swelling for several months (this was noted by his business intelligence reporting analyst at an office visit on 03/16/25) but it has been worse in the last few days and particularly this am upon awakening. He has had mild pain in his left knee but it has been largely controlled with pain meds. He has been receiving home PT/OT services since his left TKR. He was actually seen in our ER on 05/03/25 for bruising in the left thigh/left knee region, constipation, and left leg pain. LLE venous doppler at that time was negative. X-rays at that time showed intact hardware. He was given mag citrate for the constipation which was quite effective when he took it at home later that day. Last bowel movement was 05/07/25. With respect to DVT prophylaxis -- he resumed his plavix about 2-3 days post-op from the left TKR. He has not been taking any aspirin. He has not been on any other form of anticoagulation. Denies prior h/o DVT. During his ER assessment it was noted that he was tachycardic. This prompted the ordering of CTA chest to rule out PE. Indeed the CTA study showed right- sided PEs without infarction. Patient reports that his last dose of Humira was sometime in March. Allergies Allergy/AdvReac Type Severity Reaction Status Date / Time icosapent ethyl Allergy Severe Arthralgia, Verified 04/23/25 13:40 [From Vascepa] swallow problem ciprofloxacin Allergy Intermediate Swelling Verified 04/23/25 13:40 pantoprazole Allergy Intermediate Swelling, Verified 04/23/25 13:40 diffuse aches/pains gabapentin AdvReac Intermediate Verified 04/23/25 13:40 levofloxacin AdvReac Intermediate Ankle Verified 04/23/25 13:40 swelling Divveuj-BKE-XvC Reductase AdvReac Intermediate Myalgia Verified 04/23/25 13:40 Inhibitor Sulfa (Sulfonamide AdvReac Intermediate Diffuse Verified 04/23/25 13:40 Antibiotics) body redness sulfamethoxazole AdvReac Intermediate Diffuse Verified 04/23/25 13:40 body redness trimethoprim AdvReac Intermediate Diffuse Verified 04/23/25 13:40 body redness Home Medications Medication Instructions Recorded Confirmed Type acetaminophen 650 mg 650 mg PO Q8H PRN Pain 04/22/24 05/08/25 History tablet,extended release (Tylenol 8 Hour) amlodipine 10 mg tablet 10 mg PO QAM #90 tabs 07/27/24 05/08/25 Rx clopidogrel 75 mg tablet (Plavix) 75 mg PO QAM #90 tabs 09/09/24 05/08/25 Rx lisinopril 10 mg tablet 10 mg PO QAM #90 tabs 12/06/24 05/08/25 Rx adalimumab 40 mg/0.4 mL 0 mg subcut Q14D 01/19/25 05/08/25 History subcutaneous syringe kit (Humira(CF)) leflunomide 20 mg tablet 20 mg PO DAILY #90 tabs 04/08/25 05/08/25 Rx metoprolol succinate 50 mg 50 mg PO QAM #90 tabs 04/16/25 05/08/25 Rx tablet,extended release 24 hr prednisone 5 mg tablet 5 mg PO DAILY #90 tabs 05/03/25 05/08/25 Rx apixaban 5 mg tablet (Eliquis) 5 mg PO .BID as directed #64 tabs 05/08/25 Rx docusate sodium 0 mg PO DAILY 05/08/25 05/08/25 History Past Med/Surg History Problem List (Updated 05/08/25 @ 18:03 by Saturnino Mancuso MD) Prediabetes Cammy rash of groin Acute pulmonary embolus Status post knee replacement (Acute) Pain in right wrist (Acute) Tachycardia (Acute) Pulmonary embolism (Acute) Constipation (Acute) Knee pain (Acute) Hypertension controlled, stable per pt CAD (coronary artery disease) s/p stent to proximal LAD 2016 Rheumatoid arthritis Positive anti-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 Louis (10/2024) Taking prednisone 5mg daily (chronic) Restless legs syndrome Lung nodule Rheumatoid arthritis Positive anti-CCP test Follows with [facility] Taking prednisone 5mg daily (chronic) Mild basilar atelectasis of both lungs X-ray of lung, abnormal Xerostomia Rotator cuff arthropathy of right shoulder Polyarthralgia Statin myopathy (Acute) Hyperglycemia Status post insertion of drug-eluting stent into left anterior descending (LAD) artery August 21, 2017 Solitary pulmonary nodule (Chronic) monitoring, no changes Hyperlipidemia (Chronic) Generalized osteoarthritis of multiple sites (Chronic) Medical History Osteoarthritis of left knee Intractable pain Septic joint of left knee joint Left knee pain Sleep apnea cpap 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 RSV infection Current chronic use of systemic steroids Generalized osteoarthritis multiple sites - needs left knee replaced, having right shoulder first HLD (hyperlipidemia) Sleep apnea CPAP (compliant) Coronary artery disease s/p stent to proximal LAD 2016 Hypoxia Hypoxic respiratory failure Cough Osteoarthritis of left foot Statin intolerance History of bladder stone (~2020) Restless leg syndrome History of COVID-19 (~11/13/24) ongoing cough Osteoarthritis of right knee hx - had surgery 2022 Obesity Sepsis (06/2023) b/l knees 06/2023, "now resolved" 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 le (05/2024) History of knee replacement (2023) x2 History of tooth extraction History of colonoscopy H/O prostate biopsy S/P hernia repair (~1971) S/P cystoscopy with ureteral stent placement History of coronary artery stent placement (2016) 2016- [facility], no mi- 1 stent [facility]- no stents follows with dr. le (05/2024) Family History Father Myocardial infarction Stroke Brain cancer Coronary heart disease Uncle Myocardial infarction Mother Diabetes Brother Diabetes Sister Diabetes Family/Other Diabetes Denies family history of Ovarian cancer Prostate cancer Breast cancer Colorectal cancer Social History (Updated 05/08/25 @ 09:37 by Saturnino Mancuso MD) Smoking Status: Never smoker Second Hand Exposure: No; Do You Dip or Chew Tobacco: No; Hx Alcohol Use: No Hx Substance Use: No Preferred Language: Tanzanian Communication Ability: Effective Visual Impairment: No Limitations Hearing Ability: Normal Periodontal Assistant Required: No Beliefs That Will Affect Care: None marital status: Current Living Situation: Spouse Current Living Situation Comment: Home with current occupational status: retired current occupation: [employer] How many Children do You have: 4 Feels Safe at Home: Yes Childhood Exposure to Second-Hand Smoke: No caffeine: Yes Dental Care, Regularly: No Physical Activity Frequency: Daily Seatbelt Use: always Sunscreen Use: No Assistive Devices: Walker Review of Systems Review of Systems: gen - no fevers, no chills; normal appetite of late eyes - no ocular issues or complaints HENT - no ear pain, sore throat, or dysphagia CV - no chest pain, no pleuritic pain; +edema of LLE pulm - no dyspnea, no WILSON, no cough GI - no abd pain; had constipation several days ago - now resolved; had nausea with vomiting when he took mag citrate but no N/V since; no melena or BRBPR - voiding without difficulty; no hematuria musculo - left knee pain/swelling from recent L TKR skin - rash in buttocks region and groin - not pruritic neuro - no headache, no numbness or tingling any location endo - pre-diabetes Physical Exam Physical Exam: gen - obese, NAD, no dyspnea or respiratory distress, lying comfortably on the [facility] eyes - PERRL HENT - MMM, no lesions neck - no JVD, no lymph nodes, no goiter heart - tachycardic, s1 s2, no murmur lungs - CTA b/l, no rales or wheeze abd - soft, protuberant, BS+, ND, no HSM vascular - pulses b/l feet 2+; 2+ edema of left thigh and left [place] ros[place]/ankle/foot; <1+ edema on right musculo - left knee with clean vertical incision and tae intact; no drainage; not hot to touch; b/l wrists, worse on right - active synovitis with joint swelling and restricted active/passive ROM; MCPs, PIPs, DIPs without synovitis either hand; elbows/shoulders/right knee/ankles without synovitis skin - candidal rash buttock region; intertrigo of groin; extensive ecchymoses in the distal left thigh, particularly medial aspect; minimal erythema of left knee (pink color at most) psych - a/o x 3 neuro - strength 5/5 x 4 exts; DTRs 2+ b/l upper exts Results & Data Results & Data Vital Signs (Past 12 Hours) Vital Signs Temp Pulse Resp BP Pulse Ox O2 Del Method 05/08/25 09:00 118 H 15 171/102 H 94 05/08/25 08:28 119 H 05/08/25 08:00 122 H 18 152/92 H 92 05/08/25 07:06 117 H 21 150/100 H 94 05/08/25 06:03 107 H 22 93 05/08/25 06:00 163/88 H 05/08/25 05:00 157/101 H 05/08/25 04:45 118 H 20 93 05/08/25 04:39 95 Room Air 05/08/25 04:30 123 H 21 127/96 91 05/08/25 04:27 122 H 05/08/25 04:09 36.7 C 130 H 18 151/75 H 93 Room Air Laboratory Results Laboratory Results - last 24 hr 05/08/25 05/08/25 05/08/25 04:30 04:51 08:20 WBC 12.51 H RBC 4.25 L Hgb 11.7 L Hct 36.9 L MCV 86.8 MCH 27.5 MCHC 31.7 L RDW Std Deviation 49.2 H RDW Coeff of Debi 15.5 H Plt Count 389 MPV 7.7 L Immature Gran % (Auto) 0.6 Neut % (Auto) 56.1 Lymph % (Auto) 17.0 [place] % (Auto) 17.4 Eos % (Auto) 8.4 Baso % (Auto) 0.5 Neut # (Auto) 7.02 H Lymph # (Auto) 2.13 [place] # (Auto) 2.18 H Eos # (Auto) 1.05 H Baso # (Auto) 0.06 Immature Gran # (Auto) 0.07 PT 11.7 INR 1.1 APTT 30 PTT Ratio 1.1 Sodium 135 L Potassium 3.8 Chloride 104 Carbon Dioxide 23 Anion Gap 8 BUN 15 Creatinine 0.94 Est Cr Clr Drug Dosing 79.8 eGFR 86.13 BUN/Creatinine Ratio 16.0 Glucose 106 H Lactate 1.2 Calcium 9.0 Magnesium 1.8 Total Bilirubin 0.6 AST 14 ALT 13 Alkaline Phosphatase 56 Total Creatine Kinase 31 Troponin I High Sens 5.3 Total Protein 7.2 Albumin 3.3 L Globulin 3.9 Albumin/Globulin Ratio 0.8 L Procalcitonin 0.09 TSH 1.653 Urine Color Yellow Urine Appearance Clear Urine pH 5.0 Ur Specific [place] > 1.045 H Urine Protein Negative Urine Glucose (UA) Negative Urine Ketones Negative Urine Blood Negative Urine Nitrite Negative Urine Bilirubin Negative Urine Urobilinogen Negative Ur Leukocyte Esterase Negative Urine Comment SARS-CoV-2, RNA, NAAT NEGATIVE Diagnostic Findings Chest X-Ray 05/08/25 04:36 EXAM: XR chest 1V portable CLINICAL HISTORY: tachy TECHNIQUE: An X-ray image of the chest is obtained in AP projection. COMPARISON: 02/19/2025 CR FINDINGS: Pulmonary Parenchyma: There are bilateral lower zone airspace opacities, more prominent on the left side, with interval worsening compared to the previous study. A minimal left-sided pleural effusion or pleural thickening is present. Heart and Mediastinum: The heart is borderline enlarged and remains unchanged from the prior examination. No mediastinal widening or masses are seen. No hilar or mediastinal lymphadenopathy is identified. Bony Thorax: The bony thorax appears intact without evidence of fractures or deformities. Soft Tissues: The soft tissues overlying the chest wall are unremarkable. IMPRESSION: 1. Bilateral lower zone airspace opacities, more prominent on the left side, with interval worsening. The appearance is suggestive of an inflammatory or infectious process. Clinical correlation is advised. 2. Minimal left-sided pleural effusion or pleural thickening. 3. Borderline cardiomegaly, unchanged. Electronically signed by Marcellus Cruz 05-08-2025 05:41 AM Knee X-Ray 05/08/25 04:45 EXAM: XR knee LT 1 or 2V routine CLINICAL HISTORY: replacement TECHNIQUE: X-ray images of the left knee were obtained in anteroposterior (AP) and lateral projections. COMPARISON: 01/30/2025. FINDINGS: Bone Structure: Osteopenia is unchanged. The patient is status post total knee replacement. The prosthetic components are intact and well-aligned. There is no evidence of acute fracture, dislocation, or osseous lesion. Joint Spaces: The prosthetic joint spaces appear preserved. No abnormal narrowing is identified. Articular Surfaces: The prosthetic articular surfaces are smooth and intact. There is no evidence of loosening or hardware-related complications. Patella: The patella is normal in position and alignment. There is no evidence of dislocation or subluxation. Soft Tissues: Mild periarticular soft tissue swelling is present. No abnormal calcifications or foreign bodies are identified. Surgical clips are noted in the anterior aspect of the knee joint. Additional Findings: There is a suggestion of minimal knee joint effusion. A fabella is present. IMPRESSION: 1. Status post total knee replacement with intact hardware. 2. Surgical clips are present anteriorly. 3. Minimal knee joint effusion is suggested. 4. Periarticular soft tissue swelling is present. 5. Otherwise, no significant interval changes. Follow-up clinical correlation is recommended if symptoms persist or worsen. Consider further imaging such as CT or MRI if there is ongoing clinical concern. Electronically signed by Marcellus Cruz 05-08-2025 05:55 AM Chest CTA 05/08/25 05:10 EXAM: CT angio chest PE protocol CLINICAL HISTORY: PE, tachy, recent surgery TECHNIQUE: Contiguous axial images were obtained from the neck base through the upper abdomen following intravenous administration of iodinated contrast material. Angiographic images were processed, 3D MIP images were acquired for interpretation. If IV contrast material had not been administered, the likelihood of detecting abnormalities relevant to the patient's condition would have been substantially decreased. Coronal and sagittal 3-D MIPs were likewise performed and indicated to increase the sensitivity of detectin diffuse clinically relevant pathology. CT scan was performed according to ALARA (as low as reasonable achievable). COMPARISON: None. FINDINGS: Evidence of intraluminal hypodense filling defect is noted involving right upper lobar artery and segmental branches- suggestive of pulmonary embolism. Multiple atelectatic bands are noted involving bilateral lower lobe Diffuse ground-glass haze with subpleural atelectasis are noted involving dependent portion of both lower lobes - suggest possibility of due to insufficient inspiration. The central airways are patent. No pleural effusion. The heart, aorta, and pulmonary arteries are of normal size and configuration. There are coronary artery and aortic atherosclerotic calcifications. No pericardial effusion is identified. The thyroid is unremarkable. No mediastinal, hilar, or axillary lymphadenopathy is noted. No suspicious lytic or sclerotic osseous lesions are identified. IMPRESSION: Evidence of intraluminal hypodense filling defect is noted involving right upper lobar artery and segmental branches- suggestive of pulmonary embolism. Multiple atelectatic bands are noted involving bilateral lower lobe Diffuse ground-glass haze with subpleural atelectasis are noted involving dependent portion of both lower lobes - suggest possibility of due to insufficient inspiration Electronically signed by Chang Heck 05-08-2025 05:53 AM Hand X-Ray 05/08/25 05:10 EXAM: XR hand RT min 3V routine CLINICAL HISTORY: Pain. TECHNIQUE: X-ray images of right hand were obtained in PA, lateral, and oblique projections. COMPARISON: No prior studies available for comparison. FINDINGS: Bone Structure: Bone structure is preserved and normally aligned. No acute fracture or dislocation is identified. No destructive osseous lesions are seen. Joint Spaces: Degenerative changes are present involving the interphalangeal joints with multiple tiny projecting osteophytes. Degenerative changes are also seen in the wrist joints, predominantly involving the radiocarpal joint. Additional degenerative changes are noted at the first carpometacarpal joint. Soft Tissues: The soft tissues appear within normal limits. No significant soft tissue swelling, calcification, or foreign body is detected. Additional Findings: No lytic or sclerotic bone lesions are identified. IMPRESSION: 1. Degenerative changes of the interphalangeal joints with small osteophytes. 2. Degenerative changes of the radiocarpal and first carpometacarpal joints. 3. No acute fracture or dislocation. Disclaimer: A subtle bone abnormality or fracture may not be readily apparent on X-rays, thus clinical correlation and further imaging including follow-up CT, MRI, or follow-up X-rays are advised as needed. Electronically signed by Marcellus Cruz 05-08-2025 05:47 AM Venous Doppler Study 05/08/25 05:10 EXAM: US venous doppler UE RT CLINICAL HISTORY: hand pain swelling, recent surgery TECHNIQUE: Grayscale ultrasound, with and without compression, and color Doppler spectral waveform analysis were performed of the deep veins of the right upper limb from the level of the jugular veins to the level of the radial and ulnar veins. COMPARISON: None. FINDINGS: The jugular, subclavian, axillary , brachial , radial and ulnar veins are compressible and opacify at color Doppler evaluation with no evidence of deep vein thrombosis. IMPRESSION: 1.Negative for deep vein thrombosis. Electronically signed by Chang Heck 05-08-2025 06:42 AM ECG Additional Comments: sinus tachycardia, PACs, no ST changes Code Status & VTE Plan Code Status full code VTE Prophylaxis Plan VTE Prophylaxis will be ordered: Yes PG Care Time/CCT Total # of Minutes Spent Total Time Spent with Patient: Total time spent is greater than 50% in coordination of care (as documented) at patient's floor/unit and/or counseling patient: Coding Level of Care Code 88207 INT INP/OBS CARE 3/75MIN Diagnoses Acute pulmonary embolus I26.99 Status post knee replacement Z96.659 Sleep apnea G47.30 Coronary artery disease involving [place] coronary artery of [place] heart without angina pectoris I25.10 Associated angina: without angina Coronary Disease-Associated Artery/Lesion type: [place] artery [place] vs. transplanted heart: [place] heart Rheumatoid arthritis, involving unspecified site, unspecified whether rheumatoid factor present M06.9 Rheumatoid arthritis location: unspecified site Rheumatoid factor presence: unspecified presence Camym rash of groin B37.89 Primary hypertension I10 Hypertension type: primary hypertension Prediabetes R73.03 (4) Coronary artery disease Associated angina: without angina Coronary Disease-Associated Artery/Lesion type: [place] artery [place] vs. transplanted heart: [place] heart Qualified Code(s): I25.10 - Atherosclerotic heart disease of [place] coronary artery without angina pectoris (5) Rheumatoid arthritis Rheumatoid arthritis location: unspecified site Rheumatoid factor presence: unspecified presence Qualified Code(s): M06.9 - Rheumatoid arthritis, unspecified (7) Hypertension Hypertension type: primary hypertension Qualified Code(s): I10 - Essential (primary) hypertension
[2025-05-08] MEDS ORDERED: NITROGLYCERIN SL 0.4 MG/TAB TAB SL PRN (10:34)
[2025-05-08] MEDS ORDERED: ONDANSETRON INJ 2 MG/ML 2 ML VIAL IV PRN (10:34)
[2025-05-08] MEDS: POLYETHYLENE (MIRALAX) 17 GM PACK PO SCH (11:01)
[2025-05-08] MEDS: FAMOTIDINE 20 MG TAB PO SCH (11:01)
--- NOTE | 2025-05-08 12:25 | Ultrasound Report ---
Clinical History: Swelling Technique: Venous ultrasound evaluation was performed utilizing grayscale, color Doppler and wave form evaluation. Images were also obtained with and without compression Findings: The bilateral common femoral, superficial femoral, popliteal, and visualized calf veins demonstrate normal anechoic lumens with full compressibility. Normal flow is seen on color Doppler images. Expected waveforms were produced with augmentation maneuvers Impression: No evidence of deep venous thrombosis Electronically signed by Rufino Armstrong 05-08-2025 12:25 PM
--- NOTE | 2025-05-08 13:51 | Electrocardiogram Report ---
Test Reason : Blood Pressure : */* mmHG Vent. Rate : 124 BPM Atrial Rate : 124 BPM P-R Int : 126 ms QRS Dur : 78 ms QT Int : 294 ms P-R-T Axes : 56 53 51 degrees QTcB Int : 422 ms Sinus tachycardia with Premature atrial complexes Cannot rule out Anterior infarct , age undetermined Abnormal ECG When compared with ECG of 15-Apr-2025 09:41, Premature atrial complexes are now Present Vent. rate has increased by 44 bpm Minimal criteria for Anterior infarct are now Present Confirmed by Asael Westbrook ([id number]) on 05/08/2025 1:50:29 PM Referred By: REFERRED SELF Confirmed By: Asael Westbrook
--- NOTE | 2025-05-08 14:52 | XCELERA ---
[id number]
[2025-05-08 15:17] LABS: ANTI-Xa, UFH(UnfractionatedHep 0.34 IU/ml (0.3-0.7)
[2025-05-08] MEDS: NYSTATIN POWDER 15GM BTL EXT SCH (15:36)
[2025-05-08] MEDS: ACETAMINOPHEN 500 MG TAB PO SCH (15:36)
[2025-05-08] MEDS: METOPROLOL SUCC 25MG EXT REL TAB PO STA (18:23)
[2025-05-08 21:04] LABS: ANTI-Xa, UFH(UnfractionatedHep 0.37 IU/ml (0.3-0.7)
[2025-05-08] MEDS: PRAMIPEXOLE DIHYDROCHLO 0.25 MG TAB PO SCH (22:03)
[2025-05-08] MEDS: MELATONIN 3 MG TAB PO SCH (22:03)
[2025-05-09 05:51] LABS: Hematocrit (blood only) 35.1 % (42.0-52.0); Hemoglobin 11.0 g/dl (14.0-18.0); Mean Corpuscular Hemoglobin 27.2 pg (25.0-34.0); Mean Corpuscular Volume 86.7 fL (80.0-100.0); Platelet Count 378 K/uL (130-400); RDW Standard Deviation 48.5 fL (36.4-46.3); Red Blood Count 4.05 M/uL (4.70-6.10); White Blood Count 8.45 K/ul (4.8-10.8)
[2025-05-09 06:06] LABS: Anion Gap 8.0 (3-11); Blood Urea Nitrogen 20.0 mg/dl (6-23); Calcium 9.0 mg/dl (8.6-10.3); Carbon Dioxide 24.0 mmol/L (21-32); Chloride 104.0 mmol/L (98-107); Creatinine Clr Calc Pharmacy 85.4 ml/min; Glucose 116.0 mg/dl (70-99(Fasting)); Potassium 3.8 mmol/L (3.5-5.1); Sodium 136.0 mmol/L (136-145)
[2025-05-09 06:11] LABS: ANTI-Xa, UFH(UnfractionatedHep 0.39 IU/ml (0.3-0.7)
[2025-05-09] MEDS: DOCUSATE SODIUM 100 MG CAP PO SCH (09:52)
[2025-05-09] MEDS: LEFLUNOMIDE 10 MG TAB PO SCH (09:52)
[2025-05-09] MEDS: CLOPIDOGREL BISULFATE 75 MG TAB PO SCH (09:53)
[2025-05-09] MEDS: METOPROLOL SUCC 50MG EXT REL TAB PO SCH (09:55)
[2025-05-09 11:50] VITALS: TEMP 98.1; O2SAT 92
[2025-05-09] MEDS: APIXABAN 5 MG TABLET PO ONE (13:32)
[2025-05-09] MEDS: predniSONE 20 MG TAB PO STA (13:32)
[2025-05-09 13:40] VITALS: BP 137/80; RESP 18
[2025-05-09 15:06] VITALS: PULSE 102
--- NOTE | 2025-05-09 15:26 | Discharge Summary ---
Discharge Summary Date of Service date of admission - May 08, 2025 date of discharge - May 09, 2025 Principal Dx & Hospital Course #1 = Principal Diagnosis (1) Acute pulmonary embolus: CTA was ordered in the ER at presentation due to significant sinus tachycardia seen on monitoring. -Right sided PEs were seen on CTA chest. Patient never had hypoxia, never had dyspnea/pleuritic pain, etc. No right-sided heart strain or pulmonary infarction seen on CTA chest. Echo was wnl. Right arm venous doppler and b/l LE venous dopplers were all negative for DVT. Risk factors for VTE -- recent left TKR surgery, and chronic inflammation from his rheumatoid arthritis. While hospitalized was on heparin drip, then transitioned to Eliquis 10mg BID x 7 days, followed by 5mg BID thereafter. Will need minimum of 3 months of Rx, potentially up to 6 months. Patient's o2 sats in room air were normal the entire stay including with ambulation. (2) Status post knee replacement: Left performed on 04/29/25 - [place]ced[place] [facility] [place] knee showed intact hardware incision/tae were intact and free of any cellulitis he will continue therapy after discharge has f/u with Dr Saucedo on 05/18/25 (3) Rheumatoid arthritis: patient had presumed RA flare in both wrists at time of admission. given a prednisone burst starting on hospital day #1. by hospital day #2 his stiffness/pain/swelling was improved particularly the right wrist. he will complete a prednisone taper post-discharge then ultimately he will resume his chronic prednisone dose of 5mg daily. (4) Cammy rash of groin: nystatin powder TID x 7-10 days (5) Prediabetes: Hba1c 6.5% in March 2025. continue dietary control as previous. (6) Constipation: Continue combination of miralax +/- senna. (7) Sleep apnea: (8) Coronary artery disease: (9) Hypertension: Notes For Next Care Provider Medication Changes From Visit 1. Eliquis 10mg BID x 7 days, then 5mg BID thereafter x minimum 3 months, possibly as long as 6 months 2. Continue cefadroxil prophylaxis (likely 1-2 days) 3. Pepcid 20mg BID (for GI prophylaxis in light of chronic prednisone & now Eliquis use) 4. Nystatin powder TID x 7-10 days Admission HPI Per Admitting Provider 74yo male with recent outpatient left TKR by [place] Vu Saucedo [place]), rheumatoid arthritis on Humira & daily prednisone, CAD s/p stents, RLS, HTN, HARMEET, and obesity who presents from home with a complaint of mod-severe b/l wrist pain & swelling much worse on right. 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 He has had mild pain in his left knee but it has been largely controlled with pain meds. He has been receiving home PT/OT services since his left TKR. He was actually seen in our ER on 05/03/25 for bruising in the left thigh/left knee region, constipation, and left leg pain. LLE venous doppler at that time was negative. X-rays at that time showed intact hardware. He was given mag citrate for the constipation which was quite effective when he took it at home later that day. Last bowel movement was 05/07/25. With respect to DVT prophylaxis -- he resumed his plavix about 2-3 days post-op from the left TKR. He has not been taking any aspirin. He has not been on any other form of anticoagulation. Denies prior h/o DVT. During his ER assessment it was noted that he was tachycardic. This prompted the ordering of CTA chest to rule out PE. Indeed the CTA study showed right- sided PEs without infarction. Patient reports that his last dose of Humira was sometime in March. Discharge Exam gen - obese, NAD, no dyspnea or respiratory distress, sitting in the chair HENT - MMM neck - no JVD heart - RRR, s1 s2, no murmur lungs - CTA b/l, no rales or wheeze abd - soft, protuberant, BS+, ND, no HSM vascular - pulses b/l feet 2+; 2+ edema of left thigh and left del rosario/ankle/foot; <1+ edema on right musculo - left knee with clean vertical incision and tae intact; no drainage; not hot to touch -b/l wrists, worse on right - resolving synovitis; improved active/passive ROM; MCPs, PIPs, DIPs without synovitis either hand skin - extensive ecchymoses in the distal left thigh, particularly medial aspect; minimal pink erythema of left knee Discharge Plan Discharge Items Patient Disposition: Home - Home Health Services Reason For Visit: Wrist pain Discharge Diagnosis: 1. right-sided pulmonary embolus 2. wrist pain - likely due to flare of rheumatoid arthritis 3. recent left-sided total knee replacement 4. high blood pressure 5. constipation 6. rash in groin & buttocks - likely yeast infection Activity: Resume your previous activity Activity Comment: follow any previous instructions given by your surgeon Dr Saucedo Lifting Comment: follow any previous instructions given by your surgeon Dr Saucedo Bathing Comment: follow any previous instructions given by your surgeon Dr Saucedo Driving/Machine Use: NO DRIVING if taking narcotic pain killer medicine (oxycodone) Non-emergency contact: Primary Care Provider and Surgeon Call non-emergency contact if: you have any medication questions, your symptoms worsen, your pain is not controlled, your pain is worsening, your pain is unusual for you, you have a fever, your wound has increased redness, your wound has increased drainage and your wound pain has increased Follow-up/Referrals: Alexa Kurtz MD [Primary Care Provider] - 05/14/25 9:00 am (APPT. WITH Lauren OAKES PA-C see Dr Florez within 5-7 days ) Vu Saucedo DO [Surgeon] - 05/18/25 (see orthopedics for your post-op visit ) Diet: Carb Consistent or DM2 and Heart Healthy Addtl Attending Provider Instructions: Mr Fleming, Greg came to [facility] due to bilateral wrist pain - worse on the right. This was likely due to a flare of your rheumatoid arthritis. While being treated in the ER it was noted that your pulse (heart rate) was very fast. This can sometimes be a sign of blood clots in the lungs. A blood clot in the lung is called a "pulmonary embolus" (see handout). A CT scan of your chest was completed and indeed showed right-sided pulmonary emboli (multiple clots were seen). You were started on IV heparin to thin your blood. Doppler vein studies of both legs did not show any residual DVT blood clot. Doppler study of your right arm did not show any DVT blood clot. It is presumed, however, that the pulmonary emboli came from one of your legs as that is where most blood clots initially form. Echocardiogram (heart ultrasound) showed normal heart function. Thus, the blood clots did not impact the health of your heart. During the stay you remained stable with your blood pressures, oxygen levels, and heart rates. We walked you around the floor on day of discharge and your oxygen levels were adequate without the use of supplemental oxygen. Finally, your left knee was very stable while here. X-rays showed intact hardware. There were no signs of infection of the knee joint or the surrounding skin. The edema you have in your left leg is very common after knee replacement; you may have swelling for several more weeks. Recommendations - 1. Take Eliquis as follows; start this TONIGHT -- * take Eliquis 10mg twice daily for 7 days * take your first dose of Eliquis later tonight about 11-1130pm * for all future days make sure to space the doses about 12 hours apart (9am, 9pm; 8am, 8pm; whatever time schedule works best for you) * after 7 days you will LOWER the dose of Eliquis to 5mg twice daily; this will then be the Eliquis dose until you finish your course * you will have to take Eliquis for at least 3 months, possibly as long as 6 months * when you go to the pharmacy today be sure to give the 30-day free coupon to the pharmacist * our team will contact you this week to let you know if we have Eliquis samples to use in the future 2. To help protect your stomach from chronic use of prednisone, Eliquis, and plavix please start -- * famotidine 20mg twice daily * start this tonight at home 3. For yeast rash in groin & on buttocks -- * nystatin powder - apply liberally three times daily for about 7-10 days 4. Finish your antibiotic that Dr Saucedo prescribed for you. The antibiotic is called CEFADROXIL. Simply finish whatever is left in the bottle. 5. For constipation you can take 1 or more of the following -- all of these are [id number] -- * miralax one serving daily * senna 2 tabs daily * docusate (colace) 200mg daily 6. For your rheumatoid flare in your wrists take prednisone as follows -- start this tomorrow, 05/10/25 -- * prednisone 20mg daily x 2 days, then - * prednisone 15mg daily x 2 days, then - * prednisone 10mg daily x 2 days, then - * resume your typical prednisone dose of 5mg daily thereafter -if you continue to have problems with your wrists please call Dr Louis's office from rheumatology 7. Follow any & all instructions given by Dr Saucedo after your left knee replacement 8. As you recover from your pulmonary emboli blood clots in the lungs you may notice some mild shortness of breath with activity/walking over the next couple of weeks. This would not be unusual - the most common symptom from blood clots in the lungs is shortness of breath. If your shortness of breath worsens or becomes alarming please seek out medical attention. Follow-up - see separate section Return to [facility] if - * you have fevers over 100 degrees * you have any concerns about your left knee or the incision/tae * you have chest pains * you have worsening shortness of breath * you have bleeding from any location as listed below * any other concerns It was our pleasure to care for you! -Saturnino Mancuso, [facility] Addtl Bone Process Operator Provider Instructions: Anticoagulant (Blood Thinner) Medication Instructions: Your pulmonary embolus blood clot condition is typically treated with an anticoagulant. Anticoagulants will thin your blood to help prevent new clots. Your blood thinner is ELIQUIS. * You should take your medication exactly as directed. * Never skip a dose. * Never take a double dose. If you miss a dose, take it as soon as you remember. Call your Primary Care doctor if you experience any of the following: * Swelling or Pain in your leg * Sudden, continuous pain deep in a muscle * Pain that worsens when you are active or when you stand still for a long time * Chest Pain * Sudden Shortness of Breath * Rapid or pounding heart beat * Fainting * Dizziness * Cough with blood or bloody sputum * Sweating more than normal * Bruises * Heavy or uncontrolled bleeding * Blood in your urine, stool or vomit * Black or tarry stools * Heavy nosebleeding Caring for Your Self at Home: * Avoid sitting, standing or lying down for long periods without moving your legs and feet * When traveling by car, stop to get out and move around at least once every 3 hours * On long airplane, train or bus rides, get up and move around when possible * If you can't get up, wiggle your toes and tighten your calves to keep your blood moving Additional information: * Avoid any activity that increases your risk of bleeding (use of chainsaws & power tools, etc) * When shaving please use an electric shaver rather than a traditional straight razor (less risk of bleeding with an electric shaver) Pending Studies at Discharge: No Stand-Alone Forms: My [facility] [employer], Smoking Cessation Medications and DC Order Prescriptions: New cefadroxil 500 mg Capsule 500 mg PO BID Qty: 1 0RF Rx Instructions: finish whatever is left in the antibiotic bottle upon return home famotidine 20 mg Tablet 20 mg PO BID Qty: 60 2RF nystatin [Nystop] 100,000 unit/gram Powder 1 applic EXT TID Qty: 30 1RF Rx Instructions: apply liberally to rash in groin and rash in buttocks region 3 times daily x 7-10 days Continued lisinopril 10 mg tablet 10 mg PO QAM Qty: 90 1RF leflunomide 20 mg tablet 20 mg PO DAILY Qty: 90 0RF Rx Instructions: TAKE 1 TABLET BY MOUTH ONCE DAILY metoprolol succinate 50 mg tablet extended release 24 hr 50 mg PO QAM Qty: 90 3RF prednisone 5 mg tablet 5 mg PO DAILY Qty: 90 0RF amlodipine 10 mg tablet 10 mg PO QAM Qty: 90 3RF acetaminophen [Tylenol 8 Hour] 650 mg tablet extended release 650 mg PO Q8H PRN (Reason: Pain) Held Humira(CF) 40 mg/0.4 mL syringe kit 0 mg subcut Q14D Hold Instructions: resume when instructed by Dr Louis from rheumatology Patient Comments: per pt medication is on hold due to knee surgery. 05/15/25 Discontinued docusate sodium 0 mg PO DAILY Patient Comments: OTC unknown dose. pt takes 2 caps daily No Action oxycodone 5 mg tablet 5 mg PO BID PRN (Reason: Pain) sennosides [Vegetable Laxative] 8.6 mg tablet 8.6 mg PO DAILY PRN (Reason: Constipation) ondansetron HCl 4 mg tablet 4 mg PO Q6H PRN (Reason: Nausea And Vomiting) ropinirole 0.5 mg tablet 0.5 mg PO DAILY docusate sodium 100 mg Capsule 200 mg PO DAILY clopidogrel [Plavix] 75 mg tablet 0 mg PO QAM Patient Comments: Currently on hold while pt is taking Eliquis. 05/15/25 Eliquis 5 mg tablet 5 mg PO BID Krames/Other Patient Handouts: Apixaban Oral Tablet, Pulmonary Embolism Admission Data Admit Date/Time: 05/08/25 09:16 Attending Provider: Saturnino Mancuso Admit Provider: Saturnino Mancuso Primary Care Provider: Alexa Kurtz V. Other Providers: [facility],Home Health Other Interventions: Discharge Summary Assessment (RN) Last Done: 05/09/25 15:03 Hospital Stay Data Consultations PT Procedures Performed Echocardiogram: Diagnostic Imagining Performed Chest X-Ray 05/08/25 04:36 EXAM: XR chest 1V portable CLINICAL HISTORY: tachy TECHNIQUE: An X-ray image of the chest is obtained in AP projection. COMPARISON: 02/19/2025 CR FINDINGS: Pulmonary Parenchyma: There are bilateral lower zone airspace opacities, more prominent on the left side, with interval worsening compared to the previous study. A minimal left-sided pleural effusion or pleural thickening is present. Heart and Mediastinum: The heart is borderline enlarged and remains unchanged from the prior examination. No mediastinal widening or masses are seen. No hilar or mediastinal lymphadenopathy is identified. Bony Thorax: The bony thorax appears intact without evidence of fractures or deformities. Soft Tissues: The soft tissues overlying the chest wall are unremarkable. IMPRESSION: 1. Bilateral lower zone airspace opacities, more prominent on the left side, with interval worsening. The appearance is suggestive of an inflammatory or infectious process. Clinical correlation is advised. 2. Minimal left-sided pleural effusion or pleural thickening. 3. Borderline cardiomegaly, unchanged. Electronically signed by Marcellus Cruz 05-08-2025 05:41 AM Knee X-Ray 05/08/25 04:45 EXAM: XR knee LT 1 or 2V routine CLINICAL HISTORY: replacement TECHNIQUE: X-ray images of the left knee were obtained in anteroposterior (AP) and lateral projections. COMPARISON: 01/30/2025. FINDINGS: Bone Structure: Osteopenia is unchanged. The patient is status post total knee replacement. The prosthetic components are intact and well-aligned. There is no evidence of acute fracture, dislocation, or osseous lesion. Joint Spaces: The prosthetic joint spaces appear preserved. No abnormal narrowing is identified. Articular Surfaces: The prosthetic articular surfaces are smooth and intact. There is no evidence of loosening or hardware-related complications. Patella: The patella is normal in position and alignment. There is no evidence of dislocation or subluxation. Soft Tissues: Mild periarticular soft tissue swelling is present. No abnormal calcifications or foreign bodies are identified. Surgical clips are noted in the anterior aspect of the knee joint. Additional Findings: There is a suggestion of minimal knee joint effusion. A fabella is present. IMPRESSION: 1. Status post total knee replacement with intact hardware. 2. Surgical clips are present anteriorly. 3. Minimal knee joint effusion is suggested. 4. Periarticular soft tissue swelling is present. 5. Otherwise, no significant interval changes. Follow-up clinical correlation is recommended if symptoms persist or worsen. Consider further imaging such as CT or MRI if there is ongoing clinical concern. Electronically signed by Marcellus Cruz 05-08-2025 05:55 AM Chest CTA 05/08/25 05:10 EXAM: CT angio chest PE protocol CLINICAL HISTORY: PE, tachy, recent surgery TECHNIQUE: Contiguous axial images were obtained from the neck base through the upper abdomen following intravenous administration of iodinated contrast material. Angiographic images were processed, 3D MIP images were acquired for interpretation. If IV contrast material had not been administered, the likelihood of detecting abnormalities relevant to the patient's condition would have been substantially decreased. Coronal and sagittal 3-D MIPs were likewise performed and indicated to increase the sensitivity of detectin diffuse clinically relevant pathology. CT scan was performed according to ALARA (as low as reasonable achievable). COMPARISON: None. FINDINGS: Evidence of intraluminal hypodense filling defect is noted involving right upper lobar artery and segmental branches- suggestive of pulmonary embolism. Multiple atelectatic bands are noted involving bilateral lower lobe Diffuse ground-glass haze with subpleural atelectasis are noted involving dependent portion of both lower lobes - suggest possibility of due to insufficient inspiration. The central airways are patent. No pleural effusion. The heart, aorta, and pulmonary arteries are of normal size and configuration. There are coronary artery and aortic atherosclerotic calcifications. No pericardial effusion is identified. The thyroid is unremarkable. No mediastinal, hilar, or axillary lymphadenopathy is noted. No suspicious lytic or sclerotic osseous lesions are identified. IMPRESSION: Evidence of intraluminal hypodense filling defect is noted involving right upper lobar artery and segmental branches- suggestive of pulmonary embolism. Multiple atelectatic bands are noted involving bilateral lower lobe Diffuse ground-glass haze with subpleural atelectasis are noted involving dependent portion of both lower lobes - suggest possibility of due to insufficient inspiration Electronically signed by Chang Heck 05-08-2025 05:53 AM Hand X-Ray 05/08/25 05:10 EXAM: XR hand RT min 3V routine CLINICAL HISTORY: Pain. TECHNIQUE: X-ray images of right hand were obtained in PA, lateral, and oblique projections. COMPARISON: No prior studies available for comparison. FINDINGS: Bone Structure: Bone structure is preserved and normally aligned. No acute fracture or dislocation is identified. No destructive osseous lesions are seen. Joint Spaces: Degenerative changes are present involving the interphalangeal joints with multiple tiny projecting osteophytes. Degenerative changes are also seen in the wrist joints, predominantly involving the radiocarpal joint. Additional degenerative changes are noted at the first carpometacarpal joint. Soft Tissues: The soft tissues appear within normal limits. No significant soft tissue swelling, calcification, or foreign body is detected. Additional Findings: No lytic or sclerotic bone lesions are identified. IMPRESSION: 1. Degenerative changes of the interphalangeal joints with small osteophytes. 2. Degenerative changes of the radiocarpal and first carpometacarpal joints. 3. No acute fracture or dislocation. Disclaimer: A subtle bone abnormality or fracture may not be readily apparent on X-rays, thus clinical correlation and further imaging including follow-up CT, MRI, or follow-up X-rays are advised as needed. Electronically signed by Marcellus Cruz 05-08-2025 05:47 AM Venous Doppler Study 05/08/25 05:10 EXAM: US venous doppler UE RT CLINICAL HISTORY: hand pain swelling, recent surgery TECHNIQUE: Grayscale ultrasound, with and without compression, and color Doppler spectral waveform analysis were performed of the deep veins of the right upper limb from the level of the jugular veins to the level of the radial and ulnar veins. COMPARISON: None. FINDINGS: The jugular, subclavian, axillary , brachial , radial and ulnar veins are compressible and opacify at color Doppler evaluation with no evidence of deep vein thrombosis. IMPRESSION: 1.Negative for deep vein thrombosis. Electronically signed by Chang Heck 05-08-2025 06:42 AM Venous Doppler Study 05/08/25 09:39 Clinical History: Swelling Technique: Venous ultrasound evaluation was performed utilizing grayscale, color Doppler and wave form evaluation. Images were also obtained with and without compression Findings: The bilateral common femoral, superficial femoral, popliteal, and visualized calf veins demonstrate normal anechoic lumens with full compressibility. Normal flow is seen on color Doppler images. Expected waveforms were produced with augmentation maneuvers Impression: No evidence of deep venous thrombosis Electronically signed by Rufino Armstrong 05-08-2025 12:25 PM Pending Results Patient Have Any Pending Studies at Discharge: No Discharge Instructions Given to Patient (Per Discharging Provider) Greg Birmingham came to [facility] due to bilateral wrist pain - worse on the right. This was likely due to a flare of your rheumatoid arthritis. While being treated in the ER it was noted that your pulse (heart rate) was very fast. This can sometimes be a sign of blood clots in the lungs. A blood clot in the lung is called a "pulmonary embolus" (see handout). A CT scan of your chest was completed and indeed showed right-sided pulmonary emboli (multiple clots were seen). You were started on IV heparin to thin your blood. Doppler vein studies of both legs did not show any residual DVT blood clot. Doppler study of your right arm did not show any DVT blood clot. It is presumed, however, that the pulmonary emboli came from one of your legs as that is where most blood clots initially form. Echocardiogram (heart ultrasound) showed normal heart function. Thus, the blood clots did not impact the health of your heart. During the stay you remained stable with your blood pressures, oxygen levels, and heart rates. We walked you around the floor on day of discharge and your oxygen levels were adequate without the use of supplemental oxygen. Finally, your left knee was very stable while here. X-rays showed intact hardware. There were no signs of infection of the knee joint or the surrounding skin. The edema you have in your left leg is very common after knee replacement; you may have swelling for several more weeks. Recommendations - 1. Take Eliquis as follows; start this TONIGHT -- * take Eliquis 10mg twice daily for 7 days * take your first dose of Eliquis later tonight about 11-1130pm * for all future days make sure to space the doses about 12 hours apart (9am, 9pm; 8am, 8pm; whatever time schedule works best for you) * after 7 days you will LOWER the dose of Eliquis to 5mg twice daily; this will then be the Eliquis dose until you finish your course * you will have to take Eliquis for at least 3 months, possibly as long as 6 months * when you go to the pharmacy today be sure to give the 30-day free coupon to the pharmacist * our team will contact you this week to let you know if we have Eliquis samples to use in the future 2. To help protect your stomach from chronic use of prednisone, Eliquis, and plavix please start -- * famotidine 20mg twice daily * start this tonight at home 3. For yeast rash in groin & on buttocks -- * nystatin powder - apply liberally three times daily for about 7-10 days 4. Finish your antibiotic that Dr Saucedo prescribed for you. The antibiotic is called CEFADROXIL. Simply finish whatever is left in the bottle. 5. For constipation you can take 1 or more of the following -- all of these are [id number] -- * miralax one serving daily * senna 2 tabs daily * docusate (colace) 200mg daily 6. For your rheumatoid flare in your wrists take prednisone as follows -- start this tomorrow, 05/10/25 -- * prednisone 20mg daily x 2 days, then - * prednisone 15mg daily x 2 days, then - * prednisone 10mg daily x 2 days, then - * resume your typical prednisone dose of 5mg daily thereafter -if you continue to have problems with your wrists please call Dr Louis's office from rheumatology 7. Follow any & all instructions given by Dr Saucedo after your left knee replacement 8. As you recover from your pulmonary emboli blood clots in the lungs you may notice some mild shortness of breath with activity/walking over the next couple of weeks. This would not be unusual - the most common symptom from blood clots in the lungs is shortness of breath. If your shortness of breath worsens or becomes alarming please seek out medical attention. Follow-up - see separate section Return to [facility] if - * you have fevers over 100 degrees * you have any concerns about your left knee or the incision/tae * you have chest pains * you have worsening shortness of breath * you have bleeding from any location as listed below * any other concerns It was our pleasure to care for you! -Saturnino Mancuso, hospital medicine Total Time Total Time Spent Total Time Spent (In Minutes): 40 Coding Level of Care Code 52635 INP/OBS DISCH >30 MIN Diagnoses Acute pulmonary embolus I26.99 Status post knee replacement Z96.659 Rheumatoid arthritis, involving unspecified site, unspecified whether rheumatoid factor present M06.9 Rheumatoid arthritis location: unspecified site Rheumatoid factor presence: unspecified presence Cammy rash of groin B37.89 Prediabetes R73.03 Constipation K59.00 Sleep apnea G47.30 Coronary artery disease involving [place] coronary artery of [place] heart without angina pectoris I25.10 Associated angina: without angina Coronary Disease-Associated Artery/Lesion type: [place] artery [place] vs. transplanted heart: [place] heart Primary hypertension I10 Hypertension type: primary hypertension
== END 2025-05-09 15:43 | disposition home health service (06) | DRG 545 ==
LOC: ED 04:05 → EDINP 09:16 → INTOOBSV 09:16 → 2N 13:59

== ENCOUNTER 2025-05-17 05:13 | Observation (INO) ==
[2025-05-17 05:49] LABS: Hematocrit (blood only) 35.2 % (42.0-52.0); Hemoglobin 11.5 g/dl (14.0-18.0); Immature Granulocytes # (auto) 0.05 K/uL (0.01-0.20); Immature Granulocytes % (auto) 0.4 %; Mean Corpuscular Hemoglobin 28.2 pg (25.0-34.0); Mean Corpuscular Volume 86.3 fL (80.0-100.0); Platelet Count 447 K/uL (130-400); RDW Standard Deviation 47.0 fL (36.4-46.3); Red Blood Count 4.08 M/uL (4.70-6.10); White Blood Count 11.58 K/ul (4.8-10.8)
[2025-05-17 06:06] LABS: Alanine Aminotransferase 15.0 U/L (7-52); Albumin Globulin Ratio 0.9 (0.9-2); Alkaline Phosphatase 53.0 U/L (34-104); Anion Gap 9.0 (3-11); Bilirubin,Total 0.4 mg/dl (0.2-1.0); Blood Urea Nitrogen 17.0 mg/dl (6-23); Calcium 9.1 mg/dl (8.6-10.3); Carbon Dioxide 24.0 mmol/L (21-32); Chloride 103.0 mmol/L (98-107); Creatinine Clr Calc Pharmacy 80.7 ml/min; Globulin 3.6 gm/dl (2.5-4.0); Glucose 134.0 mg/dl (70-99(Fasting)); Lipase 45.0 U/L (11-82); Potassium 3.6 mmol/L (3.5-5.1); Sodium 136.0 mmol/L (136-145); Total Protein 7.0 gm/dl (6.0-8.3)
[2025-05-17 06:29] LABS: INR 1.1 (0.9-1.1); Prothrombin Time 11.8 Seconds (9.0-12.0)
--- NOTE | 2025-05-17 06:34 | Emergency Department Note ---
Impression & Plan TIA (transient ischemic attack) ED Provider Note Diagnosis: TIA symptoms Disposition: Admission CHIEF COMPLAINT: Off balance HPI: Patient is a 74-year-old male presenting with complaint of feeling off balance and not sleeping. Patient states that earlier this month he had left knee replacement. Patient had to come to the hospital last week for shortness of breath right-sided chest pain found to have pulmonary embolism. Patient admitted to the hospital for night and started on Eliquis. Patient then returned to the hospital 2 days prior for concern about the pulmonary embolism. Patient had a repeat CT which showed improving symptoms. Patient states he has not been sleeping well for the past 2 or 3 nights. Patient states last evening and yesterday he was feeling off balance when he tried to walk with his walker. Patient denies room spinning sensation or feeling like he is going to pass out. Patient states he felt like he was swaying from [id number]. Patient denies any muscle strength or sensory deficits currently. Patient states his symptoms have resolved just prior to getting here PAST MEDICAL HISTORY: See Below PAST SURGICAL HISTORY: See Below SOCIAL HISTORY: See Below HOME MEDICATIONS: See Below ALLERGIES: See Below VITALS: See Below PHYSICAL EXAMINATION: GENERAL: Well appearing, well nourished, NAD, non-toxic. EYE EXAM: Normal conjunctiva. OROPHARYNX: Moist mucus membranes. Grossly normal dentition. NECK: Supple, LUNGS: Clear to auscultation. Normal chest wall mechanics. HEART: NSR ABDOMEN: Abdomen soft, non-tender, normo-active bowel sounds, no masses, no rebound or guarding BACK: No CVA TTP. SKIN: No rashes and no bruising. UPPER EXTREMITIES: Upper extremities are grossly normal LOWER EXTREMITIES: Grossly normal, no edema. NEURO EXAM: A&O x3,, normal speech, 5 out of 5 muscle strength upper and lower extremities bilaterally, Intact sensation upper and lower extremities bilaterally, intact finger-nose testing PSYCH: Cooperative MEDICAL DECISION MAKING: Reviewed external documents: Hospital admission 1 week ago H&P History obtained from: Patient ER Course: Patient is a 74-year-old male recently had left knee replaced and subsequently has had pulmonary embolism since then. Patient is on Eliquis. Patient last evening was having trouble sleeping and states he was off balance when trying to walk with his walker. Patient states he was swaying from [id number] and this lasted for multiple hours time. Patient denied any trouble moving his arms or legs or trouble with speech. Patient symptoms resolved just prior to arrival in the emergency room. Patient's [id number] testing normal. Concern for patient's symptoms being signs of a posterior circulation issue and with him having clot in his lungs recently concern for this to be a TIA episode. Patient had CT scans of head and neck with and without contrast performed do not show any large vessel occlusions or dissections. Patient admitted for observation with the hospitalist service. Labs (independently interpreted) are significant for: No electrolyte abnormality Imaging results (independently interpreted): Chest x-ray clear EKG interpretation (independently interpreted): Normal sinus rhythm Medications given: Normal saline Consultants: Hospitalist Triage Nursing notes reviewed and agree them. Vital Signs: reviewed and remarkable for: no significant abnormalities Past Med/Surg History Problem List (Updated 05/17/25 @ 11:10 by Loyd Almaraz DO) TIA (transient ischemic attack) (Acute) Imbalance Shortness of breath (Acute) Prediabetes Cammy rash of groin Acute pulmonary embolus Status post knee replacement (Acute) Pain in right wrist (Acute) Tachycardia (Acute) Pulmonary embolism (Acute) Constipation (Acute) Knee pain (Acute) Hypertension controlled, stable per pt CAD (coronary artery disease) s/p stent to proximal LAD 2016 Restless legs syndrome Lung nodule Rheumatoid arthritis Positive anti-CCP test Follows with [facility] Taking prednisone 5mg daily (chronic) Mild basilar atelectasis of both lungs X-ray of lung, abnormal Xerostomia Rotator cuff arthropathy of right shoulder Polyarthralgia Statin myopathy (Acute) Hyperglycemia Status post insertion of drug-eluting stent into left anterior descending (LAD) artery August 21, 2017 Solitary pulmonary nodule (Chronic) monitoring, no changes Hyperlipidemia (Chronic) Generalized osteoarthritis of multiple sites (Chronic) Medical History Osteoarthritis of left knee Intractable pain Septic joint of left knee joint Left knee pain Sleep apnea cpap 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 RSV infection Current chronic use of systemic steroids Generalized osteoarthritis multiple sites - needs left knee replaced, having right shoulder first HLD (hyperlipidemia) Sleep apnea CPAP (compliant) Coronary artery disease s/p stent to proximal LAD 2016 Hypoxia Hypoxic respiratory failure Cough Osteoarthritis of left foot Statin intolerance History of bladder stone (~2020) Restless leg syndrome History of COVID-19 (~11/13/24) ongoing cough Osteoarthritis of right knee hx - had surgery 2022 Obesity Sepsis (06/2023) b/l knees 06/2023, "now resolved" 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, 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 Surgical History Hx of cardiac catheterization (2016) History of knee replacement (2023) History of tooth extraction History of colonoscopy H/O prostate biopsy S/P hernia repair (~1971) S/P cystoscopy with ureteral stent placement History of coronary artery stent placement (2016) Family History Father Myocardial infarction Stroke Brain cancer Coronary heart disease Uncle Myocardial infarction Mother Diabetes Brother Diabetes Sister Diabetes Family/Other Diabetes Denies family history of Ovarian cancer Prostate cancer Breast cancer Colorectal cancer Social History Smoking Status: Never smoker Second Hand Exposure: No; Do You Dip or Chew Tobacco: No; Hx Alcohol Use: No Hx Substance Use: No Preferred Language: Georgian Communication Ability: Effective Visual Impairment: No Limitations Hearing Ability: Normal Checker Loader Required: No Beliefs That Will Affect Care: None marital status: Current Living Situation: Spouse Current Living Situation Comment: Home with current occupational status: retired current occupation: [employer] How many Children do You have: 4 Feels Safe at Home: Yes Childhood Exposure to Second-Hand Smoke: No caffeine: Yes Dental Care, Regularly: No Physical Activity Frequency: Daily Seatbelt Use: always Sunscreen Use: No Assistive Devices: Walker Allergies Allergies Allergy/AdvReac Type Severity Reaction Status Date / Time icosapent ethyl Allergy Severe Arthralgia, Verified 05/17/25 08:18 [From Vascepa] swallow problem ciprofloxacin Allergy Intermediate Swelling Verified 05/17/25 08:18 pantoprazole Allergy Intermediate Swelling, Verified 05/17/25 08:18 diffuse aches/pains gabapentin AdvReac Intermediate Verified 05/17/25 08:18 levofloxacin AdvReac Intermediate Ankle Verified 05/17/25 08:18 swelling [id number] Reductase AdvReac Intermediate Myalgia Verified 05/17/25 08:18 Inhibitor Sulfa (Sulfonamide AdvReac Intermediate Diffuse Verified 05/17/25 08:18 Antibiotics) body redness sulfamethoxazole AdvReac Intermediate Diffuse Verified 05/17/25 08:18 body redness trimethoprim AdvReac Intermediate Diffuse Verified 05/17/25 08:18 body redness Home Meds Home Medications Medication Instructions Recorded Confirmed acetaminophen 650 mg 650 mg PO Q8H PRN Pain 04/22/24 05/17/25 tablet,extended release (Tylenol 8 Hour) adalimumab 40 mg/0.4 mL 0 mg subcut Q14D 01/19/25 05/17/25 subcutaneous syringe kit (Humira(CF)) oxycodone 5 mg tablet 5 mg PO BID PRN Pain 05/13/25 05/17/25 sennosides 8.6 mg tablet 8.6 mg PO DAILY PRN Constipation 05/13/25 05/17/25 (Vegetable Laxative) apixaban 5 mg tablet (Eliquis) 5 mg PO BID 05/15/25 05/17/25 clopidogrel 75 mg tablet (Plavix) 0 mg PO QAM 05/15/25 05/17/25 docusate sodium 100 mg capsule 200 mg PO DAILY 05/15/25 05/17/25 ondansetron HCl 4 mg tablet 4 mg PO Q6H PRN Nausea And Vomiting 05/15/25 05/17/25 ropinirole 0.5 mg tablet 0.5 mg PO DAILY 05/15/25 05/17/25 Previous Rx's Medication Instructions Recorded amlodipine 10 mg tablet 10 mg PO QAM #90 tabs 07/27/24 lisinopril 10 mg tablet 10 mg PO QAM #90 tabs 12/06/24 leflunomide 20 mg tablet 20 mg PO DAILY #90 tabs 04/08/25 metoprolol succinate 50 mg 50 mg PO QAM #90 tabs 04/16/25 tablet,extended release 24 hr prednisone 5 mg tablet 5 mg PO DAILY #90 tabs 05/03/25 cefadroxil 500 mg capsule 500 mg PO BID #1 cap 05/09/25 famotidine 20 mg tablet 20 mg PO BID #60 tabs 05/09/25 nystatin 100,000 unit/gram topical 1 applic EXT TID #30 grams 05/09/25 powder (Nystop) Results & Data (ED) Vital Signs Vital Signs - 24 hr 05/17/25 05:18 05/17/25 05:25 05/17/25 05:31 Temperature 36.9 C Temperature Source Temporal Artery Scan Pulse Rate 104 H 104 H Pulse Rate [Right Finger] Pulse Rate from SpO2 Sensor Respiratory Rate 18 Respiratory Effort / Characteristics Non-Labored Spontaneous Respiratory Depth Normal Respiratory Pattern Regular Blood Pressure 120/76 Blood Pressure [Right Arm] Blood Pressure Mean 90 Blood Pressure Mean [Right Arm] Blood Pressure Position [Right Arm] Pulse Oximetry 93 93 Oxygen Delivery Method Room Air Room Air Sepsis Recent Fever Within 48 Hours No Sepsis New/Unexplained Change in Mental Status N/A Sepsis Action Taken by Nursing No Action Required 05/17/25 05:37 05/17/25 06:00 05/17/25 06:36 Temperature Temperature Source Pulse Rate 99 H 87 82 Pulse Rate [Right Finger] Pulse Rate from SpO2 Sensor 83 Respiratory Rate 20 20 22 Respiratory Effort / Characteristics Respiratory Depth Respiratory Pattern Blood Pressure 134/83 133/73 136/77 Blood Pressure [Right Arm] Blood Pressure Mean 98 89 96 Blood Pressure Mean [Right Arm] Blood Pressure Position [Right Arm] Pulse Oximetry 94 95 95 Oxygen Delivery Method Room Air Room Air Room Air Sepsis Recent Fever Within 48 Hours Sepsis New/Unexplained Change in Mental Status Sepsis Action Taken by Nursing 05/17/25 09:43 Temperature Temperature Source Pulse Rate Pulse Rate [Right Finger] 92 H Pulse Rate from SpO2 Sensor Respiratory Rate 16 Respiratory Effort / Characteristics Respiratory Depth Respiratory Pattern Blood Pressure Blood Pressure [Right Arm] 138/93 Blood Pressure Mean Blood Pressure Mean [Right Arm] 108 Blood Pressure Position [Right Arm] Lying Pulse Oximetry 95 Oxygen Delivery Method Room Air Sepsis Recent Fever Within 48 Hours Sepsis New/Unexplained Change in Mental Status Sepsis Action Taken by Nursing Laboratory Data 05/17/25 05:35 05/17/25 05:35 Lab Results 05/17/25 05/17/25 Range/Units 05:35 05:36 WBC 11.58 H (4.8-10.8) K/ul RBC 4.08 L (4.70-6.10) M/uL Hgb 11.5 L (14.0-18.0) g/dl Hct 35.2 L (42.0-52.0) % MCV 86.3 (80.0-100.0) fL MCH 28.2 (25.0-34.0) pg MCHC 32.7 (32.0-36.0) g/dL RDW Std Deviation 47.0 H (36.4-46.3) fL RDW Coeff of Debi 15.0 H (11.5-14.5) % Plt Count 447 H (130-400) K/uL MPV 7.8 L (9.4-12.4) fL Immature Gran % (Auto) 0.4 % Neut % (Auto) 57.4 % Lymph % (Auto) 17.4 % [place] % (Auto) 16.5 % Eos % (Auto) 7.6 % Baso % (Auto) 0.7 % Neut # (Auto) 6.65 H (1.40-6.50) K/uL Lymph # (Auto) 2.01 (1.20-3.40) K/uL [place] # (Auto) 1.91 H (0.11-0.59) K/uL Eos # (Auto) 0.88 H (0.00-0.50) K/uL Baso # (Auto) 0.08 (0.00-0.20) K/uL Immature Gran # (Auto) 0.05 (0.01-0.20) K/uL PT 11.8 (9.0-12.0) Seconds INR 1.1 (0.9-1.1) Sodium 136 (136-145) mmol/L Potassium 3.6 (3.5-5.1) mmol/L Chloride 103 (98-107) mmol/L Carbon Dioxide 24 (21-32) mmol/L Anion Gap 9 (3-11) BUN 17 (6-23) mg/dl Creatinine 0.93 (0.6-1.4) mg/dl Est Cr Clr Drug Dosing 80.7 ml/min eGFR 87.24 BUN/Creatinine Ratio 18.3 (10-20) Glucose 134 H (70-99(Fasting)) mg/dl POC Glucose 158 H (70-99) mg/dl Calcium 9.1 (8.6-10.3) mg/dl Total Bilirubin 0.4 (0.2-1.0) mg/dl AST 12 L (13-39) U/L ALT 15 (7-52) U/L Alkaline Phosphatase 53 (34-104) U/L Troponin I High Sens 5.3 (0-20) pg/ml Total Protein 7.0 (6.0-8.3) gm/dl Albumin 3.4 (3.4-5.0) gm/dl Globulin 3.6 (2.5-4.0) gm/dl Albumin/Globulin Ratio 0.9 (0.9-2) Lipase 45 (11-82) U/L Administered Medications Discontinued Medications Ioversol (Optiray 320 125ml) 112 ml IV ONCE ONE Stop: 05/17/25 07:03 Last Admin: 05/17/25 07:03 Dose: 112 ml Documented By: CELIA Imaging Data Radiologist's Impression: Chest X-Ray 05/17/25 05:19 EXAM: XR chest 1V portable CLINICAL HISTORY: Chest pain, nonspecific TECHNIQUE: An X-ray image of the chest was obtained in the AP projection. COMPARISON: 05/15/2025 CT chest. FINDINGS: Pulmonary Parenchyma: There is bilateral lower zone haziness and atelectatic bands, stable compared to the previous study. The left CP angle is obscured, likely due to pleural thickening vs. effusion. Heart and Mediastinum: The heart is mildly enlarged and remains unchanged from the prior examination. No mediastinal widening or masses are seen. No hilar or mediastinal lymphadenopathy is identified. Bony Thorax: Spondylotic changes are noted in the thoracic spine. The bony thorax appears intact without evidence of fractures or deformities. Soft Tissues: The soft tissues overlying the chest wall are unremarkable. IMPRESSION: 1. Stable bilateral lower zone haziness and atelectatic bands. 2. The left CP angle is obscured, likely due to pleural thickening vs. effusion. 3. Mild cardiomegaly, unchanged. Electronically signed by Marcellus Cruz 05-17-2025 07:36 AM Head CTA 05/17/25 06:19 EXAM: CT angio head wo/w CLINICAL HISTORY: dizziness, off balance, TIA sx TECHNIQUE: Contrast enhanced thin slice CT angiography scan of the cerebral vessels was performed without and with intravenous contrast. Angiographic images were processed, 3D MIP images were acquired for interpretation. Contiguous axial images were obtained. Reformatted coronal and sagittal images were also reviewed. If IV contrast material had not been administered, the likelihood of detecting abnormalities relevant to the patients condition would have been substantially decreased. CT scan was performed according to ALARA (as low as reasonable achievable). COMPARISON: none. FINDINGS: Atherosclerotic calcifications are noted involving cavernous, clinoid and supraclinoid segment of bilateral internal carotid arteries without significant stenosis. Bilateral internal carotid arteries show normal course, calibre and opacification in the canalicular and cavernous part. Their division into the anterior cerebral artery and middle cerebral artery is defined. A1, A2 and M1, M2 segments are normal on both the sides. Bilateral vertebral arteries are seen to unite the form the basilar artery in a normal fashion. Basilar artery shows normal course, caliber and opacification. Its division into the posterior cerebral arteries is defined. Bilateral P1 and P2 segments are normal. Visualized venous structures show normal opacification. No evidence of intracranial aneurysm or AV malformation is seen. IMPRESSION: No evidence of stenosis or aneurysm. No evidence of dissection. Atherosclerotic calcifications are noted involving cavernous, clinoid and supraclinoid segment of bilateral internal carotid arteries without significant stenosis. Electronically signed by Chang Heck 05-17-2025 08:04 AM Neck CTA 05/17/25 06:19 EXAM: CT angio neck with con CLINICAL HISTORY: off balance, dizziness, TIA sx TECHNIQUE: Contrast enhanced thin slice CT angiography scan of the carotid vessels was performed with intravenous contrast. Angiographic images were processed, 3D MIP images were acquired for interpretation.Contiguous axial images were obtained. Reformatted coronal and sagittal images were also reviewed. If IV contrast material had not been administered, the likelihood of detecting abnormalities relevant to the patients condition would have been substantially decreased. CT scan was performed according to ALARA (as low as reasonable achievable). COMPARISON: None. FINDINGS: Atherosclerotic calcifications are noted involving bilateral carotid bulb and arch of aorta without significant stenosis. Included great vessels of the aortic arch are grossly unremarkable. Common origin of right common carotid artery and right subclavian artery from arch of aorta- bovine arch. Common carotid artery, carotid Bulb, internal carotid artery , and origin of the external carotid artery are well opacified. Vertebral arteries are well opacified. Left vertebral artery is hypoplastic. Jugular veins are well opacified. Included lung apices are grossly unremarkable. Thyroid gland appears unremarkable. IMPRESSION: No evidence of hemodynamically significant stenosis or aneurysm. No evidence of dissection. Atherosclerotic calcifications are noted involving bilateral carotid bulb and arch of aorta without significant stenosis. Electronically signed by Chang Heck 05-17-2025 08:08 AM Discharge Plan Visit Data Chief Complaint: TIA Symptoms Stated Complaint: OFF BALANCE, CHEST PAIN ED Provider: Loyd Almaraz Discharge Problem: TIA (transient ischemic attack) Patient Disposition: Admitted As Inpatient Condition: Fair Discharge Instructions Interventions: ED Discharge Assessment Last Done: 05/17/25 10:52 Prescriptions Prescriptions: No Action lisinopril 10 mg tablet 10 mg PO QAM Qty: 90 1RF leflunomide 20 mg tablet 20 mg PO DAILY Qty: 90 0RF Rx Instructions: TAKE 1 TABLET BY MOUTH ONCE DAILY metoprolol succinate 50 mg tablet extended release 24 hr 50 mg PO QAM Qty: 90 3RF prednisone 5 mg tablet 5 mg PO DAILY Qty: 90 0RF Humira(CF) 40 mg/0.4 mL syringe kit 0 mg subcut Q14D Hold Instructions: resume when instructed by Dr Louis from rheumatology Patient Comments: per pt medication is on hold due to knee surgery. 05/17/25 amlodipine 10 mg tablet 10 mg PO QAM Qty: 90 3RF acetaminophen [Tylenol 8 Hour] 650 mg tablet extended release 650 mg PO Q8H PRN (Reason: Pain) oxycodone 5 mg tablet 5 mg PO BID PRN (Reason: Pain) sennosides [Vegetable Laxative] 8.6 mg tablet 8.6 mg PO DAILY PRN (Reason: Constipation) cefadroxil 500 mg Capsule 500 mg PO BID Qty: 1 0RF Rx Instructions: finish whatever is left in the antibiotic bottle upon return home famotidine 20 mg Tablet 20 mg PO BID Qty: 60 2RF nystatin [Nystop] 100,000 unit/gram Powder 1 applic EXT TID Qty: 30 1RF Rx Instructions: apply liberally to rash in groin and rash in buttocks region 3 times daily x 7-10 days ondansetron HCl 4 mg tablet 4 mg PO Q6H PRN (Reason: Nausea And Vomiting) ropinirole 0.5 mg tablet 0.5 mg PO DAILY docusate sodium 100 mg Capsule 200 mg PO DAILY clopidogrel [Plavix] 75 mg tablet 0 mg PO QAM Patient Comments: Currently on hold while pt is taking Eliquis. 05/17/25 Eliquis 5 mg tablet 5 mg PO BID
[2025-05-17] MEDS: OPTIRAY 320 125ml IV ONE (07:03)
--- NOTE | 2025-05-17 07:36 | XRay Report ---
EXAM: XR chest 1V portable CLINICAL HISTORY: Chest pain, nonspecific TECHNIQUE: An X-ray image of the chest was obtained in the AP projection. COMPARISON: 05/15/2025 CT chest. FINDINGS: Pulmonary Parenchyma: There is bilateral lower zone haziness and atelectatic bands, stable compared to the previous study. The left CP angle is obscured, likely due to pleural thickening vs. effusion. Heart and Mediastinum: The heart is mildly enlarged and remains unchanged from the prior examination. No mediastinal widening or masses are seen. No hilar or mediastinal lymphadenopathy is identified. Bony Thorax: Spondylotic changes are noted in the thoracic spine. The bony thorax appears intact without evidence of fractures or deformities. Soft Tissues: The soft tissues overlying the chest wall are unremarkable. IMPRESSION: 1. Stable bilateral lower zone haziness and atelectatic bands. 2. The left CP angle is obscured, likely due to pleural thickening vs. effusion. 3. Mild cardiomegaly, unchanged. Electronically signed by Marcellus Cruz 05-17-2025 07:36 AM
--- NOTE | 2025-05-17 08:05 | CT Scan Report ---
EXAM: CT angio head wo/w CLINICAL HISTORY: dizziness, off balance, TIA sx TECHNIQUE: Contrast enhanced thin slice CT angiography scan of the cerebral vessels was performed without and with intravenous contrast. Angiographic images were processed, 3D MIP images were acquired for interpretation. Contiguous axial images were obtained. Reformatted coronal and sagittal images were also reviewed. If IV contrast material had not been administered, the likelihood of detecting abnormalities relevant to the patients condition would have been substantially decreased. CT scan was performed according to ALARA (as low as reasonable achievable). COMPARISON: none. FINDINGS: Atherosclerotic calcifications are noted involving cavernous, clinoid and supraclinoid segment of bilateral internal carotid arteries without significant stenosis. Bilateral internal carotid arteries show normal course, calibre and opacification in the canalicular and cavernous part. Their division into the anterior cerebral artery and middle cerebral artery is defined. A1, A2 and M1, M2 segments are normal on both the sides. Bilateral vertebral arteries are seen to unite the form the basilar artery in a normal fashion. Basilar artery shows normal course, caliber and opacification. Its division into the posterior cerebral arteries is defined. Bilateral P1 and P2 segments are normal. Visualized venous structures show normal opacification. No evidence of intracranial aneurysm or AV malformation is seen. IMPRESSION: No evidence of stenosis or aneurysm. No evidence of dissection. Atherosclerotic calcifications are noted involving cavernous, clinoid and supraclinoid segment of bilateral internal carotid arteries without significant stenosis. Electronically signed by Chang Heck 05-17-2025 08:04 AM
--- NOTE | 2025-05-17 08:08 | CT Scan Report ---
EXAM: CT angio neck with con CLINICAL HISTORY: off balance, dizziness, TIA sx TECHNIQUE: Contrast enhanced thin slice CT angiography scan of the carotid vessels was performed with intravenous contrast. Angiographic images were processed, 3D MIP images were acquired for interpretation.Contiguous axial images were obtained. Reformatted coronal and sagittal images were also reviewed. If IV contrast material had not been administered, the likelihood of detecting abnormalities relevant to the patients condition would have been substantially decreased. CT scan was performed according to ALARA (as low as reasonable achievable). COMPARISON: None. FINDINGS: Atherosclerotic calcifications are noted involving bilateral carotid bulb and arch of aorta without significant stenosis. Included great vessels of the aortic arch are grossly unremarkable. Common origin of right common carotid artery and right subclavian artery from arch of aorta- bovine arch. Common carotid artery, carotid Bulb, internal carotid artery , and origin of the external carotid artery are well opacified. Vertebral arteries are well opacified. Left vertebral artery is hypoplastic. Jugular veins are well opacified. Included lung apices are grossly unremarkable. Thyroid gland appears unremarkable. IMPRESSION: No evidence of hemodynamically significant stenosis or aneurysm. No evidence of dissection. Atherosclerotic calcifications are noted involving bilateral carotid bulb and arch of aorta without significant stenosis. Electronically signed by Chang Heck 05-17-2025 08:08 AM
--- NOTE | 2025-05-17 10:09 | History & Physical Report ---
Date of Service May 17, 2025 Assessment & Plan (1) Imbalance: (2) Pulmonary embolism: Plan 74 male RA hypertension CAD prediabetes RLS hyperlipidemia OA Status post recent knee replacement and subsequently hospitalization for PE being treated with Eliquis who presents with complaint of imbalance and insomnia. Has not been sleeping well over the past few days and Has been feeling imbalanced when ambulating with his walker, swaying from [id number], for the past day. Imbalance unclear etiology rule out CVA (low suspicion), Posterior vertebral insufficiency CVA protocol orders Telemetry Permissive hypertension X 24 hours Fall precautions CTA head and neck unrevealing TFTs B12 folate MRI brain A1c lipid panel PT History of PE Eliquis History of CAD Continue home medications Including beta-janet and antiplatelets Hypertension Home medications once completed permissive hypertension DVT prophylaxis Full code Disposition admission for observation History of Present Illness Chief Complaint: imbalance Primary Care Provider: Alexa Kurtz MD 74 male RA hypertension CAD prediabetes RLS hyperlipidemia OA Status post recent knee replacement and subsequently hospitalization for PE being treated with Eliquis who presents with complaint of imbalance and insomnia. Has not been sleeping well over the past few days and Has been feeling imbalanced when ambulating with his walker, swaying from [id number], for the past day. No lightheadedness vertigo headache vision change numbness tingling weakness or other neurological symptoms. No chest pain shortness of breath. No fevers or chills. No recent URI symptoms or illness. No bdominal pain diarrhea symptoms or any other symptoms. In good spirits conversive and humorous. at bedside. Allergies Allergy/AdvReac Type Severity Reaction Status Date / Time icosapent ethyl Allergy Severe Arthralgia, Verified 05/17/25 08:18 [From Vascepa] swallow problem ciprofloxacin Allergy Intermediate Swelling Verified 05/17/25 08:18 pantoprazole Allergy Intermediate Swelling, Verified 05/17/25 08:18 diffuse aches/pains gabapentin AdvReac Intermediate Verified 05/17/25 08:18 levofloxacin AdvReac Intermediate Ankle Verified 05/17/25 08:18 swelling [id number] Reductase AdvReac Intermediate Myalgia Verified 05/17/25 08:18 Inhibitor Sulfa (Sulfonamide AdvReac Intermediate Diffuse Verified 05/17/25 08:18 Antibiotics) body redness sulfamethoxazole AdvReac Intermediate Diffuse Verified 05/17/25 08:18 body redness trimethoprim AdvReac Intermediate Diffuse Verified 05/17/25 08:18 body redness Home Medications Medication Instructions Recorded Confirmed Type acetaminophen 650 mg 650 mg PO Q8H PRN Pain 04/22/24 05/17/25 History tablet,extended release (Tylenol 8 Hour) amlodipine 10 mg tablet 10 mg PO QAM #90 tabs 07/27/24 05/17/25 Rx lisinopril 10 mg tablet 10 mg PO QAM #90 tabs 12/06/24 05/17/25 Rx adalimumab 40 mg/0.4 mL 0 mg subcut Q14D 01/19/25 05/17/25 History subcutaneous syringe kit (Humira(CF)) leflunomide 20 mg tablet 20 mg PO DAILY #90 tabs 04/08/25 05/17/25 Rx metoprolol succinate 50 mg 50 mg PO QAM #90 tabs 04/16/25 05/17/25 Rx tablet,extended release 24 hr prednisone 5 mg tablet 5 mg PO DAILY #90 tabs 05/03/25 05/17/25 Rx cefadroxil 500 mg capsule 500 mg PO BID #1 cap 05/09/25 05/17/25 Rx famotidine 20 mg tablet 20 mg PO BID #60 tabs 05/09/25 05/17/25 Rx nystatin 100,000 unit/gram topical 1 applic EXT TID #30 grams 05/09/25 05/17/25 Rx powder (Nystop) oxycodone 5 mg tablet 5 mg PO BID PRN Pain 05/13/25 05/17/25 History sennosides 8.6 mg tablet 8.6 mg PO DAILY PRN Constipation 05/13/25 05/17/25 History (Vegetable Laxative) apixaban 5 mg tablet (Eliquis) 5 mg PO BID 05/15/25 05/17/25 History clopidogrel 75 mg tablet (Plavix) 0 mg PO QAM 05/15/25 05/17/25 History docusate sodium 100 mg capsule 200 mg PO DAILY 05/15/25 05/17/25 History ondansetron HCl 4 mg tablet 4 mg PO Q6H PRN Nausea And Vomiting 05/15/25 05/17/25 History ropinirole 0.5 mg tablet 0.5 mg PO DAILY 05/15/25 05/17/25 History Past Med/Surg History Problem List (Updated 05/17/25 @ 10:24 by Rosa Hoff MD) Imbalance Shortness of breath (Acute) Prediabetes Cammy rash of groin Acute pulmonary embolus Status post knee replacement (Acute) Pain in right wrist (Acute) Tachycardia (Acute) Pulmonary embolism (Acute) Constipation (Acute) Knee pain (Acute) Hypertension controlled, stable per pt CAD (coronary artery disease) s/p stent to proximal LAD 2016 Restless legs syndrome Lung nodule Rheumatoid arthritis Positive anti-CCP test Follows with [facility] Taking prednisone 5mg daily (chronic) Mild basilar atelectasis of both lungs X-ray of lung, abnormal Xerostomia Rotator cuff arthropathy of right shoulder Polyarthralgia Statin myopathy (Acute) Hyperglycemia Status post insertion of drug-eluting stent into left anterior descending (LAD) artery August 21, 2017 Solitary pulmonary nodule (Chronic) monitoring, no changes Hyperlipidemia (Chronic) Generalized osteoarthritis of multiple sites (Chronic) Medical History Osteoarthritis of left knee Intractable pain Septic joint of left knee joint Left knee pain Sleep apnea cpap 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 RSV infection Current chronic use of systemic steroids Generalized osteoarthritis multiple sites - needs left knee replaced, having right shoulder first HLD (hyperlipidemia) Sleep apnea CPAP (compliant) Coronary artery disease s/p stent to proximal LAD 2016 Hypoxia Hypoxic respiratory failure Cough Osteoarthritis of left foot Statin intolerance History of bladder stone (~2020) Restless leg syndrome History of COVID-19 (~11/13/24) ongoing cough Osteoarthritis of right knee hx - had surgery 2022 Obesity Sepsis (06/2023) b/l knees 06/2023, "now resolved" 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, 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 Surgical History Hx of cardiac catheterization (2016) History of knee replacement (2023) History of tooth extraction History of colonoscopy H/O prostate biopsy S/P hernia repair (~1971) S/P cystoscopy with ureteral stent placement History of coronary artery stent placement (2016) Family History Father Myocardial infarction Stroke Brain cancer Coronary heart disease Uncle Myocardial infarction Mother Diabetes Brother Diabetes Sister Diabetes Family/Other Diabetes Denies family history of Ovarian cancer Prostate cancer Breast cancer Colorectal cancer Social History Smoking Status: Never smoker Second Hand Exposure: No; Do You Dip or Chew Tobacco: No; Hx Alcohol Use: No Hx Substance Use: No Preferred Language: Mohawk Communication Ability: Effective Visual Impairment: No Limitations Hearing Ability: Normal Sexual Health Physician Required: No Beliefs That Will Affect Care: None marital status: Current Living Situation: Spouse Current Living Situation Comment: Home with current occupational status: retired current occupation: [employer] How many Children do You have: 4 Feels Safe at Home: Yes Childhood Exposure to Second-Hand Smoke: No caffeine: Yes Dental Care, Regularly: No Physical Activity Frequency: Daily Seatbelt Use: always Sunscreen Use: No Assistive Devices: Walker Results & Data Results & Data Vital Signs (Past 12 Hours) Vital Signs Temp Pulse Pulse Resp BP BP Pulse Ox 05/17/25 09:43 92 H 16 138/93 95 05/17/25 06:36 82 22 136/77 95 05/17/25 06:00 87 20 133/73 95 05/17/25 05:37 99 H 20 134/83 94 05/17/25 05:31 93 05/17/25 05:25 104 H 05/17/25 05:18 36.9 C 104 H 18 120/76 93 O2 Del Method 05/17/25 09:43 Room Air 05/17/25 06:36 Room Air 05/17/25 06:00 Room Air 05/17/25 05:37 Room Air 05/17/25 05:31 Room Air 05/17/25 05:25 05/17/25 05:18 Room Air Laboratory Results Abnormal Labs 05/17/25 05/17/25 05:35 05:36 WBC 11.58 H RBC 4.08 L Hgb 11.5 L Hct 35.2 L RDW Std Deviation 47.0 H RDW Coeff of Debi 15.0 H Plt Count 447 H MPV 7.8 L Neut # (Auto) 6.65 H [place] # (Auto) 1.91 H Eos # (Auto) 0.88 H Glucose 134 H POC Glucose 158 H AST 12 L Diagnostic Findings Chest X-Ray 05/17/25 05:19 EXAM: XR chest 1V portable CLINICAL HISTORY: Chest pain, nonspecific TECHNIQUE: An X-ray image of the chest was obtained in the AP projection. COMPARISON: 05/15/2025 CT chest. FINDINGS: Pulmonary Parenchyma: There is bilateral lower zone haziness and atelectatic bands, stable compared to the previous study. The left CP angle is obscured, likely due to pleural thickening vs. effusion. Heart and Mediastinum: The heart is mildly enlarged and remains unchanged from the prior examination. No mediastinal widening or masses are seen. No hilar or mediastinal lymphadenopathy is identified. Bony Thorax: Spondylotic changes are noted in the thoracic spine. The bony thorax appears intact without evidence of fractures or deformities. Soft Tissues: The soft tissues overlying the chest wall are unremarkable. IMPRESSION: 1. Stable bilateral lower zone haziness and atelectatic bands. 2. The left CP angle is obscured, likely due to pleural thickening vs. effusion. 3. Mild cardiomegaly, unchanged. Electronically signed by Marcellus Cruz 05-17-2025 07:36 AM Head CTA 05/17/25 06:19 EXAM: CT angio head wo/w CLINICAL HISTORY: dizziness, off balance, TIA sx TECHNIQUE: Contrast enhanced thin slice CT angiography scan of the cerebral vessels was performed without and with intravenous contrast. Angiographic images were processed, 3D MIP images were acquired for interpretation. Contiguous axial images were obtained. Reformatted coronal and sagittal images were also reviewed. If IV contrast material had not been administered, the likelihood of detecting abnormalities relevant to the patients condition would have been substantially decreased. CT scan was performed according to ALARA (as low as reasonable achievable). COMPARISON: none. FINDINGS: Atherosclerotic calcifications are noted involving cavernous, clinoid and supraclinoid segment of bilateral internal carotid arteries without significant stenosis. Bilateral internal carotid arteries show normal course, calibre and opacification in the canalicular and cavernous part. Their division into the anterior cerebral artery and middle cerebral artery is defined. A1, A2 and M1, M2 segments are normal on both the sides. Bilateral vertebral arteries are seen to unite the form the basilar artery in a normal fashion. Basilar artery shows normal course, caliber and opacification. Its division into the posterior cerebral arteries is defined. Bilateral P1 and P2 segments are normal. Visualized venous structures show normal opacification. No evidence of intracranial aneurysm or AV malformation is seen. IMPRESSION: No evidence of stenosis or aneurysm. No evidence of dissection. Atherosclerotic calcifications are noted involving cavernous, clinoid and supraclinoid segment of bilateral internal carotid arteries without significant stenosis. Electronically signed by Chang Heck 05-17-2025 08:04 AM Neck CTA 05/17/25 06:19 EXAM: CT angio neck with con CLINICAL HISTORY: off balance, dizziness, TIA sx TECHNIQUE: Contrast enhanced thin slice CT angiography scan of the carotid vessels was performed with intravenous contrast. Angiographic images were processed, 3D MIP images were acquired for interpretation.Contiguous axial images were obtained. Reformatted coronal and sagittal images were also reviewed. If IV contrast material had not been administered, the likelihood of detecting abnormalities relevant to the patients condition would have been substantially decreased. CT scan was performed according to ALARA (as low as reasonable achievable). COMPARISON: None. FINDINGS: Atherosclerotic calcifications are noted involving bilateral carotid bulb and arch of aorta without significant stenosis. Included great vessels of the aortic arch are grossly unremarkable. Common origin of right common carotid artery and right subclavian artery from arch of aorta- bovine arch. Common carotid artery, carotid Bulb, internal carotid artery , and origin of the external carotid artery are well opacified. Vertebral arteries are well opacified. Left vertebral artery is hypoplastic. Jugular veins are well opacified. Included lung apices are grossly unremarkable. Thyroid gland appears unremarkable. IMPRESSION: No evidence of hemodynamically significant stenosis or aneurysm. No evidence of dissection. Atherosclerotic calcifications are noted involving bilateral carotid bulb and arch of aorta without significant stenosis. Electronically signed by Chang Heck 05-17-2025 08:08 AM PG Care Time/CCT Total # of Minutes Spent Total Time Spent with Patient: Total time spent is greater than 50% in coordination of care (as documented) at patient's floor/unit and/or counseling patient: Coding Level of Care Code 77965 INT INP/OBS CARE 2/55MIN Diagnoses Imbalance R26.89 Pulmonary embolism I26.99 Chronicity: acute Pulmonary embolism type: unspecified (2) Pulmonary embolism Chronicity: acute Pulmonary embolism type: unspecified
[2025-05-17] MEDS ORDERED: POLYETHYLENE (MIRALAX) 17 GM PACK PO PRN (11:12)
[2025-05-17] MEDS ORDERED: SENNA 8.6 MG TAB PO PRN (11:12)
[2025-05-17] MEDS ORDERED: ONDANSETRON INJ 2 MG/ML 2 ML VIAL IV PRN (11:12)
[2025-05-17] MEDS ORDERED: MAGNESIUM HYDROXIDE SUSP 30 ML UDC PO PRN (11:12)
[2025-05-17] MEDS ORDERED: ONDANSETRON 4 MG OD TAB PO PRN (11:22)
[2025-05-17 11:31] LABS: Magnesium 2.1 mg/dl (1.7-2.4)
--- NOTE | 2025-05-17 11:34 | Magnetic Resonance Report ---
MRI OF THE BRAIN WITHOUT IV CONTRAST CLINICAL HISTORY: Lightheaded. COMPARISON STUDY: Head CT and CTA of the head performed earlier today. TECHNIQUE: MRI of the brain was performed utilizing various T1 and T2-weighted sequences in the axial , sagittal, and coronal planes. IV contrast was not administered for this examination. FINDINGS: Brain parenchyma: There are no foci of restricted diffusion to suggest acute infarct. No acute intrac ranial hemorrhage, midline shift or mass effect is present. No intracranial masses are identified on unenhanced exam. Periventricular white matter T2 hyperintense foci suggest mild small vessel disease. Ventricles, sulci, and cisterns: There is no hydrocephalus. Cavum septum pellucidum is incidentally n oted. The basal cisterns are patent. There are no extra-axial collections. Pituitary and sella: Unremarkable. Intracranial vasculature: Flow-voids for the major intracranial vessels are present. Orbits: Orbital contents are unremarkable. Sinuses and mastoids: Clear. Calvarium: No calvarial lesions are identified. Cervical cord: Partially visualized cervical spinal cord is normal in morphology and signal intensity . IMPRESSION: No acute intracranial findings. ACT 112: Negative or not required by law. Electronically signed by: Howie Chan M.D. 05/17/2025 11:32 AM
[2025-05-17 11:47] LABS: INR 1.1 (0.9-1.1); Partial Thromboplastin Time 29 Seconds (21-31); Prothrombin Time 11.8 Seconds (9.0-12.0)
[2025-05-17 11:53] LABS: Hematocrit (blood only) 37.7 % (42.0-52.0); Hemoglobin 11.9 g/dl (14.0-18.0); Mean Corpuscular Hemoglobin 27.5 pg (25.0-34.0); Mean Corpuscular Volume 87.1 fL (80.0-100.0); Platelet Count 444 K/uL (130-400); RDW Standard Deviation 48.2 fL (36.4-46.3); Red Blood Count 4.33 M/uL (4.70-6.10); White Blood Count 9.35 K/ul (4.8-10.8)
[2025-05-17 12:11] LABS: Alanine Aminotransferase 14.0 U/L (7-52); Albumin Globulin Ratio 0.9 (0.9-2); Alkaline Phosphatase 58.0 U/L (34-104); Anion Gap 7.0 (3-11); Bilirubin,Total 0.5 mg/dl (0.2-1.0); Blood Urea Nitrogen 14.0 mg/dl (6-23); Calcium 9.5 mg/dl (8.6-10.3); Carbon Dioxide 27.0 mmol/L (21-32); Chloride 103.0 mmol/L (98-107); Creatinine Clr Calc Pharmacy 87.4 ml/min; Globulin 4.0 gm/dl (2.5-4.0); Glucose 92.0 mg/dl (70-99(Fasting)); Potassium 4.0 mmol/L (3.5-5.1); Sodium 137.0 mmol/L (136-145); Total Protein 7.5 gm/dl (6.0-8.3)
[2025-05-17 12:25] LABS: Thyroid Stimulating Hormone 1.778 uIu/ml (0.300-4.500)
[2025-05-17 12:36] LABS: Folate (Folic Acid),Ser orPlas 12.09 ng/ml (>5.38)
[2025-05-17 12:37] LABS: Vitamin B12 279.0 pg/ml (180-914)
[2025-05-17 12:46] LABS: Appearance Urine Clear (Clear); Glucose Urine UA Negative (Negative)
[2025-05-17] MEDS: NYSTATIN POWDER 15GM BTL EXT SCH (13:25)
[2025-05-17] MEDS: ACETAMINOPHEN 325 MG TAB PO PRN (16:52)
[2025-05-17] MEDS: APIXABAN 5 MG TABLET PO SCH (20:35)
[2025-05-17] MEDS: FAMOTIDINE 20 MG TAB PO SCH (20:35)
[2025-05-18 05:12] LABS: Hematocrit (blood only) 36.9 % (42.0-52.0); Hemoglobin 12.1 g/dl (14.0-18.0); Mean Corpuscular Hemoglobin 27.9 pg (25.0-34.0); Mean Corpuscular Volume 85.0 fL (80.0-100.0); Platelet Count 458 K/uL (130-400); RDW Standard Deviation 46.1 fL (36.4-46.3); Red Blood Count 4.34 M/uL (4.70-6.10); White Blood Count 11.37 K/ul (4.8-10.8)
[2025-05-18 05:27] LABS: Alanine Aminotransferase 12.0 U/L (7-52); Albumin Globulin Ratio 0.9 (0.9-2); Alkaline Phosphatase 56.0 U/L (34-104); Anion Gap 8.0 (3-11); Bilirubin,Total 0.6 mg/dl (0.2-1.0); Blood Urea Nitrogen 14.0 mg/dl (6-23); Calcium 9.4 mg/dl (8.6-10.3); Carbon Dioxide 23.0 mmol/L (21-32); Chloride 103.0 mmol/L (98-107); Creatinine Clr Calc Pharmacy 75.8 ml/min; Globulin 4.0 gm/dl (2.5-4.0); Glucose 99.0 mg/dl (70-99(Fasting)); Potassium 3.9 mmol/L (3.5-5.1); Sodium 134.0 mmol/L (136-145); Total Protein 7.4 gm/dl (6.0-8.3)
[2025-05-18] MEDS: METOPROLOL SUCC 50MG EXT REL TAB PO SCH (08:22)
[2025-05-18] MEDS: LEFLUNOMIDE 10 MG TAB PO SCH (08:23)
[2025-05-18] MEDS: DOCUSATE SODIUM 100 MG CAP PO SCH (08:25)
[2025-05-18 10:18] LABS: Magnesium 1.9 mg/dl (1.7-2.4)
[2025-05-18 10:51] VITALS: PULSE 93; RESP 22; TEMP 97.7; O2SAT 90
--- NOTE | 2025-05-18 11:30 | Hospitalist Progress Note ---
Date of Service May 18, 2025 Assessment & Plan Admission and Anticipated Discharge Date Admission Date: May 17, 2025 Results & Data Results & Data Vital Signs (Past 12 Hours) Vital Signs Temp Pulse Pulse Resp BP BP Pulse Ox 05/18/25 10:50 36.5 C 93 H 22 134/76 90 05/18/25 09:18 05/18/25 08:03 121 H 05/18/25 07:38 36.8 C 120 H 16 136/92 94 05/18/25 04:01 36.8 C 118 H 18 137/74 94 05/18/25 00:00 108 H O2 Del Method 05/18/25 10:50 Room Air 05/18/25 09:18 Room Air 05/18/25 08:03 05/18/25 07:38 Room Air 05/18/25 04:01 Room Air 05/18/25 00:00 PG Care Time/CCT Total # of Minutes Spent Total Time Spent with Patient: Total time spent is greater than 50% in coordination of care (as documented) at patient's floor/unit and/or counseling patient: Coding
--- NOTE | 2025-05-18 11:40 | Discharge Summary ---
Discharge Summary Date of Service May 18, 2025 Doing very well very eager to go home. Noted to be walking around in the room with his walker. at bedside. We went over all aspects of his care extensively they are very appreciative. Elevated heart rate has improved. Patient and tell me tempering kiln tender Dr. Lloyd has told him recently that heart rate has remained elevated considering his recent PE. Recommended they follow- up closely with their doctors in this regard. We discussed importance close follow-up and strict return precautions.He is asymptomatic in this regard no lightheadedness chest pain shortness of breath nausea diaphoresis arm pain or any other symptoms. He tells me he feels back at baseline is in good spirits and wants to go home. EKG and troponins negative. No Events or issues reported by nursing staff Principal Dx & Hospital Course #1 = Principal Diagnosis (1) Imbalance: (2) Pulmonary embolism: Plan 74 male RA hypertension CAD prediabetes RLS hyperlipidemia OA Status post recent knee replacement and subsequently hospitalization for PE being treated with Eliquis who presents with complaint of imbalance and insomnia. Has not been sleeping well over the past few days and Has been feeling imbalanced when ambulating with his walker, swaying from [id number], for the past day. Imbalance unclear etiology rule out CVA (low suspicion), Posterior vertebral insufficiency CVA protocol orders Telemetry Permissive hypertension X 24 hours Fall precautions CTA head and neck unrevealing TFTs B12 folate wnl MRI brain Negative PT cleared Sinus tachycardia Reportedly has had this since the diagnosis. Close follow-up with PCP/tempering kiln tender and low threshold to return if becomes symptomatic ekg/tni's unrevealing History of PE Eliquis History of CAD Continue home medications Including beta-janet and antiplatelets Hypertension Home medications DVT prophylaxis Full code Disposition [facility] with Admission HPI Per Admitting Provider 74 male RA hypertension CAD prediabetes RLS hyperlipidemia OA Status post recent knee replacement and subsequently hospitalization for PE being treated with Eliquis who presents with complaint of imbalance and insomnia. Has not been sleeping well over the past few days and Has been feeling imbalanced when ambulating with his walker, swaying from [id number], for the past day. No lightheadedness vertigo headache vision change numbness tingling weakness or other neurological symptoms. No chest pain shortness of breath. No fevers or chills. No recent URI symptoms or illness. No bdominal pain diarrhea symptoms or any other symptoms. In good spirits conversive and humorous. at bedside. Discharge Plan Discharge Items Patient Disposition: Home - Home Health Services Reason For Visit: IMBALANCE Discharge Diagnosis: Imbalance Condition on Discharge: Fair Activity: Per Instructions section Activity Comment: Maintain all fall precautions and use walker as per therapist. Continue fo Non-emergency contact: Primary Care Provider and Car Repairer [place] Call non-emergency contact if: you have any medication questions, your symptoms worsen and your pain is not controlled Follow-up/Referrals: Alexa Kurtz MD [Primary Care Provider] - Diet: Carb Consistent or DM2, Heart Healthy and Low Fat Addtl Attending Provider Instructions: Follow-up with your primary care doctor in a few days. Follow-up with your doctor again in a few days regarding your elevated heart rate. You may benefit from outpatient repeat echocardiogram.. Be careful and use your walker as instructed by your doctor. If you feel like you are imbalanced again come right back to the hospital. Pending Studies at Discharge: No Stand-Alone Forms: My [facility] [employer], Smoking Cessation Medications and DC Order Prescriptions: New hydroxyzine HCl 25 mg Tablet 25 mg PO Q8 PRN (Reason: anxiety) Qty: 30 0RF Continued lisinopril 10 mg tablet 10 mg PO QAM Qty: 90 1RF leflunomide 20 mg tablet 20 mg PO DAILY Qty: 90 0RF Rx Instructions: TAKE 1 TABLET BY MOUTH ONCE DAILY metoprolol succinate 50 mg tablet extended release 24 hr 50 mg PO QAM Qty: 90 3RF prednisone 5 mg tablet 5 mg PO DAILY Qty: 90 0RF Humira(CF) 40 mg/0.4 mL syringe kit 0 mg subcut Q14D Hold Instructions: resume when instructed by Dr Louis from rheumatology Patient Comments: per pt medication is on hold due to knee surgery. 05/17/ amlodipine 10 mg tablet 10 mg PO QAM Qty: 90 3RF acetaminophen [Tylenol 8 Hour] 650 mg tablet extended release 650 mg PO Q8H PRN (Reason: Pain) oxycodone 5 mg tablet 5 mg PO BID PRN (Reason: Pain) sennosides [Vegetable Laxative] 8.6 mg tablet 8.6 mg PO DAILY PRN (Reason: Constipation) cefadroxil 500 mg Capsule 500 mg PO BID Qty: 1 0RF Rx Instructions: finish whatever is left in the antibiotic bottle upon return home famotidine 20 mg Tablet 20 mg PO BID Qty: 60 2RF nystatin [Nystop] 100,000 unit/gram Powder 1 applic EXT TID Qty: 30 1RF Rx Instructions: apply liberally to rash in groin and rash in buttocks region 3 times daily x 7-10 days ondansetron HCl 4 mg tablet 4 mg PO Q6H PRN (Reason: Nausea And Vomiting) ropinirole 0.5 mg tablet 0.5 mg PO DAILY docusate sodium 100 mg Capsule 200 mg PO DAILY Eliquis 5 mg tablet 5 mg PO BID Held clopidogrel [Plavix] 75 mg tablet 0 mg PO QAM Hold Instructions: Resume on 05/28/25. CALL YOUR HEART DOCTOR AND PRIMARY DOCTOR TO SEE IF YOU STILL NEED THIS MEDICATION Patient Comments: Currently on hold while pt is taking Eliquis. 05/17/25 Admission Data Admit Date/Time: 05/17/25 10:23 Attending Provider: Rosa Hoff Admit Provider: Rosa Hoff Primary Care Provider: Alexa Kurtz V. Other Providers: Rosa Hoff Hospital Stay Data Consultations 05/17/25 09:27 ED Decision to Admit Stat Diagnostic Imagining Performed 05/17/25 06:19 CT angio head wo/w Stat CT angio neck with con Stat 05/17/25 10:07 MRI Brain [MR brain wo con] Stat Pending Results Patient Have Any Pending Studies at Discharge: No Discharge Instructions Given to Patient (Per Discharging Provider) Follow-up with your primary care doctor in a few days. Follow-up with your doctor again in a few days regarding your elevated heart rate. You may benefit from outpatient repeat echocardiogram.. Be careful and use your walker as instructed by your doctor. If you feel like you are imbalanced again come right back to the hospital. Total Time Total Time Spent Total Time Spent (In Minutes): 35 Coding Level of Care Code 43702 INP/OBS DISCH >30 MIN Diagnoses Imbalance R26.89 Pulmonary embolism I26.99 Chronicity: acute Pulmonary embolism type: unspecified
[2025-05-18 11:52] VITALS: BP 136/92
--- NOTE | 2025-05-18 16:43 | XCELERA ---
[id number] [id number]
--- NOTE | 2025-05-20 05:34 | Electrocardiogram Report ---
Test Reason : Blood Pressure : */* mmHG Vent. Rate : 96 BPM Atrial Rate : 96 BPM P-R Int : 142 ms QRS Dur : 84 ms QT Int : 338 ms P-R-T Axes : -18 -10 -21 degrees QTcB Int : 427 ms Normal sinus rhythm Inferior infarct (cited on or before 15-May-2025) Cannot rule out Anterior infarct , age undetermined Abnormal ECG When compared with ECG of 15-May-2025 05:44, No significant change was found Confirmed by Dustin Vazquez ([id number]) on 05/20/2025 5:33:40 AM Referred By: Confirmed By: Dustin Vazquez
== END 2025-05-18 13:38 | disposition home health service (06) ==
LOC: SUATTDRO → 4W 05:13 → ED 05:13